=== PATIENT | male | born 1960 | race African-American/Black ===

== ENCOUNTER → 2016-05-12 | Outpatient (CLI) | payer OTHER, MEDICAID ==
[~2016-05-12] MED LIST: ALIS300T OR; APIX5TAB PO; ATOR10TA52 PO; CARI250T8 PO; CLON0.5T3; CLOP75TA28 PO; GABA300C8 PO; HYDR-2533; KEPPRA PO; LEVA1NEB5 IN; NIFEDIPINE 60 MG PO; PANT1INJ3 PO; PHE100C PO; VALS320T13; VALS320T15 PO; ZOLP10TA6
[2016-05-12 13:40] VITALS: BP 185/94
[2016-05-12 14:05] VITALS: BP 166/96
== END | disposition home or self-care (01) ==
LOC: CHF HDHVI 13:36
PROVIDERS: ATTEND Internal Medicine Cardiovascular Disease
DX: I71.9 Aortic aneurysm of unspecified site, without rupture (principal); I11.0 Hypertensive heart disease with heart failure; I50.9 Heart failure, unspecified
CPT/HCPCS: 96374; G0463; J1642

== ENCOUNTER 2016-05-24 21:29 | Emergency (ER) | payer OTHER, MEDICAID ==
[~2016-05-24] VITALS: Ht 180.3 cm; Wt 145.1 kg
[2016-05-24] MEDS ORDERED: MORPHINE SULFATE 4 MG/ML SYRG IV ONE (22:15)
[2016-05-24] MEDS ORDERED: ONDANSETRON HCL 4 MG/2 ML VIAL IV ONE (22:15)
[2016-05-24 22:31] LABS: Basophils # (auto) 0 uL; Basophils % (auto) 0.4 % (0.0-2.0); Eosinophils # (auto) 0 uL; Eosinophils % (auto) 0.8 % (0.0-7.0); Hematocrit 41.2 % (41.0-53.0); Hemoglobin 13.3 g/dL (13.5-17.5); Lymphocytes # (auto) 1.5 uL; Lymphocytes % (auto) 26.1 % (10.0-50.0); Mean Corpuscular Hemoglobin 28.5 pg (28.0-32.0); Mean Corpuscular Hgb Conc. 32.3 g/dL (32.0-36.0); Mean Corpuscular Volume 87.9 fL (80.0-100.0); Mean Platelet Volume 7.8 fL (7.4-10.4); Monocytes # (auto) 0.8 uL; Monocytes % (auto) 13.1 % (0.0-12.0); Neutrophils # (auto) 3.5 uL; Neutrophils % (auto) 59.6 % (37.0-80.0); Platelet Count (auto) 263 10^3/uL (140-450); Red Cell Distribution Width 15.9 % (11.6-16.0); White Blood Cell 5.9 10^3/uL (4.4-10.8)
[2016-05-24] MEDS ORDERED: NITROGLYCERIN 2% OINT 1GM PKG TD ONE (22:45)
[2016-05-24] MEDS ORDERED: HYDROmorphone HCL 2 MG/ML VL IV ONE (22:45)
[2016-05-24 23:00] LABS: Albumin 3.5 g/dL (3.4-5.0); Bilirubin, Total 0.3 mg/dL (0.2-1.0); Calcium 8.4 mg/dL (8.5-10.1); Potassium 3.4 mmol/L (3.5-5.1); Total Protein 7.2 g/dL (6.4-8.2)
[2016-05-24 23:03] LABS: B-Type Natriuretic Peptide 48.7 pg/mL (0-100)
[2016-05-24 23:11] LABS: Temperature: 21.6 C (20.0-25.0)
[2016-05-25 03:00] VITALS: BP 157/91
== END 2016-05-25 04:32 | disposition other institution (70) ==
LOC: EDBD 21:29 → ER 21:42
DX: I24.9 Acute ischemic heart disease, unspecified (principal); I11.0 Hypertensive heart disease with heart failure; K21.9 Gastro-esophageal reflux disease without esophagitis; E78.5 Hyperlipidemia, unspecified; M19.90 Unspecified osteoarthritis, unspecified site; I25.2 Old myocardial infarction; E66.01 Morbid (severe) obesity due to excess calories; Z86.73 Personal history of transient ischemic attack (TIA), and cerebral infarction without residual deficits; Z79.899 Other long term (current) drug therapy; Z88.0 Allergy status to penicillin; Z68.42 Body mass index [BMI] 45.0-49.9, adult; Z88.8 Allergy status to other drugs, medicaments and biological substances; F17.210 Nicotine dependence, cigarettes, uncomplicated; F12.10 Cannabis abuse, uncomplicated
CPT/HCPCS: 36415; 71010; 80053; 82962; 83880; 84484; 85025; 85049; 85379; 93005; 94660; 94761; 96374; 96375; 99285; J1170; J2270; J2405

== ENCOUNTER 2016-05-27 11:41 | Inpatient (IN) | payer OTHER, MEDICAID ==
[~2016-05-27] VITALS: Ht 182.9 cm; Wt 142.7 kg
[~2016-05-27 11:41] MED LIST changes: +LEVETIRACETAM 500 MG TAB PO SCH
[2016-05-27] MEDS ORDERED: SODIUM CHLORIDE 0.9% 1,000 ML IV ONE (12:19)
[2016-05-27] MEDS ORDERED: MIDAZOLAM HCL 1MG/1ML-2 ML VIAL ONE (12:51)
[2016-05-27] MEDS ORDERED: MIDAZOLAM HCL 1MG/1ML-2 ML VIAL IV ONE (13:00)
[2016-05-27] MEDS ORDERED: LEVETIRACETAM INJ 1,000 MG in SODIUM CHL 0.9% 100 ML IV ONE (13:00)
[2016-05-27 13:10] LABS: Hemoglobin 14.5 g/dL (13.5-17.5); Mean Corpuscular Hemoglobin 28.5 pg (28.0-32.0); Mean Corpuscular Hgb Conc. 32.2 g/dL (32.0-36.0); Mean Corpuscular Volume 88.5 fL (80.0-100.0); Mean Platelet Volume 8.2 fL (7.4-10.4); Platelet Count (auto) 215 10^3/uL (140-450); Red Cell Distribution Width 14.8 % (11.6-16.0); SUSPECT VIEW TRANSMISSION; White Blood Cell 5.1 10^3/uL (4.4-10.8)
[2016-05-27 13:12] LABS: Albumin 3.5 g/dL (3.4-5.0); Calcium 8.3 mg/dL (8.5-10.1); Potassium 3.6 mmol/L (3.5-5.1)
[2016-05-27 13:14] LABS: Metamyelocytes % 0; Myelocytes % 0; Promyelocytes % 0; Reactive Lymphocytes 0
[2016-05-27 13:15] LABS: INR 1.06 (0.9-1.15); Partial Thromboplastin Time 29.9 sec (22.64-33.71); Prothrombin Time 10.9 sec (9.37-12.3)
[2016-05-27 13:17] LABS: Bilirubin, Total 0.4 mg/dL (0.2-1.0); Total Protein 7.4 g/dL (6.4-8.2)
[2016-05-27 13:18] LABS: B-Type Natriuretic Peptide 32.37 pg/mL (0-100)
[2016-05-27 13:31] LABS: Temperature: 21.5 C (20.0-25.0)
[2016-05-27 13:34] LABS: Platelet Estimate Adequate; RBC Morphology Normal
[2016-05-27] MEDS ORDERED: PHENYTOIN IV DILANTIN 1,000 MG in SODIUM CHL 0.9% 250 ML IV ONE (14:45)
[2016-05-27] MEDS ORDERED: SODIUM CHLORIDE 0.9% 1,000 ML IV SCH (14:50)
[2016-05-27 15:00] LABS: Urine RBC None Seen /hpf (0 - 3)
[2016-05-27] MEDS ORDERED: LACTULOSE 20Gm/30ML SOLN PO PRN (15:00)
[2016-05-27] MEDS ORDERED: NITROGLYCERIN 0.4 MG SL TAB SL PRN (15:00)
[2016-05-27] MEDS ORDERED: PROMETHAZINE HCL 25 MG/ML 1ML IV PRN (15:00)
[2016-05-27] MEDS ORDERED: MIDAZOLAM HCL 1MG/1ML-2 ML VIAL IV PRN (15:00)
[2016-05-27] MEDS ORDERED: ALBUTEROL SULF 2.5 MG/0.5ML(0.5%) NEB SOLN NEB PRN (15:00)
[2016-05-27] MEDS ORDERED: MORPHINE SULF INJ 2 MG/ML SYRINGE 1ML IV PRN ×2 (15:00)
[2016-05-27] MEDS ORDERED: HYDROcodone-ACET 5/325MG TAB PO PRN (15:00)
[2016-05-27] MEDS ORDERED: ACETAMINOPHEN 500 MG TAB PO PRN (15:00)
[2016-05-27] MEDS ORDERED: ZOLPIDEM TARTRATE 5 MG TAB PO PRN (15:00)
[2016-05-27] MEDS ORDERED: CARISOPRODOL 350 MG PO PRN (15:00)
[2016-05-27 15:18] LABS: Urine Bilirubin Negative (Negative); Urine Blood Negative /uL (Negative); Urine Color Yellow (Yellow); Urine Glucose Normal (Normal); Urine Ketone TRACE (Negative); Urine Mucus FEW (None Seen); Urine Nitrite Negative (Negative); Urine Squamous Epithelial Cell FEW /hpf (<5)
[2016-05-27] MEDS ORDERED: LEVALBUTEROL HCL 1.25 MG/3 ML NEB NEB PRN (15:30)
[2016-05-27] MEDS ORDERED: CARISOPRODOL 350 MG TAB PO PRN (15:30)
[2016-05-27] MEDS ORDERED: VALSARTAN 80 MG TAB PO ONE (15:45)
[2016-05-27] MEDS ORDERED: NITROGLYCERIN 0.2MG/HR TOPICAL PATCH TD ONE (15:45)
[2016-05-27] MEDS ORDERED: APIXABAN 5 MG TAB PO ONE (15:45)
[2016-05-27] MEDS ORDERED: GABAPENTIN 300 MG CAP PO ONE (15:45)
[2016-05-27] MEDS ORDERED: ASPirin 81 mg TAB PO ONE (15:45)
[2016-05-27] MEDS: NIFEdipine ER 30 MG TAB PO SCH (16:48)
[2016-05-27 20:40] VITALS: BP 102/44
[2016-05-27 20:45] VITALS: BP 116/49
[2016-05-27] MEDS: PHENYTOIN SODIUM 100 MG CAP PO SCH (21:58)
[2016-05-27] MEDS: GABAPENTIN 300 MG CAP PO SCH (21:58)
[2016-05-27] MEDS: APIXABAN 5 MG TAB PO SCH (21:58)
[2016-05-27 22:00] VITALS: BP 107/77
[2016-05-27] MEDS ORDERED: PHENYTOIN SODIUM 100 MG CAP PO SCH ×2 (22:00)
[2016-05-27] MEDS ORDERED: LEVALBUTEROL HCL 1.25 MG/3 ML NEB NEB SCH (22:00)
[2016-05-27] MEDS ORDERED: ATORVASTATIN 20 MG TAB PO SCH (22:00)
[2016-05-27] MEDS ORDERED: PATIENTS OWN MEDICATION (Atorvastatin Calcium 10 MG) PO SCH ×2 (22:00)
[2016-05-27] MEDS ORDERED: LEVALBUTEROL HYDROCHLORIDE IN SCH (22:00)
[2016-05-27] MEDS ORDERED: KEPPRA 1000 MG PO SCH (22:00)
[2016-05-27] MEDS: IPRATROPIUM BROM 0.5 MG/2.5ML INH SOL NEB SCH (22:24)
[2016-05-28 02:50] VITALS: BP 107/77
[2016-05-28 05:00] VITALS: BP 115/71
[2016-05-28] MEDS: PHENYTOIN SODIUM 100 MG CAP PO SCH (05:59)
[2016-05-28] MEDS: GABAPENTIN 300 MG CAP PO SCH (05:59)
[2016-05-28 07:02] LABS: B-Type Natriuretic Peptide 21.69 pg/mL (0-100)
[2016-05-28] MEDS: IPRATROPIUM BROM 0.5 MG/2.5ML INH SOL NEB SCH (07:31)
[2016-05-28 07:55] VITALS: BP 118/72
[2016-05-28 08:05] VITALS: BP 125/66
[2016-05-28 09:48] VITALS: BP 159/71
[2016-05-28] MEDS: NIFEdipine ER 30 MG TAB PO SCH (09:58)
[2016-05-28] MEDS: APIXABAN 5 MG TAB PO SCH (09:59)
[2016-05-28] MEDS ORDERED: ENOXAPARIN SOD 40 MG/0.4 ML SYRINGE SC SCH (10:00)
[2016-05-28] MEDS ORDERED: ASPirin 81 mg TAB PO SCH (10:00)
[2016-05-28] MEDS ORDERED: NIFEDIPINE PO SCH (10:00)
[2016-05-28] MEDS ORDERED: [UNRECOGNIZED DRUG - OTHER] PO SCH (10:00)
[2016-05-28] MEDS ORDERED: NITROGLYCERIN 0.2MG/HR TOPICAL PATCH TD SCH (10:00)
[2016-05-28] MEDS ORDERED: clonazePAM 0.5 MG TAB PO SCH (10:00)
[2016-05-28] MEDS ORDERED: CITALOPRAM HYDROBR 20 MG TAB PO SCH (10:00)
[2016-05-28] MEDS ORDERED: VALSARTAN 80 MG TAB PO SCH (10:00)
[2016-05-28] MEDS ORDERED: VALSARTAN 320 MG PO SCH (10:00)
[2016-05-28] MEDS ORDERED: CLOPIDOGREL BISULFATE 75 MG TAB PO SCH (10:00)
[2016-05-28] MEDS ORDERED: [UNRECOGNIZED DRUG - OTHER] OR SCH (10:00)
== END 2016-05-28 12:10 | disposition home or self-care (01) | DRG 101 ==
LOC: EDBD 11:41 → ER 11:51 → TELE 11:52 → TELE-WESTW 17:56
PROVIDERS: ADMIT Internal Medicine; ATTEND Internal Medicine
PROC: 5A09357 Assistance with Respiratory Ventilation, Less than 24 Consecutive Hours, Continuous Positive Airway Pressure (ICD-10-PCS; principal; 2016-05-27)
DX: G40.909 Epilepsy, unspecified, not intractable, without status epilepticus (principal); Z68.41 Body mass index [BMI] 40.0-44.9, adult; I13.0 Hypertensive heart and chronic kidney disease with heart failure and stage 1 through stage 4 chronic kidney disease, or unspecified chronic kidney disease; J44.9 Chronic obstructive pulmonary disease, unspecified; G47.33 Obstructive sleep apnea (adult) (pediatric); N18.2 Chronic kidney disease, stage 2 (mild); E78.5 Hyperlipidemia, unspecified; F17.210 Nicotine dependence, cigarettes, uncomplicated; F40.240 Claustrophobia; G47.00 Insomnia, unspecified; E66.01 Morbid (severe) obesity due to excess calories; I25.10 Atherosclerotic heart disease of native coronary artery without angina pectoris; I50.9 Heart failure, unspecified; K21.9 Gastro-esophageal reflux disease without esophagitis; Z82.0 Family history of epilepsy and other diseases of the nervous system; Z82.3 Family history of stroke; I25.2 Old myocardial infarction; Z82.49 Family history of ischemic heart disease and other diseases of the circulatory system; Z86.718 Personal history of other venous thrombosis and embolism; Z86.73 Personal history of transient ischemic attack (TIA), and cerebral infarction without residual deficits; Z83.3 Family history of diabetes mellitus; Z95.5 Presence of coronary angioplasty implant and graft; Z88.0 Allergy status to penicillin; Z88.8 Allergy status to other drugs, medicaments and biological substances; Z88.6 Allergy status to analgesic agent; Z91.011 Allergy to milk products; Z91.010 Allergy to peanuts; Z95.828 Presence of other vascular implants and grafts; Z95.1 Presence of aortocoronary bypass graft; Z23 Encounter for immunization
CPT/HCPCS: 36415; 70450; 71010; 80053; 80185; 81001; 82542; 82550; 83880; 84484; 85007; 85027; 85610; 85652; 85730; 86141; 93005; 94640; 96361; 96365; 96366; 96367; 96375; G0434; J1642; J2250

== ENCOUNTER 2016-06-07 12:33 | Emergency (ER) | payer OTHER, MEDICAID ==
[~2016-06-07 12:33] MED LIST changes: -SODIUM CHLORIDE 0.9% 1,000 ML IV SCH
[2016-06-07] MEDS ORDERED: DIAZEPAM 5 MG/ML 2ML SYRG IV ONE (13:00)
[2016-06-07 13:17] LABS: Basophils # (auto) 0 uL; Basophils % (auto) 0.4 % (0.0-2.0); Eosinophils # (auto) 0.1 uL; Eosinophils % (auto) 1.4 % (0.0-7.0); Hematocrit 46.2 % (41.0-53.0); Hemoglobin 14.7 g/dL (13.5-17.5); Lymphocytes # (auto) 2.2 uL; Lymphocytes % (auto) 36.3 % (10.0-50.0); Mean Corpuscular Hemoglobin 28.3 pg (28.0-32.0); Mean Corpuscular Hgb Conc. 31.9 g/dL (32.0-36.0); Mean Corpuscular Volume 88.7 fL (80.0-100.0); Mean Platelet Volume 7.5 fL (7.4-10.4); Monocytes # (auto) 0.5 uL; Monocytes % (auto) 8.7 % (0.0-12.0); Neutrophils # (auto) 3.2 uL; Neutrophils % (auto) 53.2 % (37.0-80.0); Platelet Count (auto) 312 10^3/uL (140-450)
[2016-06-07 14:16] LABS: Albumin 3.8 g/dL (3.4-5.0); BUN/Creatinine Ratio 9.6; Bilirubin, Total 0.4 mg/dL (0.2-1.0); Potassium 4.1 mmol/L (3.5-5.1)
[2016-06-07] MEDS ORDERED: PHENYTOIN IV DILANTIN 500 MG in SODIUM CHL 0.9% 100 ML IV ONE (15:00)
[2016-06-07] MEDS ORDERED: diphenhdrAMINE HCL 50 MG/1 ML VL ONE (16:18)
[2016-06-07] MEDS ORDERED: diphenhdrAMINE HCL 50 MG/1 ML VL IV ONE (16:26)
[2016-06-07] MEDS ORDERED: SODIUM CHLORIDE 0.9% 1,000 ML IV ONE (16:45)
[2016-06-07 17:58] VITALS: BP 152/80
== END 2016-06-07 17:59 | disposition home or self-care (01) ==
LOC: EDUNIT# 12:33 → ER 12:33
DX: G40.909 Epilepsy, unspecified, not intractable, without status epilepticus (principal); I25.10 Atherosclerotic heart disease of native coronary artery without angina pectoris; M19.90 Unspecified osteoarthritis, unspecified site; K21.9 Gastro-esophageal reflux disease without esophagitis; E78.5 Hyperlipidemia, unspecified; I25.2 Old myocardial infarction; Z86.73 Personal history of transient ischemic attack (TIA), and cerebral infarction without residual deficits; I11.0 Hypertensive heart disease with heart failure; I50.9 Heart failure, unspecified; F17.210 Nicotine dependence, cigarettes, uncomplicated; F12.10 Cannabis abuse, uncomplicated
CPT/HCPCS: 36415; 70450; 80053; 80185; 84484; 85025; 93005; 96361; 96374; 96375; 99285; J1165; J1200; J7030

== ENCOUNTER → 2016-06-07 | Outpatient (CLI) | payer OTHER, MEDICAID ==
[~2016-06-07] MED LIST changes: -LEVETIRACETAM 500 MG TAB PO SCH; +SODIUM CHLORIDE 0.9% 1,000 ML IV SCH
[2016-06-07 10:35] VITALS: BP 167/104
[2016-06-07 12:20] VITALS: BP 166/94
== END | disposition home or self-care (01) ==
LOC: CHF HDHVI 10:47
PROVIDERS: ATTEND Internal Medicine Cardiovascular Disease
DX: I11.0 Hypertensive heart disease with heart failure (principal); I50.9 Heart failure, unspecified; I25.10 Atherosclerotic heart disease of native coronary artery without angina pectoris; G40.909 Epilepsy, unspecified, not intractable, without status epilepticus
CPT/HCPCS: 82962; G0463; J1642; 96366

== ENCOUNTER → 2016-06-23 | Outpatient (CLI) | payer OTHER, MEDICAID ==
[2016-06-23 10:05] VITALS: BP 158/98
[2016-06-23 10:35] VITALS: BP 148/90
== END | disposition home or self-care (01) ==
LOC: CHF HDHVI 10:10
PROVIDERS: ATTEND Internal Medicine Cardiovascular Disease
DX: I10 Essential (primary) hypertension (principal); E11.9 Type 2 diabetes mellitus without complications
CPT/HCPCS: G0463

== ENCOUNTER → 2016-06-30 | Outpatient (CLI) | payer OTHER, MEDICAID ==
[~2016-06-30] MED LIST changes: +KETOROLAC TROMETH 60MG/2ML VIAL IM ONE; +ONDANSETRON HCL 4 MG/2 ML VIAL IV ONE; +ONDANSETRON HCL 4 MG/2 ML VIAL ONE
[2016-06-30 13:20] VITALS: BP 163/104
[2016-06-30 14:45] VITALS: BP 136/98
[2016-06-30 17:13] LABS: Basophils # (auto) 0 uL; Basophils % (auto) 0.4 % (0.0-2.0); Eosinophils # (auto) 0.1 uL; Eosinophils % (auto) 1.1 % (0.0-7.0); Hematocrit 45.2 % (41.0-53.0); Lymphocytes # (auto) 2.6 uL; Lymphocytes % (auto) 34.7 % (10.0-50.0); Mean Corpuscular Hemoglobin 29.3 pg (28.0-32.0); Mean Corpuscular Hgb Conc. 33.1 g/dL (32.0-36.0); Mean Corpuscular Volume 88.4 fL (80.0-100.0); Mean Platelet Volume 8.4 fL (7.4-10.4); Monocytes # (auto) 0.4 uL; Monocytes % (auto) 5.7 % (0.0-12.0); Neutrophils # (auto) 4.3 uL; Neutrophils % (auto) 58.1 % (37.0-80.0); Platelet Count (auto) 265 10^3/uL (140-450); Red Cell Distribution Width 15.6 % (11.6-16.0); White Blood Cell 7.5 10^3/uL (4.4-10.8)
[2016-06-30 18:01] LABS: Carbamazepine (Tegretol) < 0.5 ug/mL (4-12)
== END | disposition home or self-care (01) ==
LOC: CHF HDHVI 13:23
PROVIDERS: ATTEND Internal Medicine Cardiovascular Disease
DX: G40.89 Other seizures (principal); D64.9 Anemia, unspecified
CPT/HCPCS: 36415; 71020; 80156; 80185; 85025; 96372; 96374; G0463; J1885; J2405

== ENCOUNTER → 2016-07-01 | Outpatient (CLI) | payer OTHER, MEDICAID ==
[~2016-07-01] MED LIST changes: -KETOROLAC TROMETH 60MG/2ML VIAL IM ONE; -ONDANSETRON HCL 4 MG/2 ML VIAL IV ONE; -ONDANSETRON HCL 4 MG/2 ML VIAL ONE
== END | disposition home or self-care (01) ==
LOC: Rad HDHVI 08:00
PROVIDERS: ATTEND Internal Medicine Cardiovascular Disease
DX: I71.2 Thoracic aortic aneurysm, without rupture (principal); I08.3 Combined rheumatic disorders of mitral, aortic and tricuspid valves
CPT/HCPCS: 93306

== ENCOUNTER → 2016-07-20 | Outpatient (CLI) | payer OTHER, MEDICAID ==
[2016-07-20 09:30] VITALS: BP 161/102
[2016-07-20 11:30] VITALS: BP 160/100
== END | disposition home or self-care (01) ==
LOC: CHF HDHVI 09:34
PROVIDERS: ATTEND Internal Medicine Cardiovascular Disease
DX: I11.0 Hypertensive heart disease with heart failure (principal); I50.9 Heart failure, unspecified; I25.10 Atherosclerotic heart disease of native coronary artery without angina pectoris; G40.909 Epilepsy, unspecified, not intractable, without status epilepticus
CPT/HCPCS: G0463

== ENCOUNTER 2016-07-23 15:00 | Emergency (ER) | payer OTHER, MEDICAID ==
[~2016-07-23] VITALS: Ht 180.3 cm; Wt 133.8 kg
[2016-07-23 15:33] VITALS: BP 170/100
[2016-07-23 16:49] LABS: Basophils # (auto) 0 uL; Basophils % (auto) 0.8 % (0.0-2.0); Eosinophils # (auto) 0.1 uL; Eosinophils % (auto) 1.6 % (0.0-7.0); Hematocrit 40.9 % (41.0-53.0); Hemoglobin 13.4 g/dL (13.5-17.5); Lymphocytes # (auto) 2.8 uL; Lymphocytes % (auto) 45.2 % (10.0-50.0); Mean Corpuscular Hemoglobin 28.7 pg (28.0-32.0); Mean Corpuscular Hgb Conc. 32.6 g/dL (32.0-36.0); Mean Corpuscular Volume 87.9 fL (80.0-100.0); Mean Platelet Volume 7.9 fL (7.4-10.4); Monocytes # (auto) 0.5 uL; Monocytes % (auto) 8.1 % (0.0-12.0); Neutrophils # (auto) 2.7 uL; Neutrophils % (auto) 44.3 % (37.0-80.0); Platelet Count (auto) 256 10^3/uL (140-450); Red Cell Distribution Width 16.1 % (11.6-16.0); White Blood Cell 6.2 10^3/uL (4.4-10.8)
[2016-07-23 17:11] LABS: Albumin 3.3 g/dL (3.4-5.0); BUN/Creatinine Ratio 12.1; Calcium 8.3 mg/dL (8.5-10.1); Potassium 3.8 mmol/L (3.5-5.1)
[2016-07-23 17:13] LABS: Bilirubin, Total 0.1 mg/dL (0.2-1.0)
== END 2016-07-23 20:05 | disposition left against medical advice (07) ==
LOC: ER 15:27
DX: R79.9 Abnormal finding of blood chemistry, unspecified (principal); Z53.21 Procedure and treatment not carried out due to patient leaving prior to being seen by health care provider
CPT/HCPCS: 36415; 80053; 80185; 85025; 93005

== ENCOUNTER 2016-07-28 02:30 | Emergency (ER) | payer OTHER, MEDICAID ==
[~2016-07-28] VITALS: Ht 180.3 cm; Wt 133.8 kg
[2016-07-28 03:17] LABS: Basophils # (auto) 0 uL; Basophils % (auto) 0.5 % (0.0-2.0); Eosinophils # (auto) 0.2 uL; Eosinophils % (auto) 1.9 % (0.0-7.0); Hematocrit 42.3 % (41.0-53.0); Hemoglobin 13.7 g/dL (13.5-17.5); Lymphocytes % (auto) 37.3 % (10.0-50.0); Mean Corpuscular Hemoglobin 28.5 pg (28.0-32.0); Mean Corpuscular Hgb Conc. 32.3 g/dL (32.0-36.0); Mean Corpuscular Volume 88.1 fL (80.0-100.0); Mean Platelet Volume 7.8 fL (7.4-10.4); Monocytes # (auto) 0.5 uL; Monocytes % (auto) 6.8 % (0.0-12.0); Neutrophils # (auto) 4.3 uL; Neutrophils % (auto) 53.5 % (37.0-80.0); Platelet Count (auto) 260 10^3/uL (140-450); White Blood Cell 8.1 10^3/uL (4.4-10.8)
[2016-07-28 03:44] LABS: INR 1.03 (0.9-1.15); Partial Thromboplastin Time 28.2 sec (22.64-33.71); Prothrombin Time 11.1 sec (9.37-12.3)
[2016-07-28 03:46] LABS: Albumin 3.5 g/dL (3.4-5.0); Alkaline Phosphatase 99 U/L (45-117); Anion Gap 10 (5-15); Aspartate Aminotransferase 10 U/L (15-37); BUN/Creatinine Ratio 12.1; Bilirubin, Total 0.3 mg/dL (0.2-1.0); Blood Urea Nitrogen 11 mg/dL (7-18); Calcium 8.3 mg/dL (8.5-10.1); Carbon Dioxide 25 mmol/L (21-32); Chloride 112 mmol/L (98-107); GFR African American 112 mL/min; GFR Non-African American 92 mL/min; Glucose 99 mg/dL (74-106); Magnesium 2.1 mg/dL (1.6-2.6); Potassium 3.6 mmol/L (3.5-5.1); Sodium 147 mmol/L (136-145); Total Protein 7.5 g/dL (6.4-8.2)
[2016-07-28 09:13] LABS: Urine Bilirubin Negative (Negative); Urine Blood TRACE /uL (Negative); Urine Color Yellow (Yellow); Urine Glucose Normal (Normal); Urine Ketone Negative (Negative); Urine Mucus FEW (None Seen); Urine Nitrite Negative (Negative); Urine RBC 11 /hpf (0 - 3)
[2016-07-28 09:38] VITALS: BP 151/85
== END 2016-07-28 12:19 | disposition left against medical advice (07) ==
LOC: ER 02:35
DX: R07.9 Chest pain, unspecified (principal); J44.9 Chronic obstructive pulmonary disease, unspecified; I11.0 Hypertensive heart disease with heart failure; I50.9 Heart failure, unspecified; F17.210 Nicotine dependence, cigarettes, uncomplicated; F12.10 Cannabis abuse, uncomplicated; F15.10 Other stimulant abuse, uncomplicated; E66.01 Morbid (severe) obesity due to excess calories; Z68.41 Body mass index [BMI] 40.0-44.9, adult; I25.10 Atherosclerotic heart disease of native coronary artery without angina pectoris; M19.90 Unspecified osteoarthritis, unspecified site; K21.9 Gastro-esophageal reflux disease without esophagitis; E78.5 Hyperlipidemia, unspecified; I25.2 Old myocardial infarction; Z90.49 Acquired absence of other specified parts of digestive tract; Z88.0 Allergy status to penicillin; Z88.6 Allergy status to analgesic agent; Z88.8 Allergy status to other drugs, medicaments and biological substances; Z91.041 Radiographic dye allergy status
CPT/HCPCS: 36415; 70450; 71010; 80053; 80185; 80320; 81001; 83605; 83735; 84484; 85025; 85379; 85610; 85730; 87040; 87077; 87186; 93005; 99285; G0434

== ENCOUNTER → 2016-09-03 | Outpatient (CLI) | payer OTHER, MEDICAID ==
[2016-09-03 08:45] VITALS: BP 164/98
[2016-09-03 09:05] VITALS: BP 168/97
== END | disposition home or self-care (01) ==
LOC: CHF HDHVI 08:58
PROVIDERS: ATTEND Internal Medicine Cardiovascular Disease
DX: I11.0 Hypertensive heart disease with heart failure (principal); I50.9 Heart failure, unspecified; I25.10 Atherosclerotic heart disease of native coronary artery without angina pectoris; R56.9 Unspecified convulsions
CPT/HCPCS: 96374; G0463; J1642

== ENCOUNTER 2016-09-08 19:55 | Inpatient (IN) | payer OTHER, MEDICAID ==
[~2016-09-08] VITALS: Ht 180.3 cm; Wt 142.7 kg
[2016-09-08 21:23] LABS: Basophils # (auto) 0.1 uL; Basophils % (auto) 0.7 % (0.0-2.0); Eosinophils # (auto) 0.2 uL; Eosinophils % (auto) 2.1 % (0.0-7.0); Hematocrit 44.7 % (41.0-53.0); Hemoglobin 14.4 g/dL (13.5-17.5); Lymphocytes # (auto) 3.4 uL; Lymphocytes % (auto) 40.8 % (10.0-50.0); Mean Corpuscular Hemoglobin 28.3 pg (28.0-32.0); Mean Corpuscular Hgb Conc. 32.2 g/dL (32.0-36.0); Mean Platelet Volume 8.4 fL (7.4-10.4); Monocytes # (auto) 0.6 uL; Monocytes % (auto) 7.6 % (0.0-12.0); Neutrophils % (auto) 48.8 % (37.0-80.0); Platelet Count (auto) 304 10^3/uL (140-450); Red Cell Distribution Width 17.4 % (11.6-16.0); White Blood Cell 8.2 10^3/uL (4.4-10.8)
[2016-09-08 21:25] LABS: Albumin 3.9 g/dL (3.4-5.0); BUN/Creatinine Ratio 9.7; Calcium 8.3 mg/dL (8.5-10.1); INR 0.99 (0.9-1.15); Partial Thromboplastin Time 27.8 sec (22.64-33.71); Potassium 4.1 mmol/L (3.5-5.1); Prothrombin Time 10.7 sec (9.37-12.3)
[2016-09-08 21:30] LABS: Bilirubin, Total 0.3 mg/dL (0.2-1.0); Total Protein 7.5 g/dL (6.4-8.2)
[2016-09-08] MEDS ORDERED: ONDANSETRON HCL 4 MG/2 ML VIAL IV ONE (23:45)
[2016-09-08] MEDS ORDERED: ASPirin 81 mg TAB PO ONE (23:45)
[2016-09-08] MEDS ORDERED: MORPHINE SULFATE 4 MG/ML SYRG IV ONE (23:45)
[2016-09-08] MEDS ORDERED: NITROGLYCERIN 0.4 MG SL TAB SL ONE (23:48)
[2016-09-09] VITALS (9 sets, daily range): BP systolic 132–166; BP diastolic 72–96
[2016-09-09] MEDS ORDERED: CLOPIDOGREL BISULFATE 75 MG TAB ONE (00:29)
[2016-09-09] MEDS ORDERED: CLOPIDOGREL BISULFATE 75 MG TAB PO ONE ×2 (00:30→00:45)
[2016-09-09] MEDS ORDERED: ENOXAPARIN SOD 60 MG/0.6 ML SYRINGE SC SCH ×2 (01:00→10:00)
[2016-09-09] MEDS ORDERED: TIZA2TAB3 PO (01:10)
[2016-09-09] MEDS ORDERED: FLUT100I IN (01:10)
[2016-09-09] MEDS ORDERED: TRAZ50TA2 PO (01:10)
[2016-09-09] MEDS ORDERED: ALBU18 IN (01:10)
[2016-09-09] MEDS ORDERED: POTA10TA79 PO (01:10)
[2016-09-09] MEDS ORDERED: DICL-164 PO (01:10)
[2016-09-09] MEDS ORDERED: ISOS1TAB37 PO (01:10)
[2016-09-09] MEDS ORDERED: CARB200T4 PO (01:10)
[2016-09-09] MEDS ORDERED: FUR20T PO (01:10)
[2016-09-09] MEDS ORDERED: PANT40T PO (01:10)
[2016-09-09] MEDS ORDERED: TIZANIDINE HYDROCHLORIDE PO PRN (01:30)
[2016-09-09] MEDS ORDERED: CARISOPRODOL 350 MG TAB PO PRN (01:45)
[2016-09-09] MEDS: PHENYTOIN SODIUM 100 MG CAP PO SCH ×3 (05:52→21:42)
[2016-09-09] MEDS ORDERED: TIZANIDINE HYDROCHLORIDE 2 MG PO PRN (06:45)
[2016-09-09] MEDS ORDERED: NITROGLYCERIN 0.4 MG SL TAB SL ONE ×2 (10:00→12:49)
[2016-09-09] MEDS ORDERED: DICLOFENAC SODIUM 75 MG PO SCH (10:00)
[2016-09-09] MEDS: POTASSIUM CHL 10 Meq TABLET PO SCH (10:00)
[2016-09-09] MEDS ORDERED: CLOPIDOGREL BISULFATE 75 MG TAB PO SCH (10:00)
[2016-09-09] MEDS ORDERED: ISOSORBIDE DINITRATE 30 MG PO SCH (10:00)
[2016-09-09] MEDS: FUROSEMIDE 20 MG TAB PO SCH (10:00)
[2016-09-09] MEDS: PANTOPRAZOLE 40 MG TAB PO SCH (10:00)
[2016-09-09] MEDS: CLOPIDOGREL BISULFATE 75 MG TAB PO SCH (10:00)
[2016-09-09] MEDS: Diclofenac Sodium 75 MG PO SCH ×2 (10:00→21:41)
[2016-09-09] MEDS ORDERED: ISOSORBIDE DINITRATE 10 MG TAB PO SCH (10:00)
[2016-09-09] MEDS: BUDESONIDE (INHALATION) 0.5 MG/2 ML NEB NEB SCH ×2 (11:49→19:25)
[2016-09-09] MEDS: ALBUTEROL SULF 2.5 MG/0.5ML(0.5%) NEB SOLN NEB SCH ×2 (11:49→19:25)
[2016-09-09] MEDS ORDERED: NITROGLYCERIN 0.4 MG SL TAB SL PRN (13:00)
[2016-09-09] MEDS ORDERED: HYDROcodone-ACET 10/325MG TAB PO PRN (17:00)
[2016-09-09] MEDS ORDERED: FLUTICASONE FUROATE VILANTEROL IN SCH (18:00)
[2016-09-09] MEDS: traZODone HCL 50 MG TAB PO SCH (21:42)
[2016-09-09] MEDS: ATORVASTATIN 20 MG TAB PO SCH (21:43)
[2016-09-09] MEDS: carBAMazepine 200 MG TAB PO SCH (21:43)
[2016-09-10] MEDS: ALBUTEROL SULF 2.5 MG/0.5ML(0.5%) NEB SOLN NEB SCH ×4 (00:44→18:10)
[2016-09-10 05:30] VITALS: BP 163/71
[2016-09-10] MEDS: PHENYTOIN SODIUM 100 MG CAP PO SCH ×3 (06:10→21:28)
[2016-09-10] MEDS: BUDESONIDE (INHALATION) 0.5 MG/2 ML NEB NEB SCH ×2 (06:27→18:11)
[2016-09-10 08:00] VITALS: BP 147/82
[2016-09-10] MEDS ORDERED: LIDOCAINE 2%HCL (LOCAL ANESTH.) INJ 20ML MDV ONE (08:28)
[2016-09-10] MEDS ORDERED: IOHEXOL 350 MG/ML 100ML IJ ONE ×2 (08:28→09:37)
[2016-09-10] MEDS ORDERED: MIDAZOLAM HCL 1MG/1ML-2 ML VIAL ONE (08:59)
[2016-09-10] MEDS ORDERED: diphenhdrAMINE HCL 50 MG/1 ML VL ONE (09:00)
[2016-09-10] MEDS ORDERED: methylPREDNISolone SOD SUCC 125 MG/2 ML VL ONE (09:00)
[2016-09-10] MEDS ORDERED: fentaNYL CITRATE 100 MCG/2 ML VL ONE (09:00)
[2016-09-10] MEDS ORDERED: ANGIOMAX 250 MG VIAL IV ONE (09:01)
[2016-09-10] MEDS ORDERED: SODIUM CHL 0.9% 50 ML ONE (09:01)
[2016-09-10] MEDS: Diclofenac Sodium 75 MG PO SCH ×2 (10:00→21:29)
[2016-09-10] MEDS: POTASSIUM CHL 10 Meq TABLET PO SCH (10:00)
[2016-09-10] MEDS: CLOPIDOGREL BISULFATE 75 MG TAB PO SCH (10:00)
[2016-09-10] MEDS: FUROSEMIDE 20 MG TAB PO SCH (10:00)
[2016-09-10] MEDS: PANTOPRAZOLE 40 MG TAB PO SCH (10:00)
[2016-09-10] MEDS ORDERED: SODIUM CHLORIDE 0.9% 1,000 ML IV SCH (10:21)
[2016-09-10] MEDS ORDERED: LORazepam 0.5 MG TAB PO PRN (10:30)
[2016-09-10] MEDS ORDERED: ONDANSETRON HCL 4 MG/2 ML VIAL IV PRN (10:30)
[2016-09-10] MEDS ORDERED: ISOSORBIDE MONONITRATE 60 MG TAB PO ONE (10:30)
[2016-09-10] MEDS: HYDROcodone-ACET 5/325MG TAB PO PRN ×2 (11:28→19:45)
[2016-09-10 17:09] VITALS: BP 127/95
[2016-09-10 20:00] VITALS: BP 131/82
[2016-09-10] MEDS: ZOLPIDEM TARTRATE 5 MG TAB PO PRN (21:26)
[2016-09-10] MEDS: carBAMazepine 200 MG TAB PO SCH (21:27)
[2016-09-10] MEDS: ATORVASTATIN 20 MG TAB PO SCH (21:28)
[2016-09-10] MEDS: traZODone HCL 50 MG TAB PO SCH (21:29)
[2016-09-10 21:34] VITALS: BP 131/82
[2016-09-11] MEDS: ALBUTEROL SULF 2.5 MG/0.5ML(0.5%) NEB SOLN NEB SCH ×4 (00:06→18:00)
[2016-09-11 04:39] VITALS: BP 139/79
[2016-09-11] MEDS: PHENYTOIN SODIUM 100 MG CAP PO SCH ×3 (05:40→21:29)
[2016-09-11 09:00] VITALS: BP 163/95
[2016-09-11] MEDS: FUROSEMIDE 20 MG TAB PO SCH (09:33)
[2016-09-11] MEDS: POTASSIUM CHL 10 Meq TABLET PO SCH (09:33)
[2016-09-11] MEDS: ISOSORBIDE MONONITRATE 60 MG TAB PO SCH (09:33)
[2016-09-11] MEDS: PANTOPRAZOLE 40 MG TAB PO SCH (09:34)
[2016-09-11] MEDS: CLOPIDOGREL BISULFATE 75 MG TAB PO SCH (09:34)
[2016-09-11] MEDS: HYDROcodone-ACET 5/325MG TAB PO PRN (10:00)
[2016-09-11] MEDS: BUDESONIDE (INHALATION) 0.5 MG/2 ML NEB NEB SCH ×2 (10:30→22:00)
[2016-09-11 12:59] VITALS: BP 143/85
[2016-09-11] MEDS: ACETAMINOPHEN 500 MG TAB PO PRN ×2 (14:02→21:30)
[2016-09-11 16:48] VITALS: BP 131/80
[2016-09-11] MEDS: Diclofenac Sodium 75 MG PO SCH (20:50)
[2016-09-11] MEDS: traZODone HCL 50 MG TAB PO SCH (21:29)
[2016-09-11] MEDS: carBAMazepine 200 MG TAB PO SCH (21:29)
[2016-09-11] MEDS: ATORVASTATIN 20 MG TAB PO SCH (21:29)
[2016-09-11] MEDS: ZOLPIDEM TARTRATE 5 MG TAB PO PRN (21:29)
[2016-09-11 22:09] VITALS: BP 149/95
[2016-09-11] MEDS ORDERED: LORazepam 2MG/ML-1ML VIAL ONE (23:13)
[2016-09-11] MEDS ORDERED: LORazepam 2MG/ML-1ML VIAL IV PRN (23:30)
[2016-09-11] MEDS ORDERED: diphenhdrAMINE HCL 50 MG/1 ML VL ONE (23:31)
[2016-09-11] MEDS ORDERED: DIAZEPAM 5 MG/ML 2ML SYRG IV ONE (23:45)
[2016-09-11] MEDS ORDERED: diphenhdrAMINE HCL 50 MG/1 ML VL IV ONE (23:45)
[2016-09-12] MEDS ORDERED: DIAZEPAM 5 MG/ML 2ML SYRG IV PRN
[2016-09-12] MEDS: HYDROcodone-ACET 5/325MG TAB PO PRN (01:12)
[2016-09-12 04:23] VITALS: BP 149/95
[2016-09-12 05:49] VITALS: BP 148/69
[2016-09-12] MEDS: ALBUTEROL SULF 2.5 MG/0.5ML(0.5%) NEB SOLN NEB SCH ×3 (05:52→11:46)
[2016-09-12] MEDS ORDERED: PHENYTOIN SODIUM 100 MG CAP PO SCH (06:00)
[2016-09-12 08:14] VITALS: BP 133/72
[2016-09-12] MEDS: Diclofenac Sodium 75 MG PO SCH (10:00)
[2016-09-12] MEDS: FUROSEMIDE 20 MG TAB PO SCH (10:22)
[2016-09-12] MEDS: CLOPIDOGREL BISULFATE 75 MG TAB PO SCH (10:22)
[2016-09-12] MEDS: PANTOPRAZOLE 40 MG TAB PO SCH (10:23)
[2016-09-12] MEDS: ISOSORBIDE MONONITRATE 60 MG TAB PO SCH (10:23)
[2016-09-12] MEDS: POTASSIUM CHL 10 Meq TABLET PO SCH (10:27)
[2016-09-12 10:42] VITALS: BP 133/72
[2016-09-12] MEDS: BUDESONIDE (INHALATION) 0.5 MG/2 ML NEB NEB SCH (11:46)
== END 2016-09-12 12:05 | disposition home or self-care (01) | DRG 246 ==
LOC: ER 19:55 → TELE 19:56 → TELE-CENTR 09-09 00:57 → UNDODISIN 09-12 12:05
PROVIDERS: ADMIT Internal Medicine Cardiovascular Disease; ATTEND Internal Medicine Cardiovascular Disease
PROC: 4A023N7 Measurement of Cardiac Sampling and Pressure, Left Heart, Percutaneous Approach (ICD-10-PCS; principal; 2016-09-10)
PROC: 027034Z Dilation of Coronary Artery, One Artery with Drug-eluting Intraluminal Device, Percutaneous Approach (ICD-10-PCS; 2016-09-10)
PROC: 02703ZZ Dilation of Coronary Artery, One Artery, Percutaneous Approach (ICD-10-PCS; 2016-09-10)
PROC: B2111ZZ Fluoroscopy of Multiple Coronary Arteries using Low Osmolar Contrast (ICD-10-PCS; 2016-09-10)
DX: I21.4 Non-ST elevation (NSTEMI) myocardial infarction (principal); I50.21 Acute systolic (congestive) heart failure; Z68.41 Body mass index [BMI] 40.0-44.9, adult; G40.909 Epilepsy, unspecified, not intractable, without status epilepticus; E66.01 Morbid (severe) obesity due to excess calories; F17.210 Nicotine dependence, cigarettes, uncomplicated; G47.30 Sleep apnea, unspecified; I11.0 Hypertensive heart disease with heart failure; I25.110 Atherosclerotic heart disease of native coronary artery with unstable angina pectoris; I25.5 Ischemic cardiomyopathy; I73.9 Peripheral vascular disease, unspecified; J44.9 Chronic obstructive pulmonary disease, unspecified; I70.0 Atherosclerosis of aorta; J98.4 Other disorders of lung; N28.9 Disorder of kidney and ureter, unspecified; K21.9 Gastro-esophageal reflux disease without esophagitis; Z82.3 Family history of stroke; Z82.49 Family history of ischemic heart disease and other diseases of the circulatory system; Z83.3 Family history of diabetes mellitus; Z86.718 Personal history of other venous thrombosis and embolism; Z86.73 Personal history of transient ischemic attack (TIA), and cerebral infarction without residual deficits; Z95.5 Presence of coronary angioplasty implant and graft; Z91.19 Patient's noncompliance with other medical treatment and regimen; Z88.0 Allergy status to penicillin; Z91.041 Radiographic dye allergy status; Z91.011 Allergy to milk products; Z91.010 Allergy to peanuts
CPT/HCPCS: 36415; 71010; 80053; 84484; 85025; 85610; 85730; 87081; 93005; 93457; 94640; 94761; 96374; 96375; 99152; C1874; C1887; J2250; J2405

== ENCOUNTER → 2016-10-18 | Outpatient (CLI) | payer OTHER, MEDICAID ==
[~2016-10-18] MED LIST changes: +ALBU18 IN; +CARB200T4 PO; +CARI250T PO; -CARI250T8 PO; +DICL-164 PO; +FLUT100I IN; +FUR20T PO; +GABA-497 PO; -GABA300C8 PO; +ISOS1TAB37 PO; -PANT1INJ3 PO; +PANT40T PO; +POTA10TA79 PO; +TIZA2TAB3 PO; +TRAZ50TA2 PO
[2016-10-18 08:45] VITALS: BP 157/100
[2016-10-18 09:15] VITALS: BP 158/98
[2016-10-18 12:33] LABS: Basophils # (auto) 0 uL; Basophils % (auto) 0.4 % (0.0-2.0); CONDITION Y; Eosinophils # (auto) 0.1 uL; Eosinophils % (auto) 1.1 % (0.0-7.0); Hematocrit 42.3 % (41.0-53.0); Hemoglobin 13.8 g/dL (13.5-17.5); Lymphocytes # (auto) 2.2 uL; Mean Corpuscular Hemoglobin 29.2 pg (28.0-32.0); Mean Corpuscular Hgb Conc. 32.5 g/dL (32.0-36.0); Mean Corpuscular Volume 89.8 fL (80.0-100.0); Mean Platelet Volume 8.1 fL (7.4-10.4); Monocytes # (auto) 0.6 uL; Neutrophils # (auto) 3.2 uL; Neutrophils % (auto) 52.5 % (37.0-80.0); Platelet Count (auto) 288 10^3/uL (140-450); Red Cell Distribution Width 17.4 % (11.6-16.0); White Blood Cell 6.1 10^3/uL (4.4-10.8)
[2016-10-18 12:49] LABS: BUN/Creatinine Ratio 18.5; Calcium 8.1 mg/dL (8.5-10.1); Potassium 3.7 mmol/L (3.5-5.1)
[2016-10-18 12:51] LABS: INR 1.01 (0.9-1.15); Partial Thromboplastin Time 29.2 sec (22.64-33.71)
== END | disposition home or self-care (01) ==
LOC: Rad HDHVI 08:28
PROVIDERS: ATTEND Internal Medicine Cardiovascular Disease
DX: I10 Essential (primary) hypertension (principal); D64.9 Anemia, unspecified; R79.1 Abnormal coagulation profile; Z01.812 Encounter for preprocedural laboratory examination
CPT/HCPCS: 36415; 71020; 80048; 85025; 85610; 85730; 93005; 96374; G0463; J1642

== ENCOUNTER 2016-10-19 12:31 | Emergency (ER) | payer OTHER, MEDICAID ==
[~2016-10-19] VITALS: Ht 180.3 cm; Wt 90.7 kg
[2016-10-19 13:44] LABS: Basophils # (auto) 0 uL; Basophils % (auto) 0.4 % (0.0-2.0); CONDITION Y; Eosinophils # (auto) 0.1 uL; Eosinophils % (auto) 1.9 % (0.0-7.0); Hematocrit 44.8 % (41.0-53.0); Hemoglobin 15.2 g/dL (13.5-17.5); Lymphocytes # (auto) 2.5 uL; Lymphocytes % (auto) 42.5 % (10.0-50.0); Mean Corpuscular Hgb Conc. 33.9 g/dL (32.0-36.0); Mean Corpuscular Volume 88.4 fL (80.0-100.0); Mean Platelet Volume 7.9 fL (7.4-10.4); Monocytes # (auto) 0.4 uL; Monocytes % (auto) 6.5 % (0.0-12.0); Neutrophils # (auto) 2.8 uL; Neutrophils % (auto) 48.7 % (37.0-80.0); Platelet Count (auto) 282 10^3/uL (140-450); Red Cell Distribution Width 17.4 % (11.6-16.0); White Blood Cell 5.8 10^3/uL (4.4-10.8)
[2016-10-19 13:50] LABS: Albumin 3.3 g/dL (3.4-5.0); BUN/Creatinine Ratio 14.1; Bilirubin, Total 0.3 mg/dL (0.2-1.0); Calcium 8.5 mg/dL (8.5-10.1); Total Protein 7.4 g/dL (6.4-8.2)
[2016-10-19] MEDS ORDERED: FUROSEMIDE 20 MG/2 ML VIAL IV ONE (17:00)
[2016-10-19 18:18] LABS: INR 1.03 (0.9-1.15); Prothrombin Time 11.2 sec (9.37-12.3)
[2016-10-19 20:09] LABS: Urine Bilirubin Negative (Negative); Urine Blood Negative /uL (Negative); Urine Color Yellow (Yellow); Urine Glucose Normal (Normal); Urine Ketone Negative (Negative); Urine Mucus FEW (None Seen); Urine Nitrite Negative (Negative); Urine RBC <1 /hpf (0 - 3); Urine Squamous Epithelial Cell FEW /hpf (<5); Urine Urobilinogen Normal (Negative); Urine pH 5.5 (5.0-8.0)
[2016-10-19 20:13] VITALS: BP 147/83
[2016-10-19 20:40] LABS: B-Type Natriuretic Peptide 30.21 pg/mL (0-100)
[2016-10-19 20:51] LABS: Temperature: 23.3 C (20.0-25.0)
== END 2016-10-19 22:18 | disposition home or self-care (01) ==
LOC: ER 12:31
DX: I11.0 Hypertensive heart disease with heart failure (principal); I50.9 Heart failure, unspecified; J44.9 Chronic obstructive pulmonary disease, unspecified; I25.10 Atherosclerotic heart disease of native coronary artery without angina pectoris; K21.9 Gastro-esophageal reflux disease without esophagitis; E78.5 Hyperlipidemia, unspecified; I25.2 Old myocardial infarction; F17.210 Nicotine dependence, cigarettes, uncomplicated; M19.90 Unspecified osteoarthritis, unspecified site; Z86.73 Personal history of transient ischemic attack (TIA), and cerebral infarction without residual deficits; Z79.899 Other long term (current) drug therapy; Z90.89 Acquired absence of other organs; Z88.0 Allergy status to penicillin; Z88.1 Allergy status to other antibiotic agents; Z91.010 Allergy to peanuts; Z91.011 Allergy to milk products; Z95.1 Presence of aortocoronary bypass graft
CPT/HCPCS: 36415; 71020; 80053; 81001; 83880; 84484; 85025; 85610; 96374; 99285; J1940

== ENCOUNTER → 2017-01-17 | Outpatient (CLI) | payer OTHER, MEDICAID ==
[~2017-01-17] MED LIST changes: -ALBU18 IN; +ANGIOMAX 250 MG VIAL IV ONE; -CARI250T PO; -CLON0.5T3; -KEPPRA PO; +MIDAZOLAM HCL 1MG/1ML-2 ML VIAL ONE; +SODIUM CHL 0.9% 50 ML ONE; -VALS320T15 PO; +fentaNYL CITRATE 100 MCG/2 ML VL ONE
[2017-01-17 13:00] VITALS: BP 163/109
[2017-01-17 13:50] VITALS: BP 160/103
== END | disposition home or self-care (01) ==
LOC: CHF HDHVI 12:48
PROVIDERS: ATTEND Internal Medicine Cardiovascular Disease
DX: I11.0 Hypertensive heart disease with heart failure (principal); I50.9 Heart failure, unspecified; J44.9 Chronic obstructive pulmonary disease, unspecified; I25.10 Atherosclerotic heart disease of native coronary artery without angina pectoris
CPT/HCPCS: G0463; J1642

== ENCOUNTER → 2017-01-24 | Outpatient (CLI) | payer OTHER, MEDICAID ==
[~2017-01-24] VITALS: Ht 30.5 cm; Wt 0.5 kg
[~2017-01-24] MED LIST changes: -ANGIOMAX 250 MG VIAL IV ONE; +FUROSEMIDE 100 MG/10ML VIAL IV ONE; +FUROSEMIDE INJECTION 10 ML ONE; -MIDAZOLAM HCL 1MG/1ML-2 ML VIAL ONE; +POTASSIUM CHL 20 Meq TABLET PO ONE; -SODIUM CHL 0.9% 50 ML ONE; -fentaNYL CITRATE 100 MCG/2 ML VL ONE
[2017-01-24 10:30] VITALS: BP 209/127
[2017-01-24 11:20] VITALS: BP 178/101
== END | disposition home or self-care (01) ==
LOC: CHF HDHVI 10:35
PROVIDERS: ATTEND Internal Medicine Cardiovascular Disease
DX: I11.0 Hypertensive heart disease with heart failure (principal); I50.9 Heart failure, unspecified; I25.10 Atherosclerotic heart disease of native coronary artery without angina pectoris; J44.9 Chronic obstructive pulmonary disease, unspecified; K21.9 Gastro-esophageal reflux disease without esophagitis
CPT/HCPCS: 96374; G0463; J1642; J1940

== ENCOUNTER 2017-06-16 12:31 | Emergency (ER) | payer MEDICARE, MEDICAID ==
[~2017-06-16] VITALS: Ht 177.8 cm; Wt 117.9 kg
[~2017-06-16 12:31] MED LIST changes: -ALIS300T OR; -FUROSEMIDE 100 MG/10ML VIAL IV ONE; -FUROSEMIDE INJECTION 10 ML ONE; -GABA-497 PO; +GABA300C10 PO; -POTASSIUM CHL 20 Meq TABLET PO ONE; +[UNRECOGNIZED DRUG - CODE] OR
[2017-06-16 14:46] LABS: Urine Bacteria NONE SEEN /hpf (None Seen); Urine Blood 1+ /uL (Negative); Urine Mucus FEW (None Seen); Urine Specific Gravity 1.024 (1.001-1.035); Urine WBC 1 /hpf (0 - 3)
[2017-06-16 14:52] VITALS: BP 150/88
[2017-06-16 15:45] LABS: Albumin 3.7 g/dL (3.4-5.0); BUN/Creatinine Ratio 12.4; Calcium 8.3 mg/dL (8.5-10.1)
[2017-06-16 15:49] LABS: Phenytoin (Dilantin) 2.8 ug/mL (10-20)
[2017-06-16 15:53] LABS: INR 1.05 (0.9-1.15); Prothrombin Time 11.5 sec (9.37-12.3)
[2017-06-16 15:59] LABS: Basophils # (auto) 0.1 uL; Bilirubin, Total 0.4 mg/dL (0.2-1.0); Eosinophils # (auto) 0.1 uL; Eosinophils % (auto) 1.5 % (0.0-7.0); Hematocrit 46.8 % (41.0-53.0); Hemoglobin 15.7 g/dL (13.5-17.5); Lymphocytes # (auto) 2.3 uL; Lymphocytes % (auto) 40.7 % (10.0-50.0); Mean Corpuscular Hemoglobin 30.7 pg (28.0-32.0); Mean Corpuscular Hgb Conc. 33.5 g/dL (32.0-36.0); Mean Corpuscular Volume 91.7 fL (80.0-100.0); Monocytes # (auto) 0.5 uL; Monocytes % (auto) 9.4 % (0.0-12.0); Neutrophils # (auto) 2.7 uL; Neutrophils % (auto) 47.4 % (37.0-80.0); Nucleated Red Blood Cells % 0.1 %; Platelet Count (auto) 223 10^3/uL (140-450); Red Blood Cells 5.11 10^6/uL (4.5-5.90); Red Cell Distribution Width 15.6 % (11.8-14.3); Total Protein 7.7 g/dL (6.4-8.2); White Blood Cell 5.7 10^3/uL (4.4-10.8)
[2017-06-16 16:00] LABS: Valproic Acid (Depakene) < 3.0 ug/mL (50-100)
[2017-06-16] MEDS ORDERED: PHENYTOIN 100 MG/4 ML SUSP GT ONE (16:15)
== END 2017-06-16 16:27 | disposition home or self-care (01) ==
LOC: ER 12:31 → EDBD 12:31 → ER 16:27
DX: G40.909 Epilepsy, unspecified, not intractable, without status epilepticus (principal); J44.9 Chronic obstructive pulmonary disease, unspecified; K21.9 Gastro-esophageal reflux disease without esophagitis; I11.0 Hypertensive heart disease with heart failure; I50.9 Heart failure, unspecified; F17.210 Nicotine dependence, cigarettes, uncomplicated; Z86.73 Personal history of transient ischemic attack (TIA), and cerebral infarction without residual deficits; Z90.89 Acquired absence of other organs; Z95.0 Presence of cardiac pacemaker; Z79.899 Other long term (current) drug therapy; Z88.0 Allergy status to penicillin; Z91.011 Allergy to milk products; Z88.8 Allergy status to other drugs, medicaments and biological substances
CPT/HCPCS: 36415; 71045; 80053; 80164; 80185; 81001; 83880; 85025; 85610; 85730; 93005

== ENCOUNTER 2017-06-19 14:52 | Emergency (ER) | payer MEDICARE, MEDICAID ==
[~2017-06-19] VITALS: Ht 185.4 cm; Wt 127.0 kg
[2017-06-19 15:13] VITALS: BP 149/107
[2017-06-19 19:08] LABS: Hematocrit 51.8 % (41.0-53.0); Hemoglobin 17.2 g/dL (13.5-17.5); Mean Corpuscular Hemoglobin 30.3 pg (28.0-32.0); Mean Corpuscular Hgb Conc. 33.2 g/dL (32.0-36.0); Mean Corpuscular Volume 91.1 fL (80.0-100.0); Red Blood Cells 5.69 10^6/uL (4.5-5.90); Red Cell Distribution Width 15.2 % (11.8-14.3); White Blood Cell 16.4 10^3/uL (4.4-10.8)
[2017-06-19 19:24] LABS: Albumin 3.3 g/dL (3.4-5.0); BUN/Creatinine Ratio 13.4; Bilirubin, Total 1.2 mg/dL (0.2-1.0); Calcium 8.5 mg/dL (8.5-10.1); Magnesium 2.3 mg/dL (1.6-2.6); Potassium 3.9 mmol/L (3.5-5.1); Total Protein 8.3 g/dL (6.4-8.2)
[2017-06-19 19:29] LABS: Platelet Count (auto) 142 10^3/uL (140-450)
[2017-06-19 19:30] LABS: Band Neutrophils % (manual) 0; Basophils % (manual) 0 (0.0-2.0); Blast Cells 0; Eosinophils % (manual) 0 (0-7); Metamyelocytes % 0; Myelocytes % 0; Promyelocytes % 0; Reactive Lymphocytes 0
[2017-06-19 19:58] LABS: Lymphocytes % (manual) 7 (10.0-50.0); Monocytes % (manual) 10 (0-12)
== END 2017-06-20 01:09 | disposition left against medical advice (07) ==
LOC: ER 14:52 → EDBD 14:52 → EDUNIT# 14:52 → ER 06-20 01:09
DX: R06.02 Shortness of breath (principal); Z53.29 Procedure and treatment not carried out because of patient's decision for other reasons
CPT/HCPCS: 36415; 71045; 80053; 83735; 84484; 85007; 85027; 93005

== ENCOUNTER 2018-01-26 07:04 | Inpatient (IN) | payer MEDICARE, MEDICAID ==
[~2018-01-26] VITALS: Ht 180.3 cm; Wt 140.6 kg
[~2018-01-26 07:04] MED LIST changes: +[UNRECOGNIZED DRUG - CODE] OR; -[UNRECOGNIZED DRUG - CODE] OR
[2018-01-26] MEDS ORDERED: IPRATROPIUM BROM 0.5 MG/2.5ML INH SOL ONE (07:12)
[2018-01-26] MEDS ORDERED: ALBUTEROL SULF 2.5 MG/0.5ML(0.5%) NEB SOLN ONE ×2 (07:12→07:23)
[2018-01-26] MEDS ORDERED: methylPREDNISolone SOD SUCC 125 MG/2 ML VL IV ONE (08:00)
[2018-01-26 10:01] LABS: Basophils # (auto) 0 uL; Basophils % (auto) 0.4 % (0.0-2.0); Eosinophils # (auto) 0.1 uL; Eosinophils % (auto) 1.3 % (0.0-7.0); Hematocrit 43.8 % (41.0-53.0); Hemoglobin 14.4 g/dL (13.5-17.5); Lymphocytes % (auto) 30.7 % (10.0-50.0); Mean Corpuscular Hemoglobin 29.6 pg (28.0-32.0); Mean Corpuscular Hgb Conc. 32.9 g/dL (32.0-36.0); Mean Corpuscular Volume 90.1 fL (80.0-100.0); Monocytes # (auto) 0.6 uL; Monocytes % (auto) 10.1 % (0.0-12.0); Neutrophils # (auto) 3.7 uL; Neutrophils % (auto) 57.5 % (37.0-80.0); Nucleated Red Blood Cells % 0.1 %; Platelet Count (auto) 267 10^3/uL (140-450); Red Blood Cells 4.86 10^6/uL (4.5-5.90); Red Cell Distribution Width 16.5 % (11.8-14.3); White Blood Cell 6.4 10^3/uL (4.4-10.8)
[2018-01-26 10:24] LABS: Albumin 3.4 g/dL (3.4-5.0); BUN/Creatinine Ratio 9.8; Bilirubin, Total 0.5 mg/dL (0.2-1.0); Calcium 8.8 mg/dL (8.5-10.1); Potassium 3.7 mmol/L (3.5-5.1); Total Protein 7.6 g/dL (6.4-8.2)
[2018-01-26] MEDS ORDERED: ALBUTEROL SULF 2.5 MG/0.5ML(0.5%) NEB SOLN NEB ONE (10:45)
[2018-01-26] MEDS ORDERED: IPRATROPIUM BROM 0.5 MG/2.5ML INH SOL NEB ONE (10:45)
[2018-01-26] MEDS ORDERED: ONDANSETRON HCL 4 MG/2 ML VIAL IV PRN (11:30)
[2018-01-26] MEDS ORDERED: DOXYCYCLINE 100MG/250ML 250 ML IV SCH (11:30)
[2018-01-26] MEDS ORDERED: ALBUTEROL SULF 2.5 MG/0.5ML(0.5%) NEB SOLN NEB PRN (11:30)
[2018-01-26] MEDS ORDERED: HYDROcodone-ACET 5/325MG TAB PO PRN (11:30)
[2018-01-26] MEDS ORDERED: ACETAMINOPHEN 500 MG TAB PO PRN (11:30)
[2018-01-26] MEDS ORDERED: NITROGLYCERIN 0.4 MG SL TAB SL PRN (11:30)
[2018-01-26] MEDS ORDERED: MORPHINE SULFATE 4 MG/ML SYR/VIAL IV PRN ×2 (11:30)
[2018-01-26] MEDS ORDERED: APIXABAN 5 MG TAB PO SCH (11:45)
[2018-01-26] MEDS ORDERED: ISOSORBIDE MONONITRATE 60 MG TAB PO SCH (12:00)
[2018-01-26] MEDS ORDERED: FUROSEMIDE 40 MG/4 ML VIAL IV ONE (12:00)
[2018-01-26] MEDS ORDERED: CLOPIDOGREL BISULFATE 75 MG TAB PO ONE (12:00)
[2018-01-26] MEDS ORDERED: ASPirin 81 mg TAB PO ONE (12:00)
[2018-01-26] MEDS ORDERED: IPRATROPIUM BROM 0.5 MG/2.5ML INH SOL NEB SCH (12:00)
[2018-01-26] MEDS ORDERED: CARVEDILOL 3.125 MG TAB PO ONE (12:00)
[2018-01-26] MEDS ORDERED: ALBUTEROL SULF 2.5 MG/0.5ML(0.5%) NEB SOLN NEB SCH (12:00)
[2018-01-26] MEDS ORDERED: PANTOPRAZOLE 40 MG TAB PO ONE (12:00)
[2018-01-26] MEDS: GABAPENTIN 300 MG CAP PO SCH ×2 (12:08→13:45)
[2018-01-26] MEDS ORDERED: NIFEdipine ER 30 MG TAB PO SCH (13:00)
[2018-01-26 13:44] VITALS: BP 174/111
[2018-01-26 13:57] LABS: CRP High Sensitivity 0.58 mg/dL (< 0.3)
[2018-01-26] MEDS ORDERED: SODIUM CHLOR 0.9% PF (SALINE LOCK) 10ML VIAL/SYR IV SCH (14:00)
[2018-01-26] MEDS ORDERED: LEVALBUTEROL HYDROCHLORIDE 0.63 MG/3 ML NEB SOLN NEB SCH (14:00)
[2018-01-26] MEDS ORDERED: PHENYTOIN SODIUM 100 MG CAP PO SCH (14:00)
[2018-01-26 14:30] VITALS: BP 145/95
[2018-01-26] MEDS ORDERED: ATORVASTATIN 20 MG TAB PO SCH (22:00)
[2018-01-26] MEDS ORDERED: CARVEDILOL 3.125 MG TAB PO SCH (22:00)
[2018-01-26] MEDS ORDERED: traZODone HCL 50 MG TAB PO SCH (22:00)
[2018-01-26] MEDS ORDERED: carBAMazepine 200 MG TAB PO SCH (22:00)
[2018-01-27] MEDS ORDERED: CLOPIDOGREL BISULFATE 75 MG TAB PO SCH (10:00)
[2018-01-27] MEDS ORDERED: PANTOPRAZOLE 40 MG TAB PO SCH (10:00)
[2018-01-27] MEDS ORDERED: ENALAPRIL MALEATE 10 MG TAB PO SCH (10:00)
[2018-01-27] MEDS ORDERED: POTASSIUM CHL 20 Meq TABLET PO SCH (10:00)
[2018-01-27] MEDS ORDERED: FUROSEMIDE 40 MG/4 ML VIAL IV SCH (10:00)
[2018-01-27] MEDS ORDERED: ASPirin 81 mg TAB PO SCH (10:00)
== END 2018-01-26 16:24 | disposition left against medical advice (07) | DRG 292 ==
LOC: ER 07:08 → TELE 07:09
PROVIDERS: ADMIT Internal Medicine; ATTEND Internal Medicine
DX: I11.0 Hypertensive heart disease with heart failure (principal); J45.31 Mild persistent asthma with (acute) exacerbation; Z68.41 Body mass index [BMI] 40.0-44.9, adult; J96.10 Chronic respiratory failure, unspecified whether with hypoxia or hypercapnia; I50.33 Acute on chronic diastolic (congestive) heart failure; I25.10 Atherosclerotic heart disease of native coronary artery without angina pectoris; F17.210 Nicotine dependence, cigarettes, uncomplicated; E78.5 Hyperlipidemia, unspecified; J44.9 Chronic obstructive pulmonary disease, unspecified; K21.9 Gastro-esophageal reflux disease without esophagitis; E66.01 Morbid (severe) obesity due to excess calories; M19.90 Unspecified osteoarthritis, unspecified site; Z53.21 Procedure and treatment not carried out due to patient leaving prior to being seen by health care provider; G62.9 Polyneuropathy, unspecified; R56.9 Unspecified convulsions; Z82.3 Family history of stroke; Z82.49 Family history of ischemic heart disease and other diseases of the circulatory system; Z86.73 Personal history of transient ischemic attack (TIA), and cerebral infarction without residual deficits; Z99.81 Dependence on supplemental oxygen; Z95.5 Presence of coronary angioplasty implant and graft; Z83.3 Family history of diabetes mellitus; I25.2 Old myocardial infarction; Z90.49 Acquired absence of other specified parts of digestive tract; Z88.0 Allergy status to penicillin; Z88.8 Allergy status to other drugs, medicaments and biological substances; Z91.041 Radiographic dye allergy status; Z91.011 Allergy to milk products; Z91.010 Allergy to peanuts
CPT/HCPCS: 36415; 71045; 80053; 82550; 83880; 84443; 84484; 85025; 85379; 85652; 86141; 93306; 94640; 96365; 96375; 99291; J3490

== ENCOUNTER 2018-05-12 16:00 | Emergency (ER) | payer MEDICARE, MEDICAID ==
[~2018-05-12] VITALS: Ht 180.3 cm; Wt 145.1 kg
[2018-05-12] MEDS ORDERED: SODIUM CHLORIDE 0.9% 1,000 ML IV ONE (16:09)
[2018-05-12] MEDS ORDERED: IPRATROPIUM BROM 0.5 MG/2.5ML INH SOL NEB ONE (16:15)
[2018-05-12] MEDS ORDERED: ALBUTEROL SULF 2.5 MG/0.5ML(0.5%) NEB SOLN NEB ONE (16:15)
[2018-05-12] MEDS ORDERED: methylPREDNISolone SOD SUCC 125 MG/2 ML VL IV ONE (16:15)
[2018-05-12 16:30] LABS: Basophils # (auto) 0 uL; Basophils % (auto) 0.3 % (0.0-2.0); Eosinophils # (auto) 0.1 uL; Eosinophils % (auto) 1.9 % (0.0-7.0); Hematocrit 46.1 % (41.0-53.0); Hemoglobin 15.3 g/dL (13.5-17.5); Lymphocytes # (auto) 2.5 uL; Lymphocytes % (auto) 36.5 % (10.0-50.0); Mean Corpuscular Hgb Conc. 33.3 g/dL (32.0-36.0); Mean Corpuscular Volume 90.2 fL (80.0-100.0); Monocytes # (auto) 0.7 uL; Monocytes % (auto) 9.8 % (0.0-12.0); Neutrophils # (auto) 3.6 uL; Neutrophils % (auto) 51.5 % (37.0-80.0); Nucleated Red Blood Cells % 0.1 %; Platelet Count (auto) 251 10^3/uL (140-450); Red Blood Cells 5.11 10^6/uL (4.5-5.90)
[2018-05-12 16:43] LABS: INR 1.03 (0.9-1.15); Partial Thromboplastin Time 30.6 sec (23.78-33.04)
[2018-05-12 16:47] LABS: Albumin 3.7 g/dL (3.4-5.0); BUN/Creatinine Ratio 13.4; Calcium 8.6 mg/dL (8.5-10.1); Potassium 3.9 mmol/L (3.5-5.1)
[2018-05-12 16:52] LABS: Bilirubin, Total 0.5 mg/dL (0.2-1.0)
[2018-05-12] MEDS ORDERED: FUROSEMIDE 20 MG/2 ML VIAL IV ONE (17:00)
[2018-05-12 18:23] VITALS: BP 162/103
[2018-05-12 19:18] VITALS: BP 123/84
--- NOTE | 2018-05-12 19:49 | NUR ---
Respiratory note: REMOVED PT FROM BIPAP AT THIS TIME. PT STATES HE IS BREATHING BETTER. PULSE OX 96% ON 2LNC, HR 85, RR 22, BILATERAL BS DIMINISHED. PT NOTIFIED TO CALL RT IF SOB OCCURS
== END 2018-05-12 20:49 | disposition left against medical advice (07) ==
LOC: EDBD 16:00 → ER 16:09
DX: J44.1 Chronic obstructive pulmonary disease with (acute) exacerbation (principal); I11.0 Hypertensive heart disease with heart failure; I50.9 Heart failure, unspecified; K21.9 Gastro-esophageal reflux disease without esophagitis; E78.5 Hyperlipidemia, unspecified; M19.90 Unspecified osteoarthritis, unspecified site; F17.210 Nicotine dependence, cigarettes, uncomplicated; R42 Dizziness and giddiness; Z95.0 Presence of cardiac pacemaker
CPT/HCPCS: 36415; 36600; 71045; 80053; 82805; 83880; 84484; 85025; 85610; 85730; 94660; 96361; 96374; 96375; 99291; J1940; J2930

== ENCOUNTER 2019-03-16 15:11 | Inpatient (IN) | payer MEDICARE, MEDICAID ==
[~2019-03-16] VITALS: Ht 180.3 cm; Wt 171.1 kg
[~2019-03-16 15:11] MED LIST changes: +[UNRECOGNIZED DRUG - CODE] OR; -[UNRECOGNIZED DRUG - CODE] OR
[2019-03-16 16:12] LABS: Basophils # (auto) 0.1 uL; Basophils % (auto) 0.8 % (0.0-2.0); Eosinophils # (auto) 0.1 uL; Eosinophils % (auto) 1.8 % (0.0-7.0); Hematocrit 44.5 % (41.0-53.0); Hemoglobin 14.6 g/dL (13.5-17.5); Lymphocytes # (auto) 2.5 uL; Mean Corpuscular Hemoglobin 29.2 pg (28.0-32.0); Mean Corpuscular Hgb Conc. 32.8 g/dL (32.0-36.0); Monocytes # (auto) 0.5 uL; Monocytes % (auto) 8.4 % (0.0-12.0); Neutrophils # (auto) 3.1 uL; Platelet Count (auto) 258 10^3/uL (140-450); Red Cell Distribution Width 15.9 % (11.8-14.3); White Blood Cell 6.3 10^3/uL (4.4-10.8)
[2019-03-16] MEDS ORDERED: ASPirin 81 mg TAB PO ONE (16:15)
[2019-03-16] MEDS ORDERED: ONDANSETRON HCL 4 MG/2 ML VIAL IV ONE (16:15)
[2019-03-16] MEDS ORDERED: MORPHINE SULF INJ 2 MG/ML SYRINGE 1ML IV ONE (16:15)
[2019-03-16] MEDS ORDERED: diphenhdrAMINE HCL 50 MG/1 ML VL IV ONE (16:30)
[2019-03-16 16:42] LABS: INR 1.05 (0.9-1.15); Partial Thromboplastin Time 28.6 sec (23.64-32.05)
[2019-03-16 17:14] LABS: Albumin 3.4 g/dL (3.4-5.0); BUN/Creatinine Ratio 7.8; Blood Urea Nitrogen 7 mg/dL (7-18); Calcium 8.9 mg/dL (8.5-10.1); Carbon Dioxide 27 mmol/L (21-32); GFR African American 112 mL/min; GFR Non-African American 92 mL/min; Glucose 92 mg/dL (74-106)
[2019-03-16 17:18] LABS: Alanine Aminotransferase 15 U/L (16-61); Alkaline Phosphatase 119 U/L (45-117); Anion Gap 6 (5-15); Bilirubin, Total 0.5 mg/dL (0.2-1.0); Chloride 109 mmol/L (98-107); Potassium 3.6 mmol/L (3.5-5.1); Sodium 142 mmol/L (136-145); Total Protein 7.5 g/dL (6.4-8.2)
[2019-03-16 17:31] LABS: Aspartate Aminotransferase 14 U/L (15-37)
[2019-03-16] MEDS ORDERED: PHENYTOIN IV DILANTIN 1,000 MG in SODIUM CHL 0.9% 250 ML IV ONE (19:30)
[2019-03-17] MEDS ORDERED: NITROGLYCERIN 0.4 MG SL TAB SL ONE (00:45)
[2019-03-17] MEDS ORDERED: NITROGLYCERIN 0.4 MG SL TAB SL PRN (01:00)
[2019-03-17] MEDS ORDERED: ONDANSETRON HCL 4 MG/2 ML VIAL IV PRN (01:00)
[2019-03-17] MEDS ORDERED: ACETAMINOPHEN 325 MG TAB PO PRN (01:00)
[2019-03-17] MEDS ORDERED: IPRATROPIUM BROM 0.5 MG/2.5ML INH SOL NEB PRN (01:00)
[2019-03-17] MEDS ORDERED: MORPHINE SULF INJ 2 MG/ML SYRINGE 1ML IV PRN (01:00)
[2019-03-17] MEDS ORDERED: DOCUSATE SOD 100 MG CAP PO PRN (01:00)
[2019-03-17] MEDS ORDERED: ALBUTEROL SULF 2.5 MG/0.5ML(0.5%) NEB SOLN NEB PRN (01:00)
[2019-03-17] MEDS ORDERED: MORPHINE SULFATE 4 MG/ML SYR/VIAL IV PRN (01:00)
[2019-03-17] MEDS ORDERED: diphenhdrAMINE HCL 50 MG/1 ML VL ONE (01:13)
[2019-03-17] MEDS ORDERED: FUROSEMIDE 40 MG/4 ML VIAL ONE (01:14)
[2019-03-17] MEDS ORDERED: ALBUTEROL SULF 2.5 MG/0.5ML(0.5%) NEB SOLN NEB ONE (01:30)
[2019-03-17] MEDS ORDERED: diphenhdrAMINE HCL 50 MG/1 ML VL IV ONE (01:30)
[2019-03-17] MEDS ORDERED: IPRATROPIUM BROM 0.5 MG/2.5ML INH SOL NEB ONE (01:30)
[2019-03-17] MEDS ORDERED: FUROSEMIDE 40 MG/4 ML VIAL IV ONE (01:30)
[2019-03-17] MEDS ORDERED: SODIUM CHLORIDE 0.9% 1,000 ML IV SCH (02:00)
--- NOTE | 2019-03-17 03:37 | NUR ---
Telemetry admit from [facility] admitted to Telemetry unit. Patient oriented to Shyla Lemons RN primary RN, unit, room, bed, and unit policies regarding patient care and visiting hours. Patient now on continuous telemetry monitoring, tele box # 54 and telemetry reading on arrival to unit is Sinus rhythm 74. Patient placed on bedside oxygen, weighed by bedscale and encouraged to call if they need something. All questions and concerns addressed, patient verbalized understanding. Bed is in lowest locked position with bed rails up x2 and call light is within reach of the patient. Urinal provided at the bedside.
[2019-03-17] MEDS ORDERED: TRAZ100T2 PO (04:10)
[2019-03-17] MEDS ORDERED: HYDR-4833 PO (04:10)
[2019-03-17] MEDS ORDERED: METH750T3 PO (04:10)
--- NOTE | 2019-03-17 04:27 | NUR ---
CALLED DOWN TO ER REGARDING PATIENTS SHIRT: Called ER to see if they have patients shirt from bed10 in ER. They stated that they did have shirt and are to bullet it up.
[2019-03-17 05:00] VITALS: BP 124/67
--- NOTE | 2019-03-17 07:30 | NUR ---
Opening Note Received report from beverage specialist RN. Patient is awake, alert and oriented x4. No signs or symptoms of distress noted at this time. Patient is on 3L NC, respirations even and unlabored. Family at bedside. Reviewed plan of care with patient, patient verbalized understanding.Bed in low and locked position, call light within reach. Will continue to monitor Q1 hour and PRN.
--- NOTE | 2019-03-17 08:55 | NUR ---
Chest Pain Patient complains of chest pain and left back pain 12/09. Administered nitro sublingual per orders. EKG completed. Will notify MD. Will continue to monitor Q1 hour and PRN.
[2019-03-17] MEDS: NITROGLYCERIN 0.4 MG SL TAB SL PRN ×3 (08:59→09:14)
[2019-03-17 09:00] VITALS: BP 138/81
--- NOTE | 2019-03-17 09:08 | NUR ---
Second dose of nitro administered Patient states pain still 8/10. Will notify MD. Vitals sings assessed,oxygen saturation 96% on 3L NC, heart rate 79, Blood pressure 146/72
--- NOTE | 2019-03-17 09:14 | NUR ---
Third dose of nitro administered Patient denies any decrease in pain, states pain 8/10. Will notify MD. Will continue to monitor Q1 hour and PRN.
--- NOTE | 2019-03-17 09:18 | NUR ---
Spoke with Dr. Daniel Updated on patient status and EKG. New orders received. Will implement new orders. Will continue to monitor Q1 hour and PRN.
[2019-03-17 09:23] VITALS: BP 146/72
[2019-03-17] MEDS ORDERED: methylPREDNISolone SOD SUCC 125 MG/2 ML VL IV ONE (09:30)
[2019-03-17] MEDS ORDERED: HYDROmorphone HCL 2 MG/ML VL IV ONE (09:30)
[2019-03-17] MEDS ORDERED: methylPREDNISolone SOD SUCC 40 MG/ML VL IV ONE (09:30)
[2019-03-17] MEDS ORDERED: IOHEXOL 350 MG/ML 100ML IJ ONE (09:44)
[2019-03-17] MEDS ORDERED: PANTOPRAZOLE 40 MG/10 ML VIAL INJ IV ONE (09:45)
[2019-03-17] MEDS ORDERED: ASPirin 81 mg TAB PO ONE (09:45)
[2019-03-17] MEDS ORDERED: CLOPIDOGREL BISULFATE 75 MG TAB PO ONE (09:45)
[2019-03-17] MEDS ORDERED: PANTOPRAZOLE 40 MG/10 ML VIAL INJ IV SCH (10:00)
[2019-03-17] MEDS ORDERED: CLOPIDOGREL BISULFATE 75 MG TAB PO SCH (10:00)
[2019-03-17] MEDS ORDERED: ASPirin 81 mg TAB PO SCH (10:00)
--- NOTE | 2019-03-17 10:06 | NUR ---
Patient taken to CT via wheelchair.
[2019-03-17] MEDS ORDERED: METOPROLOL TARTRATE 25 MG TAB PO ONE (10:15)
--- NOTE | 2019-03-17 10:47 | NUR ---
Seizure like activity Patient back from CT. Per report patient had seizure like activity while in radiology. Charge nurse and Dr. Daniel at bedside, new orders received. Blood pressure 170/93, heart rate 66, oxygen saturation 96% on 3L NC. Patient is alert and oriented. Will implement new orders.
--- NOTE | 2019-03-17 10:48 | NUR ---
Respiratory note: PT ASSESSED FOR PRN. PT AWAKE ALERT AND RESPONSIVE. PT FOUND ON 4 LPM NC. SPO2 98%. B/S ARE DIMINISHED. NO TREATMENT INDICATED AT THIS TIME. PT IN NO DISTRESS AT THIS TIME. INFORMED PT IF BECOMES SOB TO PUSH CALL LIGHT AND RT WILL BE CALLED.
[2019-03-17] MEDS ORDERED: LORazepam 2MG/ML-1ML VIAL IV PRN (11:15)
[2019-03-17] MEDS ORDERED: hydrALAZINE HCL 20 MG/ML VL IV ONE (11:15)
--- NOTE | 2019-03-17 12:08 | NUR ---
Elevated Blood Pressure Blood Pressure 161/90, heart rate, heart rate 66. PRN hydralazine given per MD orders. Will continue to monitor Q1 hour and PRN.
--- NOTE | 2019-03-17 12:18 | NUR ---
Report given to Soledad RN HECTOR Will transfer patient to room 265.
--- NOTE | 2019-03-17 12:29 | NUR ---
Dr. Hicks at bedside New orders received. Dobutamine 5mcg/kg/hr and Lasix 10mg/hr. Will place new orders.
--- NOTE | 2019-03-17 12:30 | NUR ---
Patient refusing transfer to [facility] Patient states he does not want to be transferred to [facility]. Patient states he would rather leave AMA. Patient asking to speak to charge nurse.
[2019-03-17 13:00] VITALS: BP 161/90
[2019-03-17] MEDS ORDERED: DOBUTamine 1000MCG/ML 250 ML IV SCH (13:15)
[2019-03-17] MEDS ORDERED: FUROSEMIDE INJECTION 250 MG in SODIUM CHL 0.9% 225 ML IV SCH (13:15)
--- NOTE | 2019-03-17 13:50 | NUR ---
Respiratory note: PT REFUSES ABG DRAW. RN NOTIFIED.
--- NOTE | 2019-03-17 14:00 | NUR ---
WITNESSED AMBULATING IN [place] WITH CANE SEVERE SOB APPEARS WEAK. LEARNED PT CHOOSES TO LEAVE AMA. STANDBY ASSIST BACK TO HIS ASSIGNED ROOM. REMOVED HEPLOCK IV FROM RT ARM. CANNULA INTACT. DSG APPLIED. PT SHARES PLANS TO DRIVE HIMSELF HOME WHERE HE STATES HIS FAMILY IS SET TO PICK HIM UP AND DRIVE HIM TO [facility] FOR CARE. PT IS PLEASANT AND EXPRESSES APPRECIATION FOR CARE GIVEN. ENCOURAGED TO PACE HIMSELF AND SEEK MEDICAL ATTENTION AT NEAREST ER IF CONDITION WORSENS. PROVIDED WC TO HIS VEHICLE. WITNESSED HIM ENTER HIS VEHICLE WITH MUCH EFFORT.
--- NOTE | 2019-03-17 14:05 | NUR ---
Patient left AMA Patient left AMA. Per charge nurse Wendy. Patient stated he did not want to be transferred to [facility], patient wanted to stay on tele unit. Wendy RN attempted to reach Dr. Daniel, patient did not want to wait. Patient educated on importance of remaining in the hospital, risks and complications of leaving AMA. Patient signed AMA form. Patient taken down via wheelchair with all personal belongings.
[2019-03-17] MEDS ORDERED: PHENYTOIN SODIUM 100 MG CAP PO SCH (22:00)
[2019-03-17] MEDS ORDERED: METOPROLOL TARTRATE 25 MG TAB PO SCH (22:00)
[2019-03-17] MEDS ORDERED: ATORVASTATIN 20 MG TAB PO SCH (22:00)
== END 2019-03-17 13:54 | disposition left against medical advice (07) | DRG 303 ==
LOC: ER 15:11 → TELE 15:12 → TELE-WESTW 03-17 03:23 → DOU IN ICU 03-17 12:48 → TELE-WESTW 03-17 13:45
PROVIDERS: ADMIT Hospitalist; ATTEND Hospitalist
DX: I25.110 Atherosclerotic heart disease of native coronary artery with unstable angina pectoris (principal); G40.209 Localization-related (focal) (partial) symptomatic epilepsy and epileptic syndromes with complex partial seizures, not intractable, without status epilepticus; I50.22 Chronic systolic (congestive) heart failure; E11.9 Type 2 diabetes mellitus without complications; E66.01 Morbid (severe) obesity due to excess calories; E78.5 Hyperlipidemia, unspecified; F17.210 Nicotine dependence, cigarettes, uncomplicated; I11.0 Hypertensive heart disease with heart failure; F41.9 Anxiety disorder, unspecified; J44.9 Chronic obstructive pulmonary disease, unspecified; G47.33 Obstructive sleep apnea (adult) (pediatric); Z53.29 Procedure and treatment not carried out because of patient's decision for other reasons; K21.9 Gastro-esophageal reflux disease without esophagitis; Z79.02 Long term (current) use of antithrombotics/antiplatelets; Z79.82 Long term (current) use of aspirin; Z79.899 Other long term (current) drug therapy; Z82.3 Family history of stroke; Z82.49 Family history of ischemic heart disease and other diseases of the circulatory system; Z83.3 Family history of diabetes mellitus; Z86.73 Personal history of transient ischemic attack (TIA), and cerebral infarction without residual deficits; Z88.9 Allergy status to unspecified drugs, medicaments and biological substances; Z95.5 Presence of coronary angioplasty implant and graft; Z88.0 Allergy status to penicillin; Z88.8 Allergy status to other drugs, medicaments and biological substances; Z91.041 Radiographic dye allergy status; Z91.011 Allergy to milk products; Z88.5 Allergy status to narcotic agent; Z91.010 Allergy to peanuts; I25.2 Old myocardial infarction
CPT/HCPCS: 36415; 36600; 71046; 71275; 80053; 80185; 82805; 83735; 83880; 84484; 85025; 85610; 85730; 93005; 94640; 96365; 96372; 96375; 96376; C9113; G0378; J2405

== ENCOUNTER 2019-05-30 10:28 | Emergency (ER) | payer MEDICARE, MEDICAID ==
[~2019-05-30] VITALS: Ht 177.8 cm; Wt 161.0 kg
[~2019-05-30 10:28] MED LIST changes: +ASPI81CH43 PO; -ATOR10TA52 PO; +ATOR1TAB PO; +CAR3125T PO; -CARB200T4 PO; -CLOP75TA28 PO; +CYCL5TAB PO; -DICL-164 PO; -FLUT100I IN; -FUR20T PO; +FURO1TAB31 PO; -HYDR-2533; -LEVA1NEB5 IN; +METH750T3 PO; +NIFE1TAB30 PO; -TIZA2TAB3 PO; +TRAZ100T3 PO; -TRAZ50TA2 PO; -VALS320T13; -ZOLP10TA6
[2019-05-30 10:45] VITALS: BP 144/85
[2019-05-30 11:32] LABS: Basophils # (auto) 0 uL; Basophils % (auto) 1.1 % (0.0-2.0); Eosinophils # (auto) 0.1 uL; Eosinophils % (auto) 2.1 % (0.0-7.0); Hematocrit 43.9 % (41.0-53.0); Hemoglobin 14.2 g/dL (13.5-17.5); Lymphocytes # (auto) 1.4 uL; Lymphocytes % (auto) 32.4 % (10.0-50.0); Mean Corpuscular Hemoglobin 28.2 pg (28.0-32.0); Mean Corpuscular Hgb Conc. 32.4 g/dL (32.0-36.0); Monocytes # (auto) 0.7 uL; Monocytes % (auto) 14.9 % (0.0-12.0); Neutrophils # (auto) 2.2 uL; Neutrophils % (auto) 49.5 % (37.0-80.0); Nucleated Red Blood Cells % 0.1 %; Platelet Count (auto) 235 10^3/uL (140-450); Red Blood Cells 5.05 10^6/uL (4.5-5.90); Red Cell Distribution Width 16.7 % (11.8-14.3); White Blood Cell 4.5 10^3/uL (4.4-10.8)
[2019-05-30 12:15] LABS: Albumin 3.4 g/dL (3.4-5.0); Calcium 8.8 mg/dL (8.5-10.1); Magnesium 2.3 mg/dL (1.6-2.6); Potassium 3.7 mmol/L (3.5-5.1)
[2019-05-30 12:21] LABS: BUN/Creatinine Ratio 8.8; Bilirubin, Total 0.5 mg/dL (0.2-1.0); Total Protein 7.5 g/dL (6.4-8.2)
== END 2019-05-30 12:13 | disposition left against medical advice (07) ==
LOC: EDBD 10:28 → ER 10:28
DX: R07.89 Other chest pain (principal); Z53.21 Procedure and treatment not carried out due to patient leaving prior to being seen by health care provider
CPT/HCPCS: 36415; 80053; 83735; 83880; 84484; 85025

== ENCOUNTER 2019-08-07 14:25 | Inpatient (IN) | payer MEDICARE, MEDICAID ==
[~2019-08-07] VITALS: Ht 180.3 cm; Wt 171.0 kg
[2019-08-07] MEDS ORDERED: FUROSEMIDE 40 MG/4 ML VIAL IV ONE (15:00)
[2019-08-07 15:26] LABS: Basophils # (auto) 0 10 ^3/uL (0-0.2); Basophils % (auto) 0.8 % (0.0-2.0); Eosinophils # (auto) 0.1 10 ^3/uL (0-0.8); Eosinophils % (auto) 1.5 % (0.0-7.0); Hemoglobin 13.5 g/dL (13.5-17.5); Lymphocytes # (auto) 2.3 10 ^3/uL (0.4-5.4); Lymphocytes % (auto) 36.1 % (10.0-50.0); Mean Corpuscular Hemoglobin 28.7 pg (28.0-32.0); Mean Corpuscular Hgb Conc. 32.1 g/dL (32.0-36.0); Mean Corpuscular Volume 89.4 fL (80.0-100.0); Monocytes # (auto) 0.8 10 ^3/uL (0-1.3); Monocytes % (auto) 12.3 % (0.0-12.0); Neutrophils # (auto) 3.2 10 ^3/uL (1.6-8.6); Neutrophils % (auto) 49.3 % (37.0-80.0); Nucleated Red Blood Cells % 0.1 %; Platelet Count (auto) 224 10^3/uL (140-450); Red Cell Distribution Width 16.4 % (11.8-14.3); White Blood Cell 6.4 10^3/uL (4.4-10.8)
[2019-08-07 15:28] LABS: Urine WBC None Seen /hpf (0 - 3)
[2019-08-07 15:30] LABS: Albumin 3.5 g/dL (3.4-5.0); Calcium 8.7 mg/dL (8.5-10.1); Potassium 4.2 mmol/L (3.5-5.1)
[2019-08-07 15:33] LABS: INR 1.07 (0.9-1.15); Partial Thromboplastin Time 22.8 sec (23.64-32.05)
[2019-08-07 15:37] LABS: BUN/Creatinine Ratio 10.2; Bilirubin, Total 0.3 mg/dL (0.2-1.0); Total Protein 7.5 g/dL (6.4-8.2)
[2019-08-07 15:44] LABS: Urine Bacteria NONE SEEN /hpf (None Seen); Urine Blood Negative /uL (Negative)
[2019-08-07] MEDS ORDERED: hydrALAZINE HCL 20 MG/ML VL IV PRN (16:30)
[2019-08-07] MEDS ORDERED: ACETAMINOPHEN 500 MG TAB PO PRN (16:30)
[2019-08-07] MEDS ORDERED: MORPHINE SULF INJ 2 MG/ML SYRINGE 1ML IV PRN (16:30)
[2019-08-07] MEDS ORDERED: ISOSORBIDE DINITRATE 10 MG TAB PO SCH (16:59)
[2019-08-07 18:13] VITALS: BP 164/84
--- NOTE | 2019-08-07 18:13 | NUR ---
RECEIVED PATIENT FROM ER [facility]IA [facility]. PATIENT ORIENTED TO ROOM, BED IN LOCKED AND LOWEST POSITION, 2X SIDE RAILS UP AND CALL LIGHT WITHIN REACH. PATIENT VS 164/84, 100% 4LNC, 20, 66HR, 98.2. WILL ASSESS BP AGAIN, ONCE PATIENT IS RELAXED IN BED.
--- NOTE | 2019-08-07 18:45 | NUR ---
MED REC PATIENT DOES NOT HAVE LIST OF CURRENT MEDICATIONS HE TAKES. I ASKED IF WE CAN CALL HIS MOTHER, (HE LIVES WITH HER) TO GET THE MEDICATION LIST FROM HER, HE SAID NO.
--- NOTE | 2019-08-07 19:01 | NUR ---
REASSESSED BP, BP NOW 132/84. PATIENT SITTING UP IN BED EATING DINNER.
[2019-08-07] MEDS: SPIRONOLACTONE 25 MG TAB PO SCH (19:17)
[2019-08-07] MEDS: HYDROcodone-ACET 5/325MG TAB PO PRN (19:18)
--- NOTE | 2019-08-07 20:00 | NUR ---
PATIENT STATES PAIN FROM CHEST AND BACK PATIENT GIVEN NITROGLYCERIN WITH A BP OF 136/66. WILL CONTINUE TO MONITOR.
--- NOTE | 2019-08-07 20:00 | NUR ---
Opening Shift Note Assumed care of patient, awake and alert. No S/S of distress/SOB. Instructed on POC and to call for assist PRN, will continue to monitor for changes Q1hr and PRN.
--- NOTE | 2019-08-07 20:06 | NUR ---
HOSPITALIST CONTACTED PATIENT REQUESTING SLEEPING PILL. WILL AWAIT CALL BACK OR ORDERS.
--- NOTE | 2019-08-07 20:20 | NUR ---
PATIENT STATES PAIN IS STILL CURRENT AND HAS SHORTNESS OF BREATH PATIENT GIVEN A DIFFERENT PAIN MEDICATION AND A BREATHING TREATMENT OBTAINED. WILL IMPLEMENT ORDERS. PATIENT WILL BE CONTINUOUSLY MONITORED.
[2019-08-07] MEDS: NITROGLYCERIN 0.4 MG SL TAB SL PRN (20:55)
[2019-08-07] MEDS: APIXABAN 5 MG TAB PO SCH (21:16)
[2019-08-07] MEDS: ATORVASTATIN 20 MG TAB PO SCH (21:17)
[2019-08-07] MEDS: levETIRAcetam 500 MG TAB PO SCH (21:17)
[2019-08-07] MEDS ORDERED: diphenhdrAMINE HCL 50 MG/1 ML VL ONE (21:38)
[2019-08-07] MEDS: GABAPENTIN 300 MG CAP PO SCH (21:44)
[2019-08-07] MEDS ORDERED: diphenhdrAMINE HCL 50 MG/1 ML VL IV ONE (21:45)
[2019-08-07] MEDS: MEPERIDINE HCL (25 MG/ML) 1ML VIAL IM PRN (21:45)
[2019-08-07] MEDS: ALBUTEROL SULF 2.5 MG/0.5ML(0.5%) NEB SOLN NEB PRN (21:59)
[2019-08-07] MEDS: CARVEDILOL 3.125 MG TAB PO SCH (22:00)
[2019-08-07 22:01] VITALS: BP 136/66
--- NOTE | 2019-08-07 22:12 | NUR ---
PATIENT STATES FEELING BETTER PATIENT STATES PAIN IS BETTER AND BREATHING TREATMENT GIVEN. PATIENT STATES THAT THEY ARE OK RIGHT NOW AND WILL TRY TO GET SOME REST. WILL CONTINUE TO MONITOR
--- NOTE | 2019-08-07 23:04 | NUR ---
RECEIVED REPORT FROM NURSE TORRES TO RESUME CARE OF PATIENT.
--- NOTE | 2019-08-07 23:07 | NUR ---
REPORT GIVEN TO EVELIO SANDRA PATIENT STABLE AT THIS TIME. PATIENT SLEEPING COMFORTABLY. PATIENT STATES THAT PAIN IS MUCH BETTER AND IS FEELING BETTER FOLLOWING MEDICATIONS.
[2019-08-08] MEDS: NITROGLYCERIN 0.4 MG SL TAB SL PRN (04:59)
[2019-08-08 05:00] VITALS: BP 125/58
[2019-08-08] MEDS: GABAPENTIN 300 MG CAP PO SCH ×3 (05:25→22:23)
[2019-08-08] MEDS: SPIRONOLACTONE 25 MG TAB PO SCH ×2 (05:25→17:53)
[2019-08-08 05:43] LABS: Basophils # (auto) 0 10 ^3/uL (0-0.2); Basophils % (auto) 0.6 % (0.0-2.0); Eosinophils # (auto) 0.1 10 ^3/uL (0-0.8); Eosinophils % (auto) 1.5 % (0.0-7.0); Hematocrit 39.4 % (41.0-53.0); Hemoglobin 12.9 g/dL (13.5-17.5); Lymphocytes # (auto) 1.5 10 ^3/uL (0.4-5.4); Lymphocytes % (auto) 29.7 % (10.0-50.0); Mean Corpuscular Hemoglobin 28.5 pg (28.0-32.0); Mean Corpuscular Hgb Conc. 32.6 g/dL (32.0-36.0); Mean Corpuscular Volume 87.4 fL (80.0-100.0); Monocytes # (auto) 0.5 10 ^3/uL (0-1.3); Monocytes % (auto) 10.4 % (0.0-12.0); Neutrophils % (auto) 57.8 % (37.0-80.0); Nucleated Red Blood Cells % 0.1 %; Platelet Count (auto) 227 10^3/uL (140-450); Red Blood Cells 4.51 10^6/uL (4.5-5.90); Red Cell Distribution Width 16.9 % (11.8-14.3); White Blood Cell 5.2 10^3/uL (4.4-10.8)
[2019-08-08 06:11] LABS: BUN/Creatinine Ratio 13.3; Calcium 8.8 mg/dL (8.5-10.1); Magnesium 2.3 mg/dL (1.6-2.6); Potassium 4.1 mmol/L (3.5-5.1)
[2019-08-08] MEDS: MEPERIDINE HCL (25 MG/ML) 1ML VIAL IM PRN ×2 (06:29→20:17)
--- NOTE | 2019-08-08 07:30 | NUR ---
Opening Shift Note Assumed care of patient, awake and alert. Patient SOB on 5L O2 via NC. Respiratory treatment requested. Bed in low position, locked, side rails x2 up, call light within reach. Patient instructed on POC and to call for assist PRN, will continue to monitor for changes Q1hr and PRN.
--- NOTE | 2019-08-08 08:10 | NUR ---
RECSudeep PAGE FOR PRN HHN TX FOR SOB. PT WAS AMBULATED TO CHAIR AND NOW SAYS HES SOB. LUNGS ARE DIMINISHED T/O ALL LOBES. PT IS ON 5LNC, SPO2 99%. MED NEB TA ADMINISTERED WITH NO ADVERSE REACTIONS TO MEDICATION.
[2019-08-08] MEDS: ALBUTEROL SULF 2.5 MG/0.5ML(0.5%) NEB SOLN NEB PRN (08:11)
[2019-08-08 09:00] VITALS: BP 160/96
[2019-08-08] MEDS: CARVEDILOL 3.125 MG TAB PO SCH ×2 (09:43→17:53)
[2019-08-08] MEDS: APIXABAN 5 MG TAB PO SCH ×2 (09:43→22:22)
[2019-08-08] MEDS: levETIRAcetam 500 MG TAB PO SCH ×2 (09:44→22:22)
[2019-08-08] MEDS: PANTOPRAZOLE 40 MG TAB PO SCH (09:44)
[2019-08-08] MEDS ORDERED: FUROSEMIDE 20 MG/2 ML VIAL IV SCH ×2 (10:00→12:00)
[2019-08-08] MEDS: FUROSEMIDE INJECTION 100 MG in D5W 5% 100 ML IV SCH ×3 (12:00→22:05)
[2019-08-08] MEDS ORDERED: FUROSEMIDE 40 MG/4 ML VIAL IV ONE (12:00)
[2019-08-08 13:00] VITALS: BP 122/52
[2019-08-08] MEDS: DOBUTamine 1000MCG/ML 250 ML IV SCH ×3 (13:19→22:05)
[2019-08-08] MEDS: HYDROcodone-ACET 5/325MG TAB PO PRN (13:19)
[2019-08-08 17:00] VITALS: BP 132/85
--- NOTE | 2019-08-08 19:12 | NUR ---
Respiratory note: PT RECIEVED ON NC4L. PT IS AWAKE AND ALERT AT THIS TIME. NO RESP DISTRESS NOTED. SPO2 95%, HR 72, RR 20. BS DIM T/O. NO INDICATION FOR PRN TX AT THIS TIME. PT AWARE TO CALL FOR TX IF SOB/WHEEZING.
--- NOTE | 2019-08-08 19:50 | NUR ---
Opening Shift Note Assumed care of patient, awake and alert. No S/S of distress. Instructed on POC and to call for assist PRN. Bed in lowest locked position, call light within reach, side rails up x2, fall precautions in place. Will continue to monitor for changes Q1hr and PRN.
[2019-08-08 22:00] VITALS: BP 141/80
[2019-08-08] MEDS: ISOSORBIDE DINITRATE 10 MG TAB PO SCH (22:22)
[2019-08-08] MEDS: ATORVASTATIN 20 MG TAB PO SCH (22:22)
[2019-08-09] MEDS: DOBUTamine 1000MCG/ML 250 ML IV SCH ×5 (02:49→21:57)
[2019-08-09] MEDS: FUROSEMIDE INJECTION 100 MG in D5W 5% 100 ML IV SCH ×4 (02:50→20:23)
[2019-08-09 05:00] VITALS: BP 123/51
--- NOTE | 2019-08-09 06:15 | NUR ---
IV removal IV DC'd x2 with clean sterile technique, catheter fully intact. Pressure dressing applied to site. Both IV's leaking. Patient tolerated well. NOTE: Multiple attempts to start new IV's have been unsuccessful, charge nurse aware. Will continue to attempt for 2 new IV insertions.
[2019-08-09] MEDS: SPIRONOLACTONE 25 MG TAB PO SCH ×2 (06:17→18:16)
[2019-08-09] MEDS: GABAPENTIN 300 MG CAP PO SCH ×3 (06:17→21:58)
--- NOTE | 2019-08-09 06:50 | NUR ---
IV insertion IV access obtained, via clean sterile technique by inserting 24 gauge catheter at left upper arm after 10 attempt(s). IV secured properly. No trauma to site. Patient tolerated well.
--- NOTE | 2019-08-09 07:30 | NUR ---
Opening Shift Note Assumed care of patient, awake and alert. No S/S of distress/SOB or pain. Instructed on POC and to call for assist PRN, will continue to monitor for changes Q1hr and PRN.
--- NOTE | 2019-08-09 07:46 | NUR ---
Received report that patient needs another IV access. Attempted to contact Dr. Beltran Metzger for PICC line order. No answer. Will try again.
[2019-08-09] MEDS: CARVEDILOL 3.125 MG TAB PO SCH ×2 (08:02→18:16)
--- NOTE | 2019-08-09 08:02 | NUR ---
Respiratory note: PT IS AWAKE, AND ALERT. RESPIRATORY DISTRESS NOT NOTED. SPO2 96% ON 5LNC, HR 65, RR 20, BS CLEAR/DIMINISHED BILATERALLY. PRN MEDNEB TX NOT INDICATED AT THIS TIME. PT INFORMED TO PUSH CALL BUTTON IF INCREASED WOB, SOB, OR WHEEZING OCCURS.
[2019-08-09 09:00] VITALS: BP 105/61
--- NOTE | 2019-08-09 09:10 | NUR ---
Received order from Dr. Beltran Metzger for PICC line. Consents signed by Dr. Beltran Metzger and patient.
[2019-08-09] MEDS: APIXABAN 5 MG TAB PO SCH ×2 (10:44→21:58)
[2019-08-09] MEDS: levETIRAcetam 500 MG TAB PO SCH ×2 (10:44→21:58)
[2019-08-09] MEDS: PANTOPRAZOLE 40 MG TAB PO SCH (10:44)
[2019-08-09] MEDS: ISOSORBIDE DINITRATE 10 MG TAB PO SCH ×2 (10:45→21:58)
--- NOTE | 2019-08-09 11:42 | NUR ---
Midline Placement: Patient educated on need for midline placement. All risks and benefits explained and all questions and concerns addresses prior to procedure. 18g/10cm midline inserted via right basilic vein using Ultrasound. Sterile technique utilized. Blood return obtained from lumen and flushed easily with NS using proper technique. Midline secured with saline lock; biodisc and occlusive dressing applied. Dulce SANDRA notified. Midline lot # [id number]
[2019-08-09 12:56] VITALS: BP 106/65
--- NOTE | 2019-08-09 16:40 | NUR ---
Patient states he wants a different nuclear plant operator as he states Dr. Hicks has not been in to see him and explain what is going on. Dr. Metzger informed. He states he will take care of this in AM. Patient informed and states understanding.
[2019-08-09] MEDS ORDERED: LACTULOSE 20Gm/30ML SOLN PO ONE (16:45)
[2019-08-09 16:59] VITALS: BP 116/65
[2019-08-09] MEDS: MEPERIDINE HCL (25 MG/ML) 1ML VIAL IM PRN (17:03)
--- NOTE | 2019-08-09 17:20 | NUR ---
Patient C/O generalized pain 11/08. Demerol 25 mg IM given. Will continue to monitor.
--- NOTE | 2019-08-09 19:40 | NUR ---
Opening Shift Note Assumed care of patient, awake and alert. No S/S of distress/SOB or pain. Instructed on POC and to call for assist PRN. Bed in lowest locked position, call light within reach, side rails up x2, fall precautions in place. Will continue to monitor for changes Q1hr and PRN.
[2019-08-09] MEDS: ATORVASTATIN 20 MG TAB PO SCH (21:58)
[2019-08-09 21:59] VITALS: BP 135/58
[2019-08-09] MEDS: ONDANSETRON HCL 4 MG/2 ML VIAL IV PRN (23:09)
--- NOTE | 2019-08-09 23:10 | NUR ---
RT paged Patient complaining of feeling SOB and requests a breathing TX. RT paged.
[2019-08-09] MEDS: ALBUTEROL SULF 2.5 MG/0.5ML(0.5%) NEB SOLN NEB PRN (23:20)
[2019-08-10] MEDS: FUROSEMIDE INJECTION 100 MG in D5W 5% 100 ML IV SCH ×3 (01:02→11:26)
[2019-08-10] MEDS: DOBUTamine 1000MCG/ML 250 ML IV SCH ×2 (01:45→06:12)
[2019-08-10 05:00] VITALS: BP 110/71
[2019-08-10] MEDS: SPIRONOLACTONE 25 MG TAB PO SCH ×2 (06:11→17:58)
[2019-08-10] MEDS: GABAPENTIN 300 MG CAP PO SCH ×3 (06:11→22:15)
[2019-08-10 06:27] LABS: Potassium 3.6 mmol/L (3.5-5.1)
[2019-08-10 06:34] LABS: BUN/Creatinine Ratio 12.3; Calcium 8.7 mg/dL (8.5-10.1)
--- NOTE | 2019-08-10 08:05 | NUR ---
Opening Shift Note Assumed care of patient, awake and alert. No S/S of distress/SOB or pain, however patient states he has pain to his upper abdomen at level 6. Instructed on POC and to call for assist PRN, will continue to monitor for changes Q1hr and PRN.
[2019-08-10] MEDS: HYDROcodone-ACET 5/325MG TAB PO PRN (08:31)
--- NOTE | 2019-08-10 08:31 | NUR ---
Pain [place] 5/325 given for pain level 6 to upper abdomen. Patient stated that intermittent pain began after he had lactulose 08/09/19. Will notify MD on rounding.
[2019-08-10] MEDS: CARVEDILOL 3.125 MG TAB PO SCH ×2 (08:45→17:58)
[2019-08-10 09:00] VITALS: BP 124/62
--- NOTE | 2019-08-10 09:30 | NUR ---
ASSESSED PT FOR MED NEB PRN TX, PT ON 5L NC WITH SPO2 93, HR 86, RR 20 DIMINISHED BS. NO DISTRESS NOTED. NO INDICATION FOR PRN MED NEB WILL CONTINUE TO MONITOR PT.
[2019-08-10] MEDS: levETIRAcetam 500 MG TAB PO SCH ×2 (10:13→22:15)
[2019-08-10] MEDS: APIXABAN 5 MG TAB PO SCH ×2 (10:14→22:15)
[2019-08-10] MEDS: PANTOPRAZOLE 40 MG TAB PO SCH (10:14)
[2019-08-10] MEDS: ISOSORBIDE DINITRATE 10 MG TAB PO SCH ×2 (10:14→22:15)
[2019-08-10] MEDS ORDERED: LACTULOSE 20Gm/30ML SOLN PO ONE (11:45)
[2019-08-10] MEDS: MEPERIDINE HCL (25 MG/ML) 1ML VIAL IM PRN ×2 (12:59→22:14)
[2019-08-10 13:00] VITALS: BP 109/64
[2019-08-10] MEDS: ONDANSETRON HCL 4 MG/2 ML VIAL IV PRN (13:13)
--- NOTE | 2019-08-10 15:43 | NUR ---
Paged hospitalist regarding CT Result Paged and left VM for Dr. Beltran Metzger regarding patient's CT results.
--- NOTE | 2019-08-10 16:35 | NUR ---
Dr. Hicks at bedside.
--- NOTE | 2019-08-10 16:51 | NUR ---
Call from Dr. Metzger He was made aware of CT report.
[2019-08-10 17:00] VITALS: BP 137/59
[2019-08-10] MEDS: FUROSEMIDE 100 MG/10ML VIAL IV SCH (17:59)
[2019-08-10] MEDS ORDERED: FUROSEMIDE 40 MG/4 ML VIAL IV SCH (18:00)
--- NOTE | 2019-08-10 19:42 | NUR ---
Opening Shift Note Assumed care of patient, awake and alert. No S/S of distress/SOB or pain. Instructed on POC and to call for assist PRN, will continue to monitor for changes Q1hr and PRN. bed in low position and call light. bed in low position and call light within reach. fall precaution in place
[2019-08-10] MEDS: ALBUTEROL SULF 2.5 MG/0.5ML(0.5%) NEB SOLN NEB PRN (19:51)
[2019-08-10 22:00] VITALS: BP 133/75
--- NOTE | 2019-08-10 22:14 | NUR ---
PATIENT REPORTS PAIN TO ABD 8/10 ACUTE THAT STARTED SINCE TODAY. WILL MEDICATE PER PROTOCOL
[2019-08-10] MEDS: ATORVASTATIN 20 MG TAB PO SCH (22:15)
[2019-08-10 22:23] VITALS: BP 133/75
--- NOTE | 2019-08-10 22:58 | NUR ---
PAIN REASSESSMENT 0/10 PAIN
[2019-08-11 05:00] VITALS: BP 127/46
[2019-08-11] MEDS: HYDROcodone-ACET 5/325MG TAB PO PRN (05:57)
[2019-08-11] MEDS: GABAPENTIN 300 MG CAP PO SCH (05:57)
[2019-08-11] MEDS: SPIRONOLACTONE 25 MG TAB PO SCH (05:57)
--- NOTE | 2019-08-11 05:57 | NUR ---
headache 6/10 aching pain. will medicate per protocol
[2019-08-11] MEDS: FUROSEMIDE 100 MG/10ML VIAL IV SCH (05:58)
[2019-08-11 06:30] LABS: BUN/Creatinine Ratio 14.7; Calcium 8.6 mg/dL (8.5-10.1)
--- NOTE | 2019-08-11 07:22 | NUR ---
report given to dayshift rn patient denies sob distress or pain
--- NOTE | 2019-08-11 08:00 | NUR ---
Opening Shift Note Assumed care of patient, awake and alert. No S/S of distress/SOB or pain. Instructed on POC and to call for assist PRN, will continue to monitor for changes Q1hr and PRN. Patient states he is going home today, no discharge order yet awaiting MD rounding.
[2019-08-11] MEDS: PANTOPRAZOLE 40 MG TAB PO SCH (08:35)
[2019-08-11] MEDS: CARVEDILOL 3.125 MG TAB PO SCH (08:35)
[2019-08-11] MEDS: APIXABAN 5 MG TAB PO SCH (08:35)
[2019-08-11] MEDS: ISOSORBIDE DINITRATE 10 MG TAB PO SCH (08:35)
[2019-08-11] MEDS: levETIRAcetam 500 MG TAB PO SCH (08:35)
[2019-08-11 08:53] VITALS: BP 124/57
[2019-08-11 10:01] VITALS: BP 124/57
--- NOTE | 2019-08-11 11:00 | NUR ---
Personal belongings Personal belongings received from house registry rn and returned to patient (frey and credit card). Patient checked belongings and confirmed accuracy. Papers signed.
--- NOTE | 2019-08-11 11:10 | NUR ---
Discharge instructions given as ordered. Encourage to follow up with PMD as instructed. All questions and concerns addressed. Patient verbalized understanding. Medication reconciliation form completed and copy given to patient. IV removed with catheter intact and pressure dressing applied. Telemetry unit returned to ICU. Patient taken to vehicle via wheelchair with all personal belongings, accompanied by staff and family member. No distress noted at time of departure.
== END 2019-08-11 11:10 | disposition home or self-care (01) | DRG 292 ==
LOC: ER 14:25 → TELE 14:26 → TELE-WESTW 18:39
PROVIDERS: ADMIT Nurse Practitioner Acute Care; ATTEND Family Medicine
DX: I11.0 Hypertensive heart disease with heart failure (principal); Z68.43 Body mass index [BMI] 50.0-59.9, adult; I50.43 Acute on chronic combined systolic (congestive) and diastolic (congestive) heart failure; J44.9 Chronic obstructive pulmonary disease, unspecified; I25.10 Atherosclerotic heart disease of native coronary artery without angina pectoris; E66.01 Morbid (severe) obesity due to excess calories; I25.5 Ischemic cardiomyopathy; G62.9 Polyneuropathy, unspecified; E78.00 Pure hypercholesterolemia, unspecified; G47.30 Sleep apnea, unspecified; F17.210 Nicotine dependence, cigarettes, uncomplicated; F32.9 Major depressive disorder, single episode, unspecified; K21.9 Gastro-esophageal reflux disease without esophagitis; G40.909 Epilepsy, unspecified, not intractable, without status epilepticus; E78.5 Hyperlipidemia, unspecified; Z95.810 Presence of automatic (implantable) cardiac defibrillator; Z91.19 Patient's noncompliance with other medical treatment and regimen; Z86.73 Personal history of transient ischemic attack (TIA), and cerebral infarction without residual deficits; Z88.0 Allergy status to penicillin; Z95.5 Presence of coronary angioplasty implant and graft; Z88.8 Allergy status to other drugs, medicaments and biological substances; Z91.041 Radiographic dye allergy status; Z91.011 Allergy to milk products; Z91.010 Allergy to peanuts; I25.2 Old myocardial infarction; Z79.01 Long term (current) use of anticoagulants; Z79.82 Long term (current) use of aspirin; Z79.899 Other long term (current) drug therapy; Z82.49 Family history of ischemic heart disease and other diseases of the circulatory system; Z83.3 Family history of diabetes mellitus
CPT/HCPCS: 36415; 71045; 74176; 80048; 80053; 81001; 83735; 83880; 84484; 85025; 85379; 85610; 85730; 87081; 93005; 93306; 94640; 99291; G0378; J2405; J7060

== ENCOUNTER 2019-11-05 12:57 | Inpatient (IN) | payer MEDICARE, MEDICAID ==
[~2019-11-05] VITALS: Ht 185.4 cm; Wt 138.4 kg
[~2019-11-05 12:57] MED LIST changes: +POTA10TA32 PO; -POTA10TA79 PO
[2019-11-05] MEDS ORDERED: NITROGLYCERIN 0.4 MG SL TAB SL ONE (13:30)
[2019-11-05] MEDS ORDERED: ONDANSETRON HCL 4 MG/2 ML VIAL IV ONE (13:30)
[2019-11-05] MEDS ORDERED: HYDROmorphone HCL 2 MG/ML VL IV ONE (13:30)
[2019-11-05 15:07] LABS: Basophils # (auto) 0.1 10 ^3/uL (0-0.2); Basophils % (auto) 1.3 % (0.0-2.0); Eosinophils # (auto) 0.1 10 ^3/uL (0-0.8); Eosinophils % (auto) 2.5 % (0.0-7.0); Hemoglobin 14.2 g/dL (13.5-17.5); Lymphocytes # (auto) 2.1 10 ^3/uL (0.4-5.4); Lymphocytes % (auto) 37.5 % (10.0-50.0); Mean Corpuscular Hemoglobin 28.5 pg (28.0-32.0); Mean Corpuscular Hgb Conc. 31.6 g/dL (32.0-36.0); Mean Corpuscular Volume 90.2 fL (80.0-100.0); Monocytes # (auto) 0.6 10 ^3/uL (0-1.3); Monocytes % (auto) 10.4 % (0.0-12.0); Neutrophils # (auto) 2.7 10 ^3/uL (1.6-8.6); Neutrophils % (auto) 48.3 % (37.0-80.0); Nucleated Red Blood Cells % 0.1 %; Platelet Count (auto) 108 10^3/uL (140-450); Red Blood Cells 4.99 10^6/uL (4.5-5.90); White Blood Cell 5.6 10^3/uL (4.4-10.8)
[2019-11-05 15:21] LABS: Albumin 3.1 g/dL (3.4-5.0); BUN/Creatinine Ratio 12.4; Calcium 8.2 mg/dL (8.5-10.1); Potassium 4.2 mmol/L (3.5-5.1)
[2019-11-05 15:26] LABS: Bilirubin, Total 0.3 mg/dL (0.2-1.0); Total Protein 7.1 g/dL (6.4-8.2)
[2019-11-05] MEDS ORDERED: FAMOTIDINE (10MG/ML) 2ML VL IV ONE (15:30)
[2019-11-05] MEDS ORDERED: MORPHINE SULF INJ 2 MG/ML SYRINGE 1ML IV PRN ×2 (15:30)
[2019-11-05] MEDS ORDERED: hydrALAZINE HCL 20 MG/ML VL IV PRN (15:30)
[2019-11-05] MEDS ORDERED: ACETAMINOPHEN 325 MG TAB PO PRN (15:30)
[2019-11-05] MEDS ORDERED: ALUM & MAG HYDROX-SIMETH LIQ(MAALOX) 30 ML PO PRN (15:30)
[2019-11-05] MEDS ORDERED: ISOSORBIDE MONONITRATE ER 60 MG TAB PO ONE (15:30)
[2019-11-05] MEDS ORDERED: FUROSEMIDE 40 MG/4 ML VIAL IV ONE (15:30)
[2019-11-05] MEDS ORDERED: DOCUSATE SOD 100 MG CAP PO PRN (15:30)
[2019-11-05] MEDS ORDERED: NIFEdipine ER 30 MG TAB PO ONE (15:30)
[2019-11-05] MEDS ORDERED: NITROGLYCERIN 0.4 MG SL TAB SL PRN (15:30)
[2019-11-05] MEDS ORDERED: ONDANSETRON HCL 4 MG/2 ML VIAL IV PRN (15:30)
[2019-11-05] MEDS ORDERED: LORazepam 0.5 MG TAB PO PRN (15:30)
[2019-11-05] MEDS ORDERED: HYDROmorphone HCL 2 MG/ML VL IV PRN (16:00)
[2019-11-05] MEDS ORDERED: ALISKIREN PO SCH (16:00)
[2019-11-05 17:08] LABS: Cholesterol 227 mg/dL (< 200); Triglycerides 74 mg/dL (< 150)
[2019-11-05 17:11] LABS: HDL Cholesterol 48 mg/dL (40-59); LDL Cholesterol 176 mg/dL (< 100)
[2019-11-05] MEDS: IPRATROPIUM BROM 0.5 MG/2.5ML INH SOL NEB SCH ×2 (18:50→22:29)
[2019-11-05 19:08] LABS: Urine Bacteria NONE SEEN /hpf (None Seen); Urine Blood TRACE /uL (Negative); Urine Hyaline Cast FEW /lpf (0 - 2); Urine Mucus FEW (None Seen); Urine WBC 1 /hpf (0 - 3)
[2019-11-05 19:11] LABS: Amphetamine Screen, Urine NEGATIVE (NEGATIVE); Barbiturate Scree,Urine NEGATIVE (NEGATIVE); Benzodiazephine Screen, Urine NEGATIVE (NEGATIVE); Cannabinoid Screen, Urine POSITIVE (NEGATIVE); Cocaine Screen, Urine NEGATIVE (NEGATIVE); Opiate Scree,Urine NEGATIVE (NEGATIVE); Phencyclidine Screen, Urine NEGATIVE (NEGATIVE)
[2019-11-05] MEDS: DOXYCYCLINE 100MG/250ML 250 ML IV SCH (19:11)
[2019-11-05] MEDS ORDERED: HYDR-4798 PO (19:37)
[2019-11-05] MEDS ORDERED: CAR3125T PO (19:37)
[2019-11-05] MEDS ORDERED: FURO1TAB31 PO (19:37)
[2019-11-05] MEDS ORDERED: ATOR1TAB PO (19:37)
[2019-11-05] MEDS ORDERED: CLOP75TA41 PO (19:37)
[2019-11-05] MEDS ORDERED: POTA-180 PO (19:37)
[2019-11-05] MEDS ORDERED: TRAZ100T3 PO (19:37)
[2019-11-05] MEDS ORDERED: METH750T3 PO (19:38)
[2019-11-05] MEDS ORDERED: ALBUAER3 IN (19:38)
[2019-11-05] MEDS ORDERED: DICL1GEL50 TD (19:39)
[2019-11-05] MEDS ORDERED: LEVE500T22 PO (19:44)
[2019-11-05] MEDS: CARVEDILOL 3.125 MG TAB PO SCH (22:02)
[2019-11-05] MEDS: PHENYTOIN SODIUM 100 MG CAP PO SCH (22:03)
[2019-11-05] MEDS: FAMOTIDINE (10MG/ML) 2ML VL IV SCH (22:03)
[2019-11-05] MEDS: APIXABAN 5 MG TAB PO SCH (22:03)
[2019-11-05] MEDS: ATORVASTATIN 20 MG TAB PO SCH (22:03)
[2019-11-05] MEDS: GABAPENTIN 300 MG CAP PO SCH (22:03)
[2019-11-06] MEDS: IPRATROPIUM BROM 0.5 MG/2.5ML INH SOL NEB SCH ×6 (02:31→22:20)
[2019-11-06] MEDS: DOXYCYCLINE 100MG/250ML 250 ML IV SCH ×2 (03:30→15:41)
[2019-11-06 03:38] VITALS: BP 136/91
[2019-11-06] MEDS ORDERED: FUROSEMIDE 40 MG/4 ML VIAL IV SCH (06:00)
[2019-11-06] MEDS: GABAPENTIN 300 MG CAP PO SCH ×3 (06:05→22:20)
[2019-11-06] MEDS: PHENYTOIN SODIUM 100 MG CAP PO SCH ×3 (06:05→22:19)
[2019-11-06 06:51] LABS: Basophils # (auto) 0 10 ^3/uL (0-0.2); Basophils % (auto) 0.5 % (0.0-2.0); Eosinophils # (auto) 0 10 ^3/uL (0-0.8); Eosinophils % (auto) 0.9 % (0.0-7.0); Hematocrit 42.7 % (41.0-53.0); Hemoglobin 13.7 g/dL (13.5-17.5); Lymphocytes # (auto) 1.3 10 ^3/uL (0.4-5.4); Lymphocytes % (auto) 24.6 % (10.0-50.0); Mean Corpuscular Hemoglobin 28.6 pg (28.0-32.0); Mean Corpuscular Volume 89.5 fL (80.0-100.0); Monocytes # (auto) 0.4 10 ^3/uL (0-1.3); Monocytes % (auto) 7.8 % (0.0-12.0); Neutrophils # (auto) 3.4 10 ^3/uL (1.6-8.6); Neutrophils % (auto) 66.2 % (37.0-80.0); Nucleated Red Blood Cells % 0.1 %; Platelet Count (auto) 222 10^3/uL (140-450); Red Blood Cells 4.77 10^6/uL (4.5-5.90); Red Cell Distribution Width 17.1 % (11.8-14.3); White Blood Cell 5.1 10^3/uL (4.4-10.8)
[2019-11-06 06:59] LABS: INR 1.07 (0.9-1.15); Partial Thromboplastin Time 28.5 sec (23.64-32.05)
[2019-11-06 07:34] LABS: Magnesium 2.4 mg/dL (1.6-2.6); Phosphorus 3.4 mg/dL (2.5-4.90)
[2019-11-06] MEDS ORDERED: ASPirin 81 mg TAB PO SCH (10:00)
[2019-11-06] MEDS ORDERED: NIFEdipine ER 30 MG TAB PO SCH (10:00)
[2019-11-06] MEDS ORDERED: ISOSORBIDE MONONITRATE ER 60 MG TAB PO SCH (10:00)
[2019-11-06] MEDS: CARVEDILOL 3.125 MG TAB PO SCH (10:01)
[2019-11-06] MEDS: APIXABAN 5 MG TAB PO SCH (10:02)
[2019-11-06] MEDS: PANTOPRAZOLE 40 MG TAB PO SCH (10:02)
[2019-11-06] MEDS: FAMOTIDINE (10MG/ML) 2ML VL IV SCH ×2 (10:03→22:18)
[2019-11-06] MEDS: HYDROcodone-ACET 5/325MG TAB PO PRN (10:32)
[2019-11-06] MEDS ORDERED: CLOPIDOGREL BISULFATE 75 MG TAB PO ONE (15:15)
--- NOTE | 2019-11-06 21:40 | NUR ---
MS admit from ER FADIA LOPEZ admitted to tele/MS after SBAR received. Patient oriented to MARK CULP, RN primary RN, unit, room, bed, and unit policies regarding patient care and visiting hours. Patient weighed by bed scale and encouraged to call if need something. No s/s of respiratory distress or pain reported. Respirations are even and non-labored. All questions and concerns addressed, patient verbalized understanding. Note: R. Upper arm midline 18 g/10 cm.
--- NOTE | 2019-11-06 22:00 | NUR ---
POC POC discussed, instructions given. Pt refuses Guzman catheter at this time.
[2019-11-06] MEDS: SACUBITRIL-VALSARTAN 24mg/26mg TAB PO SCH (22:19)
[2019-11-06] MEDS: ATORVASTATIN 20 MG TAB PO SCH (22:19)
[2019-11-06] MEDS: CARVEDILOL 12.5 MG TAB PO SCH (22:22)
[2019-11-07 01:48] VITALS: BP 153/73
[2019-11-07] MEDS: IPRATROPIUM BROM 0.5 MG/2.5ML INH SOL NEB SCH ×2 (02:32→07:50)
[2019-11-07] MEDS: DOXYCYCLINE 100MG/250ML 250 ML IV SCH (03:40)
--- NOTE | 2019-11-07 04:50 | NUR ---
Pre Op Pre Op preparations were performed. Chlorhexidine cloth used for giving patient bath, both groins shaved.
[2019-11-07 05:00] VITALS: BP 138/71
--- NOTE | 2019-11-07 05:10 | NUR ---
Patient refused Guzman catheter insertion once again. Pt states that the procedure is painful and so he refuses it.
[2019-11-07] MEDS: HYDROcodone-ACET 5/325MG TAB PO PRN ×2 (05:30→11:53)
[2019-11-07] MEDS: PHENYTOIN SODIUM 100 MG CAP PO SCH (06:58)
[2019-11-07] MEDS: GABAPENTIN 300 MG CAP PO SCH (06:58)
--- NOTE | 2019-11-07 07:45 | NUR ---
Opening Shift Note Assumed care of patient, awake and alert. No S/S of distress/SOB or pain. Instructed on POC and to call for assist PRN, will continue to monitor for changes Q1hr and PRN.
[2019-11-07 07:52] LABS: Basophils # (auto) 0 10 ^3/uL (0-0.2); Basophils % (auto) 0.7 % (0.0-2.0); Eosinophils # (auto) 0.1 10 ^3/uL (0-0.8); Eosinophils % (auto) 1.3 % (0.0-7.0); Hematocrit 41.7 % (41.0-53.0); Hemoglobin 13.4 g/dL (13.5-17.5); Lymphocytes # (auto) 1.4 10 ^3/uL (0.4-5.4); Mean Corpuscular Hemoglobin 28.7 pg (28.0-32.0); Mean Corpuscular Volume 89.6 fL (80.0-100.0); Monocytes # (auto) 0.7 10 ^3/uL (0-1.3); Nucleated Red Blood Cells % 0.1 %; Platelet Count (auto) 217 10^3/uL (140-450); Red Blood Cells 4.66 10^6/uL (4.5-5.90); Red Cell Distribution Width 16.5 % (11.8-14.3); White Blood Cell 6.1 10^3/uL (4.4-10.8)
--- NOTE | 2019-11-07 08:00 | NUR ---
Off Unit Patient taken to laborer cutting tool for procedure.
[2019-11-07 08:02] LABS: Calcium 8.4 mg/dL (8.5-10.1); INR 1.07 (0.9-1.15); Partial Thromboplastin Time 29.1 sec (23.64-32.05); Potassium 4.1 mmol/L (3.5-5.1)
[2019-11-07 09:00] VITALS: BP 118/54
[2019-11-07] MEDS ORDERED: FUROSEMIDE 20 MG/2 ML VIAL IV SCH (10:00)
[2019-11-07] MEDS ORDERED: CLOPIDOGREL BISULFATE 75 MG TAB PO SCH (10:00)
[2019-11-07] MEDS ORDERED: IODIXANOL 320MG/ML 100ML BTL IV ONE (10:40)
[2019-11-07] MEDS ORDERED: LIDOCAINE 2%HCL (LOCAL ANESTH.) INJ 20ML MDV ONE (10:40)
[2019-11-07] MEDS ORDERED: HEPARIN IN NS 1000Units/500mL 0 ML ONE (10:40)
--- NOTE | 2019-11-07 11:40 | NUR ---
On Unit Patient brought back to unit. LHC was not done, patient will be referred out to follow up for further management.
[2019-11-07] MEDS: SACUBITRIL-VALSARTAN 24mg/26mg TAB PO SCH (11:45)
[2019-11-07] MEDS: PANTOPRAZOLE 40 MG TAB PO SCH (11:45)
[2019-11-07] MEDS: FAMOTIDINE (10MG/ML) 2ML VL IV SCH (11:46)
[2019-11-07] MEDS: CARVEDILOL 12.5 MG TAB PO SCH (11:47)
[2019-11-07 13:00] VITALS: BP 154/79
[2019-11-07 13:15] VITALS: BP 146/74
--- NOTE | 2019-11-07 14:20 | NUR ---
Valuables returned to patient. Rene held in the safe received and returned to patient.
--- NOTE | 2019-11-07 15:30 | NUR ---
Discharge instructions given as ordered. Encourage to follow up with PMD as instructed. All questions and concerns addressed. Patient verbalized understanding. Medication reconciliation form completed and copy given to patient. IV removed with catheter intact and pressure dressing applied. Telemetry unit returned to ICU. Patient taken to vehicle via wheelchair with all personal belongings, accompanied by staff. No distress noted at time of departure.
[2019-11-08] MEDS ORDERED: APIXABAN 5 MG TAB PO SCH (10:00)
== END 2019-11-07 15:30 | disposition home or self-care (01) | DRG 291 ==
LOC: ER 12:57 → TELE 12:58 → TELE-WESTW 11-06 21:40
PROVIDERS: ADMIT Hospitalist; ATTEND Internal Medicine Nephrology
DX: I11.0 Hypertensive heart disease with heart failure (principal); J96.01 Acute respiratory failure with hypoxia; I16.1 Hypertensive emergency; E44.0 Moderate protein-calorie malnutrition; Z68.41 Body mass index [BMI] 40.0-44.9, adult; D68.4 Acquired coagulation factor deficiency; I50.43 Acute on chronic combined systolic (congestive) and diastolic (congestive) heart failure; I25.110 Atherosclerotic heart disease of native coronary artery with unstable angina pectoris; I25.5 Ischemic cardiomyopathy; K40.20 Bilateral inguinal hernia, without obstruction or gangrene, not specified as recurrent; K42.9 Umbilical hernia without obstruction or gangrene; G62.9 Polyneuropathy, unspecified; E66.01 Morbid (severe) obesity due to excess calories; E78.00 Pure hypercholesterolemia, unspecified; G47.33 Obstructive sleep apnea (adult) (pediatric); D17.9 Benign lipomatous neoplasm, unspecified; G89.29 Other chronic pain; M25.512 Pain in left shoulder; M19.90 Unspecified osteoarthritis, unspecified site; G40.909 Epilepsy, unspecified, not intractable, without status epilepticus; E78.5 Hyperlipidemia, unspecified; F17.210 Nicotine dependence, cigarettes, uncomplicated; E83.51 Hypocalcemia; F32.9 Major depressive disorder, single episode, unspecified; K21.9 Gastro-esophageal reflux disease without esophagitis; R07.89 Other chest pain; Z79.899 Other long term (current) drug therapy; Z91.19 Patient's noncompliance with other medical treatment and regimen; Z95.810 Presence of automatic (implantable) cardiac defibrillator; Z95.828 Presence of other vascular implants and grafts; Z86.73 Personal history of transient ischemic attack (TIA), and cerebral infarction without residual deficits; Z79.01 Long term (current) use of anticoagulants; Z79.82 Long term (current) use of aspirin; Z82.49 Family history of ischemic heart disease and other diseases of the circulatory system; Z83.3 Family history of diabetes mellitus; Z86.718 Personal history of other venous thrombosis and embolism; Z95.5 Presence of coronary angioplasty implant and graft; Z99.81 Dependence on supplemental oxygen; Z88.0 Allergy status to penicillin; Z88.8 Allergy status to other drugs, medicaments and biological substances; Z91.041 Radiographic dye allergy status; Z91.011 Allergy to milk products; Z88.5 Allergy status to narcotic agent; Z91.010 Allergy to peanuts; Z90.49 Acquired absence of other specified parts of digestive tract
CPT/HCPCS: 36415; 71045; 80048; 80053; 80061; 80185; 80307; 81001; 83036; 83735; 83880; 84100; 84484; 85025; 85379; 85610; 85730; 86160; 87040; 87086; 93005; 94640; 99291; G0378; J2405; J3490; Q9967

== ENCOUNTER 2019-11-28 11:54 | Inpatient (IN) | payer MEDICARE, MEDICAID ==
[~2019-11-28] VITALS: Ht 180.3 cm; Wt 173.3 kg
[~2019-11-28 11:54] MED LIST changes: +ALBUAER3 IN; +CLOP75TA41 PO; +DICL1GEL50 TD; +HYDR-4798 PO; +LEVE500T22 PO; +POTA-180 PO; -POTA10TA32 PO
[2019-11-28 13:26] LABS: Basophils # (auto) 0.1 10 ^3/uL (0-0.2); Basophils % (auto) 0.8 % (0.0-2.0); Eosinophils # (auto) 0 10 ^3/uL (0-0.8); Eosinophils % (auto) 0.2 % (0.0-7.0); Hematocrit 47.1 % (41.0-53.0); Hemoglobin 15.5 g/dL (13.5-17.5); Lymphocytes # (auto) 1.6 10 ^3/uL (0.4-5.4); Lymphocytes % (auto) 16.9 % (10.0-50.0); Mean Corpuscular Hemoglobin 28.6 pg (28.0-32.0); Mean Corpuscular Hgb Conc. 32.9 g/dL (32.0-36.0); Mean Corpuscular Volume 86.9 fL (80.0-100.0); Monocytes # (auto) 0.7 10 ^3/uL (0-1.3); Monocytes % (auto) 7.3 % (0.0-12.0); Neutrophils % (auto) 74.8 % (37.0-80.0); Nucleated Red Blood Cells % 0.1 %; Platelet Count (auto) 269 10^3/uL (140-450); Red Blood Cells 5.42 10^6/uL (4.5-5.90); Red Cell Distribution Width 16.3 % (11.8-14.3); White Blood Cell 9.3 10^3/uL (4.4-10.8)
[2019-11-28] MEDS ORDERED: ONDANSETRON HCL 4 MG/2 ML VIAL ONE (13:26)
[2019-11-28] MEDS ORDERED: HYDROmorphone HCL 2 MG/ML VL IV ONE (13:30)
[2019-11-28] MEDS ORDERED: ONDANSETRON HCL 4 MG/2 ML VIAL IV ONE (13:30)
[2019-11-28 13:43] LABS: Albumin 3.7 g/dL (3.4-5.0); Calcium 9.2 mg/dL (8.5-10.1); Potassium 3.8 mmol/L (3.5-5.1)
[2019-11-28 13:49] LABS: BUN/Creatinine Ratio 8.6; Bilirubin, Total 0.8 mg/dL (0.2-1.0); Total Protein 8.3 g/dL (6.4-8.2)
[2019-11-28 14:07] LABS: Urine Bacteria NONE SEEN /hpf (None Seen); Urine Blood 3+ /uL (Negative); Urine Mucus FEW (None Seen); Urine WBC 1963 /hpf (0 - 3); Urine WBC Clumps PRESENT /hpf (None Seen)
[2019-11-28] MEDS ORDERED: ACETAMINOPHEN 325 MG TAB PO PRN (17:45)
[2019-11-28] MEDS ORDERED: NITROGLYCERIN 0.4 MG SL TAB SL PRN (17:45)
[2019-11-28] MEDS ORDERED: ONDANSETRON HCL 4 MG/2 ML VIAL IV PRN (17:45)
[2019-11-28] MEDS ORDERED: DOCUSATE SOD 100 MG CAP PO PRN (17:45)
[2019-11-28] MEDS ORDERED: HYDROcodone-ACET 10/325MG TAB PO PRN (18:00)
[2019-11-28] MEDS ORDERED: traZODone HCL 50 MG TAB PO SCH (18:00)
--- NOTE | 2019-11-28 20:50 | NUR ---
Patient arrived to room 294A from ED Patient A&Ox4, ambulated from wheelchair to bed. Patient experienced SOB after standing to void with urinal and described burning/pain with voiding 50 ml of cloudy dark yellow urine. VS: T 97.7, HR 70, RR 20, 98%, 138/95. NC at 3L, Bed in lowest locked position with 2 side rails up, oriented to room, call light, bathroom, bed controls. Call light within reach, will continue to monitor.
[2019-11-28 22:00] VITALS: BP 138/95
[2019-11-28] MEDS: LEVETIRACETAM PO SCH (22:00)
[2019-11-28] MEDS: DICLOFENAC SODIUM 1% TD SCH (22:00)
--- NOTE | 2019-11-28 22:30 | NUR ---
CALLED PHARMACY Spoke to Marvin regarding patient profile medications not showing in pyxis. Found duplicate account for the same patient and visit.
[2019-11-28] MEDS: APIXABAN 5 MG TAB PO SCH (23:17)
[2019-11-28] MEDS: GABAPENTIN 300 MG CAP PO SCH (23:18)
[2019-11-28] MEDS: HYDROcodone-ACET 10/325MG TAB PO PRN (23:18)
[2019-11-28] MEDS: CYCLOBENZAPRINE HCL 10 MG PO SCH (23:18)
[2019-11-28] MEDS: traZODone HCL 50 MG TAB PO SCH (23:19)
[2019-11-28] MEDS: ISOSORBIDE DINITRATE 10 MG TAB PO SCH (23:20)
[2019-11-28] MEDS: PHENYTOIN SODIUM 100 MG CAP PO SCH (23:21)
[2019-11-28] MEDS: ATORVASTATIN 20 MG TAB PO SCH (23:21)
[2019-11-28] MEDS: FUROSEMIDE 40 MG TAB PO SCH (23:22)
--- NOTE | 2019-11-28 23:25 | NUR ---
Pain Patient requested [place] for generalized body pain. Administered [place] 10/325 per EMAR. Will continue to monitor.
--- NOTE | 2019-11-29 00:25 | NUR ---
Pain reassessed Patient sleeping without SOB or s/s of distress. Will continue to monitor.
[2019-11-29 05:00] VITALS: BP 108/50
[2019-11-29] MEDS: FUROSEMIDE 40 MG TAB PO SCH ×2 (06:00→17:22)
[2019-11-29] MEDS: ISOSORBIDE DINITRATE 10 MG TAB PO SCH ×3 (06:00→22:12)
[2019-11-29] MEDS: GABAPENTIN 300 MG CAP PO SCH ×3 (06:27→22:12)
[2019-11-29] MEDS: PHENYTOIN SODIUM 100 MG CAP PO SCH ×3 (06:28→22:12)
--- NOTE | 2019-11-29 07:30 | NUR ---
Opening Shift Note Assumed care of patient, awake and alert. No S/S of distress/SOB or pain. Instructed on POC and to call for assist PRN, will continue to monitor for changes Q1hr and PRN.
[2019-11-29 08:45] VITALS: BP 129/64
[2019-11-29] MEDS: HYDROcodone-ACET 10/325MG TAB PO PRN ×2 (08:46→17:21)
[2019-11-29] MEDS: POTASSIUM CHL 20 Meq TABLET PO SCH (09:37)
[2019-11-29] MEDS: APIXABAN 5 MG TAB PO SCH ×2 (09:38→22:11)
[2019-11-29] MEDS: CLOPIDOGREL BISULFATE 75 MG TAB PO SCH (09:38)
[2019-11-29] MEDS: CARVEDILOL 3.125 MG TAB PO SCH ×2 (09:38→22:00)
[2019-11-29] MEDS: PANTOPRAZOLE 40 MG TAB PO SCH (09:38)
[2019-11-29] MEDS: NIFEdipine ER 30 MG TAB PO SCH (09:39)
[2019-11-29] MEDS: METHOCARBAMOL 500 MG TAB PO SCH (09:39)
[2019-11-29] MEDS: CYCLOBENZAPRINE HCL 10 MG PO SCH ×2 (09:39→22:11)
[2019-11-29] MEDS: ASPirin 81 mg TAB PO SCH (09:40)
[2019-11-29] MEDS ORDERED: NIFEDIPINE PO SCH (10:00)
[2019-11-29] MEDS: LEVETIRACETAM PO SCH ×2 (10:00→22:00)
[2019-11-29 10:35] LABS: Basophils # (auto) 0 10 ^3/uL (0-0.2); Basophils % (auto) 0.4 % (0.0-2.0); Eosinophils # (auto) 0.1 10 ^3/uL (0-0.8); Eosinophils % (auto) 0.8 % (0.0-7.0); Hematocrit 42.7 % (41.0-53.0); Hemoglobin 13.8 g/dL (13.5-17.5); Lymphocytes # (auto) 1.3 10 ^3/uL (0.4-5.4); Lymphocytes % (auto) 18.4 % (10.0-50.0); Mean Corpuscular Hemoglobin 28.8 pg (28.0-32.0); Mean Corpuscular Hgb Conc. 32.3 g/dL (32.0-36.0); Monocytes # (auto) 0.7 10 ^3/uL (0-1.3); Monocytes % (auto) 9.4 % (0.0-12.0); Neutrophils # (auto) 5.1 10 ^3/uL (1.6-8.6); Nucleated Red Blood Cells % 0.1 %; Platelet Count (auto) 198 10^3/uL (140-450); Red Blood Cells 4.79 10^6/uL (4.5-5.90); Red Cell Distribution Width 16.3 % (11.8-14.3); White Blood Cell 7.3 10^3/uL (4.4-10.8)
[2019-11-29 10:52] LABS: BUN/Creatinine Ratio 10.9; Calcium 8.5 mg/dL (8.5-10.1); Potassium 3.7 mmol/L (3.5-5.1)
--- NOTE | 2019-11-29 11:35 | NUR ---
Dr. Beltran Metzger in to see patient as hospitalist.
--- NOTE | 2019-11-29 11:45 | NUR ---
Dr. Sullivan states he will see patient for cardiology consult.
[2019-11-29 12:41] VITALS: BP 141/65
[2019-11-29 16:38] VITALS: BP 110/60
[2019-11-29 22:00] VITALS: BP 123/62
[2019-11-29] MEDS: DICLOFENAC SODIUM 1% TD SCH (22:00)
[2019-11-29] MEDS: ATORVASTATIN 20 MG TAB PO SCH (22:10)
[2019-11-29] MEDS: traZODone HCL 50 MG TAB PO SCH (22:12)
[2019-11-30 05:00] VITALS: BP 137/86
[2019-11-30] MEDS ORDERED: PHENYTOIN SODIUM 100 MG CAP PO ONE ×2 (05:40→05:43)
[2019-11-30] MEDS: ISOSORBIDE DINITRATE 10 MG TAB PO SCH ×3 (05:45→21:51)
[2019-11-30] MEDS: PHENYTOIN SODIUM 100 MG CAP PO SCH ×3 (05:45→21:51)
[2019-11-30] MEDS: GABAPENTIN 300 MG CAP PO SCH ×3 (05:45→21:51)
[2019-11-30] MEDS: FUROSEMIDE 40 MG TAB PO SCH ×2 (05:46→18:37)
--- NOTE | 2019-11-30 07:00 | NUR ---
Opening Shift Note Received report on the patient. Awake lying in bed. Patient shows no signs of distress at this time. Discussed plan of care with the patient. Bed in lowest position, side rails up x2, and the call light is within reach.
[2019-11-30] MEDS: HYDROcodone-ACET 10/325MG TAB PO PRN (08:38)
[2019-11-30 09:02] VITALS: BP 137/80
[2019-11-30] MEDS: ASPirin 81 mg TAB PO SCH (09:39)
[2019-11-30] MEDS: CLOPIDOGREL BISULFATE 75 MG TAB PO SCH (09:40)
[2019-11-30] MEDS: CARVEDILOL 3.125 MG TAB PO SCH ×2 (09:40→21:50)
[2019-11-30] MEDS: CYCLOBENZAPRINE HCL 10 MG PO SCH ×2 (09:40→21:51)
[2019-11-30] MEDS: POTASSIUM CHL 20 Meq TABLET PO SCH (09:40)
[2019-11-30] MEDS: APIXABAN 5 MG TAB PO SCH ×2 (09:40→21:51)
[2019-11-30] MEDS: PANTOPRAZOLE 40 MG TAB PO SCH (09:41)
[2019-11-30] MEDS: METHOCARBAMOL 500 MG TAB PO SCH (09:41)
[2019-11-30] MEDS: NIFEdipine ER 30 MG TAB PO SCH (09:41)
[2019-11-30] MEDS: LEVETIRACETAM PO SCH ×2 (10:00→21:50)
--- NOTE | 2019-11-30 11:25 | NUR ---
Dr Metzger at bedside. New orders received.
[2019-11-30] MEDS ORDERED: levoFLOXacin 500MG 100 ML IV ONE (11:30)
--- NOTE | 2019-11-30 12:00 | NUR ---
Patient states that [place] is not helping his pain. Patient states that he has had Dilaudid before and he was fine with it and had no reaction.
[2019-11-30 12:56] VITALS: BP 126/71
[2019-11-30] MEDS: HYDROmorphone HCL 2 MG/ML VL IV PRN ×2 (13:07→20:49)
--- NOTE | 2019-11-30 13:52 | NUR ---
1350 11/30/19 - Faxed to [facility] transfer center at [phone] face sheet, order to [facility] for cardiac angiogram, H/P, labs, meds, progress notes, consultation notes. Pending review and bed availability.
[2019-11-30 16:46] VITALS: BP 123/55
--- NOTE | 2019-11-30 19:03 | NUR ---
Endorsed care to JOCY Mcgee. Patient shows no signs of distress.
--- NOTE | 2019-11-30 19:15 | NUR ---
Patient currently sleeping at the moment. Respirations are even and regular on 3L nasal cannula. Bed is locked in lowest position with side rails up x2. Will continue to monitor.
--- NOTE | 2019-11-30 20:03 | NUR ---
Patient covid swab taken at this time to laboratory.
--- NOTE | 2019-11-30 20:10 | NUR ---
[facility] transfer center called and said they have an accepting physician for patient transfer but need covid results. I explained to him patient was just swabbed just prior to phone call and results should be available by the morning/noon time. He said they will reach out around then tomorrow.
[2019-11-30] MEDS: traZODone HCL 50 MG TAB PO SCH (21:50)
[2019-11-30] MEDS: ATORVASTATIN 20 MG TAB PO SCH (21:51)
[2019-11-30] MEDS: DICLOFENAC SODIUM 1% TD SCH (21:52)
[2019-11-30 22:00] VITALS: BP 127/80
[2019-12-01 05:00] VITALS: BP 131/66
[2019-12-01] MEDS: PHENYTOIN SODIUM 100 MG CAP PO SCH ×2 (06:04→14:00)
[2019-12-01] MEDS: GABAPENTIN 300 MG CAP PO SCH ×2 (06:05→14:00)
[2019-12-01] MEDS: FUROSEMIDE 40 MG TAB PO SCH ×2 (06:05→17:40)
[2019-12-01] MEDS: ISOSORBIDE DINITRATE 10 MG TAB PO SCH ×2 (06:05→14:00)
[2019-12-01] MEDS: HYDROmorphone HCL 2 MG/ML VL IV PRN ×2 (08:09→16:17)
[2019-12-01 09:00] VITALS: BP 138/91
--- NOTE | 2019-12-01 09:39 | NUR ---
Dr Metzger at bedside. New orders received.
[2019-12-01] MEDS ORDERED: levoFLOXacin 500MG 100 ML IV SCH (10:00)
[2019-12-01] MEDS: LEVETIRACETAM PO SCH (10:00)
--- NOTE | 2019-12-01 10:17 | NUR ---
Iva at [facility] called and said they have an accepting physician Dr Juarez for the left heart cath. Informed Iva that the patient's covid test was negative. Iva requested that I fax over the [facility] authorization, return agreement, patient acknowledgement, and the negative covid test to . Paged information technology instructor long term care social worker regarding the [facility] authorization. Awaiting a call back.
--- NOTE | 2019-12-01 10:41 | NUR ---
Spoke to pest control pilot hospice social worker Shoshana and she informed me that the patient is not an IEHP patient, but Medi Medi so no IE authorization is needed. Called Iva back and she confirmed the insurance was [facility]. Awaiting the fax containing the return agreement and patient acknowledgement from Iva.
[2019-12-01] MEDS: ASPirin 81 mg TAB PO SCH (11:12)
[2019-12-01] MEDS: APIXABAN 5 MG TAB PO SCH (11:13)
[2019-12-01] MEDS: CYCLOBENZAPRINE HCL 10 MG PO SCH (11:13)
[2019-12-01] MEDS: CARVEDILOL 3.125 MG TAB PO SCH (11:13)
[2019-12-01] MEDS: POTASSIUM CHL 20 Meq TABLET PO SCH (11:13)
[2019-12-01] MEDS: NIFEdipine ER 30 MG TAB PO SCH (11:14)
[2019-12-01] MEDS: METHOCARBAMOL 500 MG TAB PO SCH (11:14)
[2019-12-01] MEDS: PANTOPRAZOLE 40 MG TAB PO SCH (11:14)
[2019-12-01] MEDS: CLOPIDOGREL BISULFATE 75 MG TAB PO SCH (11:14)
--- NOTE | 2019-12-01 12:09 | NUR ---
Faxed signed patient acknowledgement, return agreement, and negative covid test to [facility]
[2019-12-01 13:00] VITALS: BP 135/76
--- NOTE | 2019-12-01 14:43 | NUR ---
Patient is very unstable on his feet. Patient refuses to put bed alarm on. Spoke to the patient about not getting up out of bed. Got out of bed himself to use the restroom. Told the patient I was going to put the bed alarm on and he refused stating "he will AMA if I put the bed alarm on". Told the patient he has to have the bed alarm because he got up out of bed alone after I already educated him about being unsteady on his feet. This is for the patient's safety. Patient called Automatic [employer]. Waiting for Automatic Outsole Cutter to come to the floor.
--- NOTE | 2019-12-01 14:45 | NUR ---
Patient spoke to Amanda (charge nurse), but still wanted to speak to green house manager.
--- NOTE | 2019-12-01 15:20 | NUR ---
Amanda spoke to the patient again to advise him that it was going to be a little while until the housekeeper child care came to speak to him. Patient stated that he was fine now and was not going to leave. Patient signed a form regarding the refusal of the bed alarm.
[2019-12-01 17:00] VITALS: BP 147/85
--- NOTE | 2019-12-01 17:26 | NUR ---
[facility] called and said patient has a bed. Patient will be going to unit 7300, room 6, bed 2. Imaging CD requested. GIOVANNY called, faxed over Medicare Physician Certification Statement, and black pickler is 9pm.
--- NOTE | 2019-12-01 18:24 | NUR ---
Called [facility] and gave report to Sarah SANDRA.
[2019-12-01 18:25] VITALS: BP 135/76
--- NOTE | 2019-12-01 19:20 | NUR ---
Opening Shift Note Assume patient care from Massiel SANDRA. Patient awaiting transfer to [facility] at this time. Patient currently in bed resting w/ eyes closed. No s/s of distress or SOB. Patient laying supine w/ HOB at 30 degrees. Patient bed locked in lowest position w/ call light within reach. Will continue to monitor.
--- NOTE | 2019-12-01 21:30 | NUR ---
IV removal - old IV IV DC'd with sterile technique, catheter fully intact. Pressure dressing applied to site. Patient tolerated procedure well.
--- NOTE | 2019-12-01 22:10 | NUR ---
Attempted 2x to Put in IV using vein finder. No IV access at this time.
--- NOTE | 2019-12-01 22:23 | NUR ---
[facility] Here To sheet metal superintendent Patient to Transfer to [facility] Report given to [facility]. [facility] transferred patient out of unit via gurney with all belongings with patient at 22:22. Patient AOx4, no s/s of distress or SOB.
== END 2019-12-01 22:22 | disposition short-term general hospital (02) | DRG 302 ==
LOC: ER 11:54 → TELE 11:55 → TELE-WESTW 20:35
PROVIDERS: ADMIT Hospitalist; ATTEND Family Medicine
DX: I25.110 Atherosclerotic heart disease of native coronary artery with unstable angina pectoris (principal); I50.43 Acute on chronic combined systolic (congestive) and diastolic (congestive) heart failure; N39.0 Urinary tract infection, site not specified; Z68.43 Body mass index [BMI] 50.0-59.9, adult; I11.0 Hypertensive heart disease with heart failure; E66.01 Morbid (severe) obesity due to excess calories; F17.210 Nicotine dependence, cigarettes, uncomplicated; E78.00 Pure hypercholesterolemia, unspecified; F32.9 Major depressive disorder, single episode, unspecified; K21.9 Gastro-esophageal reflux disease without esophagitis; G40.909 Epilepsy, unspecified, not intractable, without status epilepticus; J44.9 Chronic obstructive pulmonary disease, unspecified; I25.5 Ischemic cardiomyopathy; Z95.810 Presence of automatic (implantable) cardiac defibrillator; Z86.73 Personal history of transient ischemic attack (TIA), and cerebral infarction without residual deficits; Z90.49 Acquired absence of other specified parts of digestive tract; Z82.49 Family history of ischemic heart disease and other diseases of the circulatory system; Z83.3 Family history of diabetes mellitus; Z88.0 Allergy status to penicillin; Z88.8 Allergy status to other drugs, medicaments and biological substances; Z88.5 Allergy status to narcotic agent; Z91.041 Radiographic dye allergy status; Z91.011 Allergy to milk products; Z91.010 Allergy to peanuts; I25.2 Old myocardial infarction; Z20.828 Contact with and (suspected) exposure to other viral communicable diseases
CPT/HCPCS: 36415; 71045; 80048; 80053; 80061; 81001; 84484; 85025; 87040; 87086; 87088; 87186; 96374; 96375; G0378; J1956; J2405

== ENCOUNTER 2020-02-20 19:49 | Inpatient (IN) | payer MEDICARE, MEDICAID ==
[~2020-02-20] VITALS: Ht 175.3 cm; Wt 174.8 kg
[~2020-02-20 19:49] MED LIST changes: -CYCL5TAB PO; -DICL1GEL50 TD; -LEVE500T22 PO; +LEVE500T32 PO; -NIFEDIPINE 60 MG PO; -PANT40T PO; -PHE100C PO; -[UNRECOGNIZED DRUG - CODE] OR
[2020-02-20] MEDS ORDERED: MEPERIDINE HCL (25 MG/ML) 1ML VIAL IV ONE (20:15)
[2020-02-20] MEDS ORDERED: ONDANSETRON HCL 4 MG/2 ML VIAL IV ONE ×2 (20:15→22:30)
[2020-02-20 21:13] LABS: Basophils # (auto) 0.1 10 ^3/uL (0-0.2); Basophils % (auto) 1.3 % (0.0-2.0); Eosinophils # (auto) 0.1 10 ^3/uL (0-0.8); Eosinophils % (auto) 1.7 % (0.0-7.0); Hematocrit 44.8 % (41.0-53.0); Hemoglobin 14.4 g/dL (13.5-17.5); Lymphocytes # (auto) 2.3 10 ^3/uL (0.4-5.4); Mean Corpuscular Hemoglobin 28.6 pg (28.0-32.0); Mean Corpuscular Hgb Conc. 32.1 g/dL (32.0-36.0); Mean Corpuscular Volume 89.1 fL (80.0-100.0); Monocytes # (auto) 0.8 10 ^3/uL (0-1.3); Monocytes % (auto) 9.1 % (0.0-12.0); Neutrophils % (auto) 59.9 % (37.0-80.0); Nucleated Red Blood Cells % 0.2 %; Platelet Count (auto) 185 10^3/uL (140-450); Red Blood Cells 5.02 10^6/uL (4.5-5.90); White Blood Cell 8.3 10^3/uL (4.4-10.8)
[2020-02-20 21:29] LABS: Albumin 3.4 g/dL (3.4-5.0); Calcium 8.6 mg/dL (8.5-10.1); INR 1.03 (0.9-1.15); Magnesium 2.2 mg/dL (1.6-2.6); Partial Thromboplastin Time 22.9 sec (23.0-31.2); Potassium 3.5 mmol/L (3.5-5.1)
[2020-02-20 21:35] LABS: Bilirubin, Total 0.4 mg/dL (0.2-1.0); Total Protein 7.3 g/dL (6.4-8.2)
[2020-02-20] MEDS ORDERED: FUROSEMIDE 20 MG/2 ML VIAL ONE (21:44)
[2020-02-20] MEDS ORDERED: NITROGLYCERIN 50MG/250ML 250 ML IV ONE (21:44)
[2020-02-20] MEDS: NITROGLYCERIN 50MG/250ML 250 ML IV SCH (21:50)
[2020-02-20] MEDS ORDERED: SUCCINYLCHOLINE CHLORIDE 20 MG/ML 10ML VIAL IV ONE ×2 (21:54→22:00)
[2020-02-20] MEDS ORDERED: ETOMIDATE (2MG/ML) 20ML VIAL IV ONE ×2 (21:54→22:00)
[2020-02-20] MEDS ORDERED: HEPARIN SODIUM (PORCINE) 5000 UNITS/ML 1ML VIAL IV ONE (22:00)
[2020-02-20] MEDS ORDERED: HEPARIN SODIUM (PORCINE) 5000 UNITS/ML 1ML VIAL ONE (22:00)
[2020-02-20] MEDS ORDERED: FUROSEMIDE 40 MG/4 ML VIAL IV ONE (22:00)
[2020-02-20] MEDS ORDERED: HEPARIN DRIP/D5W 100UNITS/ML 250 ML IV SCH (22:00)
[2020-02-20] MEDS ORDERED: NITROGLYCERIN 0.4 MG SL TAB SL PRN (22:30)
[2020-02-20] MEDS ORDERED: HYDROmorphone HCL 2 MG/ML VL IV ONE (22:30)
[2020-02-20] MEDS ORDERED: TEMAZEPAM 15 MG CAP PO PRN (22:30)
--- NOTE | 2020-02-20 22:36 | NUR ---
Respiratory note: ABG RESULTS REPORTED TO DR. AVILA. FIO2 TITRATED TO 45%, WILL CONTINUE TO MONITOR.
[2020-02-20 22:52] VITALS: BP 165/90
[2020-02-21] VITALS (61 sets, daily range): BP systolic 93–175; BP diastolic 45–101
[2020-02-21] MEDS ORDERED: HYDROmorphone HCL 2 MG/ML VL IV ONE (00:30)
[2020-02-21] MEDS: ONDANSETRON HCL 4 MG/2 ML VIAL IV PRN (00:51)
[2020-02-21] MEDS ORDERED: LIDOCAINE 1% HCL (LOCAL ANESTH.) INJ 20ML MDV ONE (04:25)
[2020-02-21] MEDS ORDERED: LIDOCAINE 1% HCL (LOCAL ANESTH.) INJ 20ML MDV IJ ONE (04:30)
[2020-02-21] MEDS: GABAPENTIN 300 MG CAP PO SCH ×3 (06:16→21:04)
[2020-02-21] MEDS: FUROSEMIDE 40 MG/4 ML VIAL IV SCH ×2 (06:16→18:35)
[2020-02-21] MEDS ORDERED: DEXTROSE (50%) 50ML SYRG IV PRN (07:00)
--- NOTE | 2020-02-21 08:00 | NUR ---
RECEIVED FROM ED. PLACED ON ICU MONITOR, PT CURRENTLY ON NTG AT 30 BLAS/MIN FOR CP VIA TLC ON RT IJ PT ALSO ON HEPARIN GTT AT 1000 UNITS/HR PER PHARMACY PROTOCOL PT HAS A HX OF STROKE AND MULTIPLE STENTS, TROPONIN SLIGHTLY ELEVATED, PT HAS CHF WITH COPD EXACERBATION REQUIRING BIPAP AT 35 % FIO2. REPOSITIONED FOR COMFORT AND ORIENTED TO UNIT, MRSA SWAB COLLECTED, EDUCATED ON POC PT VERBALIZED UNDERSTANDING.
--- NOTE | 2020-02-21 08:00 | NUR ---
TRANSPORTED PT FROM ER BED 5 TO ICU BED 107 WITH NO INCIDENT REPORTED. PT TRANSPORTED ON 3L NC WITH SPO2 97%, HR 78, RR 20 WITH DIMINISHED BS. BIPAP ON STAND-BY PER PT'S REQUEST. PT REQUESTED TO BE OFF BIPAP. PT ON 3L NC WITH SPO2 95%. JOCY ROSARIO MADE AWARE. WILL CONTINUE TO MONITOR PT.
--- NOTE | 2020-02-21 09:49 | NUR ---
PT C/O CP X 20 MIN STATES HE CALLED FOR HELP AND SOMEONE TOLD HIM THEY WERE GOING TO GET THE RN. RN WAS IN A COVID ROOM. PT PAIN IS ON CHEST PAIN IS DESCRIBED PRESSURE 9/10 PRESSURE RADIATING TO LT SHOULDER. PT ALREADY ON NTG GTT FOR CHEST PAIN AT 30 MICG/MIN. TITRATED TO 35 MICG/MIN. PT IS ALLERGIC TO MS. WILL DO AN EKG, WILL CONTINUE TITRATING NTG AND WILL NOTIFY CURRICULUM WRITER. PT IS ON HEPARIN GTT AT 100O UNITS/HR AND LABS WERE DRAWN AT THIS TIME TO RE- CHECK PT/PTT AND TROPONIN.
[2020-02-21 09:53] LABS: Basophils # (auto) 0.1 10 ^3/uL (0-0.2); Eosinophils # (auto) 0.1 10 ^3/uL (0-0.8); Eosinophils % (auto) 1.2 % (0.0-7.0); Hematocrit 38.8 % (41.0-53.0); Hemoglobin 12.5 g/dL (13.5-17.5); Lymphocytes # (auto) 1.7 10 ^3/uL (0.4-5.4); Mean Corpuscular Hemoglobin 28.5 pg (28.0-32.0); Mean Corpuscular Hgb Conc. 32.3 g/dL (32.0-36.0); Mean Corpuscular Volume 88.3 fL (80.0-100.0); Monocytes # (auto) 0.6 10 ^3/uL (0-1.3); Monocytes % (auto) 8.9 % (0.0-12.0); Neutrophils # (auto) 3.9 10 ^3/uL (1.6-8.6); Neutrophils % (auto) 61.9 % (37.0-80.0); Nucleated Red Blood Cells % 0.1 %; Platelet Count (auto) 218 10^3/uL (140-450); Red Blood Cells 4.39 10^6/uL (4.5-5.90); Red Cell Distribution Width 16.7 % (11.8-14.3); White Blood Cell 6.2 10^3/uL (4.4-10.8)
[2020-02-21 10:15] LABS: Albumin 3.2 g/dL (3.4-5.0); Calcium 8.3 mg/dL (8.5-10.1); Potassium 3.6 mmol/L (3.5-5.1)
[2020-02-21 10:18] LABS: BUN/Creatinine Ratio 9.1; Bilirubin, Total 0.5 mg/dL (0.2-1.0); Total Protein 6.6 g/dL (6.4-8.2)
[2020-02-21 10:28] LABS: INR 1.07 (0.9-1.15); Partial Thromboplastin Time 35.5 sec (23.0-31.2)
[2020-02-21] MEDS: HYDROmorphone HCL 2 MG/ML VL IV PRN ×2 (10:41→18:45)
[2020-02-21] MEDS ORDERED: HEPARIN DRIP/D5W 100UNITS/ML 250 ML IV SCH (10:45)
[2020-02-21] MEDS: CLOPIDOGREL BISULFATE 75 MG TAB PO SCH (11:12)
[2020-02-21] MEDS: FAMOTIDINE 20 MG TAB PO SCH ×2 (11:12→21:03)
[2020-02-21] MEDS: CARVEDILOL 3.125 MG TAB PO SCH ×2 (11:13→21:03)
[2020-02-21] MEDS: NIFEdipine ER 30 MG TAB PO SCH (11:14)
[2020-02-21] MEDS: ISOSORBIDE MONONITRATE ER 60 MG TAB PO SCH (11:14)
[2020-02-21] MEDS: InsuLIN REG 1unit/0.01ml Soln (100units/ml) SC SCH ×2 (11:36→17:54)
--- NOTE | 2020-02-21 11:50 | NUR ---
DR. BONDS ROUNDED ON PT. UPDATED ON PT'S CONDITION. HE LOOKED AT PT'S CURRENT STATUS, LOOKED AT OXYGENATION REQUIREMENTS , REVIEWED ABG RESULTS. HE ORDERED MILRINONE GTT AT A FIXED RATE AND ALSO TO DECREASE PT'S FIO2 ON BIPAP. I CALLED RT TO COME TO DECREASE FIO2.
[2020-02-21] MEDS: ACCU-CHEK COMFORT CURVE STRIP VI SCH ×2 (12:49→17:54)
[2020-02-21] MEDS: MILRINONE 20MG/100ML 100 ML IV SCH ×3 (13:38→22:44)
[2020-02-21] MEDS: NITROGLYCERIN 50MG/250ML 250 ML IV SCH (15:06)
[2020-02-21] MEDS: ALBUTEROL SULF 2.5 MG/0.5ML(0.5%) NEB SOLN NEB PRN (15:57)
--- NOTE | 2020-02-21 16:00 | NUR ---
Opening Shift Note Assumed care of patient, awake and alert. No S/S of distress/SOB or pain. See interventions for complete assessment. Bed locked on low position, side rails up x2, bed alarms on at all times, call boone within reach, instructed on POC and to call for assist PRN, will continue to monitor for changes Q1hr and PRN.
--- NOTE | 2020-02-21 16:45 | NUR ---
Dr Sanchez at bedside, updated on patient's status. Patient seen and examined. Will carry out new orders. Addendum: 02/21/20 at 1708 by Mary Khan RN wrong patient
--- NOTE | 2020-02-21 16:46 | NUR ---
PT IS GOING TO EAT LUNCH AND WAS TAKEN OFF BIPAP AND PLACED ON 3L NC, SPO2 94%, HR 77, RR 15 WITH COARSE BS. WILL CONTINUE TO MONITOR PT.
--- NOTE | 2020-02-21 17:00 | NUR ---
PT, PTT still pending. Awaiting report.
[2020-02-21 17:40] LABS: INR 1.07 (0.9-1.15); Partial Thromboplastin Time 29.1 sec (23.0-31.2)
[2020-02-21] MEDS ORDERED: HEPARIN SODIUM (PORCINE) 5000 UNITS/ML 1ML VIAL IV ONE (18:00)
--- NOTE | 2020-02-21 18:09 | NUR ---
Wound photograph taken for reference, wound consult and dietary consult placed.
[2020-02-21] MEDS: HEPARIN DRIP/D5W 100UNITS/ML 250 ML IV SCH ×2 (18:17→22:36)
--- NOTE | 2020-02-21 19:30 | NUR ---
Unable to complete some admission assessment, patient sleeping at this time, was given Dilaudid IV PRN at 1845.
[2020-02-21] MEDS: ATORVASTATIN 20 MG TAB PO SCH (21:04)
[2020-02-21] MEDS: ACETAMINOPHEN 325 MG TAB PO PRN (21:05)
--- NOTE | 2020-02-21 21:14 | NUR ---
RT NOTE PT RECEIVED ON 3LPM NC. PT PLACED BACK ON BIPAP AT THIS TIME. PT TOLERATING THE ABOVE SETTINGS WELL. BUR TITRATED UP TO 14 FROM 12. NO OTHER CHANGES MADE. PT NOT TOLERATING THE MED MASK THEY WERE ON. RT CHANGED OUT MED MASK FOR THE MORE APPROPRIATE LARGE MASK FOR THE PT. PT STATES THEY FEEL MORE COMFORTABLE NOW AND THE PT LEAK IS 0.
--- NOTE | 2020-02-21 21:19 | NUR ---
PT APPEARS TIRED AND SOB, RT CALLED TO PLACE ON BIPAP. HOB UP. SATS IMPROVING.
[2020-02-22] VITALS (83 sets, daily range): BP systolic 78–150; BP diastolic 46–106
--- NOTE | 2020-02-22 00:12 | NUR ---
RT NOTE PT TOOK BIPAP MASK OFF. PT REFUSING TO WEAR. PT PLACED ON 4LPM NC.
[2020-02-22] MEDS: HYDROmorphone HCL 2 MG/ML VL IV PRN ×4 (00:32→20:30)
[2020-02-22 01:11] LABS: INR 1.08 (0.9-1.15)
[2020-02-22] MEDS: MILRINONE 20MG/100ML 100 ML IV SCH ×5 (04:00→23:29)
[2020-02-22] MEDS: GABAPENTIN 300 MG CAP PO SCH ×3 (05:57→21:36)
[2020-02-22] MEDS: InsuLIN REG 1unit/0.01ml Soln (100units/ml) SC SCH ×4 (05:57→17:36)
[2020-02-22] MEDS: FUROSEMIDE 40 MG/4 ML VIAL IV SCH ×2 (05:57→17:36)
[2020-02-22] MEDS: ACCU-CHEK COMFORT CURVE STRIP VI SCH ×4 (05:58→17:36)
--- NOTE | 2020-02-22 08:00 | NUR ---
ASSESSMENT COMPLETED SEE INTERVENTIONS. NTG, MILRINONE AND HEPARIN GTT INFUSING INTO RIGHT IJ TLC INTACT AND PATENT. LAB AT BEDSIDE TO OBTAIN PTT DRAW.
--- NOTE | 2020-02-22 08:08 | NUR ---
Respiratory note: VENT CHANGES MADE PER DR. MEEKS. RATE INCREASED TO 18, VT INCREASED TO 550. WILL OBTAIN ABG IN 2 HOURS. Addendum: 02/22/20 at 1000 by CAMRON SANTANA RT DISREGARD NOTE FROM 0959. WRONG PT.
--- NOTE | 2020-02-22 08:14 | NUR ---
Respiratory note: PT ASSESSED ON 3L NC. PT NOT ON BIPAP AT THIS TIME. NO SOB/DISTRESS NOTED. HR 91, RR 21, SPO2 91%, BS CLR/DIM. WILL CONTINUE TO MONITOR PT.
[2020-02-22 08:22] LABS: INR 1.09 (0.9-1.15); Partial Thromboplastin Time 47.5 sec (23.0-31.2)
--- NOTE | 2020-02-22 08:23 | NUR ---
C/O 11/08 CHEST AND LOWER BACK PAIN. RN OFFERED TO INCREASE NTG GTT WITH SBP 123 TO ASSIST IN CHEST PAIN RELIEF BUT PATIENT STATED HE GETS HEADACHE AND RN AWARE NTG GTT WILL NOT ASSIST IN RELIEF OF LOW BACK PAIN. PATIENT REQUESTED 1/2 DOSE OF DILAUDID HE STATED LAST TIME HE RECEIVED MEDICATION IT WAS "TOO MUCH". RN GAVE DILAUDID 0.5 MG IV SLOW PUSH. BREAKFAST TRAY AT BEDSIDE. CALL LIGHT IN REACH.
[2020-02-22] MEDS: HEPARIN DRIP/D5W 100UNITS/ML 250 ML IV SCH ×2 (08:30→13:42)
--- NOTE | 2020-02-22 08:45 | NUR ---
DR Sachi AVILA AT BEDSIDE, SPOKE WITH AND EXAMINED PATIENT. STATED TO CLARIFY HEPARIN DRIP ORDER WITH DR BONDS AND ORDERED DELBERT COVID TEST. AND RN VERIFIED DO NOT INTUBATE WISHES WITH PATIENT. DR AYON RN TOOK PATIENT OFF SIMPLE MASK AND PLACED ON NC 3 LPM AND SPO2 IS ABOUT 95% WITH EXERTION SPO2 DROPS TO 88% AT TIMES.
[2020-02-22] MEDS: NIFEdipine ER 30 MG TAB PO SCH (09:39)
[2020-02-22] MEDS: FAMOTIDINE 20 MG TAB PO SCH ×2 (09:39→21:36)
[2020-02-22] MEDS: CLOPIDOGREL BISULFATE 75 MG TAB PO SCH (09:39)
[2020-02-22] MEDS: CARVEDILOL 3.125 MG TAB PO SCH ×2 (09:40→21:36)
[2020-02-22] MEDS: ISOSORBIDE MONONITRATE ER 60 MG TAB PO SCH (09:41)
--- NOTE | 2020-02-22 12:42 | NUR ---
WOUND CARE NOTE: Wound care in to see patient per wound care request regarding wounds that are noted upon assessment. Bedside nurse took photograph of patient's wounds upon discovery for reference. Patient is 59 years old male with admitting diagnosis of Acute on chronic CHF. Patient is resting in ICU low air loss bed in Rm. 107. He's awake, alert and oriented. He's in no stated pain at this time. Patient is able to assist in turning and repositioning however he gets short of breath on exertion. His Regan score is 16. Skin/wound assessment done with the assistance of patient's nurse, JOCY Lawler. Patient came in with dry scabbed wounds/laceration to RT forearm and Rt abdomen which he reported from previous fall "two weeks ago". It appears that scabs came off and display open wounds to Rt forearm (1.5x1.5cm) and Rt. lower abdomen (1.5x2.5cm). Wounds are red, no measurable depth. Periwound is pink with minimal serosanguineous drainage noted, no odor noted. Cleansed patient's wounds with NS, patted dry with gauze, applied Thera blade gel and covered with Opti foam gentle dressing. No other wound or pressure injury noted. Repositioned patient for comfort facing his Rt side with head of bed elevated, redistributed pressure points with pillows. Patient tolerated well. JOCY Lawler at bedside. RECOMMENDATION: Nursing to continue with Q3Days/PRN dressing change to Rt forearm and RT abdomen wounds per MD order, frequent turning and repositioning schedule as condition permits, redistribute pressure points with pillows, elevate heels on pillows, continue monitoring by wound care while patient is hospitalized. Addendum: 02/22/20 at 1523 by Gloria Alvarez RN Amended: Links added.
--- NOTE | 2020-02-22 12:42 | NUR ---
Nutrition Assessment/Consult Notes Please refer to link for full assessment notes. Est Energy needs: 3535-1367 kcals (11-13 kcal/kgBW) Est Protein needs: 58-73 gms/day (0.8-1.0 gm/kgIBW of 72.7 kg) Will continue to monitor and reassess prn. Addendum: 02/22/20 at [address] Amended: Links added.
--- NOTE | 2020-02-22 12:45 | NUR ---
WOUND CARE NURSE AT BEDSIDE
--- NOTE | 2020-02-22 14:11 | NUR ---
PAGED DR BONDS, DR GABO SANDRA PERFORMED 12 LEAD EKG DUE TO PATIENT C/O INCREASED CHEST PRESSURE/PAIN. RN INCREASED NTG DRIP SEE VS/IV SPREADSHEET WITH SOME RELIEF. Addendum: 02/22/20 at 1452 by Bucky Siu RN PATIENT DID NOT WANT ANY PAIN MEDICATION AT THIS TIME AND AWARE HIS DILAUDID DUE AT 1418 STATED TO "HOLD OFF FOR NOW", DR BONDS AWARE NO MORPHINE ORDERED FOR CHEST PAIN. Addendum: 02/22/20 at 1452 by Bucky Siu RN DUE TO MORPHINE ALLERGY
--- NOTE | 2020-02-22 14:13 | NUR ---
DR BONDS AT BEDSIDE, DR GAVE ORDER FOR ABG
--- NOTE | 2020-02-22 14:15 | NUR ---
DR BONDS AT BEDSIDE ASSESSED PATIENT, DR REVIEWED 12 LEAD EKG. AWARE VS/DRIPS. DR STATED MAYBE TUESDAY HE WILL TAKE PATIENT TO TREATING PLANT OPERATOR. AWARE STAT LABS PLACED BY RN PER PROTOCOL INCLUDING TROPONIN AND CXR. DR ORDER STAT ABG WELL.
--- NOTE | 2020-02-22 14:28 | NUR ---
C/O 12/09 CHEST AND LOW BACK PAIN DILAUDID GIVEN AT THIS TIME ORDERED DUE TO PATIENT REQUEST.
[2020-02-22 14:44] LABS: Basophils # (auto) 0.1 10 ^3/uL (0-0.2); Basophils % (auto) 1.7 % (0.0-2.0); Eosinophils # (auto) 0.1 10 ^3/uL (0-0.8); Eosinophils % (auto) 1.4 % (0.0-7.0); Hematocrit 36.4 % (41.0-53.0); Hemoglobin 11.7 g/dL (13.5-17.5); Lymphocytes # (auto) 1.5 10 ^3/uL (0.4-5.4); Lymphocytes % (auto) 22.2 % (10.0-50.0); Mean Corpuscular Hemoglobin 28.4 pg (28.0-32.0); Mean Corpuscular Hgb Conc. 32.1 g/dL (32.0-36.0); Mean Corpuscular Volume 88.4 fL (80.0-100.0); Monocytes # (auto) 0.5 10 ^3/uL (0-1.3); Monocytes % (auto) 7.8 % (0.0-12.0); Neutrophils # (auto) 4.6 10 ^3/uL (1.6-8.6); Neutrophils % (auto) 66.9 % (37.0-80.0); Platelet Count (auto) 197 10^3/uL (140-450); Red Blood Cells 4.12 10^6/uL (4.5-5.90); Red Cell Distribution Width 16.3 % (11.8-14.3); White Blood Cell 6.9 10^3/uL (4.4-10.8)
[2020-02-22 15:01] LABS: Albumin 2.9 g/dL (3.4-5.0); BUN/Creatinine Ratio 8.7; Calcium 7.9 mg/dL (8.5-10.1); Potassium 3.4 mmol/L (3.5-5.1)
[2020-02-22 15:03] LABS: INR 1.11 (0.9-1.15); Partial Thromboplastin Time 56.9 sec (23.0-31.2)
[2020-02-22 15:05] LABS: Bilirubin, Total 0.6 mg/dL (0.2-1.0); Total Protein 6.5 g/dL (6.4-8.2)
--- NOTE | 2020-02-22 15:15 | NUR ---
RT AT BEDSIDE TO PERFORM ABG, PATIENT RELAXED, CHEST PAIN/PRESSURE "BETTER". VS STABLE.
--- NOTE | 2020-02-22 15:17 | NUR ---
NO CHANGE IN HEPARIN DRIP RATE PER LATEST PTT 56.9
[2020-02-22] MEDS ORDERED: POTASSIUM CHL 20 Meq TABLET PO ONE (16:30)
--- NOTE | 2020-02-22 19:47 | NUR ---
OPENING NOTE RECEIVED REPORT AND ASSUMED CARE OF PT. PT IS AWAKE AND ALERTX4 RESTING IN BED. DOES COMPLAIN OF CP AND LOW BACK PAIN- DILAUDED DUE WITHIN THE HOUR- WILL MEDICATE AND REPOSITION PRN. NITRO, MILRINONE, AND HEPARIN GTTS RUNNING TO [facility] TLC. VSS. 5L NC APPLIED. PHYSICAL ASSESSMENT DOCUMENTED. ORIENTED PT TO CALL LIGHT, POC, AND FALL PRECAUTIONS. WILL MONITOR.
--- NOTE | 2020-02-22 20:40 | NUR ---
HEPARIN GTT KEPT AT 1900 UNITS/HR. NO BOLUS/NO CHANGE PER PROTOCOL.
[2020-02-22 21:22] LABS: INR 1.1 (0.9-1.15); Partial Thromboplastin Time 51.8 sec (23.0-31.2)
[2020-02-22] MEDS: ATORVASTATIN 20 MG TAB PO SCH (22:00)
--- NOTE | 2020-02-22 22:15 | NUR ---
PT FOUND DIAPHORETIC, CONFUSED WITH NO SP02 MONITOR ON. CENTRAL LINE DRESSING AND OPTIFOAM TO RIGHT ARM RIPPED OFF. BIPAP APPLIED BY RT AT BEDSIDE. 12 LEAD EKG DONE-SHOWING NO CHANGES FROM PREVIOUS EKG DONE AROUND 1400 THIS AFTERNOON. STAT ABG DONE BY RT. PT BECAME ALERT TO SELF, TIME, AND SITUATION WITHIN MINUTES OF APPLYING BIPAP. DAYSHIFT RN HAD SIMILAR EXPERIENCE WITH PT BECOMING DIFFERENT FROM BASELINE CENTRAL LINE DRESSING REPLACED USING STERILE TECHNIQUE. THIS RN REMAINS AT BEDSIDE TO MONITOR.
--- NOTE | 2020-02-22 22:44 | NUR ---
CODE STATUS CLARIFICATION PT IS AWAKE AND ALERT X4 WITH NO S/S OF DISTRESS NOTED. VITAL SIGNS ARE STABLE. THIS RN CLARIFIED CODE STATUS WITH PT- EXPLAINING THE RISKS AND BENEFITS OF FULL RESUSCITATION EFFORTS. PT DOES WISH TO HAVE CHEST COMPRESSIONS, DEFIBRILLATION, ACLS DRUGS/VASOPRESSORS, BIPAP, AND CARDIOVERSION, BUT REFUSES TO BE INTUBATED. NEW FORM FILLED OUT BY THIS RN AND WITNESSED BY BERTHA BRAUN RN. PT ABLE TO SIGN FORM WITH HIS LEGAL NAME AND . PREVIOUS CODE STATUS FORM FILLED OUT INCORRECTLY ACCORDING TO PTS WISHES. PLACED IN HARD CHART.
[2020-02-23] VITALS (101 sets, daily range): BP systolic 91–162; BP diastolic 44–93
--- NOTE | 2020-02-23 00:18 | NUR ---
PT ROUNDS PT ASLEEP IN BED WITH BIPAP APPLIED. NO INCREASED WOB/ DISTRESS NOTED. VSS. PT IS A AND V PACED INTERMITTENTLY ON MONITOR. ABLE TO ASSIST WITH TURNING. WILL MONITOR.
[2020-02-23] MEDS: ACCU-CHEK COMFORT CURVE STRIP VI SCH ×2 (00:24→06:03)
[2020-02-23] MEDS: NITROGLYCERIN 50MG/250ML 250 ML IV SCH ×2 (00:50→16:37)
[2020-02-23] MEDS: HEPARIN DRIP/D5W 100UNITS/ML 250 ML IV SCH ×2 (03:06→12:39)
[2020-02-23] MEDS: MILRINONE 20MG/100ML 100 ML IV SCH ×6 (03:08→23:34)
[2020-02-23 03:18] LABS: INR 1.12 (0.9-1.15); Partial Thromboplastin Time 59.5 sec (23.0-31.2)
--- NOTE | 2020-02-23 03:18 | NUR ---
HEPARIN GTT KEPT AT 1900 UNITS/HR FOR APTT OF 59.8. NO BOLUS AND NO CHANGE. THIS IS PTS THIRD THERAPEUTIC APTT.
[2020-02-23 04:10] LABS: Basophils # (auto) 0 10 ^3/uL (0-0.2); Basophils % (auto) 0.5 % (0.0-2.0); Eosinophils # (auto) 0.1 10 ^3/uL (0-0.8); Eosinophils % (auto) 1.1 % (0.0-7.0); Hematocrit 37.2 % (41.0-53.0); Hemoglobin 12.1 g/dL (13.5-17.5); Lymphocytes # (auto) 1.7 10 ^3/uL (0.4-5.4); Lymphocytes % (auto) 21.5 % (10.0-50.0); Mean Corpuscular Hemoglobin 28.9 pg (28.0-32.0); Mean Corpuscular Hgb Conc. 32.5 g/dL (32.0-36.0); Mean Corpuscular Volume 88.9 fL (80.0-100.0); Monocytes # (auto) 0.9 10 ^3/uL (0-1.3); Neutrophils # (auto) 5.1 10 ^3/uL (1.6-8.6); Neutrophils % (auto) 65.9 % (37.0-80.0); Nucleated Red Blood Cells % 0.1 %; Platelet Count (auto) 206 10^3/uL (140-450); Red Blood Cells 4.19 10^6/uL (4.5-5.90); Red Cell Distribution Width 16.3 % (11.8-14.3); White Blood Cell 7.8 10^3/uL (4.4-10.8)
[2020-02-23] MEDS: HYDROmorphone HCL 2 MG/ML VL IV PRN ×3 (04:23→18:26)
[2020-02-23 04:32] LABS: BUN/Creatinine Ratio 9.2; Calcium 8.2 mg/dL (8.5-10.1); Potassium 3.8 mmol/L (3.5-5.1)
[2020-02-23 04:34] LABS: Bilirubin, Total 0.6 mg/dL (0.2-1.0)
[2020-02-23] MEDS: GABAPENTIN 300 MG CAP PO SCH ×3 (05:27→21:48)
--- NOTE | 2020-02-23 05:27 | NUR ---
0600 PO MEDICATIONS HELD FOR ASPIRATION PRECAUTIONS- PT CURRENTLY ON BIPAP.
[2020-02-23] MEDS: InsuLIN REG 1unit/0.01ml Soln (100units/ml) SC SCH ×2 (06:00)
[2020-02-23] MEDS: FUROSEMIDE 40 MG/4 ML VIAL IV SCH ×2 (06:03→18:26)
--- NOTE | 2020-02-23 06:03 | NUR ---
IN HOUSE COVID SWAB WALKED TO LAB
--- NOTE | 2020-02-23 07:35 | NUR ---
Dr Metzegr at bedside, updated on patient's statu. Patient seen and examined. Order received to discontinue accucheck. Will carry out new orders.
--- NOTE | 2020-02-23 08:00 | NUR ---
Opening Shift Note Assumed care of patient, awake and alert. Patient BIPAP 20/8, rate 14, 50% FIO2, saturation 94%. No S/S of distress/SOB or pain. See interventions for complete assessment. Bed locked on low position, side rails up x2, bed alarms on at all times, call boone within reach, instructed on POC and to call for assist PRN, will continue to monitor for changes Q1hr and PRN.
--- NOTE | 2020-02-23 08:21 | NUR ---
Received call from patient's mother Paty who's able to provide password, updated on patient's status and POC, verbalized understanding. All questions and concerns addressed.
--- NOTE | 2020-02-23 09:00 | NUR ---
Received patient's medical records via fax from [facility], inserted in hard chart.
--- NOTE | 2020-02-23 09:15 | NUR ---
Respiratory note: PT TAKEN OFF BIPAP DUE TO PT WANTING TO EAT BREAKFAST. WILL CONTINUE TO MONITOR. Addendum: 02/23/20 at 1032 by CAMRON SANTANA RT PT PUT ON OXIMIZER 8L.
[2020-02-23] MEDS: NIFEdipine ER 30 MG TAB PO SCH (09:48)
[2020-02-23] MEDS: CLOPIDOGREL BISULFATE 75 MG TAB PO SCH (09:48)
[2020-02-23] MEDS: ISOSORBIDE MONONITRATE ER 60 MG TAB PO SCH (09:49)
[2020-02-23] MEDS: FAMOTIDINE 20 MG TAB PO SCH ×2 (09:49→21:48)
[2020-02-23] MEDS: CARVEDILOL 3.125 MG TAB PO SCH ×2 (09:50→21:49)
--- NOTE | 2020-02-23 10:25 | NUR ---
Respiratory note: PT PUT BACK ON BIPAP BY RN DUE TO DESATURATION.
--- NOTE | 2020-02-23 12:42 | NUR ---
Respiratory note: PT SATURATING 100%, FIO2 DECREASED TO 40%.
--- NOTE | 2020-02-23 14:11 | NUR ---
Respiratory note: PT TAKEN OFF BIPAP TO EAT. SATURATING 99% ON 8L OXIMIZER.
--- NOTE | 2020-02-23 19:30 | NUR ---
OPENING NOTE REPORT RECEIVED FROM SHASHI RN. PATIENT IS A/OX4, CONNECTED TO CONTINUOUS BEDSIDE MONITORS. PATIENT IS SITTING UP IN BED, EATING DINNER TRAY. PATIENT IS ON 6L OXYMIZER, SPO2 94%. PATIENT DENIES ANY SOB OR DISTRESS. RIGHT TRIPLE LUMEN IJ IN PLACE RUNNING MILRINONE AT 0.375MCG/KG/MIN, HEPARIN GTT AT 19ML/HR, AND NITRO GTT AT 45MCG/MIN. WILL COME BACK TO DO PHYSICAL ASSESSMENT ONCE PATIENT IS DONE EATING. PATIENT STATES, "I HAVE SOME RULES. I DO NOT WANT TO BE INTUBATED AND OTHER THAN THAT I WILL LISTEN TO ANYTHING YOU HAVE TO SAY". POC DISCUSSED, ALL QUESTIONS ANSWERED. CALL LIGHT WITHIN REACH.
[2020-02-23] MEDS: ATORVASTATIN 20 MG TAB PO SCH (21:48)
--- NOTE | 2020-02-23 23:52 | NUR ---
WOUND PATIENT FOUND PICKING SCAB TO RIGHT FOREARM. SCAB NOW REOPENED AND BLEEDING. CLEANSED WOUND WITH NS, THERA HONEY AND NEW OPTIFOAM.
[2020-02-24] VITALS (94 sets, daily range): BP systolic 101–191; BP diastolic 50–128
[2020-02-24] MEDS: HEPARIN DRIP/D5W 100UNITS/ML 250 ML IV SCH ×2 (01:05→13:13)
--- NOTE | 2020-02-24 03:10 | NUR ---
BIPAP PATIENT WOKE UP REQUESTING BIPAP OFF. PATIENT PLACED ON 8L OXYMIZER, SPO2 92%, PATIENT TOLERATING WELL.
[2020-02-24] MEDS: HYDROmorphone HCL 2 MG/ML VL IV PRN ×2 (03:29→13:03)
--- NOTE | 2020-02-24 04:30 | NUR ---
AM CARES PATIENT GIVEN COMPLETE LINEN CHANGE. PATIENT ABLE TO GET OUT OF BED AND INTO CHAIR. FULL LINEN CHANGE PROVIDED TO PATIENT. CHG WIPES USED TO CLEAN PATIENTS BODY. WARM SOAPY WASH CLOTHS GIVEN TO PATIENT TO CLEAN FACE AND NECK. NEW GOWN PROVIDED TO PATIENT. LOTION PLACED OVER PATIENTS BACK PER PATIENT REQUEST. PATIENT GOT BACK INTO BED WITH STANDBY ASSISTANCE. FULL WEIGHT BEARING STATUS NOTED. SKIN REASSESSED AT THIS TIME, NO CHANGES NOTED.
--- NOTE | 2020-02-24 04:32 | NUR ---
PT REMOVED BY RN AND PLACED ON 8L OXYMIZER. POX 92%
[2020-02-24] MEDS: MILRINONE 20MG/100ML 100 ML IV SCH ×4 (05:03→21:17)
--- NOTE | 2020-02-24 05:25 | NUR ---
PTT MORNING PTT LEVEL 50.7 ACCORDING TO PHARMACY PROTOCOL, NO BOLUS AND NO CHANGE. RATE REMAINS AT 19ML/HR OR 1900U/HR. WILL ORDER NEXT PTT FOR 24 HOURS PER PROTOCOL.
[2020-02-24 05:30] LABS: INR 1.1 (0.9-1.15); Partial Thromboplastin Time 50.7 sec (23.0-31.2)
[2020-02-24] MEDS: GABAPENTIN 300 MG CAP PO SCH ×3 (05:39→22:36)
[2020-02-24] MEDS: FUROSEMIDE 40 MG/4 ML VIAL IV SCH ×2 (05:39→18:14)
--- NOTE | 2020-02-24 06:10 | NUR ---
Respiratory note: ASSESSED PT FOR PRN TX PT WAS AWAKE AND ALERT, NO RESP DISTRESS NOTED. HR 70, RR 16, SPO2 96% ON 8L OXYMIZER. TITRATED FIO2 TO 6L OXYMIZER. NO INDICATION FOR TX AT THIS TIME. PT KNOWS TO HAVE RT PAGED IF TX IS NEEDED.
--- NOTE | 2020-02-24 07:00 | NUR ---
Opening note Assumed care of patient at this time. Report received from machinist 2nd shift RN. POC reviewed. Head to toe assessment complete. Pt awake and alert x4 at this time. Able to verbalize needs.Received pt on oxymizer at 8lts. Pt on nitro gtt at 25mcg and milrinone set rate at 0.375 mcg/kg/min. Pt has pacemaker. Iv sites benign.Urinal at bedside. Pt on seizure precautions. Call lite within reach. Bed locked and in lowest position, safety precautions in place. Will monitor pt carefully. Addendum: 02/24/20 at 1309 by ALONDRA WARREN RN Received pt on heparin gtt at 1900 units/hr
--- NOTE | 2020-02-24 07:32 | NUR ---
CLOSING PATIENT RESTING IN BED COMFORTABLY ON 8L OXYMIZER, SPO2 96%. NO SOB OR DISTRESS. PATIENT ON HEPARIN GTT AT 19ML/HR, NITRO GTT AT 25MCG/MIN AND MILRINONE AT 0.375MCG/KG/MIN. REPORT GIVEN TO DAYSHIFT JOCY CANTU TO ASSUME CARE OF PATIENT.
--- NOTE | 2020-02-24 08:06 | NUR ---
MD at bedside, Pt order, pt can sit at bedside. Possible LHC tomorrow.
--- NOTE | 2020-02-24 09:32 | NUR ---
Dietary Left two messages with dietary. pt would like side of fruit with breakfast. No response at this time.
[2020-02-24] MEDS: FAMOTIDINE 20 MG TAB PO SCH ×2 (09:46→22:36)
[2020-02-24] MEDS: CLOPIDOGREL BISULFATE 75 MG TAB PO SCH (09:46)
[2020-02-24] MEDS: NIFEdipine ER 30 MG TAB PO SCH (09:47)
[2020-02-24] MEDS: ISOSORBIDE MONONITRATE ER 60 MG TAB PO SCH (09:48)
[2020-02-24] MEDS: CARVEDILOL 3.125 MG TAB PO SCH ×2 (09:48→22:36)
--- NOTE | 2020-02-24 11:29 | NUR ---
Headache Pt complaining of headache but refusing pain medication.
--- NOTE | 2020-02-24 13:07 | NUR ---
Pain assessment: Pt complaining of headache 02/08. Dilaudid given as ordered. Will assess for outcome. See emar.
[2020-02-24] MEDS: ONDANSETRON HCL 4 MG/2 ML VIAL IV PRN (15:08)
[2020-02-24] MEDS ORDERED: HYDROmorphone HCL 2 MG/ML VL IV ONE (15:15)
[2020-02-24] MEDS ORDERED: KETOROLAC TROMETH 30 MG/ML 1ML VIAL ONE (15:28)
[2020-02-24] MEDS ORDERED: KETOROLAC TROMETH 30 MG/ML 1ML VIAL IV ONE (15:30)
--- NOTE | 2020-02-24 16:00 | NUR ---
HOLD P.T. TODAY. PATIENT WITH C/O CHEST PAIN.
--- NOTE | 2020-02-24 16:42 | NUR ---
Status change At 1450, pt complaining of wetting his bed while urinating. PT request to be cleaned. Pt given bed bath and up to bedside chair per MD order. Clean linen placed on bed. While pt sitting upright in chair pt complained of sharp chest pain. Pt clutching chest and and moaning and diaphoretic. EKG done immediately while pt in chair. Pt assisted by several RN's back to bed. VS remained stable at this time. Pt continues to complain of severe pain in chest. Dr. Hicks notified. Dr Sullivan called to bedside. Repeat EKG done. EKG shows active infarct. Troponin lab sent stat. Orders received from Dr. Sullivan for Toradol 15 mg IV once and Q8. Pt to be sent for [facility] in the morning. Pt resting in bed with call light. Pt having intermittent chest pain states, "I've never felt anything like this before."
[2020-02-24] MEDS: NITROGLYCERIN 50MG/250ML 250 ML IV SCH (18:10)
--- NOTE | 2020-02-24 18:45 | NUR ---
PT REQUESTING BREATHING TX.
[2020-02-24] MEDS: ALBUTEROL SULF 2.5 MG/0.5ML(0.5%) NEB SOLN NEB PRN (19:10)
--- NOTE | 2020-02-24 20:05 | NUR ---
OPENING REPORT RECEIVED FROM SHASHI RN AND ASSUMED CARE OF PT. PT IS A0X4 IN BED EATING DINNER INDEPENDENTLY. NITRO,MILRINONE,HEPARIN GTTS RUNNING TO [facility] TLC- SEE IV SPREADSHEET. PT DOES REPORT BACK PAIN WHEN ASKED AND REQUESTS MEDICATION WITH 2200 MEDICATIONS. PT ON 8L OXYMIZER. EDUCATED PT ON DISEASE PROCESS, MEDICATIONS, AND POC. URINAL, CALL HERZOG, AND BELONGINGS WITHIN REACH. FALL PRECAUTIONS IN PLACE. WILL MONITOR.
[2020-02-24] MEDS: KETOROLAC TROMETH 30 MG/ML 1ML VIAL IV PRN (22:36)
[2020-02-24] MEDS: ATORVASTATIN 20 MG TAB PO SCH (22:37)
--- NOTE | 2020-02-24 22:43 | NUR ---
INFORMED CONSENT OBTAINED FOR POSSIBLE LHC TOMORROW AM PER MD BONDS. PT VERBALIZED UNDERSTANDING AND THIS RN ADDRESSED QUESTIONS AND CONCERNS.
[2020-02-25] VITALS (89 sets, daily range): BP systolic 100–154; BP diastolic 31–113
[2020-02-25] MEDS: HYDROmorphone HCL 2 MG/ML VL IV PRN ×3 (00:13→17:53)
--- NOTE | 2020-02-25 00:50 | NUR ---
PLACED PT ON BIPAP.
--- NOTE | 2020-02-25 02:32 | NUR ---
PT OFF BIPAP AT THIS TIME PLACED ON 6LPM OXYMIZER.
[2020-02-25] MEDS: MILRINONE 20MG/100ML 100 ML IV SCH ×5 (03:19→22:15)
[2020-02-25] MEDS: HEPARIN DRIP/D5W 100UNITS/ML 250 ML IV SCH ×2 (03:20→16:21)
[2020-02-25 04:43] LABS: Basophils # (auto) 0.1 10 ^3/uL (0-0.2); Basophils % (auto) 1.1 % (0.0-2.0); Eosinophils # (auto) 0.1 10 ^3/uL (0-0.8); Eosinophils % (auto) 1.7 % (0.0-7.0); Hematocrit 37.4 % (41.0-53.0); Hemoglobin 12.1 g/dL (13.5-17.5); Lymphocytes # (auto) 1.6 10 ^3/uL (0.4-5.4); Lymphocytes % (auto) 22.4 % (10.0-50.0); Mean Corpuscular Hgb Conc. 32.4 g/dL (32.0-36.0); Mean Corpuscular Volume 89.4 fL (80.0-100.0); Monocytes # (auto) 0.8 10 ^3/uL (0-1.3); Monocytes % (auto) 11.2 % (0.0-12.0); Neutrophils # (auto) 4.5 10 ^3/uL (1.6-8.6); Neutrophils % (auto) 63.6 % (37.0-80.0); Nucleated Red Blood Cells % 0.1 %; Platelet Count (auto) 192 10^3/uL (140-450); Red Blood Cells 4.18 10^6/uL (4.5-5.90); Red Cell Distribution Width 16.1 % (11.8-14.3); White Blood Cell 7.1 10^3/uL (4.4-10.8)
--- NOTE | 2020-02-25 04:49 | NUR ---
PRE OP CHG BATH GIVEN. GOWN REPLACED.
[2020-02-25 05:10] LABS: Potassium 3.9 mmol/L (3.5-5.1)
[2020-02-25 05:15] LABS: Albumin 3.1 g/dL (3.4-5.0); BUN/Creatinine Ratio 8.4; Calcium 8.4 mg/dL (8.5-10.1)
[2020-02-25 05:21] LABS: INR 1.11 (0.9-1.15)
[2020-02-25 05:23] LABS: Bilirubin, Total 0.5 mg/dL (0.2-1.0); Total Protein 7.3 g/dL (6.4-8.2)
[2020-02-25 05:26] LABS: Partial Thromboplastin Time 98.5 sec (23.0-31.2)
--- NOTE | 2020-02-25 05:30 | NUR ---
REQUESTED LAB TO BEDSIDE TO RE-DRAW APTT.
[2020-02-25] MEDS: GABAPENTIN 300 MG CAP PO SCH ×3 (05:32→22:16)
--- NOTE | 2020-02-25 05:55 | NUR ---
LAB AT BEDSIDE FOR APTT REDRAW
[2020-02-25] MEDS: ALBUTEROL SULF 2.5 MG/0.5ML(0.5%) NEB SOLN NEB PRN (06:02)
[2020-02-25] MEDS: FUROSEMIDE 40 MG/4 ML VIAL IV SCH ×2 (06:11→17:53)
[2020-02-25 07:39] LABS: INR 1.09 (0.9-1.15); Partial Thromboplastin Time 46.2 sec (23.0-31.2)
[2020-02-25] MEDS: ACETAMINOPHEN 325 MG TAB PO PRN (08:48)
[2020-02-25] MEDS: ISOSORBIDE MONONITRATE ER 60 MG TAB PO SCH (11:54)
[2020-02-25] MEDS: CLOPIDOGREL BISULFATE 75 MG TAB PO SCH (11:54)
[2020-02-25] MEDS: FAMOTIDINE 20 MG TAB PO SCH ×2 (11:55→22:17)
[2020-02-25] MEDS: CARVEDILOL 3.125 MG TAB PO SCH ×2 (11:55→22:16)
--- NOTE | 2020-02-25 12:00 | NUR ---
APTT IS 49.9, NO BOLUS RATE GIVEN AND HEPARIN DRIP INCREASED 200 UNITS HOUR FROM 1900 TO 21OO. PT/PTT WILL BE RECHECKED AT 1800.
--- NOTE | 2020-02-25 12:07 | NUR ---
Nutrition Followup Note Wt: 172.7 kg Pt was sleeping with no family by bedside. pt to have heart cath today per RN. pt is currently on cardiac diet with adequate PO of 75% x 4 per RN doc Est Energy needs: 6854-4970 kcals (11-13 kcal/kgBWEst Protein needs: 58-73 gms/day (0.8-1.0 gm/kgIBW of 72.7 kg) Will continue to monitor and reassess prn. Labs: GLU 110 H CA 8.4 L ALB 3.1 L BM: Pt has no BM reported per Rn note Skin: BS 16 mod risk, full details in healthcare analyst note PES: 1) Obesity aeb BMI of 61.5 kg/m2 r/t energy intake in excess of energy needs 2) Altered nutrition related lab values r/t current medical condition aeb hyperglycemia, mild hypoalb Comments: Will continue PO intake, skin status. F/u high 3-5 days Rec: 1) Consider a daily MVI with 500mg VitC BID. 2) Refer pt to RD for nutrition education upon D/C. 3) continue current plan of care
[2020-02-25 12:24] LABS: INR 1.08 (0.9-1.15); Partial Thromboplastin Time 49.5 sec (23.0-31.2)
[2020-02-25] MEDS: KETOROLAC TROMETH 30 MG/ML 1ML VIAL IV PRN ×2 (13:13→22:19)
--- NOTE | 2020-02-25 13:26 | NUR ---
PLACED PT ON BIPAP.
--- NOTE | 2020-02-25 14:16 | NUR ---
Hold PT today, pt was just placed on BIPAP due to desat.
[2020-02-25] MEDS: NIFEdipine ER 30 MG TAB PO SCH (14:52)
[2020-02-25 18:10] LABS: INR 1.1 (0.9-1.15); Partial Thromboplastin Time 66.6 sec (23.0-31.2)
--- NOTE | 2020-02-25 18:27 | NUR ---
APTT IS 66.6 NO BOLUS OR CHANGE IN DOSAGE AT THIS TIME. NEXT PT/PTT WILL BE 0001
--- NOTE | 2020-02-25 20:15 | NUR ---
SPOKE TO PT ABOUT WEARING HIS BIPAP LATER PT IMMEDIATELY SHOOK HEAD AND REFUSED FOR TONIGHT. EXPLAINED BENEFITS OF BIPAP THERAPY, PT STILL REFUSING TO WEAR ALL NIGHT PT STATES HE MIGHT WEAR IT FOR ABOUT 15 MINUTES. RE-EXPLAINED THERAPEUTIC VALUE OF 15 MINUTES IS NOT THE SAME WEARING IT ALL NIGHT. PT AGREED TO WEAR LONG HE TOLERATE. RT NAME AND PAGER ASSIGNMENT WRITTEN ON PTS ROOM BOARD. NO S/S OF DISTRESS NOTED WILL CONTINUE TO MONITOR. RT NAME AND PAGER ASSIGNMENT WRITTEN ON PTS ROOM BOARD.
--- NOTE | 2020-02-25 21:48 | NUR ---
PT CARE/ACTIVITY PT REQUESTING TO AMBULATE. EDUCATED HIM ON SAFETY, MEDICATIONS, AND RISKS OF AMBULATING WHILE ON IV NITRO, MILRINONE, AND HEPARIN. HE WAS AGREEABLE TO DANGLING LEGS AT BEDSIDE FOR AWHILE. THIS RN ASSISTED HIM TO THE EDGE OF BED. PT WAS ABLE TO TOLERATE STANDING UP WHILE HIS LENINS WERE CHANGED. PT GAVE HIMSELF A BATH AND BRUSHED HIS TEETH. GOWN REPLACED. VITAL SIGNS STABLE WITH 8L OXYMIZER APPLIED. NO COMPLAINTS OF CP ON EXERTION.
--- NOTE | 2020-02-25 22:01 | NUR ---
PT CONCERNS/AMA PT INQUIRING ABOUT LEAVING AMA. THIS RN THOROUGHLY EDUCATED HIM ON DISEASE PROCESS, CURRENT IV MEDICATIONS, AND RISKS OF LEAVING AT THIS TIME. APPROXIMATELY 20 MINUTES WAS SPENT EDUCATED AND PT VOICING HIS CONCERNS ABOUT HIS POC. HE AGREED TO CONTINUE CARE HERE TONIGHT AND DISCUSS WITH MD IN THE MORNING.
[2020-02-25] MEDS: ATORVASTATIN 20 MG TAB PO SCH (22:16)
[2020-02-25] MEDS: NITROGLYCERIN 50MG/250ML 250 ML IV SCH (22:16)
[2020-02-26] VITALS (97 sets, daily range): BP systolic 97–167; BP diastolic 36–110
--- NOTE | 2020-02-26 00:25 | NUR ---
LAB AT BEDSIDE FOR 0001 PTT DRAW.
--- NOTE | 2020-02-26 00:30 | NUR ---
HEPARIN GTT REMAINS AT 21ML/HR PER [facility] PROTOCOL. NO BOLUS NO CHANGE.
[2020-02-26 01:10] LABS: INR 1.13 (0.9-1.15); Partial Thromboplastin Time 61.1 sec (23.0-31.2)
[2020-02-26] MEDS: HYDROmorphone HCL 2 MG/ML VL IV PRN ×2 (02:04→23:45)
--- NOTE | 2020-02-26 02:05 | NUR ---
CHEST PAIN PT COMPLAINS OF 10/10 CHEST PAIN THAT RADIATES TO HIS BACK. NITRO TITRATED (SEE IV SPREADSHEET). DILAUDID GIVEN, PT IS ALLERGIC TO MORPHINE. THREE [address] BONDS MADE AWARE. NO NEW ORDERS RECEIVED. Addendum: 02/26/20 at 0207 by JOSELYN KING RN PT PLACED ON BIPAP FOR COMPLAINTS OF SOB AND 02 SATS MAINTAINING IN 80'S WITH GOOD PLETH ON MONITOR. O2 AT 50%.
--- NOTE | 2020-02-26 02:20 | NUR ---
PT PLACED ON BIPAP BY JOCY ALVES DUE TO CONSISTENT DESATURATION. BIPAP CONNECTED TO RED OUTLET AND O2 SOURCE ALARMS ARE SET AND AUDIBLE. AMBU BAG AND MASK AT BEDSIDE. PT ON LARGE FACE MASK. BS ARE DIMINISHED T/O, MASK READJUSTED TO ACHIEVE APPROPRIATE LEAK. PTS BOTTOM LIP TENDS TO COME OUT OF MASK SUGGESTED TOTAL FACE MASK PT REFUSED. RT NAME AND PAGER ASSIGNMENT WRITTEN ON PTS ROOM BOARD. PT AND RN AWARE I CAN BE PAGED AT ANY TIME. WILL CONTINUE TO MONITOR.
--- NOTE | 2020-02-26 04:15 | NUR ---
AT BEDSIDE FOR END OF SHIFT BIPAP CHECK. ATTEMPTED WITH TOTAL FACE MASK PT VERY UNCOMFORTABLE AND REFUSED TO WEAR THIS MASK. CHANGED BACK TO LARGE FACE MASK. WILL HAVE DAY SHIFT CONTINUE POC.
[2020-02-26 05:22] LABS: Basophils # (auto) 0.1 10 ^3/uL (0-0.2); Basophils % (auto) 0.9 % (0.0-2.0); Eosinophils # (auto) 0.2 10 ^3/uL (0-0.8); Eosinophils % (auto) 3.7 % (0.0-7.0); Hematocrit 38.4 % (41.0-53.0); Hemoglobin 12.1 g/dL (13.5-17.5); Lymphocytes # (auto) 1.4 10 ^3/uL (0.4-5.4); Lymphocytes % (auto) 23.9 % (10.0-50.0); Mean Corpuscular Hemoglobin 28.1 pg (28.0-32.0); Mean Corpuscular Hgb Conc. 31.7 g/dL (32.0-36.0); Mean Corpuscular Volume 88.7 fL (80.0-100.0); Monocytes # (auto) 0.6 10 ^3/uL (0-1.3); Monocytes % (auto) 10.4 % (0.0-12.0); Neutrophils # (auto) 3.5 10 ^3/uL (1.6-8.6); Neutrophils % (auto) 61.1 % (37.0-80.0); Platelet Count (auto) 219 10^3/uL (140-450); Red Blood Cells 4.33 10^6/uL (4.5-5.90); Red Cell Distribution Width 15.7 % (11.8-14.3); White Blood Cell 5.7 10^3/uL (4.4-10.8)
[2020-02-26 05:43] LABS: INR 1.12 (0.9-1.15)
--- NOTE | 2020-02-26 05:45 | NUR ---
0600 APTT RESULTED. NO BOLUS AND NO CHANGE.
[2020-02-26] MEDS: MILRINONE 20MG/100ML 100 ML IV SCH ×5 (05:47→22:32)
[2020-02-26] MEDS: HEPARIN DRIP/D5W 100UNITS/ML 250 ML IV SCH ×2 (05:48→12:00)
[2020-02-26] MEDS: FUROSEMIDE 40 MG/4 ML VIAL IV SCH ×2 (06:00→19:45)
[2020-02-26] MEDS: GABAPENTIN 300 MG CAP PO SCH ×3 (06:56→23:45)
--- NOTE | 2020-02-26 08:20 | NUR ---
SPOKE WITH DR Beltran AVILA/ INFORMED OF BLURRED VISION NEW ONSET BLURRED VISION STARTING THIS AT AT 0600. NOT IMPROVING. NEW ORDERS RECEIVED
--- NOTE | 2020-02-26 09:02 | NUR ---
LYE BOILER AT BEDSIDE
[2020-02-26] MEDS ORDERED: OPTISON 3ml Vial for INJ IV ONE (09:17)
--- NOTE | 2020-02-26 09:20 | NUR ---
MARYAM ADMINISTERED- SEE INTERVENTION
--- NOTE | 2020-02-26 09:46 | NUR ---
MAKE UP MAN AT BEDSIDE FOR DVT STUDY
--- NOTE | 2020-02-26 11:24 | NUR ---
PATIENT TO AND FROM RADIOLOGY FOR CT SCAN CONNECTED TO PORTABLE MONITORS. PATIENT STABLE
--- NOTE | 2020-02-26 11:27 | NUR ---
SPOKE WITH DR BONDS UPDATED ON PATIENTS STATUS AND NEW CHANGES. MD STATES TO NOTIFY PRIMARY MD TO TRANSFER FOR HEART ANGIOGRAM AT FACILITY WITH BIGGER [employer] SPANISH TEACHER TABLE
--- NOTE | 2020-02-26 11:38 | NUR ---
SPOKE WITH DR Sachi AVILA- TRANSFER TO HIGHER LEVEL OF CARE NOTIFIED MD OF DR BONDS'S RECOMMENDATIONS.
[2020-02-26] MEDS: CLOPIDOGREL BISULFATE 75 MG TAB PO SCH (11:49)
[2020-02-26] MEDS: NIFEdipine ER 30 MG TAB PO SCH (11:49)
[2020-02-26] MEDS: FAMOTIDINE 20 MG TAB PO SCH ×2 (11:49→23:45)
[2020-02-26] MEDS: ISOSORBIDE MONONITRATE ER 60 MG TAB PO SCH (11:50)
[2020-02-26] MEDS: CARVEDILOL 3.125 MG TAB PO SCH ×2 (11:50→23:44)
--- NOTE | 2020-02-26 12:20 | NUR ---
HEADACHE PATIENT COMPLAINING OF HEADACHE. RN TO ADMINISTER PRN TYLENOL
[2020-02-26] MEDS: ACETAMINOPHEN 325 MG TAB PO PRN (12:24)
--- NOTE | 2020-02-26 13:21 | NUR ---
ABDOMINAL GIRTH- 37INCHES
[2020-02-26 13:48] LABS: INR 1.11 (0.9-1.15); Partial Thromboplastin Time 69.5 sec (23.0-31.2)
--- NOTE | 2020-02-26 14:06 | NUR ---
Called [facility] [phone] spoke with Treasure, advised Pt needs to be transferred for Higher Level of care for Bariatric heart angio. Per Treasure patient was previously under the care of the Heart Failure team in June 2019. Need to fax: current echo, H&P, today's progress notes, covid results, facesheet and transfer orders to: [phone]. 63 pages faxed. Awaiting response
--- NOTE | 2020-02-26 14:28 | NUR ---
Called [facility] [phone] spoke with Uriel, she advised to fax: Facesheet, H&P, Covid results, Transfer order, Echo and progress notes to: [phone] for possible transfer to higher level of care.
--- NOTE | 2020-02-26 14:30 | NUR ---
Called [facility] spoke with Gladis who advises they currently do not have any ICU beds available and would not be able to accept this patient.
--- NOTE | 2020-02-26 15:06 | NUR ---
Faxed clinical packet to [facility] [phone] [facility] for the patient for Bariatric Heart angiogram for the patient .
--- NOTE | 2020-02-26 15:58 | NUR ---
Called [facility] spoke with Timothy yoga coordinator gave update on the patient and placed patient on WILL CALL
--- NOTE | 2020-02-26 16:19 | NUR ---
Called [facility] [phone] spoke with Propeller Mechanic Ward Forde stated they have no ICU bed and they are unable to accommodate the patient 's abdominal girth, their limit is 31 inches.
--- NOTE | 2020-02-26 16:39 | NUR ---
This is a 59-year-old male, patient is alert and oriented. Patient cognitive abilities are intact. Patient stated that he uses cane and walker to ambulate. Patient stated that he need assistance with all ADLs. Patient is not receptive to receive home health services for ADLs purposes. Patient stated that his mother will assist him with ADLs. Patient stated that he currently lives with his mother. Patient stated that he unemployed and receive government assistance SSI. Patient stated that his mother is his support system. Discharge planning: SW offered resources for home health services, patient declined. Addendum: 02/26/20 at 1641 by IRINEO JIMENEZ Amended: Links added.
--- NOTE | 2020-02-26 16:44 | NUR ---
Received a call from [facility] Janey coordinator and answered all questions pertaining to the patient needing HLOC, will continue to review the chart.
--- NOTE | 2020-02-26 16:52 | NUR ---
This is a 59-year-old male, patient is alert and oriented. Patient cognitive abilities are intact. Patient stated that he uses cane and walker to ambulate. Patient stated that he need assistance with all ADLs. Patient is not receptive to receive home health services for ADLs purposes. Patient stated that his mother will assist him with ADLs. Patient stated that he currently lives with his mother. Patient stated that he unemployed and receive government assistance SSI. Patient stated that his mother is his support system. Discharge planning: SW offered resources for home health services, patient declined. Addendum: 02/26/20 at 1653 by IRINEO JIMENEZ Amended: Links added.
--- NOTE | 2020-02-26 21:06 | NUR ---
PT PLACED ON BIPAP DUE TO ALOC. STATES "HE DOES NOT FEEL TOO GOOD." 02 SATS MAINTAINING IN LOW 80'S WITH GOOD WAVE FORM ON MONITOR. PT ALSO COMPLAINS OF CP. NITRO TITRATED AND TORDOL GIVEN PER MD ORDERS. WILL REASSESS.
[2020-02-26] MEDS: KETOROLAC TROMETH 30 MG/ML 1ML VIAL IV PRN (21:11)
[2020-02-26] MEDS: ALBUTEROL SULF 2.5 MG/0.5ML(0.5%) NEB SOLN NEB PRN (22:23)
--- NOTE | 2020-02-26 22:30 | NUR ---
2200 medications will be late due to pt being asleep/on bipap.
[2020-02-26] MEDS: NITROGLYCERIN 50MG/250ML 250 ML IV SCH (22:32)
--- NOTE | 2020-02-26 23:36 | NUR ---
RECEIVED CALL FROM [facility]. SPOKE WITH NICK. THERE IS A BED AVAILABLE FOR PT. HE WILL BE GOING TO [facility] [id number], [address] [id number]. THE ACCEPTING PHYSICIAN IS CORINA COYLE. PHONE NUMBER TO GIVE REPORT IS [phone].
[2020-02-26] MEDS: ATORVASTATIN 20 MG TAB PO SCH (23:45)
--- NOTE | 2020-02-26 23:58 | NUR ---
GIOVANNY SPOKE WITH CORKY FROM [facility]. ETA OF 0700.
[2020-02-27] VITALS (23 sets, daily range): BP systolic 83–151; BP diastolic 51–123
[2020-02-27] MEDS: MILRINONE 20MG/100ML 100 ML IV SCH ×2 (01:40→04:34)
--- NOTE | 2020-02-27 04:14 | NUR ---
SPOKE WITH [facility]. SOLORZANO WITHIN 1 HOUR.
[2020-02-27 05:18] LABS: INR 1.12 (0.9-1.15); Partial Thromboplastin Time 56.6 sec (23.0-31.2)
[2020-02-27] MEDS: KETOROLAC TROMETH 30 MG/ML 1ML VIAL IV PRN (05:18)
--- NOTE | 2020-02-27 05:19 | NUR ---
REPORT GIVEN TO [facility] JOCY VIRK.
--- NOTE | 2020-02-27 05:19 | NUR ---
DISCHARGE MRSA SENT TO LAB
--- NOTE | 2020-02-27 05:20 | NUR ---
MORNING APTT 56.6 NO BOLUS NO CHANGE PER [facility]OT[facility]. HEPARIN GTT REMAINS AT 21ML/HR
--- NOTE | 2020-02-27 05:29 | NUR ---
BEDSIDE REPORT GIVEN TO [facility].
--- NOTE | 2020-02-27 05:45 | NUR ---
PT LEFT FACILITY WITH [facility]. ALL BELONGINGS WITH PT. SAFE VALUABLES RETURNED AND COPY OF FORM PLACED IN CHART. PTS VEHICLE REMAINS HERE IN THE PARKING LOT. SECURITY IS AWARE.
--- NOTE | 2020-02-27 06:04 | NUR ---
CALLED [facility] TO MAKE THEM AWARE THAT PT WAS EN ROUTE.
== END 2020-02-27 05:49 | disposition short-term general hospital (02) | DRG 280 ==
LOC: ER 19:50 → TELE 19:51 → ICU WEST 02-21 07:27
PROVIDERS: ADMIT Nurse Practitioner; ATTEND Family Medicine
PROC: 02HV33Z Insertion of Infusion Device into Superior Vena Cava, Percutaneous Approach (ICD-10-PCS; principal; 2020-02-21)
PROC: 5A09357 Assistance with Respiratory Ventilation, Less than 24 Consecutive Hours, Continuous Positive Airway Pressure (ICD-10-PCS; 2020-02-25)
PROC: 5A09357 Assistance with Respiratory Ventilation, Less than 24 Consecutive Hours, Continuous Positive Airway Pressure (ICD-10-PCS; 2020-02-26)
DX: I21.9 Acute myocardial infarction, unspecified (principal); J96.20 Acute and chronic respiratory failure, unspecified whether with hypoxia or hypercapnia; I50.43 Acute on chronic combined systolic (congestive) and diastolic (congestive) heart failure; J44.1 Chronic obstructive pulmonary disease with (acute) exacerbation; Z68.43 Body mass index [BMI] 50.0-59.9, adult; I42.0 Dilated cardiomyopathy; E66.2 Morbid (severe) obesity with alveolar hypoventilation; I82.402 Acute embolism and thrombosis of unspecified deep veins of left lower extremity; F17.210 Nicotine dependence, cigarettes, uncomplicated; F32.9 Major depressive disorder, single episode, unspecified; K21.9 Gastro-esophageal reflux disease without esophagitis; I25.10 Atherosclerotic heart disease of native coronary artery without angina pectoris; G47.00 Insomnia, unspecified; I25.5 Ischemic cardiomyopathy; E11.42 Type 2 diabetes mellitus with diabetic polyneuropathy; I11.0 Hypertensive heart disease with heart failure; E11.21 Type 2 diabetes mellitus with diabetic nephropathy; E78.00 Pure hypercholesterolemia, unspecified; Z66 Do not resuscitate; E78.5 Hyperlipidemia, unspecified; Z20.828 Contact with and (suspected) exposure to other viral communicable diseases; Z88.0 Allergy status to penicillin; Z88.8 Allergy status to other drugs, medicaments and biological substances; Z91.041 Radiographic dye allergy status; Z91.011 Allergy to milk products; Z95.810 Presence of automatic (implantable) cardiac defibrillator; Z95.5 Presence of coronary angioplasty implant and graft; Z91.14 Patient's other noncompliance with medication regimen; I25.2 Old myocardial infarction; Z83.3 Family history of diabetes mellitus; Z82.49 Family history of ischemic heart disease and other diseases of the circulatory system; Z86.73 Personal history of transient ischemic attack (TIA), and cerebral infarction without residual deficits; Z79.899 Other long term (current) drug therapy; F12.90 Cannabis use, unspecified, uncomplicated; Z91.19 Patient's noncompliance with other medical treatment and regimen; Z91.11 Patient's noncompliance with dietary regimen
CPT/HCPCS: 36415; 36600; 70450; 71045; 80053; 82805; 82962; 83735; 83880; 84443; 84484; 85025; 85610; 85730; 86850; 86900; 86901; 87081; 87426; 93005; 93306; 93886; 93970; 94640; 94660; 96365; 96366; 96375; 96376; G0378; J0330; J1885; J2001; J2405; Q9956

== ENCOUNTER 2020-07-05 20:45 | Inpatient (IN) | payer MEDICARE, MEDICAID ==
[~2020-07-05] VITALS: Ht 182.9 cm; Wt 177.0 kg
[~2020-07-05 20:45] MED LIST changes: +ATOR-47 PO; -ATOR1TAB PO; -CLOP75TA41 PO; +CLOP75TA70 PO; -METH750T3 PO
[2020-07-05 21:37] LABS: Basophils # (auto) 0.1 10 ^3/uL (0-0.2); Basophils % (auto) 1.3 % (0.0-2.0); Eosinophils # (auto) 0.1 10 ^3/uL (0-0.8); Eosinophils % (auto) 1.7 % (0.0-7.0); Hematocrit 42.8 % (41.0-53.0); Hemoglobin 13.9 g/dL (13.5-17.5); Lymphocytes % (auto) 35.4 % (10.0-50.0); Mean Corpuscular Hemoglobin 28.6 pg (28.0-32.0); Mean Corpuscular Hgb Conc. 32.6 g/dL (32.0-36.0); Mean Corpuscular Volume 87.8 fL (80.0-100.0); Monocytes % (auto) 11.8 % (0.0-12.0); Neutrophils # (auto) 4.2 10 ^3/uL (1.6-8.6); Neutrophils % (auto) 49.8 % (37.0-80.0); Nucleated Red Blood Cells % 0.2 %; Platelet Count (auto) 279 10^3/uL (140-450); Red Blood Cells 4.87 10^6/uL (4.5-5.90); Red Cell Distribution Width 16.6 % (11.8-14.3); White Blood Cell 8.5 10^3/uL (4.4-10.8)
[2020-07-05] MEDS ORDERED: HYDROmorphone HCL 2 MG/ML VL IV ONE (21:45)
[2020-07-05] MEDS ORDERED: ONDANSETRON HCL 4 MG/2 ML VIAL IV ONE (21:45)
[2020-07-05 21:54] LABS: Alanine Aminotransferase 16 U/L (16-61); Albumin 3.2 g/dL (3.4-5.0); Anion Gap 6 (5-15); Aspartate Aminotransferase 16 U/L (15-37); BUN/Creatinine Ratio 11.6; Blood Urea Nitrogen 11 mg/dL (7-18); Calcium 8.4 mg/dL (8.5-10.1); Carbon Dioxide 28 mmol/L (21-32); Chloride 108 mmol/L (98-107); GFR African American 105 mL/min; GFR Non-African American 87 mL/min; Glucose 134 mg/dL (74-106); Magnesium 2.1 mg/dL (1.6-2.6); Potassium 3.8 mmol/L (3.5-5.1); Sodium 142 mmol/L (136-145)
[2020-07-05 21:56] LABS: INR 1.07 (0.9-1.15); Partial Thromboplastin Time 27.5 sec (23.0-31.2)
[2020-07-05 21:59] LABS: Alkaline Phosphatase 90 U/L (45-117); Bilirubin, Total 0.4 mg/dL (0.2-1.0); Total Protein 7.4 g/dL (6.4-8.2)
[2020-07-06] VITALS (32 sets, daily range): BP systolic 98–145; BP diastolic 48–103
[2020-07-06] MEDS ORDERED: diphenhdrAMINE HCL 50 MG/1 ML VL IV ONE (00:15)
[2020-07-06] MEDS ORDERED: HALOPERIDOL LACTATE 5 MG/ML INJ VIAL IM ONE (00:15)
[2020-07-06] MEDS ORDERED: LORazepam 2MG/ML-1ML VIAL IV ONE (00:15)
[2020-07-06] MEDS ORDERED: FUROSEMIDE 40 MG/4 ML VIAL IV ONE (03:00)
[2020-07-06] MEDS ORDERED: ALBUTEROL SULF HFA 90MCG INH 200DOSE IN PRN (03:15)
[2020-07-06] MEDS ORDERED: hydrALAZINE HCL 20 MG/ML VL IV PRN (03:15)
[2020-07-06] MEDS ORDERED: NITROGLYCERIN 0.4 MG SL TAB SL PRN (03:30)
[2020-07-06] MEDS ORDERED: MORPHINE SULF INJ 2 MG/ML SYRINGE 1ML IV PRN (03:30)
[2020-07-06] MEDS ORDERED: ONDANSETRON HCL 4 MG/2 ML VIAL IV PRN (03:30)
[2020-07-06] MEDS ORDERED: ACETAMINOPHEN 325 MG TAB PO PRN (03:30)
[2020-07-06] MEDS ORDERED: DOCUSATE SOD 100 MG CAP PO PRN (03:30)
[2020-07-06] MEDS: HYDROmorphone HCL 2 MG/ML VL IV PRN ×3 (03:58→22:38)
[2020-07-06 05:23] LABS: Basophils # (auto) 0 10 ^3/uL (0-0.2); Basophils % (auto) 0.3 % (0.0-2.0); Eosinophils # (auto) 0 10 ^3/uL (0-0.8); Hematocrit 45.5 % (41.0-53.0); Hemoglobin 15.2 g/dL (13.5-17.5); Lymphocytes # (auto) 1.3 10 ^3/uL (0.4-5.4); Lymphocytes % (auto) 14.8 % (10.0-50.0); Mean Corpuscular Hemoglobin 29.4 pg (28.0-32.0); Mean Corpuscular Hgb Conc. 33.3 g/dL (32.0-36.0); Mean Corpuscular Volume 88.2 fL (80.0-100.0); Monocytes # (auto) 0.7 10 ^3/uL (0-1.3); Monocytes % (auto) 7.8 % (0.0-12.0); Neutrophils # (auto) 6.6 10 ^3/uL (1.6-8.6); Neutrophils % (auto) 77.1 % (37.0-80.0); Nucleated Red Blood Cells % 0.1 %; Platelet Count (auto) 294 10^3/uL (140-450); Red Blood Cells 5.16 10^6/uL (4.5-5.90); Red Cell Distribution Width 16.7 % (11.8-14.3); White Blood Cell 8.6 10^3/uL (4.4-10.8)
[2020-07-06 05:38] LABS: Potassium 4.6 mmol/L (3.5-5.1)
[2020-07-06 05:45] LABS: Albumin 3.6 g/dL (3.4-5.0); Calcium 8.5 mg/dL (8.5-10.1)
[2020-07-06 05:48] LABS: Bilirubin, Total 0.3 mg/dL (0.2-1.0); Total Protein 8.2 g/dL (6.4-8.2)
[2020-07-06] MEDS: SODIUM CHLOR 0.9% PF (SALINE LOCK) 10ML VIAL/SYR IV SCH ×3 (05:54→21:34)
[2020-07-06] MEDS: FUROSEMIDE 40 MG/4 ML VIAL IV SCH (05:54)
[2020-07-06] MEDS: GABAPENTIN 300 MG CAP PO SCH ×3 (05:55→21:34)
[2020-07-06] MEDS: PANTOPRAZOLE 40 MG/10 ML VIAL INJ IV SCH ×2 (09:10→21:33)
[2020-07-06] MEDS: ASPirin 81 mg TAB PO SCH (09:10)
[2020-07-06] MEDS: CARVEDILOL 3.125 MG TAB PO SCH (09:10)
[2020-07-06] MEDS: levETIRAcetam 500 MG TAB PO SCH ×2 (09:12→21:33)
[2020-07-06] MEDS: FAMOTIDINE 20 MG TAB PO SCH ×2 (09:12→21:34)
[2020-07-06] MEDS: ISOSORBIDE MONONITRATE ER 60 MG TAB PO SCH (09:12)
[2020-07-06] MEDS: CLOPIDOGREL BISULFATE 75 MG TAB PO SCH (09:12)
[2020-07-06] MEDS: NIFEdipine ER 30 MG TAB PO SCH (09:13)
[2020-07-06] MEDS: ASCORBIC ACID 500 MG TAB PO SCH ×2 (09:13→21:34)
[2020-07-06] MEDS ORDERED: ZINC SULFATE 220mg CAP or TAB PO SCH (10:00)
[2020-07-06] MEDS ORDERED: APIXABAN 5 MG TAB PO SCH (10:00)
[2020-07-06] MEDS ORDERED: MULTIPLE VITAMIN TAB PO SCH (10:00)
[2020-07-06] MEDS ORDERED: PATIENTS OWN MEDICATION (Nifedipine (Nifedipine Er) 60 MG) PO SCH (10:00)
[2020-07-06] MEDS ORDERED: ISOSORBIDE DINITRATE 30 MG PO SCH (10:00)
[2020-07-06] MEDS ORDERED: NITROGLYCERIN 50MG/250ML 250 ML IV SCH (12:00)
[2020-07-06] MEDS ORDERED: LORazepam 2MG/ML-1ML VIAL IV PRN (15:45)
[2020-07-06] MEDS: ATORVASTATIN 20 MG TAB PO SCH (21:34)
[2020-07-06] MEDS ORDERED: PATIENTS OWN MEDICATION (Atorvastatin Calcium 1 TAB) PO SCH (22:00)
[2020-07-07] VITALS (95 sets, daily range): BP systolic 96–140; BP diastolic 52–99
[2020-07-07] MEDS ORDERED: FUROSEMIDE INJECTION 100 MG in SODIUM CHL 0.9% 100 ML IV SCH (00:45)
[2020-07-07] MEDS ORDERED: FUROSEMIDE INJECTION 10 ML ONE (00:57)
[2020-07-07 04:37] LABS: Basophils # (auto) 0 10 ^3/uL (0-0.2); Basophils % (auto) 0.4 % (0.0-2.0); Eosinophils # (auto) 0 10 ^3/uL (0-0.8); Eosinophils % (auto) 0.2 % (0.0-7.0); Hematocrit 39.2 % (41.0-53.0); Lymphocytes % (auto) 10.9 % (10.0-50.0); Mean Corpuscular Hemoglobin 29.3 pg (28.0-32.0); Mean Corpuscular Hgb Conc. 33.3 g/dL (32.0-36.0); Mean Corpuscular Volume 88.1 fL (80.0-100.0); Monocytes # (auto) 1.1 10 ^3/uL (0-1.3); Monocytes % (auto) 13.1 % (0.0-12.0); Neutrophils # (auto) 6.6 10 ^3/uL (1.6-8.6); Neutrophils % (auto) 75.4 % (37.0-80.0); Platelet Count (auto) 238 10^3/uL (140-450); Red Blood Cells 4.45 10^6/uL (4.5-5.90); Red Cell Distribution Width 16.8 % (11.8-14.3); White Blood Cell 8.7 10^3/uL (4.4-10.8)
[2020-07-07 04:50] LABS: Potassium 4.1 mmol/L (3.5-5.1)
[2020-07-07 04:54] LABS: Albumin 2.9 g/dL (3.4-5.0); BUN/Creatinine Ratio 15.9; Calcium 7.8 mg/dL (8.5-10.1)
[2020-07-07 05:08] LABS: Bilirubin, Total 0.7 mg/dL (0.2-1.0); Total Protein 6.9 g/dL (6.4-8.2)
[2020-07-07] MEDS ORDERED: HEPARIN DRIP/D5W 100UNITS/ML 250 ML IV SCH (05:45)
[2020-07-07] MEDS: FUROSEMIDE 40 MG/4 ML VIAL IV SCH (06:00)
[2020-07-07] MEDS: GABAPENTIN 300 MG CAP PO SCH ×3 (06:22→21:04)
[2020-07-07] MEDS: SODIUM CHLOR 0.9% PF (SALINE LOCK) 10ML VIAL/SYR IV SCH ×3 (06:22→21:03)
[2020-07-07 06:28] LABS: INR 1.17 (0.9-1.15); Partial Thromboplastin Time 27.4 sec (23.0-31.2)
[2020-07-07] MEDS: HYDROmorphone HCL 2 MG/ML VL IV PRN ×4 (06:28→22:05)
[2020-07-07] MEDS: NITROGLYCERIN 50MG/250ML 250 ML IV SCH ×2 (08:13→15:33)
[2020-07-07] MEDS: HEPARIN DRIP/D5W 100UNITS/ML 250 ML IV SCH (08:30)
[2020-07-07] MEDS: PANTOPRAZOLE 40 MG/10 ML VIAL INJ IV SCH ×2 (09:13→21:03)
[2020-07-07] MEDS: ASPirin 81 mg TAB PO SCH (09:13)
[2020-07-07] MEDS: CARVEDILOL 3.125 MG TAB PO SCH (09:14)
[2020-07-07] MEDS: ISOSORBIDE MONONITRATE ER 60 MG TAB PO SCH (09:14)
[2020-07-07] MEDS: CLOPIDOGREL BISULFATE 75 MG TAB PO SCH (09:14)
[2020-07-07] MEDS: levETIRAcetam 500 MG TAB PO SCH ×2 (09:14→21:03)
[2020-07-07] MEDS: FAMOTIDINE 20 MG TAB PO SCH ×2 (09:14→21:04)
[2020-07-07] MEDS: NIFEdipine ER 30 MG TAB PO SCH (09:15)
[2020-07-07 15:50] LABS: INR 1.22 (0.9-1.15)
[2020-07-07] MEDS: ATORVASTATIN 20 MG TAB PO SCH (21:03)
[2020-07-07 23:37] LABS: INR 1.22 (0.9-1.15); Partial Thromboplastin Time 37.3 sec (23.0-31.2)
[2020-07-08] VITALS (79 sets, daily range): BP systolic 87–140; BP diastolic 44–113
[2020-07-08] MEDS: NITROGLYCERIN 50MG/250ML 250 ML IV SCH ×3 (00:04→22:45)
[2020-07-08] MEDS: HYDROmorphone HCL 2 MG/ML VL IV PRN ×4 (02:40→20:05)
[2020-07-08] MEDS: GABAPENTIN 300 MG CAP PO SCH ×3 (06:00→21:13)
[2020-07-08] MEDS: SODIUM CHLOR 0.9% PF (SALINE LOCK) 10ML VIAL/SYR IV SCH ×3 (06:26→21:38)
[2020-07-08] MEDS: HEPARIN DRIP/D5W 100UNITS/ML 250 ML IV SCH (06:30)
[2020-07-08 06:56] LABS: INR 1.25 (0.9-1.15); Partial Thromboplastin Time 29.1 sec (23.0-31.2)
[2020-07-08] MEDS ORDERED: HEPARIN SODIUM (PORCINE) 5000 UNITS/ML 1ML VIAL IV ONE (07:45)
[2020-07-08] MEDS: CARVEDILOL 3.125 MG TAB PO SCH (10:51)
[2020-07-08] MEDS: PANTOPRAZOLE 40 MG/10 ML VIAL INJ IV SCH ×2 (10:51→21:38)
[2020-07-08] MEDS: ASPirin 81 mg TAB PO SCH (10:51)
[2020-07-08] MEDS: levETIRAcetam 500 MG TAB PO SCH ×2 (10:52→21:38)
[2020-07-08] MEDS: FAMOTIDINE 20 MG TAB PO SCH ×2 (10:52→21:38)
[2020-07-08] MEDS: NIFEdipine ER 30 MG TAB PO SCH (10:52)
[2020-07-08] MEDS: ISOSORBIDE MONONITRATE ER 60 MG TAB PO SCH (10:52)
[2020-07-08] MEDS: CLOPIDOGREL BISULFATE 75 MG TAB PO SCH (10:52)
[2020-07-08 16:12] LABS: Basophils # (auto) 0.1 10 ^3/uL (0-0.2); Basophils % (auto) 0.5 % (0.0-2.0); Eosinophils # (auto) 0.1 10 ^3/uL (0-0.8); Eosinophils % (auto) 0.7 % (0.0-7.0); Hematocrit 36.1 % (41.0-53.0); Hemoglobin 11.8 g/dL (13.5-17.5); Lymphocytes # (auto) 1.7 10 ^3/uL (0.4-5.4); Lymphocytes % (auto) 17.7 % (10.0-50.0); Mean Corpuscular Hemoglobin 28.8 pg (28.0-32.0); Mean Corpuscular Hgb Conc. 32.6 g/dL (32.0-36.0); Mean Corpuscular Volume 88.4 fL (80.0-100.0); Monocytes # (auto) 1.3 10 ^3/uL (0-1.3); Monocytes % (auto) 13.6 % (0.0-12.0); Neutrophils # (auto) 6.5 10 ^3/uL (1.6-8.6); Neutrophils % (auto) 67.5 % (37.0-80.0); Nucleated Red Blood Cells % 0.1 %; Platelet Count (auto) 227 10^3/uL (140-450); Red Blood Cells 4.08 10^6/uL (4.5-5.90); Red Cell Distribution Width 16.5 % (11.8-14.3); White Blood Cell 9.6 10^3/uL (4.4-10.8)
[2020-07-08 17:07] LABS: INR 1.19 (0.9-1.15)
[2020-07-08 17:12] LABS: Partial Thromboplastin Time 105.9 sec (23.0-31.2)
[2020-07-08 18:56] LABS: INR 1.18 (0.9-1.15)
[2020-07-08] MEDS ORDERED: AMIODARONE HCL (50 MG/ ML) 3 ML VIAL IV ONE (20:50)
[2020-07-08] MEDS ORDERED: AMIODARONE 450mg/250ml AE 250 ML IV ONE (20:51)
[2020-07-08] MEDS ORDERED: AMIODARONE 450mg/250ml AE 250 ML IV SCH (21:00)
[2020-07-08] MEDS ORDERED: AMIODARONE HCL 150 MG in D5W 5% 100 ML IV ONE (21:00)
[2020-07-08] MEDS: ATORVASTATIN 20 MG TAB PO SCH (21:13)
[2020-07-08] MEDS ORDERED: METOPROLOL SUCCINATE XL 50 MG TAB PO ONE ×2 (21:30)
[2020-07-08] MEDS ORDERED: HEPARIN DRIP/D5W 100UNITS/ML 250 ML IV SCH ×2 (21:45→22:30)
[2020-07-08 22:24] LABS: Basophils # (auto) 0.1 10 ^3/uL (0-0.2); Eosinophils # (auto) 0.1 10 ^3/uL (0-0.8); Eosinophils % (auto) 0.7 % (0.0-7.0); Hematocrit 36.8 % (41.0-53.0); Lymphocytes # (auto) 1.7 10 ^3/uL (0.4-5.4); Lymphocytes % (auto) 19.4 % (10.0-50.0); Mean Corpuscular Hemoglobin 28.9 pg (28.0-32.0); Mean Corpuscular Hgb Conc. 32.7 g/dL (32.0-36.0); Mean Corpuscular Volume 88.3 fL (80.0-100.0); Monocytes # (auto) 0.9 10 ^3/uL (0-1.3); Monocytes % (auto) 10.2 % (0.0-12.0); Neutrophils % (auto) 68.7 % (37.0-80.0); Nucleated Red Blood Cells % 0.1 %; Platelet Count (auto) 223 10^3/uL (140-450); Red Blood Cells 4.17 10^6/uL (4.5-5.90); Red Cell Distribution Width 16.3 % (11.8-14.3); White Blood Cell 8.7 10^3/uL (4.4-10.8)
[2020-07-08 22:43] LABS: Albumin 2.7 g/dL (3.4-5.0); Calcium 8.6 mg/dL (8.5-10.1); Potassium 4.3 mmol/L (3.5-5.1)
[2020-07-08 22:47] LABS: BUN/Creatinine Ratio 15.1; Bilirubin, Total 0.7 mg/dL (0.2-1.0); Total Protein 7.4 g/dL (6.4-8.2)
[2020-07-09] VITALS (11 sets, daily range): BP systolic 90–114; BP diastolic 63–79
[2020-07-09] MEDS: HYDROmorphone HCL 2 MG/ML VL IV PRN (00:11)
[2020-07-09] MEDS ORDERED: AMIODARONE 450mg/250ml AE 250 ML IV SCH (03:00)
== END 2020-07-09 03:01 | disposition short-term general hospital (02) | DRG 280 ==
LOC: EDBD 20:45 → ER 20:49 → TELE 07-06 03:23 → ICU WEST 07-06 14:05
PROVIDERS: ADMIT Nurse Practitioner Family; ATTEND Family Medicine
PROC: 5A09357 Assistance with Respiratory Ventilation, Less than 24 Consecutive Hours, Continuous Positive Airway Pressure (ICD-10-PCS; principal; 2020-07-06)
PROC: 5A09357 Assistance with Respiratory Ventilation, Less than 24 Consecutive Hours, Continuous Positive Airway Pressure (ICD-10-PCS; 2020-07-07)
PROC: 5A1935Z Respiratory Ventilation, Less than 24 Consecutive Hours (ICD-10-PCS; 2020-07-07)
PROC: 5A1935Z Respiratory Ventilation, Less than 24 Consecutive Hours (ICD-10-PCS; 2020-07-08)
PROC: 5A09357 Assistance with Respiratory Ventilation, Less than 24 Consecutive Hours, Continuous Positive Airway Pressure (ICD-10-PCS; 2020-07-09)
DX: I21.4 Non-ST elevation (NSTEMI) myocardial infarction (principal); I50.43 Acute on chronic combined systolic (congestive) and diastolic (congestive) heart failure; J96.01 Acute respiratory failure with hypoxia; J81.1 Chronic pulmonary edema; I13.0 Hypertensive heart and chronic kidney disease with heart failure and stage 1 through stage 4 chronic kidney disease, or unspecified chronic kidney disease; Z68.43 Body mass index [BMI] 50.0-59.9, adult; J91.8 Pleural effusion in other conditions classified elsewhere; Z95.810 Presence of automatic (implantable) cardiac defibrillator; Z86.718 Personal history of other venous thrombosis and embolism; E66.01 Morbid (severe) obesity due to excess calories; E78.00 Pure hypercholesterolemia, unspecified; F17.200 Nicotine dependence, unspecified, uncomplicated; E11.65 Type 2 diabetes mellitus with hyperglycemia; N18.9 Chronic kidney disease, unspecified; G47.30 Sleep apnea, unspecified; Z20.822 Contact with and (suspected) exposure to COVID-19; Z88.0 Allergy status to penicillin; Z88.8 Allergy status to other drugs, medicaments and biological substances; Z88.3 Allergy status to other anti-infective agents; Z91.010 Allergy to peanuts; E11.22 Type 2 diabetes mellitus with diabetic chronic kidney disease; Z79.82 Long term (current) use of aspirin
CPT/HCPCS: 36415; 36600; 71045; 80053; 82805; 83036; 83605; 83735; 83880; 84484; 85025; 85379; 85610; 85730; 86850; 86900; 86901; 87081; 87426; 93005; 94660; 96365; 96375; 96376; C9113; G0378; J2405; J7060

== ENCOUNTER 2020-10-07 01:10 | Inpatient (IN) | payer MEDICARE, MEDICAID ==
[~2020-10-07] VITALS: Ht 180.3 cm; Wt 169.9 kg
[2020-10-07] MEDS ORDERED: IPRATROPIUM BROM 0.5 MG/2.5ML INH SOL ONE (01:20)
[2020-10-07] MEDS ORDERED: ALBUTEROL SULF 2.5 MG/0.5ML(0.5%) NEB SOLN ONE (01:20)
[2020-10-07] MEDS ORDERED: IPRATROPIUM BROM 0.5 MG/2.5ML INH SOL NEB ONE (01:45)
[2020-10-07] MEDS ORDERED: ALBUTEROL SULF 2.5 MG/0.5ML(0.5%) NEB SOLN NEB ONE (01:45)
[2020-10-07] MEDS ORDERED: NITROGLYCERIN 0.4 MG SL TAB SL ONE ×2 (01:56→02:00)
[2020-10-07] MEDS ORDERED: NITROGLYCERIN 2% OINT 1GM PKG TD ONE (02:15)
[2020-10-07 02:21] LABS: Basophils # (auto) 0 10 ^3/uL (0-0.2); Basophils % (auto) 0.7 % (0.0-2.0); Eosinophils # (auto) 0 10 ^3/uL (0-0.8); Eosinophils % (auto) 0.3 % (0.0-7.0); Hematocrit 35.5 % (41.0-53.0); Hemoglobin 11.7 g/dL (13.5-17.5); Lymphocytes # (auto) 1.1 10 ^3/uL (0.4-5.4); Lymphocytes % (auto) 15.7 % (10.0-50.0); Mean Corpuscular Hemoglobin 28.5 pg (28.0-32.0); Mean Corpuscular Hgb Conc. 32.8 g/dL (32.0-36.0); Mean Corpuscular Volume 86.7 fL (80.0-100.0); Monocytes # (auto) 0.4 10 ^3/uL (0-1.3); Monocytes % (auto) 6.1 % (0.0-12.0); Neutrophils # (auto) 5.4 10 ^3/uL (1.6-8.6); Neutrophils % (auto) 77.2 % (37.0-80.0); Nucleated Red Blood Cells % 0.1 %; Platelet Count (auto) 340 10^3/uL (140-450); Red Cell Distribution Width 17.9 % (11.8-14.3)
[2020-10-07 02:38] LABS: INR 1.05 (0.9-1.15)
[2020-10-07 02:42] LABS: Albumin 3.4 g/dL (3.4-5.0); Calcium 8.9 mg/dL (8.5-10.1); Magnesium 2.2 mg/dL (1.6-2.6); Potassium 3.9 mmol/L (3.5-5.1)
[2020-10-07 02:44] LABS: BUN/Creatinine Ratio 9.8
[2020-10-07 02:45] LABS: Lactic Acid w/Reflex 2.1 mmol/L (0.4-2.0)
[2020-10-07 02:50] LABS: Bilirubin, Total 0.4 mg/dL (0.2-1.0); Total Protein 7.9 g/dL (6.4-8.2)
[2020-10-07 03:13] LABS: Urine Bacteria FEW /hpf (None Seen); Urine Blood Negative /uL (Negative); Urine Mucus FEW (None Seen); Urine Specific Gravity 1.012 (1.001-1.035); Urine WBC 1 /hpf (0 - 3)
[2020-10-07] MEDS ORDERED: ASPirin 325 MG TAB PO ONE (03:30)
[2020-10-07] MEDS ORDERED: fentaNYL CITRATE 100 MCG/2 ML VL IV ONE ×2 (03:30→06:15)
[2020-10-07] MEDS ORDERED: FUROSEMIDE 40 MG/4 ML VIAL IV ONE (03:30)
[2020-10-07 04:11] VITALS: BP 125/77
[2020-10-07 04:29] VITALS: BP 125/77
[2020-10-07] MEDS ORDERED: fentaNYL CITRATE 100 MCG/2 ML VL IM ONE (06:30)
[2020-10-07] MEDS ORDERED: MORPHINE SULF INJ 2 MG/ML SYRINGE 1ML IV PRN (07:00)
[2020-10-07] MEDS ORDERED: ACETAMINOPHEN 325 MG TAB PO PRN (07:00)
[2020-10-07] MEDS: FAMOTIDINE 20 MG TAB PO SCH ×2 (10:00→23:13)
[2020-10-07] MEDS: CLOPIDOGREL BISULFATE 75 MG TAB PO SCH (10:00)
[2020-10-07] MEDS: CARVEDILOL 3.125 MG TAB PO SCH ×2 (10:02→23:13)
[2020-10-07] MEDS: APIXABAN 5 MG TAB PO SCH ×2 (10:03→23:13)
[2020-10-07] MEDS: NIFEdipine ER 30 MG TAB PO SCH (10:03)
[2020-10-07] MEDS: MEPERIDINE HCL (25 MG/ML) 1ML VIAL IV PRN ×4 (10:51→23:07)
[2020-10-07] MEDS: ALBUTEROL SULF 2.5 MG/0.5ML(0.5%) NEB SOLN NEB PRN ×3 (12:31→23:12)
[2020-10-07] MEDS ORDERED: CAR3125T PO (15:41)
[2020-10-07] MEDS ORDERED: TRAZ100T3 PO (15:41)
[2020-10-07] MEDS ORDERED: ISOS1TAB28 PO (15:41)
[2020-10-07] MEDS ORDERED: FAMO-12 PO (15:45)
[2020-10-07] MEDS ORDERED: LOSA-69 PO (15:45)
[2020-10-07] MEDS ORDERED: SPIR25TA8 PO (15:45)
[2020-10-07] MEDS ORDERED: TIZA4TAB3 PO (15:52)
[2020-10-07] MEDS ORDERED: FUROSEMIDE 20 MG/2 ML VIAL IV SCH (18:00)
[2020-10-07] MEDS: FUROSEMIDE 40 MG/4 ML VIAL IV SCH (18:44)
[2020-10-07 22:00] VITALS: BP 133/84
[2020-10-07] MEDS: ATORVASTATIN 20 MG TAB PO SCH (23:13)
[2020-10-07] MEDS: ONDANSETRON HCL 4 MG/2 ML VIAL IV PRN (23:23)
[2020-10-08 05:00] VITALS: BP 112/53
[2020-10-08 05:22] LABS: Basophils # (auto) 0.1 10 ^3/uL (0-0.2); Basophils % (auto) 1.4 % (0.0-2.0); Eosinophils # (auto) 0.1 10 ^3/uL (0-0.8); Eosinophils % (auto) 2.1 % (0.0-7.0); Hemoglobin 10.5 g/dL (13.5-17.5); Lymphocytes # (auto) 1.4 10 ^3/uL (0.4-5.4); Lymphocytes % (auto) 23.6 % (10.0-50.0); Mean Corpuscular Hemoglobin 28.5 pg (28.0-32.0); Mean Corpuscular Hgb Conc. 32.7 g/dL (32.0-36.0); Mean Corpuscular Volume 86.9 fL (80.0-100.0); Monocytes # (auto) 0.5 10 ^3/uL (0-1.3); Monocytes % (auto) 8.1 % (0.0-12.0); Neutrophils # (auto) 3.9 10 ^3/uL (1.6-8.6); Neutrophils % (auto) 64.8 % (37.0-80.0); Nucleated Red Blood Cells % 0.2 %; Platelet Count (auto) 293 10^3/uL (140-450); Red Blood Cells 3.68 10^6/uL (4.5-5.90); Red Cell Distribution Width 17.8 % (11.8-14.3); White Blood Cell 6.1 10^3/uL (4.4-10.8)
[2020-10-08 05:43] LABS: BUN/Creatinine Ratio 13.7; Calcium 8.2 mg/dL (8.5-10.1)
[2020-10-08] MEDS: ALBUTEROL SULF 2.5 MG/0.5ML(0.5%) NEB SOLN NEB PRN ×2 (06:19→11:35)
[2020-10-08] MEDS: ONDANSETRON HCL 4 MG/2 ML VIAL IV PRN ×2 (06:51→20:52)
[2020-10-08] MEDS: FUROSEMIDE 40 MG/4 ML VIAL IV SCH ×2 (06:51→18:46)
[2020-10-08] MEDS: MEPERIDINE HCL (25 MG/ML) 1ML VIAL IV PRN ×4 (06:51→20:33)
[2020-10-08 09:00] VITALS: BP 106/66
[2020-10-08] MEDS: CLOPIDOGREL BISULFATE 75 MG TAB PO SCH (09:28)
[2020-10-08] MEDS: NIFEdipine ER 30 MG TAB PO SCH (09:28)
[2020-10-08] MEDS: APIXABAN 5 MG TAB PO SCH ×2 (09:29→21:34)
[2020-10-08] MEDS: FAMOTIDINE 20 MG TAB PO SCH ×2 (09:29→21:34)
[2020-10-08] MEDS: CARVEDILOL 3.125 MG TAB PO SCH ×2 (09:29→21:34)
[2020-10-08] MEDS: ASPirin 81 mg TAB PO SCH (09:30)
[2020-10-08 13:00] VITALS: BP 137/84
[2020-10-08 17:00] VITALS: BP 104/69
[2020-10-08] MEDS: ATORVASTATIN 20 MG TAB PO SCH (21:34)
[2020-10-08 22:00] VITALS: BP 114/72
[2020-10-09] MEDS: ALBUTEROL SULF 2.5 MG/0.5ML(0.5%) NEB SOLN NEB PRN ×3 (00:30→19:01)
[2020-10-09] MEDS: MEPERIDINE HCL (25 MG/ML) 1ML VIAL IV PRN ×5 (01:20→20:38)
[2020-10-09 05:00] VITALS: BP 116/81
[2020-10-09] MEDS: FUROSEMIDE 40 MG/4 ML VIAL IV SCH ×2 (05:25→18:04)
[2020-10-09] MEDS: LACTULOSE 20Gm/30ML SOLN PO PRN ×2 (05:44→10:48)
[2020-10-09 05:46] LABS: Basophils # (auto) 0.1 10 ^3/uL (0-0.2); Eosinophils # (auto) 0.1 10 ^3/uL (0-0.8); Eosinophils % (auto) 1.7 % (0.0-7.0); Hemoglobin 10.9 g/dL (13.5-17.5); Lymphocytes # (auto) 1.6 10 ^3/uL (0.4-5.4); Lymphocytes % (auto) 28.4 % (10.0-50.0); Mean Corpuscular Hemoglobin 28.5 pg (28.0-32.0); Mean Corpuscular Hgb Conc. 33.1 g/dL (32.0-36.0); Mean Corpuscular Volume 86.1 fL (80.0-100.0); Monocytes # (auto) 0.5 10 ^3/uL (0-1.3); Monocytes % (auto) 9.3 % (0.0-12.0); Neutrophils # (auto) 3.4 10 ^3/uL (1.6-8.6); Neutrophils % (auto) 59.6 % (37.0-80.0); Nucleated Red Blood Cells % 0.1 %; Platelet Count (auto) 318 10^3/uL (140-450); Red Blood Cells 3.83 10^6/uL (4.5-5.90); Red Cell Distribution Width 17.4 % (11.8-14.3); White Blood Cell 5.7 10^3/uL (4.4-10.8)
[2020-10-09 06:07] LABS: Calcium 8.8 mg/dL (8.5-10.1); Potassium 4.3 mmol/L (3.5-5.1)
[2020-10-09 06:09] LABS: BUN/Creatinine Ratio 15.1
[2020-10-09] MEDS: ONDANSETRON HCL 4 MG/2 ML VIAL IV PRN ×3 (07:07→20:39)
[2020-10-09 08:42] VITALS: BP 117/78
[2020-10-09] MEDS: ASPirin 81 mg TAB PO SCH (10:40)
[2020-10-09] MEDS: NIFEdipine ER 30 MG TAB PO SCH (10:44)
[2020-10-09] MEDS: APIXABAN 5 MG TAB PO SCH ×2 (10:45→21:27)
[2020-10-09] MEDS: CLOPIDOGREL BISULFATE 75 MG TAB PO SCH (10:46)
[2020-10-09] MEDS: FAMOTIDINE 20 MG TAB PO SCH ×2 (10:47→21:27)
[2020-10-09] MEDS: CARVEDILOL 3.125 MG TAB PO SCH ×2 (10:47→21:27)
[2020-10-09 13:16] VITALS: BP 106/66
[2020-10-09 16:44] VITALS: BP 119/72
[2020-10-09] MEDS: ATORVASTATIN 20 MG TAB PO SCH (21:27)
[2020-10-09 22:00] VITALS: BP 112/69
[2020-10-10] VITALS (7 sets, daily range): BP systolic 104–112; BP diastolic 59–81
[2020-10-10] MEDS: ALBUTEROL SULF 2.5 MG/0.5ML(0.5%) NEB SOLN NEB PRN ×3 (01:20→18:31)
[2020-10-10] MEDS: MEPERIDINE HCL (25 MG/ML) 1ML VIAL IV PRN ×2 (01:23→06:39)
[2020-10-10] MEDS: ONDANSETRON HCL 4 MG/2 ML VIAL IV PRN ×5 (01:23→21:18)
[2020-10-10] MEDS: FUROSEMIDE 40 MG/4 ML VIAL IV SCH ×2 (05:45→18:22)
[2020-10-10 06:45] LABS: Basophils # (auto) 0.1 10 ^3/uL (0-0.2); Basophils % (auto) 1.3 % (0.0-2.0); Eosinophils # (auto) 0.1 10 ^3/uL (0-0.8); Eosinophils % (auto) 1.1 % (0.0-7.0); Hematocrit 32.7 % (41.0-53.0); Hemoglobin 10.9 g/dL (13.5-17.5); Lymphocytes # (auto) 1.2 10 ^3/uL (0.4-5.4); Lymphocytes % (auto) 19.7 % (10.0-50.0); Mean Corpuscular Hemoglobin 28.7 pg (28.0-32.0); Mean Corpuscular Hgb Conc. 33.4 g/dL (32.0-36.0); Monocytes # (auto) 0.6 10 ^3/uL (0-1.3); Monocytes % (auto) 8.9 % (0.0-12.0); Neutrophils # (auto) 4.3 10 ^3/uL (1.6-8.6); Platelet Count (auto) 306 10^3/uL (140-450); Red Cell Distribution Width 17.4 % (11.8-14.3); White Blood Cell 6.3 10^3/uL (4.4-10.8)
[2020-10-10 07:09] LABS: BUN/Creatinine Ratio 14.9; Calcium 8.4 mg/dL (8.5-10.1); Potassium 4.5 mmol/L (3.5-5.1)
[2020-10-10] MEDS: ASPirin 81 mg TAB PO SCH (09:54)
[2020-10-10] MEDS: FAMOTIDINE 20 MG TAB PO SCH ×2 (09:55→21:17)
[2020-10-10] MEDS: APIXABAN 5 MG TAB PO SCH ×2 (09:55→21:17)
[2020-10-10] MEDS: CLOPIDOGREL BISULFATE 75 MG TAB PO SCH (09:55)
[2020-10-10] MEDS: CARVEDILOL 3.125 MG TAB PO SCH ×2 (09:55→21:17)
[2020-10-10] MEDS: NIFEdipine ER 30 MG TAB PO SCH (09:55)
[2020-10-10] MEDS: HYDROmorphone HCL 2 MG/ML VL IV PRN ×3 (11:13→21:18)
[2020-10-10] MEDS: ATORVASTATIN 20 MG TAB PO SCH (21:16)
[2020-10-11] MEDS: HYDROmorphone HCL 2 MG/ML VL IV PRN ×5 (03:09→22:20)
[2020-10-11] MEDS: ONDANSETRON HCL 4 MG/2 ML VIAL IV PRN ×5 (03:10→22:20)
[2020-10-11 05:00] VITALS: BP 119/77
[2020-10-11] MEDS: FUROSEMIDE 40 MG/4 ML VIAL IV SCH ×2 (06:07→17:48)
[2020-10-11 06:47] LABS: Basophils # (auto) 0.1 10 ^3/uL (0-0.2); Basophils % (auto) 1.1 % (0.0-2.0); Eosinophils # (auto) 0.1 10 ^3/uL (0-0.8); Eosinophils % (auto) 1.2 % (0.0-7.0); Hematocrit 32.3 % (41.0-53.0); Hemoglobin 10.7 g/dL (13.5-17.5); Lymphocytes # (auto) 1.3 10 ^3/uL (0.4-5.4); Mean Corpuscular Hemoglobin 28.4 pg (28.0-32.0); Mean Corpuscular Volume 86.2 fL (80.0-100.0); Monocytes # (auto) 0.6 10 ^3/uL (0-1.3); Monocytes % (auto) 8.3 % (0.0-12.0); Neutrophils % (auto) 71.4 % (37.0-80.0); Nucleated Red Blood Cells % 0.1 %; Platelet Count (auto) 277 10^3/uL (140-450); Red Blood Cells 3.75 10^6/uL (4.5-5.90); Red Cell Distribution Width 17.7 % (11.8-14.3)
[2020-10-11 07:07] LABS: Potassium 4.1 mmol/L (3.5-5.1)
[2020-10-11 07:12] LABS: BUN/Creatinine Ratio 17.8; Calcium 8.6 mg/dL (8.5-10.1)
[2020-10-11 08:00] VITALS: BP 117/73
[2020-10-11 09:09] VITALS: BP 117/73
[2020-10-11] MEDS: ALBUTEROL SULF 2.5 MG/0.5ML(0.5%) NEB SOLN NEB PRN ×2 (10:21→18:21)
[2020-10-11] MEDS: ASPirin 81 mg TAB PO SCH (10:40)
[2020-10-11] MEDS: APIXABAN 5 MG TAB PO SCH ×2 (10:41→21:47)
[2020-10-11] MEDS: CLOPIDOGREL BISULFATE 75 MG TAB PO SCH (10:41)
[2020-10-11] MEDS: FAMOTIDINE 20 MG TAB PO SCH ×2 (10:41→21:47)
[2020-10-11] MEDS: CARVEDILOL 3.125 MG TAB PO SCH ×2 (10:41→21:48)
[2020-10-11] MEDS: NIFEdipine ER 30 MG TAB PO SCH (10:42)
[2020-10-11 12:24] VITALS: BP 102/68
[2020-10-11 17:01] VITALS: BP 112/71
[2020-10-11 21:38] VITALS: BP 135/88
[2020-10-11] MEDS: ATORVASTATIN 20 MG TAB PO SCH (21:47)
[2020-10-12] MEDS: ALBUTEROL SULF 2.5 MG/0.5ML(0.5%) NEB SOLN NEB PRN ×3 (00:14→18:53)
[2020-10-12] MEDS: ONDANSETRON HCL 4 MG/2 ML VIAL IV PRN ×5 (03:07→22:27)
[2020-10-12] MEDS: HYDROmorphone HCL 2 MG/ML VL IV PRN ×5 (03:07→22:26)
[2020-10-12 05:20] VITALS: BP 125/78
[2020-10-12] MEDS: FUROSEMIDE 40 MG/4 ML VIAL IV SCH ×2 (05:52→18:17)
[2020-10-12 07:23] LABS: Basophils # (auto) 0.1 10 ^3/uL (0-0.2); Basophils % (auto) 1.1 % (0.0-2.0); Eosinophils # (auto) 0.1 10 ^3/uL (0-0.8); Eosinophils % (auto) 1.3 % (0.0-7.0); Hematocrit 32.7 % (41.0-53.0); Hemoglobin 10.7 g/dL (13.5-17.5); Lymphocytes # (auto) 1.2 10 ^3/uL (0.4-5.4); Lymphocytes % (auto) 13.8 % (10.0-50.0); Mean Corpuscular Hgb Conc. 32.7 g/dL (32.0-36.0); Mean Corpuscular Volume 85.6 fL (80.0-100.0); Monocytes # (auto) 0.8 10 ^3/uL (0-1.3); Monocytes % (auto) 9.3 % (0.0-12.0); Neutrophils # (auto) 6.4 10 ^3/uL (1.6-8.6); Neutrophils % (auto) 74.5 % (37.0-80.0); Platelet Count (auto) 258 10^3/uL (140-450); Red Blood Cells 3.82 10^6/uL (4.5-5.90); Red Cell Distribution Width 17.3 % (11.8-14.3); White Blood Cell 8.5 10^3/uL (4.4-10.8)
[2020-10-12 07:47] LABS: Chloride 101 mmol/L (98-107); Potassium 4.2 mmol/L (3.5-5.1); Sodium 137 mmol/L (136-145)
[2020-10-12 07:57] LABS: Anion Gap 5 (5-15); BUN/Creatinine Ratio 16.5; Blood Urea Nitrogen 13 mg/dL (7-18); Calcium 8.2 mg/dL (8.5-10.1); Carbon Dioxide 31 mmol/L (21-32); GFR African American 130 mL/min; GFR Non-African American 107 mL/min; Glucose 107 mg/dL (74-106)
[2020-10-12 08:00] VITALS: BP 112/73
[2020-10-12] MEDS: APIXABAN 5 MG TAB PO SCH ×2 (09:54→22:28)
[2020-10-12] MEDS: CARVEDILOL 3.125 MG TAB PO SCH ×2 (09:54→22:28)
[2020-10-12] MEDS: ASPirin 81 mg TAB PO SCH (09:54)
[2020-10-12] MEDS: FAMOTIDINE 20 MG TAB PO SCH ×2 (09:55→22:29)
[2020-10-12] MEDS: NIFEdipine ER 30 MG TAB PO SCH (09:55)
[2020-10-12] MEDS: CLOPIDOGREL BISULFATE 75 MG TAB PO SCH (09:55)
[2020-10-12 17:00] VITALS: BP 113/86
[2020-10-12 21:56] VITALS: BP 117/60
[2020-10-12] MEDS: ATORVASTATIN 20 MG TAB PO SCH (22:28)
[2020-10-13] VITALS (8 sets, daily range): BP systolic 110–137; BP diastolic 65–81
[2020-10-13] MEDS: ALBUTEROL SULF 2.5 MG/0.5ML(0.5%) NEB SOLN NEB PRN ×4 (01:16→19:42)
[2020-10-13] MEDS: HYDROmorphone HCL 2 MG/ML VL IV PRN ×5 (02:24→19:45)
[2020-10-13] MEDS: ONDANSETRON HCL 4 MG/2 ML VIAL IV PRN ×5 (02:24→19:45)
[2020-10-13] MEDS: FUROSEMIDE 40 MG/4 ML VIAL IV SCH ×2 (06:29→17:32)
[2020-10-13 07:20] LABS: Basophils # (auto) 0 10 ^3/uL (0-0.2); Basophils % (auto) 0.6 % (0.0-2.0); Eosinophils # (auto) 0.1 10 ^3/uL (0-0.8); Hematocrit 31.3 % (41.0-53.0); Hemoglobin 10.4 g/dL (13.5-17.5); Lymphocytes # (auto) 1.3 10 ^3/uL (0.4-5.4); Lymphocytes % (auto) 18.6 % (10.0-50.0); Mean Corpuscular Hemoglobin 28.4 pg (28.0-32.0); Mean Corpuscular Hgb Conc. 33.1 g/dL (32.0-36.0); Mean Corpuscular Volume 85.9 fL (80.0-100.0); Monocytes # (auto) 0.7 10 ^3/uL (0-1.3); Monocytes % (auto) 10.5 % (0.0-12.0); Neutrophils # (auto) 4.9 10 ^3/uL (1.6-8.6); Neutrophils % (auto) 69.3 % (37.0-80.0); Nucleated Red Blood Cells % 0.1 %; Platelet Count (auto) 268 10^3/uL (140-450); Red Blood Cells 3.65 10^6/uL (4.5-5.90); Red Cell Distribution Width 17.5 % (11.8-14.3); White Blood Cell 7.1 10^3/uL (4.4-10.8)
[2020-10-13 07:35] LABS: BUN/Creatinine Ratio 14.1; Calcium 8.4 mg/dL (8.5-10.1); Potassium 3.8 mmol/L (3.5-5.1)
[2020-10-13] MEDS: CARVEDILOL 3.125 MG TAB PO SCH ×2 (09:52→21:30)
[2020-10-13] MEDS: APIXABAN 5 MG TAB PO SCH ×2 (09:52→21:30)
[2020-10-13] MEDS: ASPirin 81 mg TAB PO SCH (09:52)
[2020-10-13] MEDS: CLOPIDOGREL BISULFATE 75 MG TAB PO SCH (09:52)
[2020-10-13] MEDS: FAMOTIDINE 20 MG TAB PO SCH ×2 (09:52→21:29)
[2020-10-13] MEDS: NIFEdipine ER 30 MG TAB PO SCH (09:53)
[2020-10-13] MEDS: NITROGLYCERIN 0.4 MG SL TAB SL PRN ×3 (13:48→14:04)
[2020-10-13] MEDS: ATORVASTATIN 20 MG TAB PO SCH (21:30)
[2020-10-14] VITALS (7 sets, daily range): BP systolic 100–113; BP diastolic 58–71
[2020-10-14] MEDS: HYDROmorphone HCL 2 MG/ML VL IV PRN ×5 (00:44→20:22)
[2020-10-14] MEDS: ONDANSETRON HCL 4 MG/2 ML VIAL IV PRN ×3 (06:20→16:20)
[2020-10-14] MEDS: FUROSEMIDE 40 MG/4 ML VIAL IV SCH ×2 (06:20→18:00)
[2020-10-14 07:28] LABS: Basophils # (auto) 0 10 ^3/uL (0-0.2); Basophils % (auto) 0.6 % (0.0-2.0); Eosinophils # (auto) 0.1 10 ^3/uL (0-0.8); Eosinophils % (auto) 0.9 % (0.0-7.0); Hematocrit 32.6 % (41.0-53.0); Hemoglobin 10.8 g/dL (13.5-17.5); Lymphocytes # (auto) 1.3 10 ^3/uL (0.4-5.4); Lymphocytes % (auto) 16.2 % (10.0-50.0); Mean Corpuscular Hemoglobin 28.7 pg (28.0-32.0); Mean Corpuscular Hgb Conc. 33.3 g/dL (32.0-36.0); Mean Corpuscular Volume 86.3 fL (80.0-100.0); Monocytes # (auto) 0.9 10 ^3/uL (0-1.3); Monocytes % (auto) 12.1 % (0.0-12.0); Neutrophils # (auto) 5.5 10 ^3/uL (1.6-8.6); Neutrophils % (auto) 70.2 % (37.0-80.0); Nucleated Red Blood Cells % 0.1 %; Platelet Count (auto) 268 10^3/uL (140-450); Red Blood Cells 3.77 10^6/uL (4.5-5.90); Red Cell Distribution Width 17.2 % (11.8-14.3); White Blood Cell 7.8 10^3/uL (4.4-10.8)
[2020-10-14 07:53] LABS: Potassium 3.6 mmol/L (3.5-5.1)
[2020-10-14 08:10] LABS: BUN/Creatinine Ratio 17.6; Calcium 8.6 mg/dL (8.5-10.1)
[2020-10-14] MEDS ORDERED: POTASSIUM CHL 20 Meq TABLET PO ONE (10:00)
[2020-10-14] MEDS: ALBUTEROL SULF 2.5 MG/0.5ML(0.5%) NEB SOLN NEB PRN ×2 (10:35→20:06)
[2020-10-14] MEDS: ENOXAPARIN SOD 60 MG/0.6 ML SYRINGE SC SCH ×2 (12:00→22:18)
[2020-10-14] MEDS: CLOPIDOGREL BISULFATE 75 MG TAB PO SCH (12:00)
[2020-10-14] MEDS: FAMOTIDINE 20 MG TAB PO SCH ×2 (12:00→22:18)
[2020-10-14] MEDS: CARVEDILOL 3.125 MG TAB PO SCH ×2 (12:01→22:17)
[2020-10-14] MEDS: ASPirin 81 mg TAB PO SCH (12:02)
[2020-10-14] MEDS: NIFEdipine ER 30 MG TAB PO SCH (18:24)
[2020-10-14] MEDS: ATORVASTATIN 20 MG TAB PO SCH (22:18)
== END 2020-10-14 23:30 | disposition short-term general hospital (02) | DRG 291 ==
LOC: EDBD 01:10 → ER 01:13 → TELE 06:52 → TELE-WESTW 17:21
PROVIDERS: ADMIT Nurse Practitioner; ATTEND Internal Medicine Pulmonary Disease
PROC: 05HF33Z Insertion of Infusion Device into Left Cephalic Vein, Percutaneous Approach (ICD-10-PCS; principal; 2020-10-07)
PROC: B54NZZA Ultrasonography of Left Upper Extremity Veins, Guidance (ICD-10-PCS; 2020-10-07)
PROC: 5A09357 Assistance with Respiratory Ventilation, Less than 24 Consecutive Hours, Continuous Positive Airway Pressure (ICD-10-PCS; 2020-10-07)
PROC: 5A09357 Assistance with Respiratory Ventilation, Less than 24 Consecutive Hours, Continuous Positive Airway Pressure (ICD-10-PCS; 2020-10-08)
PROC: 5A09357 Assistance with Respiratory Ventilation, Less than 24 Consecutive Hours, Continuous Positive Airway Pressure (ICD-10-PCS; 2020-10-09)
PROC: 5A09357 Assistance with Respiratory Ventilation, Less than 24 Consecutive Hours, Continuous Positive Airway Pressure (ICD-10-PCS; 2020-10-10)
DX: I11.0 Hypertensive heart disease with heart failure (principal); J96.21 Acute and chronic respiratory failure with hypoxia; E66.2 Morbid (severe) obesity with alveolar hypoventilation; Z68.42 Body mass index [BMI] 45.0-49.9, adult; I50.82 Biventricular heart failure; J44.9 Chronic obstructive pulmonary disease, unspecified; I25.5 Ischemic cardiomyopathy; Z20.822 Contact with and (suspected) exposure to COVID-19; F12.90 Cannabis use, unspecified, uncomplicated; F17.210 Nicotine dependence, cigarettes, uncomplicated; F32.9 Major depressive disorder, single episode, unspecified; K21.9 Gastro-esophageal reflux disease without esophagitis; E78.5 Hyperlipidemia, unspecified; I25.10 Atherosclerotic heart disease of native coronary artery without angina pectoris; Z88.5 Allergy status to narcotic agent; Z88.8 Allergy status to other drugs, medicaments and biological substances; Z91.041 Radiographic dye allergy status; Z91.011 Allergy to milk products; Z82.49 Family history of ischemic heart disease and other diseases of the circulatory system; Z83.3 Family history of diabetes mellitus; Z86.718 Personal history of other venous thrombosis and embolism; Z95.810 Presence of automatic (implantable) cardiac defibrillator; Z98.61 Coronary angioplasty status; Z99.81 Dependence on supplemental oxygen; Z90.49 Acquired absence of other specified parts of digestive tract; I50.23 Acute on chronic systolic (congestive) heart failure
CPT/HCPCS: 36415; 36600; 71045; 80048; 80053; 81001; 82550; 82805; 82962; 83605; 83690; 83735; 83880; 84443; 84484; 85025; 85379; 85610; 87426; 93005; 93306; 94640; 94660; 94762; 97110; 97116; 97530; 99291; G0378; J2405

== ENCOUNTER 2021-01-10 06:38 | Inpatient (IN) | payer MEDICARE, MEDICAID ==
[~2021-01-10] VITALS: Ht 180.3 cm; Wt 166.4 kg
[~2021-01-10 06:38] MED LIST changes: -ALBUAER3 IN; +FAMO-12 PO; -GABA300C10 PO; +ISOS1TAB28 PO; -ISOS1TAB37 PO; +LOSA-69 PO; +SPIR25TA8 PO; +TIZA4TAB7 PO
[2021-01-10 08:22] LABS: Basophils # (auto) 0 10 ^3/uL (0-0.2); Basophils % (auto) 0.6 % (0.0-2.0); Eosinophils # (auto) 0 10 ^3/uL (0-0.8); Mean Corpuscular Hemoglobin 25.6 pg (28.0-32.0); Mean Corpuscular Hgb Conc. 32.5 g/dL (32.0-36.0); Neutrophils % (auto) 75.4 % (37.0-80.0); White Blood Cell 7.8 10^3/uL (4.4-10.8)
[2021-01-10 08:24] LABS: Eosinophils % (auto) 0.4 % (0.0-7.0); Hematocrit 36.1 % (41.0-53.0); Hemoglobin 11.7 g/dL (13.5-17.5); Lymphocytes # (auto) 1.1 10 ^3/uL (0.4-5.4); Lymphocytes % (auto) 14.7 % (10.0-50.0); Mean Corpuscular Volume 78.8 fL (80.0-100.0); Monocytes # (auto) 0.7 10 ^3/uL (0-1.3); Monocytes % (auto) 8.9 % (0.0-12.0); Neutrophils # (auto) 5.9 10 ^3/uL (1.6-8.6); Nucleated Red Blood Cells % 0.2 %; Red Blood Cells 4.58 10^6/uL (4.5-5.90); Red Cell Distribution Width 17.9 % (11.8-14.3)
[2021-01-10 08:36] LABS: Albumin 3.7 g/dL (3.4-5.0); Anion Gap 7 (5-15); Blood Urea Nitrogen 42 mg/dL (7-18); Calcium 9.4 mg/dL (8.5-10.1); Carbon Dioxide 32 mmol/L (21-32); Chloride 96 mmol/L (98-107); Glucose 106 mg/dL (74-106); Magnesium 2.6 mg/dL (1.6-2.6); Potassium 3.6 mmol/L (3.5-5.1); Sodium 135 mmol/L (136-145)
[2021-01-10 08:40] LABS: INR 1.11 (0.9-1.15); Partial Thromboplastin Time 27.6 sec (23.6-33.0)
[2021-01-10 08:41] LABS: Alanine Aminotransferase 16 U/L (16-61); Alkaline Phosphatase 93 U/L (45-117); Aspartate Aminotransferase 17 U/L (15-37); BUN/Creatinine Ratio 21.4; Bilirubin, Total 0.4 mg/dL (0.2-1.0); GFR African American 45 mL/min; GFR Non-African American 37 mL/min; Total Protein 8.6 g/dL (6.4-8.2)
[2021-01-10] MEDS ORDERED: ONDANSETRON HCL 4 MG/2 ML VIAL IV ONE (10:45)
[2021-01-10] MEDS ORDERED: MORPHINE SULFATE INJECTION 2 MG/ML SYRG IV ONE (10:45)
[2021-01-10] MEDS ORDERED: IOHEXOL 350 MG/ML 100ML IJ ONE (12:43)
[2021-01-10] MEDS ORDERED: diphenhdrAMINE HCL 50 MG/1 ML VL ONE (12:45)
[2021-01-10] MEDS ORDERED: diphenhdrAMINE HCL 50 MG/1 ML VL IV ONE (13:00)
[2021-01-10] MEDS ORDERED: MEPERIDINE HCL (50 MG/ML) 1 ML VIAL IV ONE (13:30)
[2021-01-10] MEDS ORDERED: MORPHINE SULFATE INJECTION 2 MG/ML SYRG IV PRN (16:00)
[2021-01-10] MEDS ORDERED: FUROSEMIDE INJECTION 100 MG in SODIUM CHL 0.9% 100 ML IV ONE (16:00)
[2021-01-10] MEDS: NITROGLYCERIN 0.4 MG SL TAB SL PRN (18:40)
[2021-01-10] MEDS: HYDROcodone-ACET 5/325MG TAB PO PRN (22:37)
[2021-01-10] MEDS: HYDROmorphone HCL 2 MG/ML VL IV PRN (22:38)
[2021-01-11] MEDS: HYDROcodone-ACET 5/325MG TAB PO PRN ×2 (04:48→22:33)
[2021-01-11] MEDS: HYDROmorphone HCL 2 MG/ML VL IV PRN ×2 (04:49→22:34)
[2021-01-11] MEDS: ONDANSETRON HCL 4 MG/2 ML VIAL IV PRN (05:20)
[2021-01-11] MEDS ORDERED: IOHEXOL 300 MG/ML 100ML BOTTLE IJ ONE (22:10)
[2021-01-12] MEDS: ONDANSETRON HCL 4 MG/2 ML VIAL IV PRN ×3 (07:01→20:43)
[2021-01-12] MEDS: HYDROmorphone HCL 2 MG/ML VL IV PRN ×4 (08:07→23:56)
[2021-01-12 18:00] VITALS: BP 134/68
[2021-01-12 18:15] VITALS: BP 134/68
[2021-01-12] MEDS: HYDROcodone-ACET 5/325MG TAB PO PRN (20:43)
[2021-01-12 22:00] VITALS: BP 110/59
[2021-01-12] MEDS: NITROGLYCERIN 0.4 MG SL TAB SL PRN ×3 (23:36→23:50)
[2021-01-13] MEDS: ONDANSETRON HCL 4 MG/2 ML VIAL IV PRN ×3 (00:52→16:35)
[2021-01-13 05:11] VITALS: BP 126/77
[2021-01-13] MEDS: HYDROmorphone HCL 2 MG/ML VL IV PRN ×3 (05:29→21:49)
[2021-01-13 06:31] LABS: Potassium 3.5 mmol/L (3.5-5.1)
[2021-01-13 06:36] LABS: BUN/Creatinine Ratio 24.6
[2021-01-13 09:00] VITALS: BP 103/59
[2021-01-13] MEDS: ASPirin 81 mg TAB PO SCH (09:05)
[2021-01-13] MEDS: PANTOPRAZOLE 40 MG TAB PO SCH (09:06)
[2021-01-13] MEDS: CLOPIDOGREL BISULFATE 75 MG TAB PO SCH (09:06)
[2021-01-13] MEDS: CARVEDILOL 3.125 MG TAB PO SCH (09:06)
[2021-01-13] MEDS ORDERED: ENOXAPARIN SOD 40 MG/0.4 ML SYRINGE SC SCH (10:00)
[2021-01-13] MEDS: ENOXAPARIN SOD 80 MG/0.8ML SYRINGE SC SCH (11:08)
[2021-01-13] MEDS: HYDROcodone-ACET 5/325MG TAB PO PRN (12:55)
[2021-01-13 13:00] VITALS: BP 100/51
[2021-01-13 16:36] VITALS: BP 136/73
[2021-01-13 22:00] VITALS: BP 122/73
[2021-01-14] MEDS: ONDANSETRON HCL 4 MG/2 ML VIAL IV PRN ×2 (03:23→16:14)
[2021-01-14 05:00] VITALS: BP 113/64
[2021-01-14] MEDS: FUROSEMIDE 20 MG/2 ML VIAL IV SCH ×2 (05:29→18:14)
[2021-01-14 06:34] LABS: Potassium 3.6 mmol/L (3.5-5.1)
[2021-01-14 06:36] LABS: BUN/Creatinine Ratio 21.2
[2021-01-14 09:00] VITALS: BP 92/60
[2021-01-14] MEDS: HYDROmorphone HCL 2 MG/ML VL IV PRN ×3 (09:12→16:14)
[2021-01-14] MEDS: ASPirin 81 mg TAB PO SCH (10:51)
[2021-01-14] MEDS: CLOPIDOGREL BISULFATE 75 MG TAB PO SCH (10:52)
[2021-01-14] MEDS: CARVEDILOL 3.125 MG TAB PO SCH (10:52)
[2021-01-14] MEDS: PANTOPRAZOLE 40 MG TAB PO SCH (10:53)
[2021-01-14 13:00] VITALS: BP 98/72
[2021-01-14] MEDS ORDERED: LORazepam 2MG/ML-1ML VIAL IV PRN (15:45)
[2021-01-14 17:00] VITALS: BP 111/51
[2021-01-14] MEDS: ENOXAPARIN SOD 80 MG/0.8ML SYRINGE SC SCH (18:15)
[2021-01-14] MEDS ORDERED: diphenhdrAMINE HCL 50 MG/1 ML VL IV PRN (19:00)
[2021-01-14] MEDS: HYDROcodone-ACET 5/325MG TAB PO PRN (20:47)
[2021-01-14] MEDS ORDERED: SODIUM CHL 0.9% IV ONE (21:45)
[2021-01-14] MEDS ORDERED: LEVETIRACETAM IV ONE (21:45)
[2021-01-14 22:00] VITALS: BP 91/40
[2021-01-14 23:09] VITALS: BP 111/51
[2021-01-15] MEDS: HYDROcodone-ACET 5/325MG TAB PO PRN ×2 (01:06→09:48)
[2021-01-15 05:00] VITALS: BP 106/52
[2021-01-15] MEDS: HYDROmorphone HCL 2 MG/ML VL IV PRN ×3 (05:00→21:10)
[2021-01-15] MEDS: levETIRAcetam 500 MG TAB PO SCH ×3 (05:00→22:05)
[2021-01-15] MEDS: FUROSEMIDE 20 MG/2 ML VIAL IV SCH ×2 (06:06→16:58)
[2021-01-15 06:21] LABS: Chloride 102 mmol/L (98-107); Potassium 3.9 mmol/L (3.5-5.1); Sodium 140 mmol/L (136-145)
[2021-01-15 06:26] LABS: Anion Gap 8 (5-15); BUN/Creatinine Ratio 21.1; Blood Urea Nitrogen 26 mg/dL (7-18); Calcium 8.6 mg/dL (8.5-10.1); Carbon Dioxide 30 mmol/L (21-32); GFR African American 77 mL/min; GFR Non-African American 64 mL/min; Glucose 96 mg/dL (74-106)
[2021-01-15 09:00] VITALS: BP 103/62
[2021-01-15] MEDS: ASPirin 81 mg TAB PO SCH (09:45)
[2021-01-15] MEDS: ENOXAPARIN SOD 80 MG/0.8ML SYRINGE SC SCH (09:45)
[2021-01-15] MEDS: PANTOPRAZOLE 40 MG TAB PO SCH (09:45)
[2021-01-15] MEDS: CARVEDILOL 3.125 MG TAB PO SCH (09:46)
[2021-01-15] MEDS: CLOPIDOGREL BISULFATE 75 MG TAB PO SCH (09:48)
[2021-01-15 13:00] VITALS: BP 107/68
[2021-01-15] MEDS: ONDANSETRON HCL 4 MG/2 ML VIAL IV PRN ×2 (16:57→22:05)
[2021-01-15 17:00] VITALS: BP 118/66
[2021-01-15 22:00] VITALS: BP 127/84
[2021-01-16 05:00] VITALS: BP 113/70
[2021-01-16] MEDS: FUROSEMIDE 20 MG/2 ML VIAL IV SCH ×2 (05:59→18:00)
[2021-01-16] MEDS: HYDROmorphone HCL 2 MG/ML VL IV PRN ×5 (06:09→20:32)
[2021-01-16 07:11] LABS: BUN/Creatinine Ratio 21.6
[2021-01-16 09:00] VITALS: BP 112/66
[2021-01-16] MEDS: ASPirin 81 mg TAB PO SCH (09:34)
[2021-01-16] MEDS: CARVEDILOL 3.125 MG TAB PO SCH (09:35)
[2021-01-16] MEDS: PANTOPRAZOLE 40 MG TAB PO SCH (09:35)
[2021-01-16] MEDS: CLOPIDOGREL BISULFATE 75 MG TAB PO SCH (09:35)
[2021-01-16] MEDS: ENOXAPARIN SOD 80 MG/0.8ML SYRINGE SC SCH (09:35)
[2021-01-16] MEDS: levETIRAcetam 500 MG TAB PO SCH ×2 (09:35→20:32)
[2021-01-16 13:00] VITALS: BP 105/64
[2021-01-16] MEDS: ONDANSETRON HCL 4 MG/2 ML VIAL IV PRN (13:00)
[2021-01-16 22:00] VITALS: BP 115/80
[2021-01-17] MEDS: ONDANSETRON HCL 4 MG/2 ML VIAL IV PRN ×2 (00:06→11:01)
[2021-01-17] MEDS: HYDROmorphone HCL 2 MG/ML VL IV PRN ×3 (01:04→14:17)
[2021-01-17 05:00] VITALS: BP 85/52
[2021-01-17] MEDS: FUROSEMIDE 20 MG/2 ML VIAL IV SCH (06:00)
[2021-01-17 07:29] LABS: Calcium 8.8 mg/dL (8.5-10.1); Potassium 4.1 mmol/L (3.5-5.1)
[2021-01-17 07:32] LABS: BUN/Creatinine Ratio 21.3
[2021-01-17 09:00] VITALS: BP 106/54
[2021-01-17] MEDS: ASPirin 81 mg TAB PO SCH (09:43)
[2021-01-17] MEDS: PANTOPRAZOLE 40 MG TAB PO SCH (09:43)
[2021-01-17] MEDS: CLOPIDOGREL BISULFATE 75 MG TAB PO SCH (09:43)
[2021-01-17] MEDS: CARVEDILOL 3.125 MG TAB PO SCH (09:44)
[2021-01-17] MEDS: levETIRAcetam 500 MG TAB PO SCH (09:44)
[2021-01-17] MEDS: ENOXAPARIN SOD 80 MG/0.8ML SYRINGE SC SCH (09:44)
[2021-01-17 13:00] VITALS: BP 101/55
[2021-01-17 16:34] VITALS: BP 101/55
[2021-01-17 17:00] VITALS: BP 97/53
== END 2021-01-17 17:44 | disposition home or self-care (01) | DRG 291 ==
LOC: ER 06:38 → TELE 15:46 → TELE-WESTW 01-12 17:40
PROVIDERS: ADMIT Specialist; ATTEND Specialist
PROC: 5A09357 Assistance with Respiratory Ventilation, Less than 24 Consecutive Hours, Continuous Positive Airway Pressure (ICD-10-PCS; principal; 2021-01-14)
PROC: 5A09357 Assistance with Respiratory Ventilation, Less than 24 Consecutive Hours, Continuous Positive Airway Pressure (ICD-10-PCS; 2021-01-15)
DX: I11.0 Hypertensive heart disease with heart failure (principal); J96.20 Acute and chronic respiratory failure, unspecified whether with hypoxia or hypercapnia; Z68.42 Body mass index [BMI] 45.0-49.9, adult; G40.909 Epilepsy, unspecified, not intractable, without status epilepticus; I50.23 Acute on chronic systolic (congestive) heart failure; E66.01 Morbid (severe) obesity due to excess calories; G47.33 Obstructive sleep apnea (adult) (pediatric); I27.20 Pulmonary hypertension, unspecified; F17.210 Nicotine dependence, cigarettes, uncomplicated; I25.5 Ischemic cardiomyopathy; J44.9 Chronic obstructive pulmonary disease, unspecified; I25.10 Atherosclerotic heart disease of native coronary artery without angina pectoris; F32.9 Major depressive disorder, single episode, unspecified; K21.9 Gastro-esophageal reflux disease without esophagitis; Z20.822 Contact with and (suspected) exposure to COVID-19; Z88.0 Allergy status to penicillin; Z88.8 Allergy status to other drugs, medicaments and biological substances; I25.2 Old myocardial infarction; Z79.01 Long term (current) use of anticoagulants; Z79.82 Long term (current) use of aspirin; Z79.02 Long term (current) use of antithrombotics/antiplatelets; Z79.899 Other long term (current) drug therapy; Z82.3 Family history of stroke; Z86.711 Personal history of pulmonary embolism; Z86.718 Personal history of other venous thrombosis and embolism; Z82.49 Family history of ischemic heart disease and other diseases of the circulatory system; Z83.3 Family history of diabetes mellitus; Z95.5 Presence of coronary angioplasty implant and graft; Z86.73 Personal history of transient ischemic attack (TIA), and cerebral infarction without residual deficits
CPT/HCPCS: 36415; 71045; 71275; 80048; 80053; 83735; 83880; 84484; 85025; 85379; 85610; 85730; 87081; 87426; 93005; 94660; 96365; 96375; 97116; 97530; G0378; J2405

== ENCOUNTER 2021-03-29 21:34 | Inpatient (IN) | payer MEDICARE, MEDICAID ==
[~2021-03-29] VITALS: Ht 180.3 cm; Wt 176.7 kg
[2021-03-29] MEDS ORDERED: HYDROmorphone HCL 2 MG/ML VL IV ONE (21:45)
[2021-03-29] MEDS ORDERED: ONDANSETRON HCL 4 MG/2 ML VIAL IV ONE (21:45)
[2021-03-29] MEDS ORDERED: FUROSEMIDE 40 MG/4 ML VIAL IV ONE (21:45)
[2021-03-29 22:25] LABS: Basophils # (auto) 0.1 10 ^3/uL (0-0.2); Eosinophils # (auto) 0.1 10 ^3/uL (0-0.8); Eosinophils % (auto) 2.1 % (0.0-7.0); Hematocrit 29.7 % (41.0-53.0); Hemoglobin 9.1 g/dL (13.5-17.5); Lymphocytes # (auto) 1.6 10 ^3/uL (0.4-5.4); Lymphocytes % (auto) 23.6 % (10.0-50.0); Mean Corpuscular Hemoglobin 23.6 pg (28.0-32.0); Mean Corpuscular Hgb Conc. 30.5 g/dL (32.0-36.0); Mean Corpuscular Volume 77.3 fL (80.0-100.0); Monocytes # (auto) 0.5 10 ^3/uL (0-1.3); Monocytes % (auto) 7.4 % (0.0-12.0); Neutrophils # (auto) 4.6 10 ^3/uL (1.6-8.6); Neutrophils % (auto) 65.9 % (37.0-80.0); Nucleated Red Blood Cells % 0.2 %; Red Blood Cells 3.85 10^6/uL (4.5-5.90); Red Cell Distribution Width 19.4 % (11.8-14.3)
[2021-03-29 22:46] LABS: Albumin 2.8 g/dL (3.4-5.0); Magnesium 2.6 mg/dL (1.6-2.6); Potassium 3.6 mmol/L (3.5-5.1)
[2021-03-29 22:51] LABS: BUN/Creatinine Ratio 16.7; Bilirubin, Total 0.6 mg/dL (0.2-1.0)
[2021-03-30] MEDS ORDERED: MORPHINE SULFATE 4 MG/ML SYR/VIAL IV ONE (03:30)
[2021-03-30] MEDS ORDERED: ONDANSETRON HCL 4 MG/2 ML VIAL IV ONE (03:30)
[2021-03-30] MEDS ORDERED: HYDROmorphone HCL 2 MG/ML VL IV ONE (03:45)
[2021-03-30] MEDS ORDERED: ASPirin 325 MG TAB PO ONE (04:15)
[2021-03-30] MEDS ORDERED: CLOPIDOGREL BISULFATE 75 MG TAB PO ONE (04:15)
[2021-03-30] MEDS ORDERED: ENOXAPARIN SOD 30 MG/0.3 ML SYRINGE IV ONE (04:30)
[2021-03-30] MEDS ORDERED: ENOXAPARIN SOD 100 MG/1 ML SYRINGE SC ONE (04:30)
[2021-03-30] MEDS ORDERED: ACETAMINOPHEN 325 MG TAB PO PRN (05:00)
[2021-03-30] MEDS ORDERED: NITROGLYCERIN 0.4 MG SL TAB SL PRN (05:00)
[2021-03-30] MEDS ORDERED: MORPHINE SULFATE INJECTION 2 MG/ML SYRG IV PRN (05:00)
[2021-03-30] MEDS ORDERED: ALBUTEROL SULF 2.5 MG/0.5ML(0.5%) NEB SOLN NEB PRN (05:00)
[2021-03-30] MEDS: FUROSEMIDE 20 MG/2 ML VIAL IV SCH ×2 (06:26→18:42)
[2021-03-30] MEDS: CARVEDILOL 3.125 MG TAB PO SCH ×2 (09:06→22:00)
[2021-03-30] MEDS: ASPirin 81 mg TAB PO SCH (09:06)
[2021-03-30] MEDS: SACUBITRIL-VALSARTAN 24mg/26mg TAB PO SCH ×2 (09:07→22:00)
[2021-03-30] MEDS: ISOSORBIDE MONONITRATE ER 60 MG TAB PO SCH (09:07)
[2021-03-30] MEDS: levETIRAcetam 500 MG TAB PO SCH ×2 (09:08→22:52)
[2021-03-30] MEDS: PANTOPRAZOLE 40 MG TAB PO SCH (09:08)
[2021-03-30] MEDS: CLOPIDOGREL BISULFATE 75 MG TAB PO SCH (09:08)
[2021-03-30 11:40] VITALS: BP 110/53
[2021-03-30] MEDS ORDERED: ENOXAPARIN SOD 40 MG/0.4 ML SYRINGE SC ONE (11:45)
[2021-03-30] MEDS: HYDROmorphone HCL 2 MG/ML VL IV PRN ×3 (11:47→22:51)
[2021-03-30] MEDS: ONDANSETRON HCL 4 MG/2 ML VIAL IV PRN (11:47)
[2021-03-30 12:56] VITALS: BP 116/75
[2021-03-30 13:58] VITALS: BP 116/75
[2021-03-30 17:00] VITALS: BP 116/77
[2021-03-30] MEDS ORDERED: FURO80TA3 PO (17:09)
[2021-03-30] MEDS ORDERED: PANT40TA2 PO (17:09)
[2021-03-30] MEDS ORDERED: NALO4SPR2 (17:23)
[2021-03-30] MEDS ORDERED: DAPA1TAB4 PO (17:23)
[2021-03-30] MEDS ORDERED: HYDR2TAB58 PO ×2 (17:23)
[2021-03-30] MEDS ORDERED: SACU1TAB PO (17:23)
[2021-03-30] MEDS ORDERED: MECL1TAB42 PO (17:23)
[2021-03-30] MEDS ORDERED: POLY33504 PO (17:23)
[2021-03-30 22:00] VITALS: BP 102/59
[2021-03-30] MEDS: ATORVASTATIN 20 MG TAB PO SCH (22:52)
[2021-03-31] VITALS: BP 112/86
[2021-03-31] MEDS: FUROSEMIDE 20 MG/2 ML VIAL IV SCH ×2 (05:03→18:00)
[2021-03-31] MEDS: HYDROmorphone HCL 2 MG/ML VL IV PRN ×4 (05:04→20:13)
[2021-03-31 05:42] VITALS: BP 111/65
[2021-03-31 06:10] LABS: Basophils # (auto) 0.1 10 ^3/uL (0-0.2); Eosinophils # (auto) 0.2 10 ^3/uL (0-0.8); Hemoglobin 9.2 g/dL (13.5-17.5); Neutrophils # (auto) 3.5 10 ^3/uL (1.6-8.6); White Blood Cell 5.2 10^3/uL (4.4-10.8)
[2021-03-31 06:14] LABS: Hematocrit 30.3 % (41.0-53.0); Lymphocytes # (auto) 1.1 10 ^3/uL (0.4-5.4); Lymphocytes % (auto) 20.6 % (10.0-50.0); Mean Corpuscular Hemoglobin 23.5 pg (28.0-32.0); Mean Corpuscular Hgb Conc. 30.4 g/dL (32.0-36.0); Mean Corpuscular Volume 77.3 fL (80.0-100.0); Monocytes # (auto) 0.5 10 ^3/uL (0-1.3); Neutrophils % (auto) 66.4 % (37.0-80.0); Red Blood Cells 3.92 10^6/uL (4.5-5.90)
[2021-03-31 06:49] LABS: Albumin 3.1 g/dL (3.4-5.0); Calcium 8.2 mg/dL (8.5-10.1); Magnesium 2.2 mg/dL (1.6-2.6); Potassium 4.3 mmol/L (3.5-5.1)
[2021-03-31 06:51] LABS: BUN/Creatinine Ratio 18.2
[2021-03-31 06:54] LABS: Bilirubin, Total 0.6 mg/dL (0.2-1.0)
[2021-03-31] MEDS: ENOXAPARIN SOD 40 MG/0.4 ML SYRINGE SC SCH (10:29)
[2021-03-31] MEDS: SACUBITRIL-VALSARTAN 24mg/26mg TAB PO SCH ×2 (10:32→21:39)
[2021-03-31] MEDS: ASPirin 81 mg TAB PO SCH (10:32)
[2021-03-31] MEDS: CLOPIDOGREL BISULFATE 75 MG TAB PO SCH (10:32)
[2021-03-31] MEDS: ISOSORBIDE MONONITRATE ER 60 MG TAB PO SCH (10:33)
[2021-03-31] MEDS: levETIRAcetam 500 MG TAB PO SCH ×2 (10:33→21:39)
[2021-03-31] MEDS: CARVEDILOL 3.125 MG TAB PO SCH ×2 (10:34→21:39)
[2021-03-31] MEDS: PANTOPRAZOLE 40 MG TAB PO SCH (10:34)
[2021-03-31 13:00] VITALS: BP_SYST 120; BP_DIAS 63; BP_DIAS 65
[2021-03-31] MEDS ORDERED: diphenhdrAMINE HCL 50 MG/1 ML VL IV ONE (14:00)
[2021-03-31] MEDS: ALBUTEROL SULF 2.5 MG/0.5ML(0.5%) NEB SOLN NEB SCH ×3 (14:33→22:45)
[2021-03-31] MEDS: LACTULOSE 20Gm/30ML SOLN PO PRN (14:54)
[2021-03-31 17:00] VITALS: BP 114/73
[2021-03-31] MEDS: ATORVASTATIN 20 MG TAB PO SCH (21:40)
[2021-03-31 22:00] VITALS: BP 113/78
[2021-03-31] MEDS ORDERED: TEMAZEPAM 15 MG CAP PO ONE (23:30)
[2021-04-01] MEDS: HYDROmorphone HCL 2 MG/ML VL IV PRN ×5 (00:44→23:15)
[2021-04-01] MEDS: ALBUTEROL SULF 2.5 MG/0.5ML(0.5%) NEB SOLN NEB SCH ×6 (02:00→22:06)
[2021-04-01 05:00] VITALS: BP 116/83
[2021-04-01] MEDS: FUROSEMIDE 20 MG/2 ML VIAL IV SCH ×2 (06:24→17:52)
[2021-04-01 09:00] VITALS: BP 122/81
[2021-04-01] MEDS: levETIRAcetam 500 MG TAB PO SCH ×2 (10:00→21:50)
[2021-04-01] MEDS: ISOSORBIDE MONONITRATE ER 60 MG TAB PO SCH (10:00)
[2021-04-01] MEDS: CLOPIDOGREL BISULFATE 75 MG TAB PO SCH (12:07)
[2021-04-01] MEDS: ASPirin 81 mg TAB PO SCH (12:07)
[2021-04-01] MEDS: CARVEDILOL 3.125 MG TAB PO SCH ×2 (12:07→21:51)
[2021-04-01] MEDS: SACUBITRIL-VALSARTAN 24mg/26mg TAB PO SCH ×2 (12:07→21:50)
[2021-04-01] MEDS: PANTOPRAZOLE 40 MG TAB PO SCH (12:07)
[2021-04-01] MEDS: ENOXAPARIN SOD 40 MG/0.4 ML SYRINGE SC SCH (12:08)
[2021-04-01 13:00] VITALS: BP 116/80
[2021-04-01 17:00] VITALS: BP 92/75
[2021-04-01] MEDS: ONDANSETRON HCL 4 MG/2 ML VIAL IV PRN (17:53)
[2021-04-01] MEDS: ATORVASTATIN 20 MG TAB PO SCH (21:50)
[2021-04-01 22:00] VITALS: BP 114/63
[2021-04-02] MEDS: ALBUTEROL SULF 2.5 MG/0.5ML(0.5%) NEB SOLN NEB SCH ×6 (02:05→22:00)
[2021-04-02] MEDS: HYDROmorphone HCL 2 MG/ML VL IV PRN ×4 (03:27→22:00)
[2021-04-02 05:41] VITALS: BP 116/70
[2021-04-02 05:53] LABS: Lymphocytes # (auto) 1.2 10 ^3/uL (0.4-5.4); Monocytes # (auto) 0.6 10 ^3/uL (0-1.3); Neutrophils # (auto) 3.6 10 ^3/uL (1.6-8.6); Nucleated Red Blood Cells % 0.1 %; White Blood Cell 5.6 10^3/uL (4.4-10.8)
[2021-04-02 05:56] LABS: Basophils # (auto) 0.1 10 ^3/uL (0-0.2); Basophils % (auto) 1.5 % (0.0-2.0); Eosinophils # (auto) 0.2 10 ^3/uL (0-0.8); Eosinophils % (auto) 2.9 % (0.0-7.0); Hematocrit 30.3 % (41.0-53.0); Hemoglobin 9.1 g/dL (13.5-17.5); Lymphocytes % (auto) 20.7 % (10.0-50.0); Mean Corpuscular Hemoglobin 23.3 pg (28.0-32.0); Mean Corpuscular Hgb Conc. 30.1 g/dL (32.0-36.0); Mean Corpuscular Volume 77.4 fL (80.0-100.0); Neutrophils % (auto) 64.9 % (37.0-80.0); Red Blood Cells 3.91 10^6/uL (4.5-5.90); Red Cell Distribution Width 19.7 % (11.8-14.3)
[2021-04-02] MEDS: FUROSEMIDE 20 MG/2 ML VIAL IV SCH ×2 (05:56→17:50)
[2021-04-02 06:08] LABS: Calcium 8.8 mg/dL (8.5-10.1); Potassium 4.7 mmol/L (3.5-5.1)
[2021-04-02 06:15] LABS: BUN/Creatinine Ratio 21.2
[2021-04-02 09:00] VITALS: BP 117/72
[2021-04-02] MEDS: ASPirin 81 mg TAB PO SCH (11:08)
[2021-04-02] MEDS: SACUBITRIL-VALSARTAN 24mg/26mg TAB PO SCH ×2 (11:10→21:58)
[2021-04-02] MEDS: ISOSORBIDE MONONITRATE ER 60 MG TAB PO SCH (11:10)
[2021-04-02] MEDS: PANTOPRAZOLE 40 MG TAB PO SCH (11:11)
[2021-04-02] MEDS: CARVEDILOL 3.125 MG TAB PO SCH ×2 (11:11→21:58)
[2021-04-02] MEDS: CLOPIDOGREL BISULFATE 75 MG TAB PO SCH (11:11)
[2021-04-02] MEDS: levETIRAcetam 500 MG TAB PO SCH ×2 (11:12→21:58)
[2021-04-02] MEDS: ENOXAPARIN SOD 40 MG/0.4 ML SYRINGE SC SCH (11:13)
[2021-04-02 11:30] VITALS: BP 116/70
[2021-04-02 13:00] VITALS: BP 136/76
[2021-04-02] MEDS: ONDANSETRON HCL 4 MG/2 ML VIAL IV PRN (16:22)
[2021-04-02] MEDS: LACTULOSE 20Gm/30ML SOLN PO PRN (16:23)
[2021-04-02 17:00] VITALS: BP 118/61
[2021-04-02] MEDS: ATORVASTATIN 20 MG TAB PO SCH (21:59)
[2021-04-03] MEDS: ALBUTEROL SULF 2.5 MG/0.5ML(0.5%) NEB SOLN NEB SCH ×5 (02:00→23:08)
[2021-04-03] MEDS: HYDROmorphone HCL 2 MG/ML VL IV PRN ×4 (03:46→17:38)
[2021-04-03 05:00] VITALS: BP 104/56
[2021-04-03] MEDS: FUROSEMIDE 20 MG/2 ML VIAL IV SCH ×2 (05:22→17:37)
[2021-04-03] MEDS: CLOPIDOGREL BISULFATE 75 MG TAB PO SCH (08:40)
[2021-04-03] MEDS: ENOXAPARIN SOD 40 MG/0.4 ML SYRINGE SC SCH (08:40)
[2021-04-03] MEDS: SACUBITRIL-VALSARTAN 24mg/26mg TAB PO SCH ×2 (08:40→22:04)
[2021-04-03] MEDS: ASPirin 81 mg TAB PO SCH (08:40)
[2021-04-03] MEDS: levETIRAcetam 500 MG TAB PO SCH ×2 (08:41→22:05)
[2021-04-03] MEDS: PANTOPRAZOLE 40 MG TAB PO SCH (08:41)
[2021-04-03 09:00] VITALS: BP 124/80
[2021-04-03] MEDS: CARVEDILOL 3.125 MG TAB PO SCH ×2 (10:00→21:59)
[2021-04-03] MEDS: ISOSORBIDE MONONITRATE ER 60 MG TAB PO SCH (12:46)
[2021-04-03 13:00] VITALS: BP 107/72
[2021-04-03 16:59] VITALS: BP 96/65
[2021-04-03] MEDS: ATORVASTATIN 20 MG TAB PO SCH (22:05)
[2021-04-03 22:13] VITALS: BP 101/69
[2021-04-04] MEDS: HYDROmorphone HCL 2 MG/ML VL IV PRN ×3 (01:42→11:37)
[2021-04-04] MEDS: ALBUTEROL SULF 2.5 MG/0.5ML(0.5%) NEB SOLN NEB SCH ×4 (03:11→14:35)
[2021-04-04 05:20] VITALS: BP 127/60
[2021-04-04] MEDS: FUROSEMIDE 20 MG/2 ML VIAL IV SCH (06:24)
[2021-04-04 09:00] VITALS: BP 109/62
[2021-04-04] MEDS: SACUBITRIL-VALSARTAN 24mg/26mg TAB PO SCH (09:46)
[2021-04-04] MEDS: ISOSORBIDE MONONITRATE ER 60 MG TAB PO SCH (09:46)
[2021-04-04] MEDS: levETIRAcetam 500 MG TAB PO SCH (09:47)
[2021-04-04] MEDS: PANTOPRAZOLE 40 MG TAB PO SCH (09:48)
[2021-04-04] MEDS: LACTULOSE 20Gm/30ML SOLN PO PRN (09:50)
[2021-04-04] MEDS: ENOXAPARIN SOD 40 MG/0.4 ML SYRINGE SC SCH (09:50)
[2021-04-04] MEDS: CLOPIDOGREL BISULFATE 75 MG TAB PO SCH (09:50)
[2021-04-04] MEDS: CARVEDILOL 3.125 MG TAB PO SCH (09:51)
[2021-04-04] MEDS ORDERED: ASPirin 81 mg TAB PO SCH (10:00)
[2021-04-04 10:20] VITALS: BP 92/56
[2021-04-04 13:00] VITALS: BP 101/56
== END 2021-04-04 14:39 | disposition home health service (06) | DRG 291 ==
LOC: EDBD 21:34 → ER 21:37 → TELE 03-30 04:50 → TELE-CENTR 03-30 12:40
PROVIDERS: ADMIT Nurse Practitioner; ATTEND Internal Medicine Nephrology
PROC: 5A09357 Assistance with Respiratory Ventilation, Less than 24 Consecutive Hours, Continuous Positive Airway Pressure (ICD-10-PCS; principal; 2021-03-30)
PROC: 5A09357 Assistance with Respiratory Ventilation, Less than 24 Consecutive Hours, Continuous Positive Airway Pressure (ICD-10-PCS; 2021-03-31)
PROC: 5A09357 Assistance with Respiratory Ventilation, Less than 24 Consecutive Hours, Continuous Positive Airway Pressure (ICD-10-PCS; 2021-04-01)
PROC: 5A09357 Assistance with Respiratory Ventilation, Less than 24 Consecutive Hours, Continuous Positive Airway Pressure (ICD-10-PCS; 2021-04-04)
DX: I11.0 Hypertensive heart disease with heart failure (principal); J96.20 Acute and chronic respiratory failure, unspecified whether with hypoxia or hypercapnia; I50.23 Acute on chronic systolic (congestive) heart failure; Z68.43 Body mass index [BMI] 50.0-59.9, adult; N17.9 Acute kidney failure, unspecified; J44.9 Chronic obstructive pulmonary disease, unspecified; E66.01 Morbid (severe) obesity due to excess calories; D64.9 Anemia, unspecified; E78.5 Hyperlipidemia, unspecified; F12.90 Cannabis use, unspecified, uncomplicated; F17.210 Nicotine dependence, cigarettes, uncomplicated; G40.909 Epilepsy, unspecified, not intractable, without status epilepticus; F32.A Depression, unspecified; K21.9 Gastro-esophageal reflux disease without esophagitis; I25.5 Ischemic cardiomyopathy; Z20.822 Contact with and (suspected) exposure to COVID-19; I71.2 Thoracic aortic aneurysm, without rupture; I08.0 Rheumatic disorders of both mitral and aortic valves; I25.10 Atherosclerotic heart disease of native coronary artery without angina pectoris; Z86.73 Personal history of transient ischemic attack (TIA), and cerebral infarction without residual deficits; Z95.0 Presence of cardiac pacemaker; Z95.5 Presence of coronary angioplasty implant and graft; I25.2 Old myocardial infarction; Z88.5 Allergy status to narcotic agent; Z88.0 Allergy status to penicillin; Z88.8 Allergy status to other drugs, medicaments and biological substances; Z91.041 Radiographic dye allergy status; Z91.011 Allergy to milk products; Z82.49 Family history of ischemic heart disease and other diseases of the circulatory system; Z83.3 Family history of diabetes mellitus; Z90.49 Acquired absence of other specified parts of digestive tract; Z71.3 Dietary counseling and surveillance
CPT/HCPCS: 36415; 36600; 71045; 71250; 80048; 80053; 82805; 83735; 83880; 84484; 85025; 85379; 87426; 93005; 94640; 94660; 94762; 96372; 96374; 96375; 96376; G0378; J2405

== ENCOUNTER 2021-05-13 20:32 | Inpatient (IN) | payer MEDICARE, MEDICAID ==
[~2021-05-13] VITALS: Ht 193 cm; Wt 162.0 kg
[~2021-05-13 20:32] MED LIST changes: +DAPA1TAB4 PO; -FAMO-12 PO; -FURO1TAB31 PO; +FURO80TA3 PO; +HYDR2TAB58 PO; -LOSA-69 PO; +MECL1TAB42 PO; +NALO4SPR2; -NIFE1TAB30 PO; +PANT40TA2 PO; +POLY33504 PO; +SACU1TAB PO
[2021-05-13] MEDS ORDERED: FUROSEMIDE 100 MG/10ML VIAL IV ONE (22:15)
[2021-05-13] MEDS ORDERED: NITROGLYCERIN 0.4MG/HR TOPICAL PATCH TD ONE (22:15)
[2021-05-13 22:58] LABS: Basophils # (auto) 0 10 ^3/uL (0-0.2); Eosinophils # (auto) 0 10 ^3/uL (0-0.8); Eosinophils % (auto) 0.2 % (0.0-7.0); Lymphocytes # (auto) 0.6 10 ^3/uL (0.4-5.4); Monocytes # (auto) 0.3 10 ^3/uL (0-1.3); Neutrophils # (auto) 2.8 10 ^3/uL (1.6-8.6); Nucleated Red Blood Cells % 0.1 %; White Blood Cell 3.8 10^3/uL (4.4-10.8)
[2021-05-13 23:01] LABS: Basophils % (auto) 0.9 % (0.0-2.0); Hematocrit 29.4 % (41.0-53.0); Lymphocytes % (auto) 15.5 % (10.0-50.0); Mean Corpuscular Hemoglobin 23.2 pg (28.0-32.0); Mean Corpuscular Hgb Conc. 30.5 g/dL (32.0-36.0); Mean Corpuscular Volume 76.1 fL (80.0-100.0); Monocytes % (auto) 8.2 % (0.0-12.0); Neutrophils % (auto) 75.2 % (37.0-80.0); Red Blood Cells 3.87 10^6/uL (4.5-5.90); Red Cell Distribution Width 19.2 % (11.8-14.3)
[2021-05-13 23:14] LABS: INR 1.25 (0.9-1.15); Partial Thromboplastin Time 27.7 sec (23.6-33.0)
[2021-05-13 23:21] LABS: Potassium 3.7 mmol/L (3.5-5.1)
[2021-05-13 23:31] LABS: BUN/Creatinine Ratio 10.5; Bilirubin, Total 0.5 mg/dL (0.2-1.0); Calcium 8.2 mg/dL (8.5-10.1); Magnesium 2.8 mg/dL (1.6-2.6); Total Protein 6.9 g/dL (6.4-8.2)
[2021-05-14 00:41] LABS: Urine WBC None Seen /hpf (0 - 3)
[2021-05-14] MEDS ORDERED: NITROGLYCERIN 0.4 MG SL TAB SL PRN (01:00)
[2021-05-14] MEDS ORDERED: ONDANSETRON HCL 4 MG/2 ML VIAL IV PRN (01:00)
[2021-05-14] MEDS ORDERED: ACETAMINOPHEN 325 MG TAB PO PRN (01:00)
[2021-05-14 01:12] LABS: Urine Bacteria NONE SEEN /hpf (None Seen); Urine Blood Negative /uL (Negative); Urine Specific Gravity 1.004 (1.001-1.035)
[2021-05-14] MEDS: FUROSEMIDE 20 MG/2 ML VIAL IV SCH ×2 (06:10→18:22)
[2021-05-14] MEDS: MORPHINE SULFATE INJECTION 2 MG/ML SYRG IV PRN ×4 (08:24→21:40)
[2021-05-14] MEDS: ASPirin 81 mg TAB PO SCH (09:30)
[2021-05-14] MEDS: CARVEDILOL 3.125 MG TAB PO SCH ×2 (09:31→21:42)
[2021-05-14] MEDS: APIXABAN 5 MG TAB PO SCH ×2 (09:31→21:42)
[2021-05-14] MEDS: SACUBITRIL-VALSARTAN 24mg/26mg TAB PO SCH ×2 (09:31→21:40)
[2021-05-14] MEDS: CLOPIDOGREL BISULFATE 75 MG TAB PO SCH (09:32)
[2021-05-14] MEDS: ISOSORBIDE MONONITRATE ER 60 MG TAB PO SCH (09:32)
[2021-05-14] MEDS: levETIRAcetam 500 MG TAB PO SCH ×2 (09:32→21:43)
[2021-05-14] MEDS: PANTOPRAZOLE 40 MG TAB PO SCH (09:33)
[2021-05-14] MEDS ORDERED: REMDESIVIR PER PHARMACY 0 ML IV SCH (11:15)
[2021-05-14] MEDS ORDERED: HYDROcodone-ACET 5/325MG TAB PO PRN (12:45)
[2021-05-14 13:00] VITALS: BP 108/67
[2021-05-14] MEDS ORDERED: RANOLAZINE ER 500 MG TAB PO ONE (13:00)
[2021-05-14] MEDS ORDERED: REMDESIVIR 200 MG in NS 210ml LOADING DOSE ADULT IV ONE (15:00)
[2021-05-14 16:00] VITALS: BP 145/75
[2021-05-14] MEDS: RANOLAZINE ER 500 MG TAB PO SCH (21:40)
[2021-05-14] MEDS: ATORVASTATIN 20 MG TAB PO SCH (21:41)
[2021-05-14 22:00] VITALS: BP 128/77
[2021-05-14 22:38] VITALS: BP 101/62
[2021-05-15] VITALS (8 sets, daily range): BP systolic 91–111; BP diastolic 52–70
[2021-05-15] MEDS: MORPHINE SULFATE INJECTION 2 MG/ML SYRG IV PRN ×3 (02:29→17:51)
[2021-05-15] MEDS: FUROSEMIDE 20 MG/2 ML VIAL IV SCH ×2 (07:06→17:49)
[2021-05-15 09:48] LABS: Albumin 2.8 g/dL (3.4-5.0); Calcium 7.7 mg/dL (8.5-10.1); Potassium 3.8 mmol/L (3.5-5.1)
[2021-05-15] MEDS: ASPirin 81 mg TAB PO SCH (09:51)
[2021-05-15] MEDS: CLOPIDOGREL BISULFATE 75 MG TAB PO SCH (09:52)
[2021-05-15] MEDS: RANOLAZINE ER 500 MG TAB PO SCH ×2 (09:52→23:24)
[2021-05-15] MEDS: levETIRAcetam 500 MG TAB PO SCH ×2 (09:52→23:24)
[2021-05-15] MEDS: PANTOPRAZOLE 40 MG TAB PO SCH (09:52)
[2021-05-15] MEDS: APIXABAN 5 MG TAB PO SCH ×2 (09:52→23:23)
[2021-05-15] MEDS: IVERMECTIN 3 MG TAB PO SCH (09:53)
[2021-05-15 09:56] LABS: BUN/Creatinine Ratio 12.9; Bilirubin, Total 0.7 mg/dL (0.2-1.0); Total Protein 6.8 g/dL (6.4-8.2)
[2021-05-15] MEDS: ISOSORBIDE MONONITRATE ER 60 MG TAB PO SCH (10:00)
[2021-05-15] MEDS: DAPAGLIFLOZIN 5 MG TAB PO SCH (10:00)
[2021-05-15] MEDS: SACUBITRIL-VALSARTAN 24mg/26mg TAB PO SCH ×2 (10:00→23:23)
[2021-05-15] MEDS: CARVEDILOL 3.125 MG TAB PO SCH ×2 (10:00→22:00)
[2021-05-15 11:13] LABS: Basophils # (auto) 0 10 ^3/uL (0-0.2); Basophils % (auto) 1.3 % (0.0-2.0); Eosinophils # (auto) 0 10 ^3/uL (0-0.8); Eosinophils % (auto) 0.3 % (0.0-7.0); Hematocrit 29.6 % (41.0-53.0); Hemoglobin 9.2 g/dL (13.5-17.5); Lymphocytes # (auto) 0.9 10 ^3/uL (0.4-5.4); Lymphocytes % (auto) 28.3 % (10.0-50.0); Mean Corpuscular Hemoglobin 23.2 pg (28.0-32.0); Mean Corpuscular Hgb Conc. 31.2 g/dL (32.0-36.0); Mean Corpuscular Volume 74.4 fL (80.0-100.0); Monocytes # (auto) 0.3 10 ^3/uL (0-1.3); Monocytes % (auto) 9.2 % (0.0-12.0); Neutrophils % (auto) 60.9 % (37.0-80.0); Nucleated Red Blood Cells % 0.1 %; Red Blood Cells 3.98 10^6/uL (4.5-5.90); Red Cell Distribution Width 19.2 % (11.8-14.3); White Blood Cell 3.2 10^3/uL (4.4-10.8)
[2021-05-15] MEDS: REMDESIVIR 100mg 100 MG in SODIUM CHL 0.9% 230 ML IV SCH (15:45)
[2021-05-15] MEDS: ATORVASTATIN 20 MG TAB PO SCH (23:25)
[2021-05-16 05:00] VITALS: BP 104/66
[2021-05-16] MEDS: FUROSEMIDE 20 MG/2 ML VIAL IV SCH ×2 (06:00→17:38)
[2021-05-16 06:59] LABS: Albumin 2.9 g/dL (3.4-5.0); Calcium 8.2 mg/dL (8.5-10.1); Potassium 4.1 mmol/L (3.5-5.1)
[2021-05-16 07:01] LABS: BUN/Creatinine Ratio 14.4
[2021-05-16 07:04] LABS: Bilirubin, Total 0.6 mg/dL (0.2-1.0); Total Protein 6.8 g/dL (6.4-8.2)
[2021-05-16 08:00] VITALS: BP 105/81
[2021-05-16] MEDS: MORPHINE SULFATE INJECTION 2 MG/ML SYRG IV PRN ×3 (08:00→22:31)
[2021-05-16] MEDS: levETIRAcetam 500 MG TAB PO SCH ×2 (09:33→22:28)
[2021-05-16] MEDS: APIXABAN 5 MG TAB PO SCH ×2 (09:33→22:28)
[2021-05-16] MEDS: RANOLAZINE ER 500 MG TAB PO SCH ×2 (09:33→22:28)
[2021-05-16] MEDS: ASPirin 81 mg TAB PO SCH (09:33)
[2021-05-16] MEDS: PANTOPRAZOLE 40 MG TAB PO SCH (09:33)
[2021-05-16] MEDS: IVERMECTIN 3 MG TAB PO SCH (09:34)
[2021-05-16] MEDS: CLOPIDOGREL BISULFATE 75 MG TAB PO SCH (09:34)
[2021-05-16] MEDS: SACUBITRIL-VALSARTAN 24mg/26mg TAB PO SCH ×2 (09:47→22:00)
[2021-05-16] MEDS: CARVEDILOL 3.125 MG TAB PO SCH ×2 (09:47→22:00)
[2021-05-16] MEDS: ISOSORBIDE MONONITRATE ER 60 MG TAB PO SCH (09:47)
[2021-05-16] MEDS: DAPAGLIFLOZIN 5 MG TAB PO SCH (09:47)
[2021-05-16 12:00] VITALS: BP 90/57
[2021-05-16] MEDS: REMDESIVIR 100mg 100 MG in SODIUM CHL 0.9% 230 ML IV SCH (14:56)
[2021-05-16 15:59] VITALS: BP 104/62
[2021-05-16 22:00] VITALS: BP 93/60
[2021-05-16] MEDS: ATORVASTATIN 20 MG TAB PO SCH (22:28)
[2021-05-16 23:50] VITALS: BP 103/58
[2021-05-17 05:00] VITALS: BP 94/55
[2021-05-17] MEDS: FUROSEMIDE 20 MG/2 ML VIAL IV SCH ×3 (06:00→21:00)
[2021-05-17 07:21] LABS: Potassium 4.9 mmol/L (3.5-5.1)
[2021-05-17 07:31] LABS: Albumin 2.7 g/dL (3.4-5.0); BUN/Creatinine Ratio 19.8; Bilirubin, Total 0.6 mg/dL (0.2-1.0); Calcium 7.7 mg/dL (8.5-10.1); Total Protein 5.9 g/dL (6.4-8.2)
[2021-05-17 08:23] VITALS: BP 113/71
[2021-05-17] MEDS: APIXABAN 5 MG TAB PO SCH ×2 (09:49→22:50)
[2021-05-17] MEDS: ASPirin 81 mg TAB PO SCH (09:49)
[2021-05-17] MEDS: CARVEDILOL 3.125 MG TAB PO SCH ×2 (09:50→22:50)
[2021-05-17] MEDS: DAPAGLIFLOZIN 5 MG TAB PO SCH (09:50)
[2021-05-17] MEDS: SACUBITRIL-VALSARTAN 24mg/26mg TAB PO SCH ×2 (09:50→22:00)
[2021-05-17] MEDS: ISOSORBIDE MONONITRATE ER 60 MG TAB PO SCH (09:50)
[2021-05-17] MEDS: PANTOPRAZOLE 40 MG TAB PO SCH (09:51)
[2021-05-17] MEDS: RANOLAZINE ER 500 MG TAB PO SCH ×2 (09:51→22:50)
[2021-05-17] MEDS: levETIRAcetam 500 MG TAB PO SCH ×2 (09:51→22:50)
[2021-05-17] MEDS: IVERMECTIN 3 MG TAB PO SCH (09:51)
[2021-05-17] MEDS: CLOPIDOGREL BISULFATE 75 MG TAB PO SCH (09:51)
[2021-05-17] MEDS: MORPHINE SULFATE INJECTION 2 MG/ML SYRG IV PRN ×3 (11:15→23:12)
[2021-05-17 12:00] VITALS: BP 97/67
[2021-05-17] MEDS: REMDESIVIR 100mg 100 MG in SODIUM CHL 0.9% 230 ML IV SCH (15:02)
[2021-05-17 16:00] VITALS: BP 99/68
[2021-05-17] MEDS ORDERED: ALBUTEROL SULF 2.5 MG/0.5ML(0.5%) NEB SOLN NEB PRN (21:00)
[2021-05-17 22:00] VITALS: BP 110/67
[2021-05-17] MEDS: ATORVASTATIN 20 MG TAB PO SCH (22:50)
[2021-05-18 05:00] VITALS: BP 106/72
[2021-05-18] MEDS: FUROSEMIDE 20 MG/2 ML VIAL IV SCH ×2 (06:30→18:00)
[2021-05-18] MEDS: CLOPIDOGREL BISULFATE 75 MG TAB PO SCH (09:47)
[2021-05-18] MEDS: APIXABAN 5 MG TAB PO SCH ×2 (09:47→22:34)
[2021-05-18] MEDS: ASPirin 81 mg TAB PO SCH (09:47)
[2021-05-18] MEDS: levETIRAcetam 500 MG TAB PO SCH ×2 (09:48→22:33)
[2021-05-18] MEDS: IVERMECTIN 3 MG TAB PO SCH (09:48)
[2021-05-18 10:04] LABS: Potassium 4.3 mmol/L (3.5-5.1)
[2021-05-18 10:12] LABS: BUN/Creatinine Ratio 17.6; Bilirubin, Total 0.5 mg/dL (0.2-1.0); Calcium 8.2 mg/dL (8.5-10.1); Total Protein 7.1 g/dL (6.4-8.2)
[2021-05-18] MEDS: RANOLAZINE ER 500 MG TAB PO SCH ×2 (10:50→22:34)
[2021-05-18] MEDS: PANTOPRAZOLE 40 MG TAB PO SCH (10:50)
[2021-05-18] MEDS: MORPHINE SULFATE INJECTION 2 MG/ML SYRG IV PRN ×2 (10:51→20:20)
[2021-05-18] MEDS: CARVEDILOL 3.125 MG TAB PO SCH ×2 (12:38→22:43)
[2021-05-18] MEDS: SACUBITRIL-VALSARTAN 24mg/26mg TAB PO SCH ×2 (12:38→22:44)
[2021-05-18] MEDS: DAPAGLIFLOZIN 5 MG TAB PO SCH (12:38)
[2021-05-18] MEDS: ISOSORBIDE MONONITRATE ER 60 MG TAB PO SCH (12:39)
[2021-05-18 13:00] VITALS: BP 116/65
[2021-05-18] MEDS: REMDESIVIR 100mg 100 MG in SODIUM CHL 0.9% 230 ML IV SCH (15:29)
[2021-05-18 17:00] VITALS: BP 108/72
[2021-05-18] MEDS: ALBUTEROL SULF HFA 90MCG INH 200DOSE IN PRN (19:54)
[2021-05-18] MEDS: ATORVASTATIN 20 MG TAB PO SCH (22:34)
[2021-05-18 23:30] VITALS: BP 96/61
[2021-05-19] MEDS: MORPHINE SULFATE INJECTION 2 MG/ML SYRG IV PRN ×2 (04:30→11:23)
[2021-05-19] MEDS: FUROSEMIDE 20 MG/2 ML VIAL IV SCH (05:46)
[2021-05-19] MEDS: ALBUTEROL SULF HFA 90MCG INH 200DOSE IN PRN (05:54)
[2021-05-19 08:57] VITALS: BP 95/51
[2021-05-19] MEDS: ISOSORBIDE MONONITRATE ER 60 MG TAB PO SCH (10:00)
[2021-05-19] MEDS: levETIRAcetam 500 MG TAB PO SCH (10:08)
[2021-05-19] MEDS: APIXABAN 5 MG TAB PO SCH (10:08)
[2021-05-19] MEDS: SACUBITRIL-VALSARTAN 24mg/26mg TAB PO SCH (10:08)
[2021-05-19] MEDS: CLOPIDOGREL BISULFATE 75 MG TAB PO SCH (10:08)
[2021-05-19] MEDS: RANOLAZINE ER 500 MG TAB PO SCH (10:08)
[2021-05-19] MEDS: ASPirin 81 mg TAB PO SCH (10:08)
[2021-05-19] MEDS: IVERMECTIN 3 MG TAB PO SCH (10:08)
[2021-05-19] MEDS: PANTOPRAZOLE 40 MG TAB PO SCH (10:08)
[2021-05-19] MEDS: CARVEDILOL 3.125 MG TAB PO SCH (10:09)
[2021-05-19] MEDS ORDERED: DexAMETHasone 4 MG TAB PO ONE (10:30)
[2021-05-19] MEDS ORDERED: ZINC220T6 PO (11:32)
[2021-05-19] MEDS ORDERED: ASCO500T11 PO (11:32)
[2021-05-19] MEDS ORDERED: CHOL20007 PO (11:32)
[2021-05-19] MEDS ORDERED: DEX4T PO (11:32)
[2021-05-19] MEDS: DAPAGLIFLOZIN 5 MG TAB PO SCH (12:19)
[2021-05-19 13:00] VITALS: BP 110/62
[2021-05-19 14:32] VITALS: BP 116/80
[2021-05-19 17:03] VITALS: BP 124/81
[2021-05-20] MEDS ORDERED: DexAMETHasone 4 MG TAB PO SCH (10:00)
== END 2021-05-19 17:00 | disposition home health service (06) | DRG 177 ==
LOC: EDSEX 20:32 → EDBD 20:32 → ER 20:35 → TELE 05-14 00:51 → TELE-WESTW 05-14 10:23
PROVIDERS: ADMIT Nurse Practitioner; ATTEND Internal Medicine
PROC: XW033E5 Introduction of Remdesivir Anti-infective into Peripheral Vein, Percutaneous Approach, New Technology Group 5 (ICD-10-PCS; principal; 2021-05-14)
PROC: 5A09357 Assistance with Respiratory Ventilation, Less than 24 Consecutive Hours, Continuous Positive Airway Pressure (ICD-10-PCS; 2021-05-14)
PROC: 5A09357 Assistance with Respiratory Ventilation, Less than 24 Consecutive Hours, Continuous Positive Airway Pressure (ICD-10-PCS; 2021-05-15)
PROC: 5A09357 Assistance with Respiratory Ventilation, Less than 24 Consecutive Hours, Continuous Positive Airway Pressure (ICD-10-PCS; 2021-05-16)
DX: U07.1 COVID-19 (principal); J12.82 Pneumonia due to coronavirus disease 2019; J96.20 Acute and chronic respiratory failure, unspecified whether with hypoxia or hypercapnia; I50.23 Acute on chronic systolic (congestive) heart failure; Z68.41 Body mass index [BMI] 40.0-44.9, adult; J44.0 Chronic obstructive pulmonary disease with (acute) lower respiratory infection; I25.5 Ischemic cardiomyopathy; E66.01 Morbid (severe) obesity due to excess calories; D63.8 Anemia in other chronic diseases classified elsewhere; I11.0 Hypertensive heart disease with heart failure; E78.5 Hyperlipidemia, unspecified; F12.90 Cannabis use, unspecified, uncomplicated; G40.909 Epilepsy, unspecified, not intractable, without status epilepticus; I50.82 Biventricular heart failure; G47.30 Sleep apnea, unspecified; F32.A Depression, unspecified; K21.9 Gastro-esophageal reflux disease without esophagitis; G89.4 Chronic pain syndrome; I25.10 Atherosclerotic heart disease of native coronary artery without angina pectoris; I25.2 Old myocardial infarction; Z82.49 Family history of ischemic heart disease and other diseases of the circulatory system; Z83.3 Family history of diabetes mellitus; Z95.5 Presence of coronary angioplasty implant and graft; Z99.81 Dependence on supplemental oxygen; Z90.49 Acquired absence of other specified parts of digestive tract; Z95.810 Presence of automatic (implantable) cardiac defibrillator; Z88.5 Allergy status to narcotic agent; Z88.0 Allergy status to penicillin; Z88.8 Allergy status to other drugs, medicaments and biological substances; Z91.011 Allergy to milk products; Z23 Encounter for immunization
CPT/HCPCS: 36415; 36600; 71045; 80053; 81001; 82805; 83735; 83880; 84484; 85025; 85379; 85610; 85730; 87426; 93005; 94640; 94660; 96374; 96375; G0378; J2405

== ENCOUNTER 2021-06-24 16:53 | Inpatient (IN) | payer MEDICARE, MEDICAID ==
[~2021-06-24] VITALS: Ht 180.3 cm; Wt 162.8 kg
[~2021-06-24 16:53] MED LIST changes: +ASCO500T11 PO; +CHOL20007 PO; +DEX4T PO; +ZINC220T6 PO
[2021-06-24] MEDS ORDERED: TRAM50TA2 PO (18:29)
[2021-06-24] MEDS ORDERED: FUROSEMIDE 100 MG/10ML VIAL IV ONE (18:45)
[2021-06-24 20:30] LABS: Basophils # (auto) 0.1 10 ^3/uL (0-0.2); Basophils % (auto) 1.1 % (0.0-2.0); Hemoglobin 9.4 g/dL (13.5-17.5); Neutrophils # (auto) 4.4 10 ^3/uL (1.6-8.6)
[2021-06-24 20:33] LABS: Eosinophils # (auto) 0.2 10 ^3/uL (0-0.8); Eosinophils % (auto) 2.4 % (0.0-7.0); Hematocrit 30.6 % (41.0-53.0); Lymphocytes % (auto) 15.7 % (10.0-50.0); Mean Corpuscular Hemoglobin 23.4 pg (28.0-32.0); Mean Corpuscular Hgb Conc. 30.7 g/dL (32.0-36.0); Mean Corpuscular Volume 76.3 fL (80.0-100.0); Monocytes # (auto) 0.6 10 ^3/uL (0-1.3); Monocytes % (auto) 9.6 % (0.0-12.0); Neutrophils % (auto) 71.2 % (37.0-80.0); Nucleated Red Blood Cells % 0.2 %; Red Blood Cells 4.02 10^6/uL (4.5-5.90); White Blood Cell 6.2 10^3/uL (4.4-10.8)
[2021-06-24 20:34] LABS: Red Cell Distribution Width 20.6 % (11.8-14.3)
[2021-06-24 20:44] LABS: Potassium 5.2 mmol/L (3.5-5.1)
[2021-06-24 20:55] LABS: Albumin 2.8 g/dL (3.4-5.0); BUN/Creatinine Ratio 14.5; Bilirubin, Total 0.4 mg/dL (0.2-1.0); Calcium 8.9 mg/dL (8.5-10.1); Magnesium 1.9 mg/dL (1.6-2.6); Total Protein 6.9 g/dL (6.4-8.2)
[2021-06-24] MEDS ORDERED: ACETAMINOPHEN 325 MG TAB PO PRN (23:15)
[2021-06-24] MEDS ORDERED: NITROGLYCERIN 0.4 MG SL TAB SL PRN (23:15)
[2021-06-24] MEDS ORDERED: ONDANSETRON HCL 4 MG/2 ML VIAL IV PRN (23:15)
[2021-06-24] MEDS ORDERED: SODIUM ZIRCONIUM CYCL 10 GM PAK PO ONE (23:15)
[2021-06-25] VITALS (9 sets, daily range): BP systolic 94–126; BP diastolic 52–95
[2021-06-25] MEDS ORDERED: FUROSEMIDE 20 MG/2 ML VIAL IV SCH ×2 (02:15→06:00)
[2021-06-25 06:22] LABS: Potassium 4.4 mmol/L (3.5-5.1)
[2021-06-25 06:27] LABS: Albumin 2.7 g/dL (3.4-5.0); BUN/Creatinine Ratio 15.4; Calcium 9.3 mg/dL (8.5-10.1)
[2021-06-25 06:30] LABS: Basophils # (auto) 0.1 10 ^3/uL (0-0.2); Basophils % (auto) 2.1 % (0.0-2.0); Eosinophils # (auto) 0.1 10 ^3/uL (0-0.8); Eosinophils % (auto) 2.6 % (0.0-7.0); Hematocrit 32.4 % (41.0-53.0); Hemoglobin 9.9 g/dL (13.5-17.5); Lymphocytes # (auto) 1.2 10 ^3/uL (0.4-5.4); Lymphocytes % (auto) 21.9 % (10.0-50.0); Mean Corpuscular Hemoglobin 23.6 pg (28.0-32.0); Mean Corpuscular Hgb Conc. 30.5 g/dL (32.0-36.0); Mean Corpuscular Volume 77.3 fL (80.0-100.0); Monocytes # (auto) 0.5 10 ^3/uL (0-1.3); Monocytes % (auto) 9.8 % (0.0-12.0); Neutrophils # (auto) 3.5 10 ^3/uL (1.6-8.6); Neutrophils % (auto) 63.6 % (37.0-80.0); Nucleated Red Blood Cells % 0.1 %; Red Blood Cells 4.19 10^6/uL (4.5-5.90); White Blood Cell 5.6 10^3/uL (4.4-10.8)
[2021-06-25 06:31] LABS: Red Cell Distribution Width 20.6 % (11.8-14.3)
[2021-06-25 06:34] LABS: Bilirubin, Total 0.3 mg/dL (0.2-1.0); Total Protein 6.9 g/dL (6.4-8.2)
[2021-06-25] MEDS: MORPHINE SULFATE INJECTION 2 MG/ML SYRG IV PRN ×3 (09:11→18:30)
[2021-06-25] MEDS: SPIRONOLACTONE 25 MG TAB PO SCH (09:15)
[2021-06-25] MEDS: ASPirin 81 mg TAB PO SCH (09:15)
[2021-06-25] MEDS: APIXABAN 5 MG TAB PO SCH ×2 (09:16→22:18)
[2021-06-25] MEDS: CARVEDILOL 3.125 MG TAB PO SCH ×2 (09:16→22:34)
[2021-06-25] MEDS: ISOSORBIDE MONONITRATE ER 60 MG TAB PO SCH (09:17)
[2021-06-25] MEDS: SACUBITRIL-VALSARTAN 24mg/26mg TAB PO SCH ×2 (09:17→22:18)
[2021-06-25] MEDS: POTASSIUM CHL 10 Meq TABLET PO SCH (09:18)
[2021-06-25] MEDS: levETIRAcetam 500 MG TAB PO SCH ×2 (09:18→22:18)
[2021-06-25] MEDS: PANTOPRAZOLE 40 MG TAB PO SCH (09:19)
[2021-06-25] MEDS: DAPAGLIFLOZIN 5 MG TAB PO SCH (10:00)
[2021-06-25] MEDS ORDERED: POTASSIUM CHL 10 Meq TABLET PO SCH (10:00)
[2021-06-25] MEDS: CLOPIDOGREL BISULFATE 75 MG TAB PO SCH (10:00)
[2021-06-25] MEDS ORDERED: RANOLAZINE ER 500 MG TAB PO ONE (10:15)
[2021-06-25] MEDS: FUROSEMIDE 40 MG/4 ML VIAL IV SCH (18:29)
[2021-06-25] MEDS: ATORVASTATIN 20 MG TAB PO SCH (22:17)
[2021-06-25] MEDS: RANOLAZINE ER 500 MG TAB PO SCH (22:18)
[2021-06-26] MEDS: MORPHINE SULFATE INJECTION 2 MG/ML SYRG IV PRN ×4 (01:36→21:49)
[2021-06-26 05:00] VITALS: BP 87/57
[2021-06-26] MEDS: FUROSEMIDE 40 MG/4 ML VIAL IV SCH (06:00)
[2021-06-26 06:51] LABS: BUN/Creatinine Ratio 17.7; Calcium 8.8 mg/dL (8.5-10.1); Potassium 4.4 mmol/L (3.5-5.1)
[2021-06-26] MEDS ORDERED: DOBUTamine 1000MCG/ML 250 ML IV SCH (08:15)
[2021-06-26 09:00] VITALS: BP 104/66
[2021-06-26] MEDS: ASPirin 81 mg TAB PO SCH (09:21)
[2021-06-26] MEDS: SPIRONOLACTONE 25 MG TAB PO SCH (09:21)
[2021-06-26] MEDS: SACUBITRIL-VALSARTAN 24mg/26mg TAB PO SCH ×2 (09:22→21:45)
[2021-06-26] MEDS: CARVEDILOL 3.125 MG TAB PO SCH ×2 (09:22→21:43)
[2021-06-26] MEDS: DAPAGLIFLOZIN 5 MG TAB PO SCH (09:23)
[2021-06-26] MEDS: levETIRAcetam 500 MG TAB PO SCH ×2 (09:24→21:56)
[2021-06-26] MEDS: ISOSORBIDE MONONITRATE ER 60 MG TAB PO SCH (09:24)
[2021-06-26] MEDS: POTASSIUM CHL 10 Meq TABLET PO SCH (09:25)
[2021-06-26] MEDS: PANTOPRAZOLE 40 MG TAB PO SCH (09:25)
[2021-06-26] MEDS: APIXABAN 5 MG TAB PO SCH ×2 (09:27→21:44)
[2021-06-26] MEDS: RANOLAZINE ER 500 MG TAB PO SCH ×2 (09:27→21:43)
[2021-06-26] MEDS: DOBUTamine 1000MCG/ML 250 ML IV SCH ×2 (09:50→21:00)
[2021-06-26] MEDS: CLOPIDOGREL BISULFATE 75 MG TAB PO SCH (10:00)
[2021-06-26] MEDS ORDERED: ASPI-717 PO (10:17)
[2021-06-26] MEDS ORDERED: [UNRECOGNIZED DRUG - CODE] EX (10:17)
[2021-06-26] MEDS ORDERED: [UNRECOGNIZED DRUG - CODE] IN (10:17)
[2021-06-26] MEDS ORDERED: [UNRECOGNIZED DRUG - OTHER] XX (10:17)
[2021-06-26] MEDS ORDERED: 1,4-CRY XX (10:17)
[2021-06-26] MEDS ORDERED: CAL025T GT (10:17)
[2021-06-26] MEDS ORDERED: SACU1TAB PO (10:17)
[2021-06-26] MEDS ORDERED: ESCI10TA PO (10:17)
[2021-06-26] MEDS ORDERED: NASASPR (10:18)
[2021-06-26] MEDS ORDERED: BENAPOW2 XX (10:19)
[2021-06-26] MEDS ORDERED: CHLO25TA2 PO (10:20)
[2021-06-26] MEDS ORDERED: SIMV10TA84 PO (10:20)
[2021-06-26] MEDS ORDERED: LEVO200I5 IV (10:22)
[2021-06-26] MEDS ORDERED: MESA800T2 PO (10:22)
[2021-06-26] MEDS ORDERED: ROSU5TAB5 PO (10:23)
[2021-06-26 13:00] VITALS: BP 93/58
[2021-06-26] MEDS: FUROSEMIDE INJECTION 100 MG in D5W 5% 100 ML IV SCH (15:51)
[2021-06-26 17:00] VITALS: BP 91/53
[2021-06-26 18:18] LABS: Alcohol, Urine < 3.0 mg/dL (0-10); Amphetamine Screen, Urine NEGATIVE (NEGATIVE); Barbiturate Scree,Urine NEGATIVE (NEGATIVE); Benzodiazephine Screen, Urine NEGATIVE (NEGATIVE); Cannabinoid Screen, Urine POSITIVE (NEGATIVE); Cocaine Screen, Urine NEGATIVE (NEGATIVE); Opiate Scree,Urine POSITIVE (NEGATIVE); Phencyclidine Screen, Urine NEGATIVE (NEGATIVE)
[2021-06-26] MEDS: ATORVASTATIN 20 MG TAB PO SCH (21:43)
[2021-06-26 22:00] VITALS: BP 99/66
[2021-06-27] MEDS: FUROSEMIDE INJECTION 100 MG in D5W 5% 100 ML IV SCH ×3 (01:09→18:15)
[2021-06-27] MEDS: DOBUTamine 1000MCG/ML 250 ML IV SCH ×3 (01:30→13:57)
[2021-06-27] MEDS: MORPHINE SULFATE INJECTION 2 MG/ML SYRG IV PRN ×3 (02:33→16:30)
[2021-06-27 05:00] VITALS: BP 97/65
[2021-06-27 06:49] LABS: Anion Gap 5 (5-15); Blood Urea Nitrogen 12 mg/dL (7-18); Calcium 8.4 mg/dL (8.5-10.1); Carbon Dioxide 34 mmol/L (21-32); Chloride 100 mmol/L (98-107); Potassium 4.2 mmol/L (3.5-5.1); Sodium 139 mmol/L (136-145)
[2021-06-27 06:52] LABS: BUN/Creatinine Ratio 13.5; GFR African American 113 mL/min; GFR Non-African American 93 mL/min; Glucose 93 mg/dL (74-106)
[2021-06-27 09:00] VITALS: BP 91/67
[2021-06-27] MEDS: SACUBITRIL-VALSARTAN 24mg/26mg TAB PO SCH ×2 (10:00→21:48)
[2021-06-27] MEDS: DAPAGLIFLOZIN 5 MG TAB PO SCH (10:00)
[2021-06-27] MEDS: PANTOPRAZOLE 40 MG TAB PO SCH (10:00)
[2021-06-27] MEDS: SPIRONOLACTONE 25 MG TAB PO SCH (10:00)
[2021-06-27] MEDS: APIXABAN 5 MG TAB PO SCH ×2 (10:00→21:48)
[2021-06-27] MEDS: POTASSIUM CHL 10 Meq TABLET PO SCH (10:00)
[2021-06-27] MEDS: CARVEDILOL 3.125 MG TAB PO SCH ×2 (10:00→21:48)
[2021-06-27] MEDS: levETIRAcetam 500 MG TAB PO SCH ×2 (10:00→21:49)
[2021-06-27] MEDS: ASPirin 81 mg TAB PO SCH (10:00)
[2021-06-27] MEDS: ISOSORBIDE MONONITRATE ER 60 MG TAB PO SCH (10:00)
[2021-06-27] MEDS: RANOLAZINE ER 500 MG TAB PO SCH ×2 (10:00→21:49)
[2021-06-27 13:00] VITALS: BP 102/67
[2021-06-27 17:00] VITALS: BP 98/47
[2021-06-27] MEDS: ATORVASTATIN 20 MG TAB PO SCH (21:49)
[2021-06-27 22:00] VITALS: BP 97/67
[2021-06-27 22:42] VITALS: BP 97/67
[2021-06-28] MEDS: FUROSEMIDE INJECTION 100 MG in D5W 5% 100 ML IV SCH (01:40)
[2021-06-28] MEDS ORDERED: LORazepam 2MG/ML-1ML VIAL IV PRN ×2 (02:00→03:00)
[2021-06-28] MEDS ORDERED: diphenhdrAMINE HCL 50 MG/1 ML VL IM ONE (02:00)
[2021-06-28] MEDS ORDERED: diphenhdrAMINE HCL 50 MG/1 ML VL IV PRN (02:15)
[2021-06-28 05:00] VITALS: BP 94/30
[2021-06-28 06:24] LABS: Basophils # (auto) 0.1 10 ^3/uL (0-0.2); Eosinophils # (auto) 0.1 10 ^3/uL (0-0.8); Neutrophils # (auto) 3.7 10 ^3/uL (1.6-8.6); Nucleated Red Blood Cells % 0.1 %
[2021-06-28 06:27] LABS: Basophils % (auto) 0.9 % (0.0-2.0); Eosinophils % (auto) 1.6 % (0.0-7.0); Hematocrit 29.9 % (41.0-53.0); Hemoglobin 9.2 g/dL (13.5-17.5); Lymphocytes # (auto) 1.2 10 ^3/uL (0.4-5.4); Lymphocytes % (auto) 21.3 % (10.0-50.0); Mean Corpuscular Hemoglobin 23.3 pg (28.0-32.0); Mean Corpuscular Hgb Conc. 30.8 g/dL (32.0-36.0); Mean Corpuscular Volume 75.7 fL (80.0-100.0); Monocytes # (auto) 0.6 10 ^3/uL (0-1.3); Monocytes % (auto) 9.9 % (0.0-12.0); Neutrophils % (auto) 66.3 % (37.0-80.0); Red Blood Cells 3.95 10^6/uL (4.5-5.90); Red Cell Distribution Width 20.6 % (11.8-14.3); White Blood Cell 5.6 10^3/uL (4.4-10.8)
[2021-06-28 06:33] LABS: Calcium 8.9 mg/dL (8.5-10.1); Potassium 4.6 mmol/L (3.5-5.1)
[2021-06-28] MEDS: CARVEDILOL 3.125 MG TAB PO SCH ×2 (08:08→22:00)
[2021-06-28] MEDS: SACUBITRIL-VALSARTAN 24mg/26mg TAB PO SCH ×2 (08:08→22:36)
[2021-06-28] MEDS: DOBUTamine 1000MCG/ML 250 ML IV SCH ×3 (08:08→20:54)
[2021-06-28] MEDS ORDERED: KETOROLAC TROMETH 30 MG/ML 1ML VIAL IV ONE (08:30)
[2021-06-28] MEDS ORDERED: HYDROcodone-ACET 5/325MG TAB PO PRN (08:30)
[2021-06-28 09:00] VITALS: BP 91/60
[2021-06-28] MEDS: ASPirin 81 mg TAB PO SCH (09:21)
[2021-06-28] MEDS: POTASSIUM CHL 10 Meq TABLET PO SCH (09:22)
[2021-06-28] MEDS: RANOLAZINE ER 500 MG TAB PO SCH ×2 (09:22→22:36)
[2021-06-28] MEDS: PANTOPRAZOLE 40 MG TAB PO SCH (09:22)
[2021-06-28] MEDS: levETIRAcetam 500 MG TAB PO SCH ×2 (09:22→22:34)
[2021-06-28] MEDS: DAPAGLIFLOZIN 5 MG TAB PO SCH (09:22)
[2021-06-28] MEDS: APIXABAN 5 MG TAB PO SCH ×2 (09:22→22:35)
[2021-06-28] MEDS: SPIRONOLACTONE 25 MG TAB PO SCH (09:29)
[2021-06-28] MEDS ORDERED: ALBUTEROL SULF 2.5 MG/0.5ML(0.5%) NEB SOLN NEB PRN (09:45)
[2021-06-28] MEDS: ALBUTEROL SULF 2.5 MG/0.5ML(0.5%) NEB SOLN NEB PRN (10:06)
[2021-06-28 13:00] VITALS: BP 95/71
[2021-06-28] MEDS: HYDROcodone-ACET 10/325MG TAB PO PRN ×2 (15:53→22:37)
[2021-06-28 17:00] VITALS: BP 104/70
[2021-06-28] MEDS: FUROSEMIDE 40 MG/4 ML VIAL IV SCH (18:45)
[2021-06-28 22:00] VITALS: BP 98/64
[2021-06-28] MEDS: ATORVASTATIN 20 MG TAB PO SCH (22:35)
[2021-06-29 05:00] VITALS: BP 104/55
[2021-06-29] MEDS: FUROSEMIDE 40 MG/4 ML VIAL IV SCH ×2 (05:40→18:14)
[2021-06-29] MEDS: DOBUTamine 1000MCG/ML 250 ML IV SCH ×2 (05:41→14:07)
[2021-06-29] MEDS: HYDROcodone-ACET 10/325MG TAB PO PRN ×2 (05:42→14:08)
[2021-06-29 07:17] LABS: Eosinophils # (auto) 0.1 10 ^3/uL (0-0.8); Eosinophils % (auto) 1.7 % (0.0-7.0); Monocytes # (auto) 0.6 10 ^3/uL (0-1.3); Nucleated Red Blood Cells % 0.1 %; White Blood Cell 5.3 10^3/uL (4.4-10.8)
[2021-06-29 07:19] LABS: Basophils # (auto) 0.1 10 ^3/uL (0-0.2); Basophils % (auto) 1.9 % (0.0-2.0); Hematocrit 29.1 % (41.0-53.0); Lymphocytes # (auto) 1.2 10 ^3/uL (0.4-5.4); Lymphocytes % (auto) 23.5 % (10.0-50.0); Mean Corpuscular Hemoglobin 23.4 pg (28.0-32.0); Mean Corpuscular Hgb Conc. 31.1 g/dL (32.0-36.0); Mean Corpuscular Volume 75.3 fL (80.0-100.0); Monocytes % (auto) 12.2 % (0.0-12.0); Neutrophils # (auto) 3.2 10 ^3/uL (1.6-8.6); Neutrophils % (auto) 60.7 % (37.0-80.0); Red Blood Cells 3.86 10^6/uL (4.5-5.90); Red Cell Distribution Width 20.5 % (11.8-14.3)
[2021-06-29 08:05] LABS: BUN/Creatinine Ratio 15.2; Calcium 8.6 mg/dL (8.5-10.1); Potassium 3.8 mmol/L (3.5-5.1)
[2021-06-29] MEDS: RANOLAZINE ER 500 MG TAB PO SCH ×2 (08:33→21:40)
[2021-06-29] MEDS: DAPAGLIFLOZIN 5 MG TAB PO SCH (08:34)
[2021-06-29] MEDS: levETIRAcetam 500 MG TAB PO SCH ×2 (08:35→21:40)
[2021-06-29] MEDS: PANTOPRAZOLE 40 MG TAB PO SCH (08:35)
[2021-06-29] MEDS: POTASSIUM CHL 10 Meq TABLET PO SCH (08:36)
[2021-06-29] MEDS: APIXABAN 5 MG TAB PO SCH ×2 (08:36→21:40)
[2021-06-29] MEDS: ASPirin 81 mg TAB PO SCH (08:37)
[2021-06-29] MEDS: MORPHINE SULFATE INJECTION 2 MG/ML SYRG IV PRN ×2 (08:38→21:40)
[2021-06-29 09:29] VITALS: BP 96/52
[2021-06-29] MEDS: SACUBITRIL-VALSARTAN 24mg/26mg TAB PO SCH ×2 (10:00→21:41)
[2021-06-29] MEDS: CARVEDILOL 3.125 MG TAB PO SCH ×2 (10:00→23:25)
[2021-06-29] MEDS: SPIRONOLACTONE 25 MG TAB PO SCH (10:00)
[2021-06-29 12:42] VITALS: BP 96/51
[2021-06-29 16:56] VITALS: BP 104/62
[2021-06-29] MEDS: ATORVASTATIN 20 MG TAB PO SCH (21:39)
[2021-06-29 22:24] VITALS: BP 122/78
[2021-06-30] MEDS: DOBUTamine 1000MCG/ML 250 ML IV SCH ×2 (01:05→12:14)
[2021-06-30] MEDS: HYDROcodone-ACET 10/325MG TAB PO PRN ×2 (01:06→12:28)
[2021-06-30] MEDS: MORPHINE SULFATE INJECTION 2 MG/ML SYRG IV PRN ×4 (02:50→22:05)
[2021-06-30 04:54] VITALS: BP 104/71
[2021-06-30] MEDS: FUROSEMIDE 40 MG/4 ML VIAL IV SCH ×2 (05:42→18:14)
[2021-06-30] MEDS: ASPirin 81 mg TAB PO SCH (08:53)
[2021-06-30] MEDS: SPIRONOLACTONE 25 MG TAB PO SCH (08:54)
[2021-06-30 08:56] VITALS: BP 101/71
[2021-06-30] MEDS: SACUBITRIL-VALSARTAN 24mg/26mg TAB PO SCH ×2 (08:56→21:29)
[2021-06-30] MEDS: APIXABAN 5 MG TAB PO SCH ×2 (08:56→21:29)
[2021-06-30] MEDS: levETIRAcetam 500 MG TAB PO SCH ×2 (08:57→21:28)
[2021-06-30] MEDS: POTASSIUM CHL 10 Meq TABLET PO SCH (08:58)
[2021-06-30] MEDS: PANTOPRAZOLE 40 MG TAB PO SCH (08:58)
[2021-06-30] MEDS: CARVEDILOL 3.125 MG TAB PO SCH ×2 (08:59→22:05)
[2021-06-30] MEDS: RANOLAZINE ER 500 MG TAB PO SCH ×2 (09:01→21:29)
[2021-06-30] MEDS: DAPAGLIFLOZIN 5 MG TAB PO SCH (09:04)
[2021-06-30] MEDS ORDERED: LACTULOSE 20Gm/30ML SOLN PO PRN (11:00)
[2021-06-30] MEDS ORDERED: LACTULOSE 20Gm/30ML SOLN PO ONE (11:00)
[2021-06-30 12:34] VITALS: BP 88/52
[2021-06-30 14:12] LABS: INR 1.32 (0.9-1.15); Partial Thromboplastin Time 27.9 sec (23.6-33.0)
[2021-06-30 16:44] VITALS: BP 107/73
[2021-06-30] MEDS: ATORVASTATIN 20 MG TAB PO SCH (21:28)
[2021-06-30 22:00] VITALS: BP 101/59
[2021-07-01] VITALS (10 sets, daily range): BP systolic 89–136; BP diastolic 47–75
[2021-07-01] MEDS: DOBUTamine 1000MCG/ML 250 ML IV SCH ×3 (00:14→18:12)
[2021-07-01] MEDS: HYDROcodone-ACET 10/325MG TAB PO PRN ×3 (00:20→21:42)
[2021-07-01] MEDS: MORPHINE SULFATE INJECTION 2 MG/ML SYRG IV PRN ×3 (03:24→16:01)
[2021-07-01] MEDS: FUROSEMIDE 40 MG/4 ML VIAL IV SCH ×2 (07:07→18:00)
[2021-07-01] MEDS: CARVEDILOL 3.125 MG TAB PO SCH ×2 (10:00→22:00)
[2021-07-01] MEDS: SPIRONOLACTONE 25 MG TAB PO SCH (10:03)
[2021-07-01] MEDS: DAPAGLIFLOZIN 5 MG TAB PO SCH (10:03)
[2021-07-01] MEDS: POTASSIUM CHL 10 Meq TABLET PO SCH (10:03)
[2021-07-01] MEDS: ASPirin 81 mg TAB PO SCH (10:03)
[2021-07-01] MEDS: RANOLAZINE ER 500 MG TAB PO SCH ×2 (10:03→21:41)
[2021-07-01] MEDS: SACUBITRIL-VALSARTAN 24mg/26mg TAB PO SCH ×2 (10:03→21:40)
[2021-07-01] MEDS: levETIRAcetam 500 MG TAB PO SCH ×2 (10:03→21:42)
[2021-07-01] MEDS: PANTOPRAZOLE 40 MG TAB PO SCH (10:03)
[2021-07-01] MEDS: APIXABAN 5 MG TAB PO SCH ×2 (10:03→21:40)
[2021-07-01] MEDS ORDERED: LACTULOSE 20Gm/30ML SOLN PO ONE (15:15)
[2021-07-01] MEDS ORDERED: LIDOCAINE 1% (LOCAL ANESTH.) PF 5ml SDV ID ONE (15:15)
[2021-07-01] MEDS: ATORVASTATIN 20 MG TAB PO SCH (21:40)
[2021-07-01] MEDS: SODIUM CHLOR 0.9% PF (SALINE LOCK) 10ML VIAL/SYR IV SCH (21:58)
[2021-07-01] MEDS: ALBUTEROL SULF 2.5 MG/0.5ML(0.5%) NEB SOLN NEB PRN (22:52)
[2021-07-02] MEDS: MORPHINE SULFATE INJECTION 2 MG/ML SYRG IV PRN ×3 (02:24→14:15)
[2021-07-02 05:00] VITALS: BP 100/53
[2021-07-02] MEDS: FUROSEMIDE 40 MG/4 ML VIAL IV SCH ×2 (06:17→18:05)
[2021-07-02] MEDS: DOBUTamine 1000MCG/ML 250 ML IV SCH ×3 (06:43→23:54)
[2021-07-02 07:33] LABS: BUN/Creatinine Ratio 8.2; Calcium 8.8 mg/dL (8.5-10.1); Potassium 4.4 mmol/L (3.5-5.1)
[2021-07-02 08:42] VITALS: BP 116/73
[2021-07-02] MEDS ORDERED: SACU1TAB PO (08:56)
[2021-07-02] MEDS ORDERED: RANO1000 PO (08:56)
[2021-07-02] MEDS ORDERED: DAPA1TAB4 PO (08:56)
[2021-07-02] MEDS ORDERED: SPIR25TA PO (08:56)
[2021-07-02] MEDS ORDERED: FURO40TA4 PO (08:56)
[2021-07-02] MEDS ORDERED: CAR3125T PO (08:56)
[2021-07-02] MEDS: POTASSIUM CHL 10 Meq TABLET PO SCH (09:15)
[2021-07-02] MEDS: PANTOPRAZOLE 40 MG TAB PO SCH (09:15)
[2021-07-02] MEDS: ASPirin 81 mg TAB PO SCH (09:16)
[2021-07-02] MEDS: RANOLAZINE ER 500 MG TAB PO SCH ×2 (09:18→22:25)
[2021-07-02] MEDS: DAPAGLIFLOZIN 5 MG TAB PO SCH (09:19)
[2021-07-02] MEDS: levETIRAcetam 500 MG TAB PO SCH ×2 (09:19→22:25)
[2021-07-02] MEDS: APIXABAN 5 MG TAB PO SCH ×2 (09:20→22:25)
[2021-07-02] MEDS: CARVEDILOL 3.125 MG TAB PO SCH ×2 (09:21→22:24)
[2021-07-02] MEDS: SPIRONOLACTONE 25 MG TAB PO SCH (09:21)
[2021-07-02] MEDS: SACUBITRIL-VALSARTAN 24mg/26mg TAB PO SCH ×2 (09:22→22:25)
[2021-07-02 13:00] VITALS: BP 122/80
[2021-07-02] MEDS: SODIUM CHLOR 0.9% PF (SALINE LOCK) 10ML VIAL/SYR IV SCH ×2 (14:15→22:23)
[2021-07-02 16:50] VITALS: BP 111/70
[2021-07-02] MEDS: MORPHINE SULFATE 4 MG/ML SYR/VIAL IV PRN ×2 (18:04→22:31)
[2021-07-02 21:28] VITALS: BP 98/64
[2021-07-02] MEDS: ATORVASTATIN 20 MG TAB PO SCH (22:25)
[2021-07-03] MEDS: MORPHINE SULFATE 4 MG/ML SYR/VIAL IV PRN ×3 (03:06→17:20)
[2021-07-03 04:31] VITALS: BP 84/44
[2021-07-03] MEDS: FUROSEMIDE 40 MG/4 ML VIAL IV SCH (06:14)
[2021-07-03 08:45] VITALS: BP 107/66
[2021-07-03] MEDS: CARVEDILOL 3.125 MG TAB PO SCH (09:12)
[2021-07-03] MEDS: DOBUTamine 1000MCG/ML 250 ML IV SCH (09:12)
[2021-07-03] MEDS: ASPirin 81 mg TAB PO SCH (09:12)
[2021-07-03] MEDS: SPIRONOLACTONE 25 MG TAB PO SCH (09:12)
[2021-07-03] MEDS: SODIUM CHLOR 0.9% PF (SALINE LOCK) 10ML VIAL/SYR IV SCH (09:12)
[2021-07-03] MEDS: RANOLAZINE ER 500 MG TAB PO SCH (09:13)
[2021-07-03] MEDS: POTASSIUM CHL 10 Meq TABLET PO SCH (09:13)
[2021-07-03] MEDS: DAPAGLIFLOZIN 5 MG TAB PO SCH (09:13)
[2021-07-03] MEDS: SACUBITRIL-VALSARTAN 24mg/26mg TAB PO SCH (09:13)
[2021-07-03] MEDS: levETIRAcetam 500 MG TAB PO SCH (09:13)
[2021-07-03] MEDS: APIXABAN 5 MG TAB PO SCH (09:13)
[2021-07-03] MEDS: PANTOPRAZOLE 40 MG TAB PO SCH (09:13)
[2021-07-03] MEDS: HYDROcodone-ACET 10/325MG TAB PO PRN ×2 (12:46→17:43)
[2021-07-03 14:04] VITALS: BP 85/52
[2021-07-03 16:32] VITALS: BP 94/48
[2021-07-03 17:20] VITALS: BP 98/58
== END 2021-07-03 17:30 | disposition home health service (06) | DRG 291 ==
LOC: EDBD 16:53 → ER 16:53 → TELE 23:08 → TELE-WESTW 23:48
PROVIDERS: ADMIT Nurse Practitioner; ATTEND Internal Medicine
PROC: 5A09357 Assistance with Respiratory Ventilation, Less than 24 Consecutive Hours, Continuous Positive Airway Pressure (ICD-10-PCS; 2021-06-24)
PROC: 02HV33Z Insertion of Infusion Device into Superior Vena Cava, Percutaneous Approach (ICD-10-PCS; principal; 2021-06-26)
PROC: B548ZZA Ultrasonography of Superior Vena Cava, Guidance (ICD-10-PCS; 2021-06-26)
PROC: 5A09357 Assistance with Respiratory Ventilation, Less than 24 Consecutive Hours, Continuous Positive Airway Pressure (ICD-10-PCS; 2021-06-26)
PROC: 5A09357 Assistance with Respiratory Ventilation, Less than 24 Consecutive Hours, Continuous Positive Airway Pressure (ICD-10-PCS; 2021-06-27)
PROC: 5A09357 Assistance with Respiratory Ventilation, Less than 24 Consecutive Hours, Continuous Positive Airway Pressure (ICD-10-PCS; 2021-06-28)
PROC: 5A09357 Assistance with Respiratory Ventilation, Less than 24 Consecutive Hours, Continuous Positive Airway Pressure (ICD-10-PCS; 2021-07-03)
DX: I11.0 Hypertensive heart disease with heart failure (principal); I50.43 Acute on chronic combined systolic (congestive) and diastolic (congestive) heart failure; J96.10 Chronic respiratory failure, unspecified whether with hypoxia or hypercapnia; Z68.43 Body mass index [BMI] 50.0-59.9, adult; D68.9 Coagulation defect, unspecified; F11.20 Opioid dependence, uncomplicated; G40.209 Localization-related (focal) (partial) symptomatic epilepsy and epileptic syndromes with complex partial seizures, not intractable, without status epilepticus; E66.01 Morbid (severe) obesity due to excess calories; I25.5 Ischemic cardiomyopathy; I25.10 Atherosclerotic heart disease of native coronary artery without angina pectoris; D63.8 Anemia in other chronic diseases classified elsewhere; E78.5 Hyperlipidemia, unspecified; G47.33 Obstructive sleep apnea (adult) (pediatric); I25.2 Old myocardial infarction; Z20.822 Contact with and (suspected) exposure to COVID-19; F32.A Depression, unspecified; F41.9 Anxiety disorder, unspecified; K21.9 Gastro-esophageal reflux disease without esophagitis; I50.84 End stage heart failure; I50.82 Biventricular heart failure; J44.9 Chronic obstructive pulmonary disease, unspecified; Z66 Do not resuscitate; Z79.01 Long term (current) use of anticoagulants; Z79.02 Long term (current) use of antithrombotics/antiplatelets; Z79.82 Long term (current) use of aspirin; Z79.899 Other long term (current) drug therapy; Z82.3 Family history of stroke; Z82.49 Family history of ischemic heart disease and other diseases of the circulatory system; Z83.3 Family history of diabetes mellitus; Z86.16 Personal history of COVID-19; Z86.711 Personal history of pulmonary embolism; Z86.718 Personal history of other venous thrombosis and embolism; Z87.01 Personal history of pneumonia (recurrent); Z95.5 Presence of coronary angioplasty implant and graft; Z95.810 Presence of automatic (implantable) cardiac defibrillator; Z99.81 Dependence on supplemental oxygen; Z90.49 Acquired absence of other specified parts of digestive tract; Z88.0 Allergy status to penicillin; Z91.041 Radiographic dye allergy status; Z91.011 Allergy to milk products
CPT/HCPCS: 36415; 36569; 36600; 71045; 80048; 80053; 80307; 82542; 82805; 82962; 83735; 83880; 84484; 85025; 85610; 85730; 87081; 87426; 93005; 93306; 94640; 94660; 95819; 96374; G0378; J1885; J7060

== ENCOUNTER → 2021-07-10 | Outpatient (CLI) | payer MEDICARE, MEDICAID ==
[2021-07-10] VITALS (11 sets, daily range): BP systolic 101–120; BP diastolic 62–75
[~2021-07-10] MED LIST changes: -ASCO500T11 PO; -ASPI81CH43 PO; -CHOL20007 PO; -CLOP75TA70 PO; -DEX4T PO; +DOBUTamine 1000MCG/ML 250 ML IV ONE; +ESCI10TA PO; +FURO40TA4 PO; -FURO80TA3 PO; +FUROSEMIDE INJECTION 10 ML ONE; +FUROSEMIDE INJECTION 100 MG in SODIUM CHL 0.9% 100 ML IV ONE; -HYDR2TAB58 PO; -ISOS1TAB28 PO; -MECL1TAB42 PO; -PANT40TA2 PO; -POLY33504 PO; -POTA-180 PO; +POTASSIUM CHL 20 Meq TABLET PO ONE; +RANO1000 PO; +SPIR25TA PO; -SPIR25TA8 PO; -TIZA4TAB7 PO; -TRAZ100T3 PO; -ZINC220T6 PO
[2021-07-10 11:49] LABS: Potassium 4.1 mmol/L (3.5-5.1)
== END | disposition home or self-care (01) ==
LOC: CHF HDHVI 09:39
PROVIDERS: ATTEND Internal Medicine
DX: I11.0 Hypertensive heart disease with heart failure (principal); I50.43 Acute on chronic combined systolic (congestive) and diastolic (congestive) heart failure; D63.8 Anemia in other chronic diseases classified elsewhere; F41.9 Anxiety disorder, unspecified; I25.10 Atherosclerotic heart disease of native coronary artery without angina pectoris; I25.2 Old myocardial infarction; J44.9 Chronic obstructive pulmonary disease, unspecified; K21.9 Gastro-esophageal reflux disease without esophagitis; F32.A Depression, unspecified; J96.10 Chronic respiratory failure, unspecified whether with hypoxia or hypercapnia; D68.9 Coagulation defect, unspecified; E78.5 Hyperlipidemia, unspecified; G47.33 Obstructive sleep apnea (adult) (pediatric); F11.20 Opioid dependence, uncomplicated; E66.01 Morbid (severe) obesity due to excess calories; Z68.43 Body mass index [BMI] 50.0-59.9, adult; Z79.01 Long term (current) use of anticoagulants; Z99.81 Dependence on supplemental oxygen; Z79.02 Long term (current) use of antithrombotics/antiplatelets; Z79.82 Long term (current) use of aspirin; Z79.899 Other long term (current) drug therapy; Z86.718 Personal history of other venous thrombosis and embolism; Z87.01 Personal history of pneumonia (recurrent); Z86.711 Personal history of pulmonary embolism; Z95.810 Presence of automatic (implantable) cardiac defibrillator; Z95.5 Presence of coronary angioplasty implant and graft
CPT/HCPCS: 36415; 82565; 83880; 84132; 84520; 96365; 96366; 96367; G0463; J1250; J1642; J1940

== ENCOUNTER → 2021-07-14 | Outpatient (CLI) | payer MEDICARE, MEDICAID ==
[~2021-07-14] VITALS: Ht 30.5 cm; Wt 161.2 kg
[2021-07-14] VITALS (10 sets, daily range): BP systolic 94–116; BP diastolic 58–69
[~2021-07-14] MED LIST changes: +BUMETANIDE 1mg/4ml VIAL (0.25mg/ml) ONE; +BUMETANIDE 2.5mg/10ml (0.25 mg/ml) INJ IV ONE; -FUROSEMIDE INJECTION 10 ML ONE; -FUROSEMIDE INJECTION 100 MG in SODIUM CHL 0.9% 100 ML IV ONE; +POTASSIUM CHL 10 Meq TABLET PO ONE; -POTASSIUM CHL 20 Meq TABLET PO ONE; +POTASSIUM EFFERVESENT TAB 25 MEQ ONE; +POTASSIUM EFFERVESENT TAB 25 MEQ PO ONE; +metOLazone 5 MG TAB ONE; +metOLazone 5 MG TAB PO ONE
[2021-07-14 10:32] LABS: Eosinophils # (auto) 0.2 10 ^3/uL (0-0.8); Eosinophils % (auto) 3.7 % (0.0-7.0); Monocytes # (auto) 0.5 10 ^3/uL (0-1.3)
[2021-07-14 10:34] LABS: Basophils # (auto) 0.2 10 ^3/uL (0-0.2); Basophils % (auto) 3.3 % (0.0-2.0); Hematocrit 30.8 % (41.0-53.0); Hemoglobin 9.5 g/dL (13.5-17.5); Lymphocytes # (auto) 1.2 10 ^3/uL (0.4-5.4); Lymphocytes % (auto) 22.1 % (10.0-50.0); Mean Corpuscular Hemoglobin 23.4 pg (28.0-32.0); Mean Corpuscular Hgb Conc. 30.8 g/dL (32.0-36.0); Mean Corpuscular Volume 75.9 fL (80.0-100.0); Monocytes % (auto) 9.8 % (0.0-12.0); Neutrophils # (auto) 3.3 10 ^3/uL (1.6-8.6); Neutrophils % (auto) 61.1 % (37.0-80.0); Nucleated Red Blood Cells % 0.1 %; Red Blood Cells 4.06 10^6/uL (4.5-5.90); White Blood Cell 5.5 10^3/uL (4.4-10.8)
[2021-07-14 10:40] LABS: Red Cell Distribution Width 20.8 % (11.8-14.3)
[2021-07-14 11:19] LABS: BUN/Creatinine Ratio 20.2; Calcium 8.8 mg/dL (8.5-10.1); Magnesium 2.2 mg/dL (1.6-2.6); Potassium 3.8 mmol/L (3.5-5.1)
== END | disposition home or self-care (01) ==
LOC: CHF HDHVI 09:43
PROVIDERS: ATTEND Internal Medicine Cardiovascular Disease
DX: I11.0 Hypertensive heart disease with heart failure (principal); I50.43 Acute on chronic combined systolic (congestive) and diastolic (congestive) heart failure; D63.8 Anemia in other chronic diseases classified elsewhere; F41.9 Anxiety disorder, unspecified; I25.10 Atherosclerotic heart disease of native coronary artery without angina pectoris; I25.2 Old myocardial infarction; J44.9 Chronic obstructive pulmonary disease, unspecified; J96.10 Chronic respiratory failure, unspecified whether with hypoxia or hypercapnia; D68.9 Coagulation defect, unspecified; F32.A Depression, unspecified; E78.5 Hyperlipidemia, unspecified; G47.33 Obstructive sleep apnea (adult) (pediatric); F11.20 Opioid dependence, uncomplicated; E66.01 Morbid (severe) obesity due to excess calories; Z68.43 Body mass index [BMI] 50.0-59.9, adult; Z79.01 Long term (current) use of anticoagulants; Z99.81 Dependence on supplemental oxygen; Z79.82 Long term (current) use of aspirin; Z79.02 Long term (current) use of antithrombotics/antiplatelets; Z79.899 Other long term (current) drug therapy; Z86.718 Personal history of other venous thrombosis and embolism; Z86.711 Personal history of pulmonary embolism; Z87.01 Personal history of pneumonia (recurrent); Z95.5 Presence of coronary angioplasty implant and graft; Z95.810 Presence of automatic (implantable) cardiac defibrillator
CPT/HCPCS: 36415; 80048; 83735; 83880; 85025; 96365; 96366; 96375; G0463; J1250; J1642; J3490

== ENCOUNTER → 2021-07-21 | Outpatient (CLI) | payer MEDICARE, MEDICAID ==
[2021-07-21] VITALS (11 sets, daily range): BP systolic 107–129; BP diastolic 59–77
[~2021-07-21] MED LIST changes: +BACITRACIN TOP OINT 1 UD PKG TOP ONE; -BUMETANIDE 1mg/4ml VIAL (0.25mg/ml) ONE; -BUMETANIDE 2.5mg/10ml (0.25 mg/ml) INJ IV ONE; +FUROSEMIDE INJECTION 10 ML ONE; +FUROSEMIDE INJECTION 100 MG in D5W 5% 100 ML IV ONE; -POTASSIUM CHL 10 Meq TABLET PO ONE; +diphenhdrAMINE HCL 50 MG/1 ML VL IM ONE; +diphenhdrAMINE HCL 50 MG/1 ML VL IV ONE; +diphenhdrAMINE HCL 50 MG/1 ML VL ONE
[2021-07-21 10:14] LABS: Basophils # (auto) 0.1 10 ^3/uL (0-0.2); Hematocrit 32.4 % (41.0-53.0); Lymphocytes # (auto) 1.3 10 ^3/uL (0.4-5.4); Mean Corpuscular Volume 75.9 fL (80.0-100.0); Nucleated Red Blood Cells % 0.1 %
[2021-07-21 10:15] LABS: Basophils % (auto) 1.3 % (0.0-2.0); Eosinophils # (auto) 0.2 10 ^3/uL (0-0.8); Eosinophils % (auto) 3.8 % (0.0-7.0); Lymphocytes % (auto) 25.9 % (10.0-50.0); Mean Corpuscular Hemoglobin 23.5 pg (28.0-32.0); Monocytes # (auto) 0.4 10 ^3/uL (0-1.3); Monocytes % (auto) 7.5 % (0.0-12.0); Neutrophils # (auto) 3.1 10 ^3/uL (1.6-8.6); Neutrophils % (auto) 61.5 % (37.0-80.0); Red Blood Cells 4.27 10^6/uL (4.5-5.90)
[2021-07-21 11:05] LABS: Red Cell Distribution Width 20.7 % (11.8-14.3)
[2021-07-21 11:33] LABS: BUN/Creatinine Ratio 15.5; Calcium 9.4 mg/dL (8.5-10.1); Magnesium 2.5 mg/dL (1.6-2.6); Potassium 3.7 mmol/L (3.5-5.1)
== END | disposition home or self-care (01) ==
LOC: CHF HDHVI 09:04
PROVIDERS: ATTEND Internal Medicine Cardiovascular Disease
DX: I11.0 Hypertensive heart disease with heart failure (principal); I50.42 Chronic combined systolic (congestive) and diastolic (congestive) heart failure; E87.6 Hypokalemia; I25.10 Atherosclerotic heart disease of native coronary artery without angina pectoris; I25.2 Old myocardial infarction; J44.9 Chronic obstructive pulmonary disease, unspecified; J96.10 Chronic respiratory failure, unspecified whether with hypoxia or hypercapnia; K21.9 Gastro-esophageal reflux disease without esophagitis; E78.5 Hyperlipidemia, unspecified; F41.9 Anxiety disorder, unspecified; F32.A Depression, unspecified; E66.01 Morbid (severe) obesity due to excess calories; Z68.43 Body mass index [BMI] 50.0-59.9, adult; Z99.81 Dependence on supplemental oxygen; Z79.01 Long term (current) use of anticoagulants; Z79.82 Long term (current) use of aspirin; Z79.02 Long term (current) use of antithrombotics/antiplatelets; Z95.5 Presence of coronary angioplasty implant and graft; Z95.810 Presence of automatic (implantable) cardiac defibrillator; Z90.49 Acquired absence of other specified parts of digestive tract
CPT/HCPCS: 36415; 80048; 82542; 83735; 83880; 85025; 96365; 96366; 96368; 96375; G0463; J1200; J1250; J1642; J1940; J7060; 96367

== ENCOUNTER → 2021-07-24 | Outpatient (CLI) | payer MEDICARE, MEDICAID ==
[2021-07-24] VITALS (9 sets, daily range): BP systolic 92–108; BP diastolic 54–68
[~2021-07-24] MED LIST changes: -BACITRACIN TOP OINT 1 UD PKG TOP ONE; -FUROSEMIDE INJECTION 10 ML ONE; -FUROSEMIDE INJECTION 100 MG in D5W 5% 100 ML IV ONE; -POTASSIUM EFFERVESENT TAB 25 MEQ ONE; -POTASSIUM EFFERVESENT TAB 25 MEQ PO ONE; -diphenhdrAMINE HCL 50 MG/1 ML VL IM ONE; -diphenhdrAMINE HCL 50 MG/1 ML VL IV ONE; -diphenhdrAMINE HCL 50 MG/1 ML VL ONE; -metOLazone 5 MG TAB ONE; -metOLazone 5 MG TAB PO ONE
== END | disposition home or self-care (01) ==
LOC: CHF HDHVI 09:01
PROVIDERS: ATTEND Internal Medicine
DX: I25.5 Ischemic cardiomyopathy (principal); I11.0 Hypertensive heart disease with heart failure; I50.42 Chronic combined systolic (congestive) and diastolic (congestive) heart failure; R53.83 Other fatigue; R60.9 Edema, unspecified; I48.91 Unspecified atrial fibrillation; I25.10 Atherosclerotic heart disease of native coronary artery without angina pectoris; J44.9 Chronic obstructive pulmonary disease, unspecified; K21.9 Gastro-esophageal reflux disease without esophagitis; I25.2 Old myocardial infarction; J96.10 Chronic respiratory failure, unspecified whether with hypoxia or hypercapnia; F41.9 Anxiety disorder, unspecified; F32.A Depression, unspecified; E78.5 Hyperlipidemia, unspecified; E87.6 Hypokalemia; D63.8 Anemia in other chronic diseases classified elsewhere; D68.9 Coagulation defect, unspecified; G47.33 Obstructive sleep apnea (adult) (pediatric); F11.20 Opioid dependence, uncomplicated; E66.01 Morbid (severe) obesity due to excess calories; Z68.43 Body mass index [BMI] 50.0-59.9, adult; Z95.810 Presence of automatic (implantable) cardiac defibrillator; Z86.718 Personal history of other venous thrombosis and embolism; Z87.01 Personal history of pneumonia (recurrent); Z86.711 Personal history of pulmonary embolism; Z79.899 Other long term (current) drug therapy; Z79.02 Long term (current) use of antithrombotics/antiplatelets; Z79.2 Long term (current) use of antibiotics; Z79.82 Long term (current) use of aspirin
CPT/HCPCS: 96365; 96366; G0463; J1250; J1642

== ENCOUNTER 2021-07-28 13:38 | Inpatient (IN) | payer MEDICARE, MEDICAID ==
[~2021-07-28] VITALS: Ht 180.3 cm; Wt 154.0 kg
[~2021-07-28 13:38] MED LIST changes: -DOBUTamine 1000MCG/ML 250 ML IV ONE; -FUROSEMIDE 40 MG/4 ML VIAL IV ONE; -FUROSEMIDE 40 MG/4 ML VIAL ONE; -LORazepam 2MG/ML-1ML VIAL ONE; -POTASSIUM EFFERVESENT TAB 25 MEQ ONE; -POTASSIUM EFFERVESENT TAB 25 MEQ PO ONE; -metOLazone 5 MG TAB ONE; -metOLazone 5 MG TAB PO ONE
[2021-07-28] MEDS ORDERED: HYDROcodone-ACET 5/325MG TAB PO ONE (14:45)
[2021-07-28] MEDS ORDERED: ASPirin-EC 325mg tab PO ONE (15:00)
[2021-07-28] MEDS ORDERED: NITROGLYCERIN 0.4 MG SL TAB SL PRN (15:15)
[2021-07-28 15:30] LABS: Basophils # (auto) 0.1 10 ^3/uL (0-0.2); Hemoglobin 10.3 g/dL (13.5-17.5); Monocytes # (auto) 0.4 10 ^3/uL (0-1.3); Neutrophils # (auto) 2.7 10 ^3/uL (1.6-8.6); Nucleated Red Blood Cells % 0.2 %
[2021-07-28 15:32] LABS: Basophils % (auto) 1.9 % (0.0-2.0); Eosinophils # (auto) 0.2 10 ^3/uL (0-0.8); Eosinophils % (auto) 4.5 % (0.0-7.0); Hematocrit 32.8 % (41.0-53.0); Lymphocytes # (auto) 1.9 10 ^3/uL (0.4-5.4); Lymphocytes % (auto) 35.7 % (10.0-50.0); Mean Corpuscular Hemoglobin 23.8 pg (28.0-32.0); Mean Corpuscular Hgb Conc. 31.4 g/dL (32.0-36.0); Mean Corpuscular Volume 75.7 fL (80.0-100.0); Monocytes % (auto) 7.6 % (0.0-12.0); Neutrophils % (auto) 50.3 % (37.0-80.0); Red Blood Cells 4.33 10^6/uL (4.5-5.90); White Blood Cell 5.3 10^3/uL (4.4-10.8)
[2021-07-28 16:09] LABS: Potassium 4.2 mmol/L (3.5-5.1)
[2021-07-28 16:15] LABS: Albumin 3.2 g/dL (3.4-5.0); BUN/Creatinine Ratio 15.7; Bilirubin, Total 0.3 mg/dL (0.2-1.0); Total Protein 7.3 g/dL (6.4-8.2)
[2021-07-28] MEDS ORDERED: HYDROcodone-ACET 10/325MG TAB PO ONE ×2 (17:15→17:30)
[2021-07-28] MEDS ORDERED: SODIUM CHLORIDE 0.9% 1,000 ML IV ONE (17:15)
[2021-07-28] MEDS ORDERED: HYDROcodone-ACET 7.5/325MG TAB PO PRN (20:45)
[2021-07-28 22:00] VITALS: BP 117/48
[2021-07-29] MEDS ORDERED: HYDROmorphone HCL 2 MG TAB PO PRN (00:30)
[2021-07-29 05:00] VITALS: BP 105/63
[2021-07-29 06:05] LABS: Basophils # (auto) 0.1 10 ^3/uL (0-0.2); Basophils % (auto) 1.4 % (0.0-2.0); Eosinophils # (auto) 0.2 10 ^3/uL (0-0.8); Eosinophils % (auto) 5.4 % (0.0-7.0); Hematocrit 32.5 % (41.0-53.0); Hemoglobin 10.2 g/dL (13.5-17.5); Lymphocytes # (auto) 2.1 10 ^3/uL (0.4-5.4); Lymphocytes % (auto) 45.4 % (10.0-50.0); Mean Corpuscular Hgb Conc. 31.5 g/dL (32.0-36.0); Mean Corpuscular Volume 76.1 fL (80.0-100.0); Monocytes # (auto) 0.4 10 ^3/uL (0-1.3); Monocytes % (auto) 8.4 % (0.0-12.0); Neutrophils # (auto) 1.8 10 ^3/uL (1.6-8.6); Neutrophils % (auto) 39.4 % (37.0-80.0); Nucleated Red Blood Cells % 0.2 %; Red Blood Cells 4.27 10^6/uL (4.5-5.90); Red Cell Distribution Width 20.9 % (11.8-14.3); White Blood Cell 4.5 10^3/uL (4.4-10.8)
[2021-07-29 06:41] LABS: Albumin 2.9 g/dL (3.4-5.0); BUN/Creatinine Ratio 18.6; Calcium 8.5 mg/dL (8.5-10.1); Potassium 4.1 mmol/L (3.5-5.1)
[2021-07-29 06:43] LABS: Bilirubin, Total 0.3 mg/dL (0.2-1.0); Total Protein 6.5 g/dL (6.4-8.2)
[2021-07-29 09:00] VITALS: BP 88/47
[2021-07-29] MEDS ORDERED: levETIRAcetam 500 MG TAB PO SCH (10:00)
[2021-07-29] MEDS ORDERED: LORazepam 2MG/ML-1ML VIAL IV PRN ×2 (10:00→10:15)
[2021-07-29] MEDS ORDERED: ENOXAPARIN SOD 40 MG/0.4 ML SYRINGE SC SCH (10:00)
[2021-07-29 13:00] VITALS: BP 124/57
[2021-07-29 14:21] VITALS: BP 105/63
[2021-07-29] MEDS ORDERED: APIXABAN 5 MG TAB PO SCH (22:00)
== END 2021-07-29 13:20 | disposition left against medical advice (07) | DRG 100 ==
LOC: ER 13:38 → EDBD 13:38 → TELE 15:06 → TELE-WESTW 18:21
PROVIDERS: ADMIT Internal Medicine; ATTEND Internal Medicine Nephrology
DX: G40.409 Other generalized epilepsy and epileptic syndromes, not intractable, without status epilepticus (principal); I50.23 Acute on chronic systolic (congestive) heart failure; Z68.42 Body mass index [BMI] 45.0-49.9, adult; I69.351 Hemiplegia and hemiparesis following cerebral infarction affecting right dominant side; E88.09 Other disorders of plasma-protein metabolism, not elsewhere classified; D64.9 Anemia, unspecified; G89.29 Other chronic pain; E66.9 Obesity, unspecified; I11.0 Hypertensive heart disease with heart failure; I25.10 Atherosclerotic heart disease of native coronary artery without angina pectoris; Z20.822 Contact with and (suspected) exposure to COVID-19; Z53.29 Procedure and treatment not carried out because of patient's decision for other reasons; J44.9 Chronic obstructive pulmonary disease, unspecified; R32 Unspecified urinary incontinence; I25.2 Old myocardial infarction; Z86.718 Personal history of other venous thrombosis and embolism; Z86.711 Personal history of pulmonary embolism; Z79.02 Long term (current) use of antithrombotics/antiplatelets; Z79.82 Long term (current) use of aspirin; Z79.899 Other long term (current) drug therapy; Z82.3 Family history of stroke; Z82.49 Family history of ischemic heart disease and other diseases of the circulatory system; Z79.01 Long term (current) use of anticoagulants; Z83.3 Family history of diabetes mellitus; Z95.5 Presence of coronary angioplasty implant and graft
CPT/HCPCS: 36415; 70450; 71045; 80053; 83735; 83880; 84484; 85025; 93005; 96365; 96375; G0378; G0463; J1642; J7060

== ENCOUNTER → 2021-07-28 | Outpatient (CLI) | payer MEDICARE, MEDICAID ==
[~2021-07-28] MED LIST changes: +FUROSEMIDE 40 MG/4 ML VIAL IV ONE; +FUROSEMIDE 40 MG/4 ML VIAL ONE; +LORazepam 2MG/ML-1ML VIAL ONE; +POTASSIUM EFFERVESENT TAB 25 MEQ ONE; +POTASSIUM EFFERVESENT TAB 25 MEQ PO ONE; +metOLazone 5 MG TAB ONE; +metOLazone 5 MG TAB PO ONE
[2021-07-28 09:18] VITALS: BP 104/59
[2021-07-28 09:30] VITALS: BP 108/63
[2021-07-28 09:45] VITALS: BP 111/66
[2021-07-28 10:00] VITALS: BP 116/70
[2021-07-28 11:36] LABS: Basophils # (auto) 0 10 ^3/uL (0-0.2); Eosinophils # (auto) 0.2 10 ^3/uL (0-0.8); Lymphocytes # (auto) 1.6 10 ^3/uL (0.4-5.4); White Blood Cell 5.4 10^3/uL (4.4-10.8)
[2021-07-28 11:39] LABS: Basophils % (auto) 0.8 % (0.0-2.0); Eosinophils % (auto) 3.5 % (0.0-7.0); Hematocrit 34.1 % (41.0-53.0); Hemoglobin 10.5 g/dL (13.5-17.5); Lymphocytes % (auto) 30.2 % (10.0-50.0); Mean Corpuscular Hemoglobin 23.7 pg (28.0-32.0); Mean Corpuscular Hgb Conc. 30.8 g/dL (32.0-36.0); Monocytes # (auto) 0.5 10 ^3/uL (0-1.3); Monocytes % (auto) 9.7 % (0.0-12.0); Neutrophils % (auto) 55.8 % (37.0-80.0); Red Blood Cells 4.43 10^6/uL (4.5-5.90)
[2021-07-28 11:40] LABS: Albumin 3.2 g/dL (3.4-5.0); Calcium 8.8 mg/dL (8.5-10.1); Magnesium 2.3 mg/dL (1.6-2.6); Potassium 4.1 mmol/L (3.5-5.1)
[2021-07-28 11:44] LABS: BUN/Creatinine Ratio 12.6; Bilirubin, Total 0.3 mg/dL (0.2-1.0); Total Protein 7.4 g/dL (6.4-8.2)
[2021-07-28 13:23] VITALS: BP 122/67
== END | disposition home or self-care (01) ==
LOC: CHF HDHVI 09:11
PROVIDERS: ATTEND Internal Medicine
DX: I11.0 Hypertensive heart disease with heart failure (principal); I50.42 Chronic combined systolic (congestive) and diastolic (congestive) heart failure; I48.91 Unspecified atrial fibrillation; I25.5 Ischemic cardiomyopathy; R53.83 Other fatigue; E87.6 Hypokalemia; R07.9 Chest pain, unspecified; G40.909 Epilepsy, unspecified, not intractable, without status epilepticus; E88.09 Other disorders of plasma-protein metabolism, not elsewhere classified; F41.9 Anxiety disorder, unspecified; I25.10 Atherosclerotic heart disease of native coronary artery without angina pectoris; J44.9 Chronic obstructive pulmonary disease, unspecified; J96.10 Chronic respiratory failure, unspecified whether with hypoxia or hypercapnia; D68.9 Coagulation defect, unspecified; F32.A Depression, unspecified; K21.9 Gastro-esophageal reflux disease without esophagitis; E78.5 Hyperlipidemia, unspecified; I25.2 Old myocardial infarction; F11.20 Opioid dependence, uncomplicated; R60.0 Localized edema; G47.33 Obstructive sleep apnea (adult) (pediatric); Z95.5 Presence of coronary angioplasty implant and graft; Z95.810 Presence of automatic (implantable) cardiac defibrillator; Z86.718 Personal history of other venous thrombosis and embolism; Z87.01 Personal history of pneumonia (recurrent); Z86.711 Personal history of pulmonary embolism; Z79.2 Long term (current) use of antibiotics; Z79.02 Long term (current) use of antithrombotics/antiplatelets; Z79.82 Long term (current) use of aspirin; Z79.01 Long term (current) use of anticoagulants; Z99.81 Dependence on supplemental oxygen; Z79.899 Other long term (current) drug therapy
CPT/HCPCS: 36415; 80053; 83735; 83880; 85025; 96365; 96375; G0463; J1250; J1642; J1940; J2060

== ENCOUNTER → 2021-08-04 | Outpatient (CLI) | payer MEDICARE, MEDICAID ==
[~2021-08-04] MED LIST changes: +CYANOCOBALAMIN (B-12) 1000 MCG/1 ML VIAL IM ONE; +CYANOCOBALAMIN (B-12) 1000 MCG/1 ML VIAL ONE
[2021-08-04 14:30] VITALS: BP 109/64
[2021-08-04 15:16] LABS: Basophils # (auto) 0.1 10 ^3/uL (0-0.2); Basophils % (auto) 1.6 % (0.0-2.0); Eosinophils # (auto) 0.1 10 ^3/uL (0-0.8); Hemoglobin 10.7 g/dL (13.5-17.5); Monocytes # (auto) 0.4 10 ^3/uL (0-1.3); White Blood Cell 4.7 10^3/uL (4.4-10.8)
[2021-08-04 15:17] LABS: Hematocrit 34.3 % (41.0-53.0); Lymphocytes # (auto) 1.8 10 ^3/uL (0.4-5.4); Lymphocytes % (auto) 38.1 % (10.0-50.0); Mean Corpuscular Hgb Conc. 31.2 g/dL (32.0-36.0); Monocytes % (auto) 8.1 % (0.0-12.0); Neutrophils # (auto) 2.3 10 ^3/uL (1.6-8.6); Neutrophils % (auto) 49.2 % (37.0-80.0); Nucleated Red Blood Cells % 0.1 %; Red Blood Cells 4.46 10^6/uL (4.5-5.90)
[2021-08-04 15:32] LABS: Red Cell Distribution Width 20.7 % (11.8-14.3)
[2021-08-04 15:34] LABS: Albumin 3.3 g/dL (3.4-5.0); Calcium 9.1 mg/dL (8.5-10.1); Magnesium 2.5 mg/dL (1.6-2.6)
[2021-08-04 15:38] LABS: BUN/Creatinine Ratio 15.5; Bilirubin, Total 0.4 mg/dL (0.2-1.0); Total Protein 7.2 g/dL (6.4-8.2)
== END | disposition home or self-care (01) ==
LOC: CHF HDHVI 10:49
PROVIDERS: ATTEND Internal Medicine
DX: I11.0 Hypertensive heart disease with heart failure (principal); I50.42 Chronic combined systolic (congestive) and diastolic (congestive) heart failure; R53.83 Other fatigue; G40.909 Epilepsy, unspecified, not intractable, without status epilepticus; I25.10 Atherosclerotic heart disease of native coronary artery without angina pectoris; I25.5 Ischemic cardiomyopathy; I25.2 Old myocardial infarction; J44.9 Chronic obstructive pulmonary disease, unspecified; J96.10 Chronic respiratory failure, unspecified whether with hypoxia or hypercapnia; K21.9 Gastro-esophageal reflux disease without esophagitis; E78.5 Hyperlipidemia, unspecified; F32.A Depression, unspecified; Z90.49 Acquired absence of other specified parts of digestive tract; Z95.5 Presence of coronary angioplasty implant and graft; Z79.01 Long term (current) use of anticoagulants; Z79.02 Long term (current) use of antithrombotics/antiplatelets; Z79.82 Long term (current) use of aspirin; Z79.899 Other long term (current) drug therapy; Z99.81 Dependence on supplemental oxygen
CPT/HCPCS: 36415; 80053; 82542; 83735; 83880; 85025; 96372; G0463; J1642; J3420

== ENCOUNTER → 2021-08-21 | Outpatient (CLI) | payer MEDICARE, MEDICAID ==
[2021-08-21] VITALS (9 sets, daily range): BP systolic 103–129; BP diastolic 63–68
[~2021-08-21] MED LIST changes: -CYANOCOBALAMIN (B-12) 1000 MCG/1 ML VIAL IM ONE; -CYANOCOBALAMIN (B-12) 1000 MCG/1 ML VIAL ONE; +DOBUTamine 1000MCG/ML 250 ML IV ONE
== END | disposition home or self-care (01) ==
LOC: CHF HDHVI 09:32
PROVIDERS: ATTEND Internal Medicine Cardiovascular Disease
DX: I11.0 Hypertensive heart disease with heart failure (principal); I50.42 Chronic combined systolic (congestive) and diastolic (congestive) heart failure; I25.10 Atherosclerotic heart disease of native coronary artery without angina pectoris; I25.2 Old myocardial infarction; I48.91 Unspecified atrial fibrillation; J44.9 Chronic obstructive pulmonary disease, unspecified; J96.10 Chronic respiratory failure, unspecified whether with hypoxia or hypercapnia; K21.9 Gastro-esophageal reflux disease without esophagitis; E78.5 Hyperlipidemia, unspecified; F41.9 Anxiety disorder, unspecified; F32.A Depression, unspecified; E66.01 Morbid (severe) obesity due to excess calories; Z68.43 Body mass index [BMI] 50.0-59.9, adult; Z79.01 Long term (current) use of anticoagulants; Z79.02 Long term (current) use of antithrombotics/antiplatelets; Z79.82 Long term (current) use of aspirin; Z79.899 Other long term (current) drug therapy; Z95.5 Presence of coronary angioplasty implant and graft; Z95.810 Presence of automatic (implantable) cardiac defibrillator; Z90.49 Acquired absence of other specified parts of digestive tract; Z99.2 Dependence on renal dialysis
CPT/HCPCS: 96365; 96366; G0463; J1250; J1642

== ENCOUNTER → 2021-08-25 | Outpatient (CLI) | payer MEDICARE, MEDICAID ==
[2021-08-25] VITALS (9 sets, daily range): BP systolic 105–135; BP diastolic 57–77
[~2021-08-25] MED LIST changes: +CYANOCOBALAMIN (B-12) 1000 MCG/1 ML VIAL IM ONE; +CYANOCOBALAMIN (B-12) 1000 MCG/1 ML VIAL ONE; +FUROSEMIDE 40 MG/4 ML VIAL IV ONE; +FUROSEMIDE 40 MG/4 ML VIAL ONE; +POTASSIUM EFFERVESENT TAB 25 MEQ ONE; +POTASSIUM EFFERVESENT TAB 25 MEQ PO ONE; +metOLazone 5 MG TAB ONE; +metOLazone 5 MG TAB PO ONE
[2021-08-25 16:49] LABS: Albumin 3.1 g/dL (3.4-5.0); Calcium 8.9 mg/dL (8.5-10.1); Magnesium 2.2 mg/dL (1.6-2.6); Potassium 3.8 mmol/L (3.5-5.1)
[2021-08-25 16:52] LABS: BUN/Creatinine Ratio 16.7; Bilirubin, Total 0.4 mg/dL (0.2-1.0); Total Protein 7.1 g/dL (6.4-8.2)
== END | disposition home or self-care (01) ==
LOC: CHF HDHVI 11:10
PROVIDERS: ATTEND Internal Medicine
DX: I11.0 Hypertensive heart disease with heart failure (principal); I50.42 Chronic combined systolic (congestive) and diastolic (congestive) heart failure; I25.10 Atherosclerotic heart disease of native coronary artery without angina pectoris; I25.2 Old myocardial infarction; I48.91 Unspecified atrial fibrillation; J44.9 Chronic obstructive pulmonary disease, unspecified; J96.10 Chronic respiratory failure, unspecified whether with hypoxia or hypercapnia; K21.9 Gastro-esophageal reflux disease without esophagitis; E78.5 Hyperlipidemia, unspecified; F41.9 Anxiety disorder, unspecified; E66.01 Morbid (severe) obesity due to excess calories; Z68.43 Body mass index [BMI] 50.0-59.9, adult; Z90.49 Acquired absence of other specified parts of digestive tract; Z79.01 Long term (current) use of anticoagulants; Z79.02 Long term (current) use of antithrombotics/antiplatelets; Z79.82 Long term (current) use of aspirin; Z95.5 Presence of coronary angioplasty implant and graft; Z79.899 Other long term (current) drug therapy; Z87.891 Personal history of nicotine dependence; Z95.810 Presence of automatic (implantable) cardiac defibrillator; Z99.81 Dependence on supplemental oxygen
CPT/HCPCS: 36415; 80053; 83735; 83880; 96365; 96366; 96372; 96375; G0463; J1250; J1642; J1940; J3420

== ENCOUNTER → 2021-08-28 | Outpatient (CLI) | payer MEDICARE, MEDICAID ==
[2021-08-28] VITALS (9 sets, daily range): BP systolic 102–119; BP diastolic 58–65
[~2021-08-28] MED LIST changes: -CYANOCOBALAMIN (B-12) 1000 MCG/1 ML VIAL IM ONE; -CYANOCOBALAMIN (B-12) 1000 MCG/1 ML VIAL ONE; -FUROSEMIDE 40 MG/4 ML VIAL IV ONE; -FUROSEMIDE 40 MG/4 ML VIAL ONE; -POTASSIUM EFFERVESENT TAB 25 MEQ ONE; -POTASSIUM EFFERVESENT TAB 25 MEQ PO ONE; -metOLazone 5 MG TAB ONE; -metOLazone 5 MG TAB PO ONE
== END | disposition home or self-care (01) ==
LOC: CHF HDHVI 09:32
PROVIDERS: ATTEND Internal Medicine
DX: I11.0 Hypertensive heart disease with heart failure (principal); I50.42 Chronic combined systolic (congestive) and diastolic (congestive) heart failure; I25.10 Atherosclerotic heart disease of native coronary artery without angina pectoris; I25.2 Old myocardial infarction; I48.91 Unspecified atrial fibrillation; J44.9 Chronic obstructive pulmonary disease, unspecified; J96.10 Chronic respiratory failure, unspecified whether with hypoxia or hypercapnia; K21.9 Gastro-esophageal reflux disease without esophagitis; E78.5 Hyperlipidemia, unspecified; F41.9 Anxiety disorder, unspecified; F32.A Depression, unspecified; E66.01 Morbid (severe) obesity due to excess calories; Z68.43 Body mass index [BMI] 50.0-59.9, adult; Z90.49 Acquired absence of other specified parts of digestive tract; Z99.81 Dependence on supplemental oxygen; Z79.01 Long term (current) use of anticoagulants; Z79.02 Long term (current) use of antithrombotics/antiplatelets; Z79.82 Long term (current) use of aspirin; Z79.899 Other long term (current) drug therapy; Z87.891 Personal history of nicotine dependence; Z95.5 Presence of coronary angioplasty implant and graft; Z95.810 Presence of automatic (implantable) cardiac defibrillator; Z79.891 Long term (current) use of opiate analgesic
CPT/HCPCS: 96365; 96366; G0463; J1250; J1642

== ENCOUNTER → 2021-09-03 | Outpatient (CLI) | payer MEDICARE, MEDICAID ==
[2021-09-03] VITALS (10 sets, daily range): BP systolic 96–125; BP diastolic 61–75
[2021-09-03 10:59] LABS: Basophils # (auto) 0.1 10 ^3/uL (0-0.2); Eosinophils # (auto) 0.1 10 ^3/uL (0-0.8); Hemoglobin 10.9 g/dL (13.5-17.5); Lymphocytes # (auto) 1.6 10 ^3/uL (0.4-5.4); Mean Corpuscular Volume 79.7 fL (80.0-100.0); Monocytes # (auto) 0.6 10 ^3/uL (0-1.3); Neutrophils # (auto) 3.9 10 ^3/uL (1.6-8.6); Red Cell Distribution Width 20.3 % (11.8-14.3); White Blood Cell 6.3 10^3/uL (4.4-10.8)
[2021-09-03 11:03] LABS: Hematocrit 34.6 % (41.0-53.0); Lymphocytes % (auto) 25.7 % (10.0-50.0); Mean Corpuscular Hemoglobin 25.2 pg (28.0-32.0); Mean Corpuscular Hgb Conc. 31.6 g/dL (32.0-36.0); Monocytes % (auto) 9.1 % (0.0-12.0); Neutrophils % (auto) 62.2 % (37.0-80.0); Red Blood Cells 4.34 10^6/uL (4.5-5.90)
[2021-09-03 11:11] LABS: Potassium 3.6 mmol/L (3.5-5.1)
== END | disposition home or self-care (01) ==
LOC: CHF HDHVI 09:15
PROVIDERS: ATTEND Internal Medicine
DX: I50.23 Acute on chronic systolic (congestive) heart failure (principal); I83.90 Asymptomatic varicose veins of unspecified lower extremity; I70.0 Atherosclerosis of aorta; M19.019 Primary osteoarthritis, unspecified shoulder; Z51.81 Encounter for therapeutic drug level monitoring; Z79.899 Other long term (current) drug therapy
CPT/HCPCS: 36415; 71046; 82542; 82565; 83880; 84132; 84520; 85025; 96365; 96366; G0463; J1250; J1642

== ENCOUNTER → 2021-09-10 | Outpatient (CLI) | payer MEDICARE, MEDICAID ==
[2021-09-10] VITALS (9 sets, daily range): BP systolic 101–127; BP diastolic 58–81
[2021-09-10 12:11] LABS: Potassium 3.8 mmol/L (3.5-5.1)
== END | disposition home or self-care (01) ==
LOC: CHF HDHVI 09:48
PROVIDERS: ATTEND Internal Medicine
DX: I11.0 Hypertensive heart disease with heart failure (principal); I50.42 Chronic combined systolic (congestive) and diastolic (congestive) heart failure; I25.10 Atherosclerotic heart disease of native coronary artery without angina pectoris; I25.2 Old myocardial infarction; J44.9 Chronic obstructive pulmonary disease, unspecified; J96.10 Chronic respiratory failure, unspecified whether with hypoxia or hypercapnia; K21.9 Gastro-esophageal reflux disease without esophagitis; E78.5 Hyperlipidemia, unspecified; M16.0 Bilateral primary osteoarthritis of hip; F41.9 Anxiety disorder, unspecified; F32.A Depression, unspecified; E66.01 Morbid (severe) obesity due to excess calories; Z68.43 Body mass index [BMI] 50.0-59.9, adult; Z79.01 Long term (current) use of anticoagulants; Z79.02 Long term (current) use of antithrombotics/antiplatelets; Z79.891 Long term (current) use of opiate analgesic; Z79.82 Long term (current) use of aspirin; Z79.899 Other long term (current) drug therapy; Z87.891 Personal history of nicotine dependence; Z99.81 Dependence on supplemental oxygen; Z90.49 Acquired absence of other specified parts of digestive tract; Z95.810 Presence of automatic (implantable) cardiac defibrillator; Z95.5 Presence of coronary angioplasty implant and graft
CPT/HCPCS: 36415; 82565; 83880; 84132; 84520; 96365; 96366; G0463; J1250; J1642

== ENCOUNTER → 2021-09-15 | Outpatient (CLI) | payer MEDICARE, MEDICAID ==
[2021-09-15] VITALS (9 sets, daily range): BP systolic 101–124; BP diastolic 55–74
[~2021-09-15] MED LIST changes: +CYANOCOBALAMIN (B-12) 1000 MCG/1 ML VIAL IM ONE; +CYANOCOBALAMIN (B-12) 1000 MCG/1 ML VIAL ONE
[2021-09-15 10:45] LABS: Basophils # (auto) 0.1 10 ^3/uL (0-0.2); Basophils % (auto) 1.4 % (0.0-2.0); Eosinophils # (auto) 0.1 10 ^3/uL (0-0.8); Hemoglobin 10.9 g/dL (13.5-17.5); Mean Corpuscular Volume 79.8 fL (80.0-100.0); Monocytes # (auto) 0.5 10 ^3/uL (0-1.3); Nucleated Red Blood Cells % 0.1 %; White Blood Cell 5.2 10^3/uL (4.4-10.8)
[2021-09-15 10:49] LABS: Eosinophils % (auto) 2.1 % (0.0-7.0); Lymphocytes # (auto) 1.6 10 ^3/uL (0.4-5.4); Lymphocytes % (auto) 31.4 % (10.0-50.0); Mean Corpuscular Hemoglobin 25.5 pg (28.0-32.0); Mean Corpuscular Hgb Conc. 31.9 g/dL (32.0-36.0); Neutrophils # (auto) 2.9 10 ^3/uL (1.6-8.6); Neutrophils % (auto) 55.1 % (37.0-80.0); Red Blood Cells 4.27 10^6/uL (4.5-5.90); Red Cell Distribution Width 20.1 % (11.8-14.3)
[2021-09-15 11:00] LABS: BUN/Creatinine Ratio 11.7; Calcium 8.7 mg/dL (8.5-10.1); Potassium 3.8 mmol/L (3.5-5.1)
== END | disposition home or self-care (01) ==
LOC: CHF HDHVI 09:14
PROVIDERS: ATTEND Internal Medicine
DX: I50.23 Acute on chronic systolic (congestive) heart failure (principal); K57.30 Diverticulosis of large intestine without perforation or abscess without bleeding; M47.818 Spondylosis without myelopathy or radiculopathy, sacral and sacrococcygeal region; M16.0 Bilateral primary osteoarthritis of hip; K40.90 Unilateral inguinal hernia, without obstruction or gangrene, not specified as recurrent; M47.817 Spondylosis without myelopathy or radiculopathy, lumbosacral region
CPT/HCPCS: 36415; 80048; 83880; 85025; 96365; 96366; 96372; G0463; J1250; J1642; J3420

== ENCOUNTER → 2021-09-17 | Outpatient (CLI) | payer MEDICARE, MEDICAID ==
[2021-09-17] VITALS (8 sets, daily range): BP systolic 104–151; BP diastolic 50–74
[~2021-09-17] MED LIST changes: -CYANOCOBALAMIN (B-12) 1000 MCG/1 ML VIAL IM ONE; -CYANOCOBALAMIN (B-12) 1000 MCG/1 ML VIAL ONE
== END | disposition home or self-care (01) ==
LOC: CHF HDHVI 09:58
PROVIDERS: ATTEND Internal Medicine
DX: I11.0 Hypertensive heart disease with heart failure (principal); I50.42 Chronic combined systolic (congestive) and diastolic (congestive) heart failure; M16.0 Bilateral primary osteoarthritis of hip; M47.817 Spondylosis without myelopathy or radiculopathy, lumbosacral region; R53.83 Other fatigue; I25.10 Atherosclerotic heart disease of native coronary artery without angina pectoris; I25.2 Old myocardial infarction; I48.91 Unspecified atrial fibrillation; J96.10 Chronic respiratory failure, unspecified whether with hypoxia or hypercapnia; J44.9 Chronic obstructive pulmonary disease, unspecified; K21.9 Gastro-esophageal reflux disease without esophagitis; E78.5 Hyperlipidemia, unspecified; F41.9 Anxiety disorder, unspecified; F32.A Depression, unspecified; E66.01 Morbid (severe) obesity due to excess calories; Z68.43 Body mass index [BMI] 50.0-59.9, adult; Z79.899 Other long term (current) drug therapy; Z90.49 Acquired absence of other specified parts of digestive tract; Z99.81 Dependence on supplemental oxygen; Z79.01 Long term (current) use of anticoagulants; Z79.02 Long term (current) use of antithrombotics/antiplatelets; Z79.82 Long term (current) use of aspirin; Z79.891 Long term (current) use of opiate analgesic; Z95.810 Presence of automatic (implantable) cardiac defibrillator; Z95.5 Presence of coronary angioplasty implant and graft; Z87.891 Personal history of nicotine dependence
CPT/HCPCS: 72170; 96365; 96366; G0463; J1250; J1642

== ENCOUNTER → 2021-09-24 | Outpatient (CLI) | payer MEDICARE, MEDICAID ==
[2021-09-24] VITALS (9 sets, daily range): BP systolic 116–138; BP diastolic 60–75
== END | disposition home or self-care (01) ==
LOC: CHF HDHVI 10:06
PROVIDERS: ATTEND Internal Medicine Cardiovascular Disease
DX: I11.0 Hypertensive heart disease with heart failure (principal); I50.42 Chronic combined systolic (congestive) and diastolic (congestive) heart failure; I25.10 Atherosclerotic heart disease of native coronary artery without angina pectoris; I25.2 Old myocardial infarction; I48.91 Unspecified atrial fibrillation; J44.9 Chronic obstructive pulmonary disease, unspecified; J96.10 Chronic respiratory failure, unspecified whether with hypoxia or hypercapnia; K21.9 Gastro-esophageal reflux disease without esophagitis; E78.5 Hyperlipidemia, unspecified; M16.0 Bilateral primary osteoarthritis of hip; F41.9 Anxiety disorder, unspecified; F32.A Depression, unspecified; E66.01 Morbid (severe) obesity due to excess calories; Z68.43 Body mass index [BMI] 50.0-59.9, adult; Z79.01 Long term (current) use of anticoagulants; Z79.02 Long term (current) use of antithrombotics/antiplatelets; Z79.891 Long term (current) use of opiate analgesic; Z79.82 Long term (current) use of aspirin; Z79.899 Other long term (current) drug therapy; Z87.891 Personal history of nicotine dependence; Z99.81 Dependence on supplemental oxygen; Z90.49 Acquired absence of other specified parts of digestive tract; Z95.810 Presence of automatic (implantable) cardiac defibrillator; Z95.5 Presence of coronary angioplasty implant and graft
CPT/HCPCS: 96365; 96366; G0463; J1250; J1642

== ENCOUNTER → 2021-09-29 | Outpatient (CLI) | payer MEDICARE, MEDICAID ==
[~2021-09-29] MED LIST changes: +HYDR-4902 PO; +SENN1TAB14 PO; +TRAZ100T3 PO; +VERI5TAB PO
[2021-09-29 09:00] VITALS: BP 111/76
[2021-09-29 10:30] VITALS: BP 125/78
[2021-09-29 16:05] LABS: Eosinophils # (auto) 0.1 10 ^3/uL (0-0.8); Hemoglobin 10.7 g/dL (13.5-17.5); Monocytes # (auto) 0.7 10 ^3/uL (0-1.3)
[2021-09-29 16:08] LABS: Basophils # (auto) 0 10 ^3/uL (0-0.2); Basophils % (auto) 0.8 % (0.0-2.0); Eosinophils % (auto) 0.8 % (0.0-7.0); Hematocrit 33.2 % (41.0-53.0); Lymphocytes # (auto) 1.1 10 ^3/uL (0.4-5.4); Lymphocytes % (auto) 17.7 % (10.0-50.0); Mean Corpuscular Hemoglobin 26.1 pg (28.0-32.0); Mean Corpuscular Hgb Conc. 32.1 g/dL (32.0-36.0); Mean Corpuscular Volume 81.4 fL (80.0-100.0); Monocytes % (auto) 11.1 % (0.0-12.0); Neutrophils # (auto) 4.5 10 ^3/uL (1.6-8.6); Neutrophils % (auto) 69.6 % (37.0-80.0); Red Blood Cells 4.08 10^6/uL (4.5-5.90); Red Cell Distribution Width 19.3 % (11.8-14.3); White Blood Cell 6.5 10^3/uL (4.4-10.8)
[2021-09-29 16:13] LABS: Magnesium 2.3 mg/dL (1.6-2.6); Potassium 3.7 mmol/L (3.5-5.1)
[2021-09-29 16:19] LABS: INR 1.13 (0.9-1.15); Partial Thromboplastin Time 31.3 sec (23.6-33.0)
== END | disposition home or self-care (01) ==
LOC: CHF HDHVI 09:03
PROVIDERS: ATTEND Internal Medicine
DX: I11.0 Hypertensive heart disease with heart failure (principal); I50.42 Chronic combined systolic (congestive) and diastolic (congestive) heart failure; I42.0 Dilated cardiomyopathy; F41.9 Anxiety disorder, unspecified; I25.10 Atherosclerotic heart disease of native coronary artery without angina pectoris; J44.9 Chronic obstructive pulmonary disease, unspecified; J96.11 Chronic respiratory failure with hypoxia; K21.9 Gastro-esophageal reflux disease without esophagitis; E78.5 Hyperlipidemia, unspecified; F32.9 Major depressive disorder, single episode, unspecified; E66.01 Morbid (severe) obesity due to excess calories; I25.2 Old myocardial infarction; I48.91 Unspecified atrial fibrillation; M19.90 Unspecified osteoarthritis, unspecified site; Z86.16 Personal history of COVID-19; Z87.891 Personal history of nicotine dependence; Z86.718 Personal history of other venous thrombosis and embolism; Z86.711 Personal history of pulmonary embolism; Z91.041 Radiographic dye allergy status; Z95.810 Presence of automatic (implantable) cardiac defibrillator; Z90.49 Acquired absence of other specified parts of digestive tract; Z88.0 Allergy status to penicillin; Z68.43 Body mass index [BMI] 50.0-59.9, adult; Z79.01 Long term (current) use of anticoagulants; Z79.02 Long term (current) use of antithrombotics/antiplatelets; Z79.82 Long term (current) use of aspirin; Z79.891 Long term (current) use of opiate analgesic; Z91.011 Allergy to milk products
CPT/HCPCS: 36415; 71046; 73060; 82565; 83735; 83880; 84132; 84520; 85025; 85610; 85730; 96374; G0463; J1250; 96365

== ENCOUNTER → 2021-10-07 | Outpatient (CLI) | payer MEDICARE, MEDICAID ==
[~2021-10-07] MED LIST changes: -DOBUTamine 1000MCG/ML 250 ML IV ONE; -HYDR-4902 PO; +LIDOCAINE 1% (LOCAL ANESTH.) PF 5ml SDV ID ONE; -SENN1TAB14 PO; +SODIUM CHLOR 0.9% PF (SALINE LOCK) 10ML VIAL/SYR IV SCH; -TRAZ100T3 PO; -VERI5TAB PO
== END | disposition home or self-care (01) ==
LOC: CATH 11:50
PROVIDERS: ATTEND Internal Medicine Cardiovascular Disease
DX: I51.7 Cardiomegaly (principal); Q25.46 Tortuous aortic arch
CPT/HCPCS: 71045

== ENCOUNTER → 2021-10-13 | Outpatient (CLI) | payer MEDICARE, MEDICAID ==
[2021-10-13] VITALS (9 sets, daily range): BP systolic 106–129; BP diastolic 61–76
[~2021-10-13] VITALS: Ht 30.5 cm; Wt 158.9 kg
[~2021-10-13] MED LIST changes: +DOBUTamine 1000MCG/ML 250 ML IV ONE; -LIDOCAINE 1% (LOCAL ANESTH.) PF 5ml SDV ID ONE; -SODIUM CHLOR 0.9% PF (SALINE LOCK) 10ML VIAL/SYR IV SCH
[2021-10-13 12:32] LABS: Potassium 4.1 mmol/L (3.5-5.1)
== END | disposition home or self-care (01) ==
LOC: CHF HDHVI 10:00
PROVIDERS: ATTEND Internal Medicine
DX: I11.0 Hypertensive heart disease with heart failure (principal); I50.42 Chronic combined systolic (congestive) and diastolic (congestive) heart failure; I25.10 Atherosclerotic heart disease of native coronary artery without angina pectoris; I25.2 Old myocardial infarction; J44.9 Chronic obstructive pulmonary disease, unspecified; J96.10 Chronic respiratory failure, unspecified whether with hypoxia or hypercapnia; I48.91 Unspecified atrial fibrillation; M16.0 Bilateral primary osteoarthritis of hip; K21.9 Gastro-esophageal reflux disease without esophagitis; E78.5 Hyperlipidemia, unspecified; F32.9 Major depressive disorder, single episode, unspecified; F41.9 Anxiety disorder, unspecified; E66.01 Morbid (severe) obesity due to excess calories; Z68.43 Body mass index [BMI] 50.0-59.9, adult; Z99.81 Dependence on supplemental oxygen; Z90.49 Acquired absence of other specified parts of digestive tract; Z79.01 Long term (current) use of anticoagulants; Z79.82 Long term (current) use of aspirin; Z79.891 Long term (current) use of opiate analgesic; Z79.899 Other long term (current) drug therapy; Z95.810 Presence of automatic (implantable) cardiac defibrillator; Z95.5 Presence of coronary angioplasty implant and graft; Z87.891 Personal history of nicotine dependence
CPT/HCPCS: 36415; 82565; 83880; 84132; 84520; 96365; 96366; G0463; J1250; J1642

== ENCOUNTER → 2021-10-15 | Outpatient (CLI) | payer MEDICARE, MEDICAID ==
[2021-10-15] VITALS (9 sets, daily range): BP systolic 100–126; BP diastolic 57–68
[~2021-10-15] VITALS: Ht 1 cm; Wt 0.5 kg
[~2021-10-15] MED LIST changes: +CYANOCOBALAMIN (B-12) 1000 MCG/1 ML VIAL IM ONE; +CYANOCOBALAMIN (B-12) 1000 MCG/1 ML VIAL ONE; +HYDR-4902 PO; +SENN1TAB14 PO; +TRAZ100T3 PO; +VERI5TAB PO
== END | disposition home or self-care (01) ==
LOC: CHF HDHVI 10:45
PROVIDERS: ATTEND Internal Medicine
DX: I11.0 Hypertensive heart disease with heart failure (principal); I50.42 Chronic combined systolic (congestive) and diastolic (congestive) heart failure; F41.9 Anxiety disorder, unspecified; I25.10 Atherosclerotic heart disease of native coronary artery without angina pectoris; J44.9 Chronic obstructive pulmonary disease, unspecified; J96.11 Chronic respiratory failure with hypoxia; K21.9 Gastro-esophageal reflux disease without esophagitis; E78.5 Hyperlipidemia, unspecified; F32.9 Major depressive disorder, single episode, unspecified; I25.2 Old myocardial infarction; E66.01 Morbid (severe) obesity due to excess calories; I48.91 Unspecified atrial fibrillation; M19.90 Unspecified osteoarthritis, unspecified site; Z79.82 Long term (current) use of aspirin; Z79.01 Long term (current) use of anticoagulants; Z79.891 Long term (current) use of opiate analgesic; Z68.43 Body mass index [BMI] 50.0-59.9, adult; Z79.899 Other long term (current) drug therapy; Z87.891 Personal history of nicotine dependence; Z79.02 Long term (current) use of antithrombotics/antiplatelets; Z90.49 Acquired absence of other specified parts of digestive tract; Z95.810 Presence of automatic (implantable) cardiac defibrillator
CPT/HCPCS: 96365; 96366; 96372; G0463; J1250; J1642; J3420

== ENCOUNTER 2021-10-20 12:31 | Inpatient (IN) | payer MEDICARE, MEDICAID ==
[~2021-10-20] VITALS: Ht 180.3 cm; Wt 158.4 kg
[~2021-10-20 12:31] MED LIST changes: -DOBUTamine 1000MCG/ML 250 ML IV ONE; -HYDR-4902 PO; -SENN1TAB14 PO; -TRAZ100T3 PO; -VERI5TAB PO
[2021-10-20] MEDS ORDERED: FUROSEMIDE 40 MG/4 ML VIAL IV ONE (12:45)
[2021-10-20] MEDS ORDERED: PROMETHAZINE HCL 25 MG/ML 1ML IV ONE (13:00)
[2021-10-20] MEDS ORDERED: HYDROmorphone HCL 2 MG/ML VL/or syr IV ONE ×2 (13:00→17:00)
[2021-10-20 13:45] LABS: Basophils # (auto) 0.1 10 ^3/uL (0-0.2); Eosinophils # (auto) 0.1 10 ^3/uL (0-0.8); Hemoglobin 10.9 g/dL (13.5-17.5); Lymphocytes # (auto) 1.9 10 ^3/uL (0.4-5.4); White Blood Cell 6.2 10^3/uL (4.4-10.8)
[2021-10-20 13:47] LABS: Basophils % (auto) 1.6 % (0.0-2.0); Eosinophils % (auto) 1.6 % (0.0-7.0); Hematocrit 34.6 % (41.0-53.0); Lymphocytes % (auto) 30.9 % (10.0-50.0); Mean Corpuscular Hemoglobin 25.5 pg (28.0-32.0); Mean Corpuscular Hgb Conc. 31.5 g/dL (32.0-36.0); Mean Corpuscular Volume 80.8 fL (80.0-100.0); Monocytes # (auto) 0.5 10 ^3/uL (0-1.3); Monocytes % (auto) 7.3 % (0.0-12.0); Neutrophils # (auto) 3.6 10 ^3/uL (1.6-8.6); Neutrophils % (auto) 58.6 % (37.0-80.0); Red Blood Cells 4.28 10^6/uL (4.5-5.90); Red Cell Distribution Width 18.3 % (11.8-14.3)
[2021-10-20 13:52] LABS: INR 1.13 (0.9-1.15); Partial Thromboplastin Time 50.1 sec (23.6-33.0)
[2021-10-20 14:00] LABS: Albumin 3.3 g/dL (3.4-5.0); Calcium 8.7 mg/dL (8.5-10.1); Potassium 3.6 mmol/L (3.5-5.1)
[2021-10-20 14:04] LABS: BUN/Creatinine Ratio 15.9; Bilirubin, Total 0.5 mg/dL (0.2-1.0); Total Protein 7.6 g/dL (6.4-8.2)
[2021-10-20 15:03] LABS: Urine Bacteria NONE SEEN /hpf (None Seen); Urine Blood Negative /uL (Negative); Urine Mucus FEW (None Seen); Urine Specific Gravity 1.017 (1.001-1.035); Urine WBC 18 /hpf (0 - 3)
[2021-10-20] MEDS ORDERED: DOCUSATE SOD 100 MG CAP PO PRN (16:45)
[2021-10-20] MEDS ORDERED: ACETAMINOPHEN 325 MG TAB PO PRN (16:45)
[2021-10-20] MEDS ORDERED: AZTREONAM 1GM INJ 1 GM in D5W 5% 50 ML IV ONE (16:45)
[2021-10-20] MEDS ORDERED: HYDROmorphone HCL 2 MG/ML VL/or syr IM ONE (16:45)
[2021-10-20] MEDS ORDERED: METOCLOPRAMIDE HCL 5MG/ml INJ 2ml VIAL IV PRN (16:45)
[2021-10-20 20:42] VITALS: BP 103/81
[2021-10-20] MEDS: levETIRAcetam 500 MG TAB PO SCH (22:00)
[2021-10-20] MEDS ORDERED: levETIRAcetam 500 MG TAB PO SCH (22:00)
[2021-10-20] MEDS: CARVEDILOL 3.125 MG TAB PO SCH (22:00)
[2021-10-20] MEDS: ATORVASTATIN 20 MG TAB PO SCH (22:00)
[2021-10-20] MEDS: SACUBITRIL-VALSARTAN 24mg/26mg TAB PO SCH (22:00)
[2021-10-20] MEDS: RANOLAZINE ER 500 MG TAB PO SCH (22:00)
[2021-10-20] MEDS: APIXABAN 5 MG TAB PO SCH (22:00)
[2021-10-20] MEDS: FUROSEMIDE 40 MG/4 ML VIAL IV SCH (22:00)
[2021-10-20] MEDS: SODIUM CHLOR 0.9% PF (SALINE LOCK) 10ML VIAL/SYR IV SCH (22:16)
[2021-10-21] MEDS: HYDROcodone-ACET 5/325MG TAB PO PRN ×2 (00:22→13:14)
[2021-10-21] MEDS: HYDROmorphone HCL 2 MG/ML VL/or syr IV PRN ×4 (04:17→20:46)
[2021-10-21 04:31] VITALS: BP 105/65
[2021-10-21 05:00] VITALS: BP 102/70
[2021-10-21] MEDS: SODIUM CHLOR 0.9% PF (SALINE LOCK) 10ML VIAL/SYR IV SCH ×3 (05:01→20:46)
[2021-10-21 09:00] VITALS: BP 112/70
[2021-10-21] MEDS: FUROSEMIDE 40 MG/4 ML VIAL IV SCH ×2 (09:16→20:45)
[2021-10-21] MEDS: SPIRONOLACTONE 25 MG TAB PO SCH (09:16)
[2021-10-21] MEDS: SACUBITRIL-VALSARTAN 24mg/26mg TAB PO SCH ×2 (09:17→20:44)
[2021-10-21] MEDS: CARVEDILOL 3.125 MG TAB PO SCH ×2 (09:17→22:15)
[2021-10-21] MEDS: levETIRAcetam 500 MG TAB PO SCH ×4 (09:17→20:44)
[2021-10-21] MEDS: APIXABAN 5 MG TAB PO SCH ×2 (09:17→20:44)
[2021-10-21] MEDS: RANOLAZINE ER 500 MG TAB PO SCH ×2 (09:17→20:45)
[2021-10-21] MEDS: Dapagliflozin Propanediol (Farxiga) 10 MG PO SCH (09:47)
[2021-10-21] MEDS ORDERED: SENN1TAB14 PO (12:46)
[2021-10-21] MEDS ORDERED: FURO40TA4 PO (12:46)
[2021-10-21] MEDS ORDERED: VERI5TAB PO (12:46)
[2021-10-21] MEDS ORDERED: HYDR-4902 PO (12:46)
[2021-10-21] MEDS ORDERED: TRAZ100T3 PO (12:46)
[2021-10-21 13:00] VITALS: BP 111/42
[2021-10-21 17:00] VITALS: BP 103/67
[2021-10-21] MEDS ORDERED: levoFLOXacin 500 MG TAB PO ONE (17:45)
[2021-10-21] MEDS: ALBUTEROL SULF 2.5 MG/0.5ML(0.5%) NEB SOLN NEB PRN (20:13)
[2021-10-21] MEDS: ATORVASTATIN 20 MG TAB PO SCH (20:44)
[2021-10-21 22:00] VITALS: BP 96/62
[2021-10-22] MEDS: HYDROmorphone HCL 2 MG/ML VL/or syr IV PRN ×4 (02:54→20:28)
[2021-10-22 05:00] VITALS: BP 94/46
[2021-10-22] MEDS: SODIUM CHLOR 0.9% PF (SALINE LOCK) 10ML VIAL/SYR IV SCH ×3 (05:11→20:31)
[2021-10-22] MEDS: SACUBITRIL-VALSARTAN 24mg/26mg TAB PO SCH ×2 (08:55→20:29)
[2021-10-22] MEDS: APIXABAN 5 MG TAB PO SCH ×2 (08:55→20:29)
[2021-10-22] MEDS: levETIRAcetam 500 MG TAB PO SCH ×2 (08:55→20:29)
[2021-10-22] MEDS: RANOLAZINE ER 500 MG TAB PO SCH ×2 (08:56→20:30)
[2021-10-22] MEDS: levoFLOXacin 500 MG TAB PO SCH (08:56)
[2021-10-22] MEDS: SPIRONOLACTONE 25 MG TAB PO SCH (08:57)
[2021-10-22] MEDS: FUROSEMIDE 40 MG/4 ML VIAL IV SCH ×2 (08:57→20:27)
[2021-10-22] MEDS: Dapagliflozin Propanediol (Farxiga) 10 MG PO SCH (08:59)
[2021-10-22 09:00] VITALS: BP 108/69
[2021-10-22] MEDS: CARVEDILOL 3.125 MG TAB PO SCH ×2 (09:03→21:46)
[2021-10-22] MEDS: HYDROcodone-ACET 5/325MG TAB PO PRN (11:38)
[2021-10-22] MEDS ORDERED: ISOSORBIDE MONONITRATE 20 MG TAB PO ONE (12:45)
[2021-10-22 13:00] VITALS: BP 102/65
[2021-10-22] MEDS: ALBUTEROL SULF 2.5 MG/0.5ML(0.5%) NEB SOLN NEB PRN ×2 (15:22→19:07)
[2021-10-22 16:38] VITALS: BP 109/71
[2021-10-22] MEDS: ATORVASTATIN 20 MG TAB PO SCH (20:29)
[2021-10-22] MEDS: ISOSORBIDE MONONITRATE 20 MG TAB PO SCH (20:31)
[2021-10-22 22:00] VITALS: BP 126/72
[2021-10-22 22:08] VITALS: BP 108/69
[2021-10-23] MEDS: HYDROmorphone HCL 2 MG/ML VL/or syr IV PRN ×4 (01:50→21:26)
[2021-10-23 05:00] VITALS: BP 116/59
[2021-10-23] MEDS: SODIUM CHLOR 0.9% PF (SALINE LOCK) 10ML VIAL/SYR IV SCH ×3 (05:19→21:28)
[2021-10-23 06:39] LABS: BUN/Creatinine Ratio 12.6; Magnesium 2.2 mg/dL (1.6-2.6); Potassium 3.8 mmol/L (3.5-5.1)
[2021-10-23] MEDS: FUROSEMIDE 40 MG/4 ML VIAL IV SCH ×2 (08:59→21:25)
[2021-10-23 09:00] VITALS: BP 103/63
[2021-10-23] MEDS: ISOSORBIDE MONONITRATE 20 MG TAB PO SCH ×2 (09:02→21:28)
[2021-10-23] MEDS: SACUBITRIL-VALSARTAN 24mg/26mg TAB PO SCH ×2 (09:02→21:26)
[2021-10-23] MEDS: SPIRONOLACTONE 25 MG TAB PO SCH (09:03)
[2021-10-23] MEDS: levETIRAcetam 500 MG TAB PO SCH ×2 (09:03→21:27)
[2021-10-23] MEDS: CARVEDILOL 3.125 MG TAB PO SCH ×2 (09:03→21:28)
[2021-10-23] MEDS: levoFLOXacin 500 MG TAB PO SCH (09:03)
[2021-10-23] MEDS: RANOLAZINE ER 500 MG TAB PO SCH ×2 (09:03→21:27)
[2021-10-23] MEDS: APIXABAN 5 MG TAB PO SCH ×2 (09:04→21:27)
[2021-10-23] MEDS: Dapagliflozin Propanediol (Farxiga) 10 MG PO SCH (09:04)
[2021-10-23] MEDS: ALBUTEROL SULF 2.5 MG/0.5ML(0.5%) NEB SOLN NEB PRN (09:56)
[2021-10-23 13:01] VITALS: BP 106/72
[2021-10-23] MEDS: ONDANSETRON HCL 4 MG/2 ML VIAL IV PRN (15:23)
[2021-10-23 17:20] VITALS: BP 99/55
[2021-10-23] MEDS: ATORVASTATIN 20 MG TAB PO SCH (21:27)
[2021-10-23 22:00] VITALS: BP 103/65
[2021-10-23 23:40] VITALS: BP 99/55
[2021-10-24] MEDS: HYDROcodone-ACET 5/325MG TAB PO PRN ×2 (02:06→13:32)
[2021-10-24] MEDS: HYDROmorphone HCL 2 MG/ML VL/or syr IV PRN ×4 (04:45→20:41)
[2021-10-24] MEDS: ONDANSETRON HCL 4 MG/2 ML VIAL IV PRN (04:45)
[2021-10-24] MEDS: SODIUM CHLOR 0.9% PF (SALINE LOCK) 10ML VIAL/SYR IV SCH ×3 (04:48→21:45)
[2021-10-24 05:00] VITALS: BP 123/57
[2021-10-24 07:30] VITALS: BP 106/67
[2021-10-24 09:00] VITALS: BP 75/41
[2021-10-24] MEDS: FUROSEMIDE 40 MG/4 ML VIAL IV SCH ×2 (09:14→21:53)
[2021-10-24] MEDS: Dapagliflozin Propanediol (Farxiga) 10 MG PO SCH (09:16)
[2021-10-24] MEDS: CARVEDILOL 3.125 MG TAB PO SCH ×2 (09:17→21:54)
[2021-10-24] MEDS: SPIRONOLACTONE 25 MG TAB PO SCH (09:17)
[2021-10-24] MEDS: APIXABAN 5 MG TAB PO SCH ×2 (09:20→21:40)
[2021-10-24] MEDS: SACUBITRIL-VALSARTAN 24mg/26mg TAB PO SCH ×2 (09:22→21:40)
[2021-10-24] MEDS: ISOSORBIDE MONONITRATE 20 MG TAB PO SCH ×2 (09:24→21:55)
[2021-10-24] MEDS: levETIRAcetam 500 MG TAB PO SCH ×2 (09:24→21:40)
[2021-10-24] MEDS: RANOLAZINE ER 500 MG TAB PO SCH ×2 (09:25→21:39)
[2021-10-24 13:00] VITALS: BP 99/66
[2021-10-24 17:02] VITALS: BP 102/71
[2021-10-24] MEDS: ATORVASTATIN 20 MG TAB PO SCH (21:39)
[2021-10-24 22:00] VITALS: BP 124/52
[2021-10-25] MEDS: HYDROmorphone HCL 2 MG/ML VL/or syr IV PRN ×4 (02:19→18:41)
[2021-10-25 05:00] VITALS: BP 85/45
[2021-10-25] MEDS: SODIUM CHLOR 0.9% PF (SALINE LOCK) 10ML VIAL/SYR IV SCH ×3 (06:23→22:22)
[2021-10-25 08:10] VITALS: BP 93/55
[2021-10-25 09:00] VITALS: BP 93/55
[2021-10-25] MEDS: ALBUTEROL SULF 2.5 MG/0.5ML(0.5%) NEB SOLN NEB PRN (09:06)
[2021-10-25] MEDS: RANOLAZINE ER 500 MG TAB PO SCH ×2 (10:00→22:23)
[2021-10-25] MEDS: Dapagliflozin Propanediol (Farxiga) 10 MG PO SCH (10:00)
[2021-10-25] MEDS: SPIRONOLACTONE 25 MG TAB PO SCH (10:54)
[2021-10-25] MEDS: levETIRAcetam 500 MG TAB PO SCH ×2 (10:55→22:22)
[2021-10-25] MEDS: CARVEDILOL 3.125 MG TAB PO SCH ×2 (10:55→22:00)
[2021-10-25] MEDS: ISOSORBIDE MONONITRATE 20 MG TAB PO SCH ×2 (10:56→22:00)
[2021-10-25] MEDS: SACUBITRIL-VALSARTAN 24mg/26mg TAB PO SCH ×2 (10:56→22:22)
[2021-10-25] MEDS: APIXABAN 5 MG TAB PO SCH ×2 (10:56→22:22)
[2021-10-25] MEDS: FUROSEMIDE 40 MG/4 ML VIAL IV SCH ×2 (10:57→22:00)
[2021-10-25 13:00] VITALS: BP 127/78
[2021-10-25] MEDS: ONDANSETRON HCL 4 MG/2 ML VIAL IV PRN (14:00)
[2021-10-25 16:54] VITALS: BP 97/58
[2021-10-25 22:00] VITALS: BP 99/51
[2021-10-25] MEDS: ATORVASTATIN 20 MG TAB PO SCH (22:22)
[2021-10-26] MEDS: HYDROmorphone HCL 2 MG/ML VL/or syr IV PRN ×2 (04:21→10:58)
[2021-10-26 05:00] VITALS: BP 105/62
[2021-10-26] MEDS: SODIUM CHLOR 0.9% PF (SALINE LOCK) 10ML VIAL/SYR IV SCH ×2 (06:25→10:58)
[2021-10-26 08:30] VITALS: BP 90/48
[2021-10-26 09:00] VITALS: BP 91/45
[2021-10-26] MEDS: levETIRAcetam 500 MG TAB PO SCH (10:54)
[2021-10-26] MEDS: Dapagliflozin Propanediol (Farxiga) 10 MG PO SCH (10:55)
[2021-10-26] MEDS: CARVEDILOL 3.125 MG TAB PO SCH (10:55)
[2021-10-26] MEDS: FUROSEMIDE 40 MG/4 ML VIAL IV SCH (10:55)
[2021-10-26] MEDS: SPIRONOLACTONE 25 MG TAB PO SCH (10:55)
[2021-10-26] MEDS: APIXABAN 5 MG TAB PO SCH (10:55)
[2021-10-26] MEDS: ISOSORBIDE MONONITRATE 20 MG TAB PO SCH (10:57)
[2021-10-26] MEDS: SACUBITRIL-VALSARTAN 24mg/26mg TAB PO SCH (11:08)
[2021-10-26] MEDS: RANOLAZINE ER 500 MG TAB PO SCH (12:14)
[2021-10-26 13:00] VITALS: BP 92/69
[2021-10-26 14:48] LABS: Basophils # (auto) 0 10 ^3/uL (0-0.2); Eosinophils # (auto) 0.2 10 ^3/uL (0-0.8); Hemoglobin 11.1 g/dL (13.5-17.5); Monocytes # (auto) 0.4 10 ^3/uL (0-1.3); Neutrophils # (auto) 2.2 10 ^3/uL (1.6-8.6); Nucleated Red Blood Cells % 0.1 %
[2021-10-26 14:52] LABS: Basophils % (auto) 0.9 % (0.0-2.0); Eosinophils % (auto) 4.1 % (0.0-7.0); Hematocrit 35.8 % (41.0-53.0); Lymphocytes # (auto) 1.3 10 ^3/uL (0.4-5.4); Lymphocytes % (auto) 31.9 % (10.0-50.0); Mean Corpuscular Hemoglobin 25.1 pg (28.0-32.0); Mean Corpuscular Hgb Conc. 31.1 g/dL (32.0-36.0); Mean Corpuscular Volume 80.7 fL (80.0-100.0); Monocytes % (auto) 9.7 % (0.0-12.0); Neutrophils % (auto) 53.4 % (37.0-80.0); Red Blood Cells 4.44 10^6/uL (4.5-5.90); White Blood Cell 4.1 10^3/uL (4.4-10.8)
[2021-10-26 14:54] LABS: Albumin 3.1 g/dL (3.4-5.0); BUN/Creatinine Ratio 13.4; Calcium 8.9 mg/dL (8.5-10.1); Phosphorus 2.9 mg/dL (2.5-4.90); Potassium 4.2 mmol/L (3.5-5.1)
[2021-10-26] MEDS: HYDROcodone-ACET 5/325MG TAB PO PRN (14:58)
[2021-10-26 15:12] LABS: BUN/Creatinine Ratio 13.4; Calcium 9.1 mg/dL (8.5-10.1); Potassium 4.2 mmol/L (3.5-5.1)
[2021-10-26 16:55] VITALS: BP 92/60
[2021-10-26 17:04] VITALS: BP 92/60
== END 2021-10-26 15:00 | disposition home health service (06) | DRG 291 ==
LOC: ER 12:31 → EDBD 12:31 → TELE 16:39 → TELE-WESTW 10-21 03:45
PROVIDERS: ADMIT Internal Medicine; ATTEND Internal Medicine
PROC: 5A09357 Assistance with Respiratory Ventilation, Less than 24 Consecutive Hours, Continuous Positive Airway Pressure (ICD-10-PCS; principal; 2021-10-21)
PROC: 5A09357 Assistance with Respiratory Ventilation, Less than 24 Consecutive Hours, Continuous Positive Airway Pressure (ICD-10-PCS; 2021-10-22)
PROC: 5A09357 Assistance with Respiratory Ventilation, Less than 24 Consecutive Hours, Continuous Positive Airway Pressure (ICD-10-PCS; 2021-10-25)
DX: I11.0 Hypertensive heart disease with heart failure (principal); I50.21 Acute systolic (congestive) heart failure; J96.20 Acute and chronic respiratory failure, unspecified whether with hypoxia or hypercapnia; N30.00 Acute cystitis without hematuria; I42.9 Cardiomyopathy, unspecified; I25.110 Atherosclerotic heart disease of native coronary artery with unstable angina pectoris; G47.33 Obstructive sleep apnea (adult) (pediatric); E11.9 Type 2 diabetes mellitus without complications; E66.01 Morbid (severe) obesity due to excess calories; E78.5 Hyperlipidemia, unspecified; F40.240 Claustrophobia; F32.A Depression, unspecified; F41.9 Anxiety disorder, unspecified; K21.9 Gastro-esophageal reflux disease without esophagitis; Z20.822 Contact with and (suspected) exposure to COVID-19; J44.9 Chronic obstructive pulmonary disease, unspecified; M16.12 Unilateral primary osteoarthritis, left hip; Z88.0 Allergy status to penicillin; Z88.8 Allergy status to other drugs, medicaments and biological substances; Z91.041 Radiographic dye allergy status; Z91.011 Allergy to milk products; Z79.01 Long term (current) use of anticoagulants; I25.2 Old myocardial infarction; Z79.02 Long term (current) use of antithrombotics/antiplatelets; Z79.82 Long term (current) use of aspirin; Z79.899 Other long term (current) drug therapy; Z82.3 Family history of stroke; Z82.49 Family history of ischemic heart disease and other diseases of the circulatory system; Z83.3 Family history of diabetes mellitus; Z86.711 Personal history of pulmonary embolism; Z86.718 Personal history of other venous thrombosis and embolism; Z91.14 Patient's other noncompliance with medication regimen; Z95.5 Presence of coronary angioplasty implant and graft; Z95.810 Presence of automatic (implantable) cardiac defibrillator
CPT/HCPCS: 36415; 70450; 71045; 72125; 73502; 80048; 80053; 80069; 81001; 83605; 83735; 83880; 84484; 85025; 85610; 85730; 87040; 87086; 93005; 94640; 94660; 95819; 96365; 96366; 96375; 97110; 97116; 97163; 97530; 99291; G0378; G0463; J1642; J2405; J7060

== ENCOUNTER → 2021-10-20 | Outpatient (CLI) | payer MEDICARE, MEDICAID ==
[~2021-10-20] MED LIST changes: -CYANOCOBALAMIN (B-12) 1000 MCG/1 ML VIAL IM ONE; -CYANOCOBALAMIN (B-12) 1000 MCG/1 ML VIAL ONE
[2021-10-20 10:08] VITALS: BP 96/61
[2021-10-20 10:15] VITALS: BP 98/60
[2021-10-20 10:30] VITALS: BP 107/59
[2021-10-20 11:55] VITALS: BP 134/80
[2021-10-20 12:01] VITALS: BP 138/86
[2021-10-20 12:20] VITALS: BP 121/74
[2021-10-20 15:48] LABS: Albumin 3.1 g/dL (3.4-5.0); BUN/Creatinine Ratio 18.2; Calcium 8.7 mg/dL (8.5-10.1); Potassium 3.7 mmol/L (3.5-5.1)
[2021-10-20 15:49] LABS: Bilirubin, Total 0.3 mg/dL (0.2-1.0)
== END | disposition home or self-care (01) ==
LOC: CHF HDHVI 09:50
PROVIDERS: ATTEND Internal Medicine
DX: I11.0 Hypertensive heart disease with heart failure (principal); I50.42 Chronic combined systolic (congestive) and diastolic (congestive) heart failure; I25.10 Atherosclerotic heart disease of native coronary artery without angina pectoris; I25.2 Old myocardial infarction; I48.91 Unspecified atrial fibrillation; J44.9 Chronic obstructive pulmonary disease, unspecified; J96.10 Chronic respiratory failure, unspecified whether with hypoxia or hypercapnia; K21.9 Gastro-esophageal reflux disease without esophagitis; E78.5 Hyperlipidemia, unspecified; F41.9 Anxiety disorder, unspecified; F32.9 Major depressive disorder, single episode, unspecified; M16.0 Bilateral primary osteoarthritis of hip; E66.01 Morbid (severe) obesity due to excess calories; Z68.43 Body mass index [BMI] 50.0-59.9, adult; Z79.01 Long term (current) use of anticoagulants; Z79.02 Long term (current) use of antithrombotics/antiplatelets; Z79.82 Long term (current) use of aspirin; Z79.891 Long term (current) use of opiate analgesic; Z79.899 Other long term (current) drug therapy; Z87.891 Personal history of nicotine dependence; Z95.810 Presence of automatic (implantable) cardiac defibrillator; Z90.49 Acquired absence of other specified parts of digestive tract; Z99.81 Dependence on supplemental oxygen
CPT/HCPCS: 36415; 80053; 83880; 96365; 96366; G0463; J1250; J1642

== ENCOUNTER → 2021-10-29 | Outpatient (CLI) | payer MEDICARE, MEDICAID ==
[2021-10-29] VITALS (9 sets, daily range): BP systolic 105–123; BP diastolic 58–73
[~2021-10-29] MED LIST changes: +CYANOCOBALAMIN (B-12) 1000 MCG/1 ML VIAL IM ONE; +CYANOCOBALAMIN (B-12) 1000 MCG/1 ML VIAL ONE; +DOBUTamine 1000MCG/ML 250 ML IV ONE; -HYDR-4798 PO; +HYDR-4902 PO; -NALO4SPR2; +SENN1TAB14 PO; +TRAZ100T3 PO; +VERI5TAB PO
[2021-10-29 12:42] LABS: Potassium 3.6 mmol/L (3.5-5.1)
== END | disposition home or self-care (01) ==
LOC: CHF HDHVI 07:53
PROVIDERS: ATTEND Internal Medicine
DX: I11.0 Hypertensive heart disease with heart failure (principal); I50.42 Chronic combined systolic (congestive) and diastolic (congestive) heart failure; J96.10 Chronic respiratory failure, unspecified whether with hypoxia or hypercapnia; J44.9 Chronic obstructive pulmonary disease, unspecified; I25.10 Atherosclerotic heart disease of native coronary artery without angina pectoris; I25.2 Old myocardial infarction; K21.9 Gastro-esophageal reflux disease without esophagitis; E11.9 Type 2 diabetes mellitus without complications; E78.5 Hyperlipidemia, unspecified; M16.0 Bilateral primary osteoarthritis of hip; F41.9 Anxiety disorder, unspecified; F32.A Depression, unspecified; Z99.81 Dependence on supplemental oxygen; Z95.810 Presence of automatic (implantable) cardiac defibrillator; Z95.5 Presence of coronary angioplasty implant and graft; Z79.01 Long term (current) use of anticoagulants; Z79.891 Long term (current) use of opiate analgesic; Z79.899 Other long term (current) drug therapy
CPT/HCPCS: 36415; 82565; 83880; 84132; 84520; 96365; 96366; 96372; G0463; J1250; J1642; J3420

== ENCOUNTER → 2021-11-03 | Outpatient (CLI) | payer MEDICARE, MEDICAID ==
[2021-11-03] VITALS (9 sets, daily range): BP systolic 94–113; BP diastolic 59–67
[~2021-11-03] MED LIST changes: -CYANOCOBALAMIN (B-12) 1000 MCG/1 ML VIAL IM ONE; -CYANOCOBALAMIN (B-12) 1000 MCG/1 ML VIAL ONE; +ONDANSETRON HCL 4 MG/2 ML VIAL IV ONE; +ONDANSETRON HCL 4 MG/2 ML VIAL ONE
[2021-11-03 12:52] LABS: Potassium 3.7 mmol/L (3.5-5.1)
[2021-11-03 12:56] LABS: BUN/Creatinine Ratio 18.2; Calcium 8.5 mg/dL (8.5-10.1)
== END | disposition home or self-care (01) ==
LOC: CHF HDHVI 10:22
PROVIDERS: ATTEND Internal Medicine
DX: I11.0 Hypertensive heart disease with heart failure (principal); I50.42 Chronic combined systolic (congestive) and diastolic (congestive) heart failure; I25.10 Atherosclerotic heart disease of native coronary artery without angina pectoris; I25.2 Old myocardial infarction; J44.9 Chronic obstructive pulmonary disease, unspecified; J96.10 Chronic respiratory failure, unspecified whether with hypoxia or hypercapnia; K21.9 Gastro-esophageal reflux disease without esophagitis; E78.5 Hyperlipidemia, unspecified; E11.9 Type 2 diabetes mellitus without complications; Z99.81 Dependence on supplemental oxygen; Z79.01 Long term (current) use of anticoagulants; Z79.891 Long term (current) use of opiate analgesic; Z79.899 Other long term (current) drug therapy; Z95.810 Presence of automatic (implantable) cardiac defibrillator; Z95.5 Presence of coronary angioplasty implant and graft; Z87.891 Personal history of nicotine dependence; Z79.82 Long term (current) use of aspirin; Z79.02 Long term (current) use of antithrombotics/antiplatelets
CPT/HCPCS: 36415; 80048; 83880; 96365; 96366; 96375; G0463; J1250; J1642; J2405

== ENCOUNTER → 2021-11-05 | Outpatient (CLI) | payer MEDICARE, MEDICAID ==
[2021-11-05] VITALS (7 sets, daily range): BP systolic 101–120; BP diastolic 58–64
[~2021-11-05] VITALS: Ht 30.5 cm; Wt 0.5 kg
[~2021-11-05] MED LIST changes: -ONDANSETRON HCL 4 MG/2 ML VIAL IV ONE; -ONDANSETRON HCL 4 MG/2 ML VIAL ONE
== END | disposition home or self-care (01) ==
LOC: CHF HDHVI 10:51
PROVIDERS: ATTEND Internal Medicine
DX: I42.0 Dilated cardiomyopathy (principal); I25.10 Atherosclerotic heart disease of native coronary artery without angina pectoris; J44.9 Chronic obstructive pulmonary disease, unspecified; J96.11 Chronic respiratory failure with hypoxia; K21.9 Gastro-esophageal reflux disease without esophagitis; E78.5 Hyperlipidemia, unspecified; I25.2 Old myocardial infarction; E11.9 Type 2 diabetes mellitus without complications; F41.9 Anxiety disorder, unspecified; F32.A Depression, unspecified; I48.91 Unspecified atrial fibrillation; M19.90 Unspecified osteoarthritis, unspecified site; I11.0 Hypertensive heart disease with heart failure; I50.42 Chronic combined systolic (congestive) and diastolic (congestive) heart failure; Z79.01 Long term (current) use of anticoagulants; Z79.02 Long term (current) use of antithrombotics/antiplatelets; Z79.82 Long term (current) use of aspirin; Z79.891 Long term (current) use of opiate analgesic; Z79.899 Other long term (current) drug therapy; Z87.891 Personal history of nicotine dependence; Z88.0 Allergy status to penicillin; Z91.011 Allergy to milk products; Z86.16 Personal history of COVID-19; Z86.718 Personal history of other venous thrombosis and embolism; Z86.711 Personal history of pulmonary embolism; Z91.041 Radiographic dye allergy status; Z90.49 Acquired absence of other specified parts of digestive tract
CPT/HCPCS: 96365; 96366; G0463; J1250; J1642

== ENCOUNTER → 2021-11-10 | Outpatient (CLI) | payer MEDICARE, MEDICAID ==
[2021-11-10] VITALS (10 sets, daily range): BP systolic 107–132; BP diastolic 59–76
[~2021-11-10] MED LIST changes: +CYANOCOBALAMIN (B-12) 1000 MCG/1 ML VIAL ONE
[2021-11-10 11:32] LABS: Potassium 3.8 mmol/L (3.5-5.1)
== END | disposition home or self-care (01) ==
LOC: CHF HDHVI 09:13
PROVIDERS: ATTEND Internal Medicine
DX: I11.0 Hypertensive heart disease with heart failure (principal); I50.42 Chronic combined systolic (congestive) and diastolic (congestive) heart failure; I25.10 Atherosclerotic heart disease of native coronary artery without angina pectoris; I25.2 Old myocardial infarction; J44.9 Chronic obstructive pulmonary disease, unspecified; J96.10 Chronic respiratory failure, unspecified whether with hypoxia or hypercapnia; K21.9 Gastro-esophageal reflux disease without esophagitis; E11.9 Type 2 diabetes mellitus without complications; E78.5 Hyperlipidemia, unspecified; Z99.81 Dependence on supplemental oxygen; Z79.01 Long term (current) use of anticoagulants; Z79.891 Long term (current) use of opiate analgesic; Z79.899 Other long term (current) drug therapy; Z95.810 Presence of automatic (implantable) cardiac defibrillator; Z95.5 Presence of coronary angioplasty implant and graft; Z87.891 Personal history of nicotine dependence; Z79.82 Long term (current) use of aspirin; Z79.02 Long term (current) use of antithrombotics/antiplatelets
CPT/HCPCS: 36415; 82565; 83880; 84132; 84520; 96365; 96366; G0463; J1250; J1642; J3420

== ENCOUNTER → 2021-11-17 | Outpatient (CLI) | payer MEDICARE, MEDICAID ==
[2021-11-17] VITALS (8 sets, daily range): BP systolic 106–128; BP diastolic 50–67
[~2021-11-17] MED LIST changes: -CYANOCOBALAMIN (B-12) 1000 MCG/1 ML VIAL ONE
[2021-11-17 11:43] LABS: Hematocrit 33.9 % (41.0-53.0); Lymphocytes # (auto) 1.2 10 ^3/uL (0.4-5.4); Monocytes # (auto) 0.7 10 ^3/uL (0-1.3); Nucleated Red Blood Cells % 0.1 %
[2021-11-17 11:46] LABS: Basophils # (auto) 0.1 10 ^3/uL (0-0.2); Eosinophils # (auto) 0.1 10 ^3/uL (0-0.8); Eosinophils % (auto) 2.1 % (0.0-7.0); Hemoglobin 10.7 g/dL (13.5-17.5); Lymphocytes % (auto) 20.1 % (10.0-50.0); Mean Corpuscular Hemoglobin 26.1 pg (28.0-32.0); Mean Corpuscular Hgb Conc. 31.6 g/dL (32.0-36.0); Mean Corpuscular Volume 82.7 fL (80.0-100.0); Monocytes % (auto) 11.2 % (0.0-12.0); Neutrophils # (auto) 4.1 10 ^3/uL (1.6-8.6); Neutrophils % (auto) 65.6 % (37.0-80.0); White Blood Cell 6.2 10^3/uL (4.4-10.8)
[2021-11-17 11:58] LABS: BUN/Creatinine Ratio 11.2; Calcium 8.7 mg/dL (8.5-10.1); Magnesium 2.4 mg/dL (1.6-2.6); Potassium 3.8 mmol/L (3.5-5.1)
== END | disposition home or self-care (01) ==
LOC: CHF HDHVI 09:11
PROVIDERS: ATTEND Internal Medicine
DX: I11.0 Hypertensive heart disease with heart failure (principal); I50.42 Chronic combined systolic (congestive) and diastolic (congestive) heart failure; I42.0 Dilated cardiomyopathy; R56.9 Unspecified convulsions; I25.10 Atherosclerotic heart disease of native coronary artery without angina pectoris; J44.9 Chronic obstructive pulmonary disease, unspecified; K21.9 Gastro-esophageal reflux disease without esophagitis; E78.5 Hyperlipidemia, unspecified; E66.01 Morbid (severe) obesity due to excess calories; I25.2 Old myocardial infarction; E11.9 Type 2 diabetes mellitus without complications; M16.0 Bilateral primary osteoarthritis of hip; I48.91 Unspecified atrial fibrillation; Z90.49 Acquired absence of other specified parts of digestive tract; Z68.43 Body mass index [BMI] 50.0-59.9, adult; Z79.01 Long term (current) use of anticoagulants; Z79.899 Other long term (current) drug therapy; Z79.82 Long term (current) use of aspirin; Z79.02 Long term (current) use of antithrombotics/antiplatelets; Z79.891 Long term (current) use of opiate analgesic; Z86.16 Personal history of COVID-19; Z87.891 Personal history of nicotine dependence; Z86.711 Personal history of pulmonary embolism; Z86.718 Personal history of other venous thrombosis and embolism; Z99.81 Dependence on supplemental oxygen; Z95.810 Presence of automatic (implantable) cardiac defibrillator; Z98.61 Coronary angioplasty status
CPT/HCPCS: 36415; 80048; 83735; 83880; 85025; 96365; 96366; G0463; J1250; J1642

== ENCOUNTER → 2021-11-19 | Outpatient (CLI) | payer MEDICARE, MEDICAID ==
[2021-11-19] VITALS (10 sets, daily range): BP systolic 105–125; BP diastolic 61–72
[~2021-11-19] MED LIST changes: +DOBUTamine 1000MCG/ML 250 ML IV SCH; +KETOROLAC TROMETH 30 MG/ML 1ML VIAL IV ONE; +KETOROLAC TROMETH 60MG/2ML VIAL ONE
== END | disposition home or self-care (01) ==
LOC: CHF HDHVI 09:49
PROVIDERS: ATTEND Internal Medicine Cardiovascular Disease
DX: I42.9 Cardiomyopathy, unspecified (principal); I11.0 Hypertensive heart disease with heart failure; I50.42 Chronic combined systolic (congestive) and diastolic (congestive) heart failure; I25.10 Atherosclerotic heart disease of native coronary artery without angina pectoris; J44.9 Chronic obstructive pulmonary disease, unspecified; J96.11 Chronic respiratory failure with hypoxia; K21.9 Gastro-esophageal reflux disease without esophagitis; E78.5 Hyperlipidemia, unspecified; I25.2 Old myocardial infarction; E11.9 Type 2 diabetes mellitus without complications; F41.9 Anxiety disorder, unspecified; I48.91 Unspecified atrial fibrillation; M19.90 Unspecified osteoarthritis, unspecified site; E66.01 Morbid (severe) obesity due to excess calories; Z68.43 Body mass index [BMI] 50.0-59.9, adult; F32.9 Major depressive disorder, single episode, unspecified; Z79.01 Long term (current) use of anticoagulants; Z79.02 Long term (current) use of antithrombotics/antiplatelets; Z79.82 Long term (current) use of aspirin; Z91.041 Radiographic dye allergy status; Z90.49 Acquired absence of other specified parts of digestive tract; Z79.891 Long term (current) use of opiate analgesic; Z86.16 Personal history of COVID-19; Z86.718 Personal history of other venous thrombosis and embolism; Z86.711 Personal history of pulmonary embolism; Z88.0 Allergy status to penicillin; Z91.011 Allergy to milk products; Z79.899 Other long term (current) drug therapy; Z87.891 Personal history of nicotine dependence
CPT/HCPCS: 96365; 96366; 96375; G0463; J1250; J1642; J1885

== ENCOUNTER → 2021-11-24 | Outpatient (CLI) | payer MEDICARE, MEDICAID ==
[2021-11-24] VITALS (9 sets, daily range): BP systolic 92–126; BP diastolic 63–72
[~2021-11-24] MED LIST changes: +BUMETANIDE 1mg/4ml VIAL (0.25mg/ml) ONE; +BUMETANIDE 2.5mg/10ml (0.25 mg/ml) INJ IV ONE; -DOBUTamine 1000MCG/ML 250 ML IV SCH; -KETOROLAC TROMETH 30 MG/ML 1ML VIAL IV ONE; -KETOROLAC TROMETH 60MG/2ML VIAL ONE; +ONDANSETRON HCL 4 MG/2 ML VIAL IV ONE; +ONDANSETRON HCL 4 MG/2 ML VIAL ONE; +POTASSIUM CHL 20 Meq TABLET PO ONE
[2021-11-24 11:30] LABS: Albumin 3.4 g/dL (3.4-5.0); Calcium 8.7 mg/dL (8.5-10.1); Potassium 3.4 mmol/L (3.5-5.1)
[2021-11-24 11:34] LABS: Bilirubin, Total 0.6 mg/dL (0.2-1.0); Total Protein 7.3 g/dL (6.4-8.2)
[2021-11-24 14:49] LABS: BUN/Creatinine Ratio 10.2
== END | disposition home or self-care (01) ==
LOC: CHF HDHVI 09:15
PROVIDERS: ATTEND Internal Medicine Cardiovascular Disease
DX: I42.0 Dilated cardiomyopathy (principal); R11.0 Nausea; R60.0 Localized edema; R53.83 Other fatigue; I11.0 Hypertensive heart disease with heart failure; I50.42 Chronic combined systolic (congestive) and diastolic (congestive) heart failure; I25.10 Atherosclerotic heart disease of native coronary artery without angina pectoris; J44.9 Chronic obstructive pulmonary disease, unspecified; J96.11 Chronic respiratory failure with hypoxia; K21.9 Gastro-esophageal reflux disease without esophagitis; E78.5 Hyperlipidemia, unspecified; I25.2 Old myocardial infarction; E11.9 Type 2 diabetes mellitus without complications; F41.9 Anxiety disorder, unspecified; I48.91 Unspecified atrial fibrillation; F32.9 Major depressive disorder, single episode, unspecified; M19.90 Unspecified osteoarthritis, unspecified site; E66.01 Morbid (severe) obesity due to excess calories; Z68.43 Body mass index [BMI] 50.0-59.9, adult; Z79.01 Long term (current) use of anticoagulants; Z79.02 Long term (current) use of antithrombotics/antiplatelets; Z79.82 Long term (current) use of aspirin; Z91.041 Radiographic dye allergy status; Z90.49 Acquired absence of other specified parts of digestive tract; Z79.891 Long term (current) use of opiate analgesic; Z79.84 Long term (current) use of oral hypoglycemic drugs; Z79.899 Other long term (current) drug therapy
CPT/HCPCS: 36415; 80053; 83880; 96365; 96366; 96375; G0463; J1250; J1642; J2405; J3490

== ENCOUNTER → 2021-11-26 | Outpatient (CLI) | payer MEDICARE, MEDICAID ==
[~2021-11-26] VITALS: Ht 180.3 cm; Wt 158.1 kg
[2021-11-26] VITALS (11 sets, daily range): BP systolic 105–128; BP diastolic 56–70
[~2021-11-26] MED LIST changes: -BUMETANIDE 1mg/4ml VIAL (0.25mg/ml) ONE; -BUMETANIDE 2.5mg/10ml (0.25 mg/ml) INJ IV ONE; -ONDANSETRON HCL 4 MG/2 ML VIAL IV ONE; -ONDANSETRON HCL 4 MG/2 ML VIAL ONE; -POTASSIUM CHL 20 Meq TABLET PO ONE
== END | disposition home or self-care (01) ==
LOC: CHF HDHVI 09:46
PROVIDERS: ATTEND Internal Medicine
DX: I42.0 Dilated cardiomyopathy (principal); I25.10 Atherosclerotic heart disease of native coronary artery without angina pectoris; F41.9 Anxiety disorder, unspecified; J44.9 Chronic obstructive pulmonary disease, unspecified; J96.11 Chronic respiratory failure with hypoxia; K21.9 Gastro-esophageal reflux disease without esophagitis; E78.5 Hyperlipidemia, unspecified; I11.0 Hypertensive heart disease with heart failure; I50.42 Chronic combined systolic (congestive) and diastolic (congestive) heart failure; F32.9 Major depressive disorder, single episode, unspecified; E66.01 Morbid (severe) obesity due to excess calories; I25.2 Old myocardial infarction; I48.91 Unspecified atrial fibrillation; M19.90 Unspecified osteoarthritis, unspecified site; Z86.16 Personal history of COVID-19; Z87.891 Personal history of nicotine dependence; Z86.718 Personal history of other venous thrombosis and embolism; Z86.711 Personal history of pulmonary embolism; Z91.041 Radiographic dye allergy status; Z95.810 Presence of automatic (implantable) cardiac defibrillator; Z90.49 Acquired absence of other specified parts of digestive tract; Z88.0 Allergy status to penicillin; Z79.01 Long term (current) use of anticoagulants; Z68.43 Body mass index [BMI] 50.0-59.9, adult; Z79.02 Long term (current) use of antithrombotics/antiplatelets; Z79.82 Long term (current) use of aspirin; Z79.891 Long term (current) use of opiate analgesic; Z91.011 Allergy to milk products
CPT/HCPCS: 96365; 96366; G0463; J1250; J1642

== ENCOUNTER 2021-12-01 10:53 | Inpatient (IN) | payer MEDICARE, MEDICAID ==
[~2021-12-01] VITALS: Ht 185.4 cm; Wt 160.1 kg
[~2021-12-01 10:53] MED LIST changes: -DOBUTamine 1000MCG/ML 250 ML IV ONE
[2021-12-01] MEDS ORDERED: ONDANSETRON HCL 4 MG/2 ML VIAL IV ONE (11:45)
[2021-12-01] MEDS ORDERED: MORPHINE SULFATE 4 MG/ML SYR/VIAL IV ONE (11:45)
[2021-12-01 13:40] LABS: Basophils # (auto) 0.1 10 ^3/uL (0-0.2); Eosinophils # (auto) 0.2 10 ^3/uL (0-0.8); Hemoglobin 10.5 g/dL (13.5-17.5); Monocytes # (auto) 0.4 10 ^3/uL (0-1.3); Nucleated Red Blood Cells % 0.1 %; White Blood Cell 5.2 10^3/uL (4.4-10.8)
[2021-12-01 13:42] LABS: Eosinophils % (auto) 3.2 % (0.0-7.0); Lymphocytes # (auto) 1.4 10 ^3/uL (0.4-5.4); Mean Corpuscular Hemoglobin 25.4 pg (28.0-32.0); Monocytes % (auto) 7.4 % (0.0-12.0); Neutrophils # (auto) 3.3 10 ^3/uL (1.6-8.6); Neutrophils % (auto) 62.4 % (37.0-80.0); Red Blood Cells 4.14 10^6/uL (4.5-5.90)
[2021-12-01 14:00] LABS: Albumin 3.3 g/dL (3.4-5.0); Calcium 8.7 mg/dL (8.5-10.1); Potassium 3.9 mmol/L (3.5-5.1)
[2021-12-01 14:04] LABS: BUN/Creatinine Ratio 11.8; Bilirubin, Total 0.5 mg/dL (0.2-1.0); Total Protein 7.2 g/dL (6.4-8.2)
[2021-12-01] MEDS ORDERED: DOCUSATE SOD 100 MG CAP PO PRN (16:15)
[2021-12-01] MEDS: FUROSEMIDE 100 MG/10ML VIAL IV SCH (18:39)
[2021-12-01] MEDS: levETIRAcetam 500 MG/5ML ORAL SOLN UD PO SCH ×2 (18:53→22:00)
[2021-12-01] MEDS ORDERED: LORazepam 2MG/ML-1ML VIAL IV PRN (20:00)
[2021-12-01] MEDS: ONDANSETRON HCL 4 MG/2 ML VIAL IV PRN (20:14)
[2021-12-01] MEDS ORDERED: MIDAZOLAM HCL 2MG/2ML 2ml VIAL (1mg/ml) IV PRN ×2 (20:15→20:30)
[2021-12-01] MEDS: HYDROmorphone HCL 2 MG/ML VL/or syr IV PRN (20:17)
[2021-12-01 22:07] VITALS: BP 101/67
[2021-12-01] MEDS: APIXABAN 5 MG TAB PO SCH (22:41)
[2021-12-01] MEDS: RANOLAZINE ER 500 MG TAB PO SCH (22:41)
[2021-12-01] MEDS: SACUBITRIL-VALSARTAN 24mg/26mg TAB PO SCH (22:41)
[2021-12-01] MEDS: CARVEDILOL 3.125 MG TAB PO SCH (22:42)
[2021-12-01] MEDS: ATORVASTATIN 20 MG TAB PO SCH (22:42)
[2021-12-01] MEDS ORDERED: HYDROcodone-ACET 5/325MG TAB PO ONE (23:45)
[2021-12-02 03:39] LABS: Urine Bacteria FEW /hpf (None Seen); Urine Blood Negative /uL (Negative); Urine Hyaline Cast FEW /lpf (0 - 2); Urine Specific Gravity 1.017 (1.001-1.035); Urine WBC 17 /hpf (0 - 3); Urine WBC Clumps PRESENT /hpf (None Seen)
[2021-12-02] MEDS: ONDANSETRON HCL 4 MG/2 ML VIAL IV PRN ×2 (05:17→10:41)
[2021-12-02] MEDS: HYDROmorphone HCL 2 MG/ML VL/or syr IV PRN ×3 (05:18→17:30)
[2021-12-02 05:52] LABS: Basophils # (auto) 0 10 ^3/uL (0-0.2); Basophils % (auto) 0.4 % (0.0-2.0); Eosinophils # (auto) 0.1 10 ^3/uL (0-0.8); Eosinophils % (auto) 2.7 % (0.0-7.0); Hematocrit 32.5 % (41.0-53.0); Hemoglobin 10.3 g/dL (13.5-17.5); Lymphocytes # (auto) 1.6 10 ^3/uL (0.4-5.4); Lymphocytes % (auto) 30.8 % (10.0-50.0); Mean Corpuscular Hemoglobin 26.3 pg (28.0-32.0); Mean Corpuscular Hgb Conc. 31.6 g/dL (32.0-36.0); Mean Corpuscular Volume 83.3 fL (80.0-100.0); Monocytes # (auto) 0.4 10 ^3/uL (0-1.3); Monocytes % (auto) 8.6 % (0.0-12.0); Neutrophils % (auto) 57.5 % (37.0-80.0); Nucleated Red Blood Cells % 0.1 %; Red Blood Cells 3.91 10^6/uL (4.5-5.90); Red Cell Distribution Width 17.9 % (11.8-14.3); White Blood Cell 5.2 10^3/uL (4.4-10.8)
[2021-12-02 06:08] LABS: Potassium 4.1 mmol/L (3.5-5.1)
[2021-12-02 06:15] LABS: Albumin 3.2 g/dL (3.4-5.0); Bilirubin, Total 0.7 mg/dL (0.2-1.0); Calcium 8.5 mg/dL (8.5-10.1); Total Protein 7.1 g/dL (6.4-8.2)
[2021-12-02] MEDS: FUROSEMIDE 100 MG/10ML VIAL IV SCH ×2 (06:54→18:20)
[2021-12-02] MEDS: CARVEDILOL 3.125 MG TAB PO SCH ×2 (10:00→22:00)
[2021-12-02] MEDS ORDERED: ENOXAPARIN SOD 40 MG/0.4 ML SYRINGE SC SCH (10:00)
[2021-12-02] MEDS: levETIRAcetam 500 MG/5ML ORAL SOLN UD PO SCH ×2 (10:00→21:59)
[2021-12-02] MEDS ORDERED: levETIRAcetam 500 MG/5ML ORAL SOLN UD PO SCH (10:00)
[2021-12-02] MEDS ORDERED: ASPirin 81 mg TAB PO SCH (10:00)
[2021-12-02] MEDS: SACUBITRIL-VALSARTAN 24mg/26mg TAB PO SCH ×3 (10:31→22:01)
[2021-12-02] MEDS: RANOLAZINE ER 500 MG TAB PO SCH ×2 (10:31→22:01)
[2021-12-02] MEDS: APIXABAN 5 MG TAB PO SCH ×2 (10:32→22:02)
[2021-12-02] MEDS: DAPAGLIFLOZIN 5 MG TAB PO SCH (10:32)
[2021-12-02] MEDS: SPIRONOLACTONE 25 MG TAB PO SCH (10:32)
[2021-12-02 15:19] VITALS: BP 98/67
[2021-12-02 16:31] VITALS: BP 96/57
[2021-12-02] MEDS: ALBUTEROL SULF 2.5 MG/0.5ML(0.5%) NEB SOLN NEB PRN (20:05)
[2021-12-02] MEDS ORDERED: HYDROmorphone HCL 2 MG/ML VL/or syr IV PRN (20:45)
[2021-12-02] MEDS ORDERED: HYDROcodone-ACET 10/325MG TAB PO PRN (20:45)
[2021-12-02 22:00] VITALS: BP 98/61
[2021-12-02] MEDS: ATORVASTATIN 20 MG TAB PO SCH (22:02)
[2021-12-03] MEDS ORDERED: TEMAZEPAM 15 MG CAP PO ONE (01:30)
[2021-12-03] MEDS ORDERED: MORPHINE SULFATE INJ 2 MG/ml SYRG IV PRN ×2 (04:30)
[2021-12-03] MEDS ORDERED: NITROGLYCERIN 0.4 MG SL TAB SL PRN (04:30)
[2021-12-03] MEDS: NITROGLYCERIN 0.4 MG SL TAB SL PRN ×2 (04:32→04:46)
[2021-12-03 05:00] VITALS: BP 97/57
[2021-12-03] MEDS: FUROSEMIDE 100 MG/10ML VIAL IV SCH (06:00)
[2021-12-03] MEDS ORDERED: SODIUM CHLOR 0.9% PF (SALINE LOCK) 10ML VIAL/SYR IV SCH (06:00)
[2021-12-03] MEDS: ALBUTEROL SULF 2.5 MG/0.5ML(0.5%) NEB SOLN NEB PRN (06:39)
[2021-12-03 09:00] VITALS: BP 117/67
[2021-12-03] MEDS ORDERED: HYDROcodone-ACET 10/325MG TAB PO PRN (09:15)
[2021-12-03] MEDS: SPIRONOLACTONE 25 MG TAB PO SCH (09:38)
[2021-12-03] MEDS: RANOLAZINE ER 500 MG TAB PO SCH (09:38)
[2021-12-03] MEDS: APIXABAN 5 MG TAB PO SCH (09:38)
[2021-12-03] MEDS: DAPAGLIFLOZIN 5 MG TAB PO SCH (09:38)
[2021-12-03] MEDS: CARVEDILOL 3.125 MG TAB PO SCH (09:38)
[2021-12-03] MEDS: SACUBITRIL-VALSARTAN 24mg/26mg TAB PO SCH (09:38)
[2021-12-03] MEDS: levETIRAcetam 500 MG/5ML ORAL SOLN UD PO SCH (09:40)
[2021-12-03] MEDS ORDERED: LEVE500T32 PO ×2 (10:21)
[2021-12-03 10:30] VITALS: BP 117/67
[2021-12-03] MEDS ORDERED: FUROSEMIDE 40 MG/4 ML VIAL IV SCH (18:00)
[2021-12-03] MEDS ORDERED: levETIRAcetam 500 MG/5ML ORAL SOLN UD PO SCH (22:00)
== END 2021-12-03 11:35 | disposition home or self-care (01) | DRG 100 ==
LOC: ER 10:53 → EDBD 10:53 → OVERFLOW 16:04 → WEST WING 12-02 14:48 → TELE-WESTW 12-02 18:50
PROVIDERS: ADMIT Internal Medicine; ATTEND Internal Medicine Nephrology
DX: G40.209 Localization-related (focal) (partial) symptomatic epilepsy and epileptic syndromes with complex partial seizures, not intractable, without status epilepticus (principal); I50.23 Acute on chronic systolic (congestive) heart failure; I24.9 Acute ischemic heart disease, unspecified; Z68.42 Body mass index [BMI] 45.0-49.9, adult; I69.351 Hemiplegia and hemiparesis following cerebral infarction affecting right dominant side; I11.0 Hypertensive heart disease with heart failure; D63.8 Anemia in other chronic diseases classified elsewhere; E11.9 Type 2 diabetes mellitus without complications; E66.01 Morbid (severe) obesity due to excess calories; E78.5 Hyperlipidemia, unspecified; E88.09 Other disorders of plasma-protein metabolism, not elsewhere classified; Z20.822 Contact with and (suspected) exposure to COVID-19; F17.200 Nicotine dependence, unspecified, uncomplicated; F40.240 Claustrophobia; G47.33 Obstructive sleep apnea (adult) (pediatric); I08.0 Rheumatic disorders of both mitral and aortic valves; I25.10 Atherosclerotic heart disease of native coronary artery without angina pectoris; I25.5 Ischemic cardiomyopathy; Z79.899 Other long term (current) drug therapy; Z82.3 Family history of stroke; Z82.49 Family history of ischemic heart disease and other diseases of the circulatory system; Z83.3 Family history of diabetes mellitus; Z86.718 Personal history of other venous thrombosis and embolism; Z95.5 Presence of coronary angioplasty implant and graft; Z95.810 Presence of automatic (implantable) cardiac defibrillator; Z91.14 Patient's other noncompliance with medication regimen; I25.2 Old myocardial infarction; J44.9 Chronic obstructive pulmonary disease, unspecified; Z79.01 Long term (current) use of anticoagulants; Z79.02 Long term (current) use of antithrombotics/antiplatelets; Z79.82 Long term (current) use of aspirin; Z86.711 Personal history of pulmonary embolism; Z99.81 Dependence on supplemental oxygen; Z79.84 Long term (current) use of oral hypoglycemic drugs
CPT/HCPCS: 36415; 71045; 80053; 81001; 82565; 83735; 83880; 84132; 84484; 84520; 85025; 87081; 93005; 94640; 96365; 96375; G0378; G0463; J1642; J2250; J2405; J7060

== ENCOUNTER → 2021-12-10 | Outpatient (CLI) | payer MEDICARE, MEDICAID ==
[2021-12-10] VITALS (12 sets, daily range): BP systolic 93–116; BP diastolic 54–92
[~2021-12-10] VITALS: Ht 180.3 cm; Wt 158.3 kg
[~2021-12-10] MED LIST changes: +MILRINONE 20MG/100ML 100 ML IV ONE
== END | disposition home or self-care (01) ==
LOC: CHF HDHVI 09:00
PROVIDERS: ATTEND Internal Medicine
DX: I11.0 Hypertensive heart disease with heart failure (principal); I50.42 Chronic combined systolic (congestive) and diastolic (congestive) heart failure; I25.5 Ischemic cardiomyopathy; I50.84 End stage heart failure; G40.911 Epilepsy, unspecified, intractable, with status epilepticus; E66.01 Morbid (severe) obesity due to excess calories; I25.10 Atherosclerotic heart disease of native coronary artery without angina pectoris; J44.9 Chronic obstructive pulmonary disease, unspecified; E78.5 Hyperlipidemia, unspecified; I25.2 Old myocardial infarction; E11.9 Type 2 diabetes mellitus without complications; J96.11 Chronic respiratory failure with hypoxia; K21.9 Gastro-esophageal reflux disease without esophagitis; I48.91 Unspecified atrial fibrillation; M19.90 Unspecified osteoarthritis, unspecified site; F17.200 Nicotine dependence, unspecified, uncomplicated; Z90.49 Acquired absence of other specified parts of digestive tract; Z88.0 Allergy status to penicillin; Z91.011 Allergy to milk products; Z79.891 Long term (current) use of opiate analgesic; Z79.899 Other long term (current) drug therapy; Z86.718 Personal history of other venous thrombosis and embolism; Z86.711 Personal history of pulmonary embolism; Z95.810 Presence of automatic (implantable) cardiac defibrillator; Z79.01 Long term (current) use of anticoagulants; Z79.02 Long term (current) use of antithrombotics/antiplatelets; Z79.82 Long term (current) use of aspirin; Z79.84 Long term (current) use of oral hypoglycemic drugs; Z86.16 Personal history of COVID-19; Z68.42 Body mass index [BMI] 45.0-49.9, adult; Z91.041 Radiographic dye allergy status
CPT/HCPCS: 96365; 96366; G0463; J1642; J2260

== ENCOUNTER → 2021-12-15 | Outpatient (CLI) | payer MEDICARE, MEDICAID ==
[2021-12-15] VITALS (11 sets, daily range): BP systolic 94–111; BP diastolic 56–68
[2021-12-15 12:23] LABS: Magnesium 2.3 mg/dL (1.6-2.6); Potassium 3.8 mmol/L (3.5-5.1)
== END | disposition home or self-care (01) ==
LOC: CHF HDHVI 09:09
PROVIDERS: ATTEND Internal Medicine
DX: I11.0 Hypertensive heart disease with heart failure (principal); I50.42 Chronic combined systolic (congestive) and diastolic (congestive) heart failure; I25.10 Atherosclerotic heart disease of native coronary artery without angina pectoris; J44.9 Chronic obstructive pulmonary disease, unspecified; J96.11 Chronic respiratory failure with hypoxia; G40.909 Epilepsy, unspecified, not intractable, without status epilepticus; K21.9 Gastro-esophageal reflux disease without esophagitis; E78.5 Hyperlipidemia, unspecified; E66.01 Morbid (severe) obesity due to excess calories; I25.2 Old myocardial infarction; E11.9 Type 2 diabetes mellitus without complications; I48.91 Unspecified atrial fibrillation; M19.90 Unspecified osteoarthritis, unspecified site; F41.9 Anxiety disorder, unspecified; F32.A Depression, unspecified; F17.200 Nicotine dependence, unspecified, uncomplicated; Z86.73 Personal history of transient ischemic attack (TIA), and cerebral infarction without residual deficits; Z86.711 Personal history of pulmonary embolism; Z95.810 Presence of automatic (implantable) cardiac defibrillator; Z91.041 Radiographic dye allergy status; Z68.42 Body mass index [BMI] 45.0-49.9, adult; Z79.01 Long term (current) use of anticoagulants; Z79.02 Long term (current) use of antithrombotics/antiplatelets; Z79.82 Long term (current) use of aspirin; Z79.84 Long term (current) use of oral hypoglycemic drugs; Z79.891 Long term (current) use of opiate analgesic; Z79.899 Other long term (current) drug therapy; Z86.16 Personal history of COVID-19; Z90.49 Acquired absence of other specified parts of digestive tract; Z88.0 Allergy status to penicillin; Z91.011 Allergy to milk products; Z88.8 Allergy status to other drugs, medicaments and biological substances
CPT/HCPCS: 36415; 82542; 82565; 83735; 83880; 84132; 84520; 96365; 96366; G0463; J1642; J2260

== ENCOUNTER → 2021-12-22 | Outpatient (CLI) | payer MEDICARE, MEDICAID ==
[2021-12-22] VITALS (11 sets, daily range): BP systolic 71–112; BP diastolic 50–104
[~2021-12-22] MED LIST changes: +BUMETANIDE 1mg/4ml VIAL (0.25mg/ml) ONE; +BUMETANIDE 2.5mg/10ml (0.25 mg/ml) INJ IV ONE; +POTASSIUM CHL 20 Meq TABLET PO ONE
[2021-12-22 12:53] LABS: Basophils # (auto) 0 10 ^3/uL (0-0.2); Eosinophils # (auto) 0.2 10 ^3/uL (0-0.8); Hemoglobin 10.5 g/dL (13.5-17.5); Lymphocytes # (auto) 1.5 10 ^3/uL (0.4-5.4); Monocytes # (auto) 0.5 10 ^3/uL (0-1.3)
[2021-12-22 12:57] LABS: Basophils % (auto) 0.6 % (0.0-2.0); Hematocrit 33.8 % (41.0-53.0); Lymphocytes % (auto) 27.8 % (10.0-50.0); Mean Corpuscular Hgb Conc. 31.1 g/dL (32.0-36.0); Mean Corpuscular Volume 83.7 fL (80.0-100.0); Monocytes % (auto) 9.3 % (0.0-12.0); Neutrophils # (auto) 3.2 10 ^3/uL (1.6-8.6); Neutrophils % (auto) 59.3 % (37.0-80.0); Red Blood Cells 4.03 10^6/uL (4.5-5.90); Red Cell Distribution Width 18.6 % (11.8-14.3); White Blood Cell 5.4 10^3/uL (4.4-10.8)
[2021-12-22 13:08] LABS: Albumin 3.2 g/dL (3.4-5.0); Calcium 8.5 mg/dL (8.5-10.1); Magnesium 2.6 mg/dL (1.6-2.6); Potassium 3.7 mmol/L (3.5-5.1)
[2021-12-22 13:13] LABS: BUN/Creatinine Ratio 14.4; Bilirubin, Total 0.5 mg/dL (0.2-1.0); Total Protein 6.9 g/dL (6.4-8.2)
== END | disposition home or self-care (01) ==
LOC: CHF HDHVI 09:24
PROVIDERS: ATTEND Internal Medicine
DX: I11.0 Hypertensive heart disease with heart failure (principal); I50.42 Chronic combined systolic (congestive) and diastolic (congestive) heart failure; F41.9 Anxiety disorder, unspecified; I25.10 Atherosclerotic heart disease of native coronary artery without angina pectoris; J44.9 Chronic obstructive pulmonary disease, unspecified; J96.11 Chronic respiratory failure with hypoxia; F32.A Depression, unspecified; G40.909 Epilepsy, unspecified, not intractable, without status epilepticus; K21.9 Gastro-esophageal reflux disease without esophagitis; E78.5 Hyperlipidemia, unspecified; E66.01 Morbid (severe) obesity due to excess calories; F17.200 Nicotine dependence, unspecified, uncomplicated; I25.2 Old myocardial infarction; I48.91 Unspecified atrial fibrillation; M19.90 Unspecified osteoarthritis, unspecified site; E11.9 Type 2 diabetes mellitus without complications; Z86.16 Personal history of COVID-19; Z86.73 Personal history of transient ischemic attack (TIA), and cerebral infarction without residual deficits; Z86.711 Personal history of pulmonary embolism; Z88.0 Allergy status to penicillin; Z90.49 Acquired absence of other specified parts of digestive tract; Z68.42 Body mass index [BMI] 45.0-49.9, adult; Z79.01 Long term (current) use of anticoagulants; Z79.02 Long term (current) use of antithrombotics/antiplatelets; Z79.899 Other long term (current) drug therapy; Z79.82 Long term (current) use of aspirin; Z79.84 Long term (current) use of oral hypoglycemic drugs; Z79.891 Long term (current) use of opiate analgesic; Z91.011 Allergy to milk products; Z88.8 Allergy status to other drugs, medicaments and biological substances
CPT/HCPCS: 36415; 80053; 83735; 83880; 85025; 96365; 96366; 96375; G0463; J1642; J2260; J3490

== ENCOUNTER → 2021-12-24 | Outpatient (CLI) | payer MEDICARE, MEDICAID ==
[2021-12-24] VITALS (8 sets, daily range): BP systolic 103–113; BP diastolic 63–71
== END | disposition home or self-care (01) ==
LOC: CHF HDHVI 09:41
PROVIDERS: ATTEND Internal Medicine
DX: I11.0 Hypertensive heart disease with heart failure (principal); I50.42 Chronic combined systolic (congestive) and diastolic (congestive) heart failure; F41.9 Anxiety disorder, unspecified; I25.10 Atherosclerotic heart disease of native coronary artery without angina pectoris; J44.9 Chronic obstructive pulmonary disease, unspecified; J96.11 Chronic respiratory failure with hypoxia; F32.A Depression, unspecified; K21.9 Gastro-esophageal reflux disease without esophagitis; E78.5 Hyperlipidemia, unspecified; E66.01 Morbid (severe) obesity due to excess calories; F17.200 Nicotine dependence, unspecified, uncomplicated; I25.2 Old myocardial infarction; I48.91 Unspecified atrial fibrillation; M19.90 Unspecified osteoarthritis, unspecified site; I25.5 Ischemic cardiomyopathy; G40.911 Epilepsy, unspecified, intractable, with status epilepticus; Z68.42 Body mass index [BMI] 45.0-49.9, adult; Z79.01 Long term (current) use of anticoagulants; Z79.02 Long term (current) use of antithrombotics/antiplatelets; Z79.82 Long term (current) use of aspirin; Z79.899 Other long term (current) drug therapy; Z79.891 Long term (current) use of opiate analgesic; Z90.49 Acquired absence of other specified parts of digestive tract; Z95.810 Presence of automatic (implantable) cardiac defibrillator; Z91.041 Radiographic dye allergy status; Z86.718 Personal history of other venous thrombosis and embolism; Z86.16 Personal history of COVID-19; Z86.711 Personal history of pulmonary embolism; Z86.73 Personal history of transient ischemic attack (TIA), and cerebral infarction without residual deficits; Z88.0 Allergy status to penicillin; Z91.011 Allergy to milk products
CPT/HCPCS: 96365; 96366; 96375; G0463; J1642; J2260; J3490

== ENCOUNTER → 2021-12-29 | Outpatient (CLI) | payer MEDICARE, MEDICAID ==
[2021-12-29] VITALS (11 sets, daily range): BP systolic 96–118; BP diastolic 56–73
[~2021-12-29] MED LIST changes: -BUMETANIDE 1mg/4ml VIAL (0.25mg/ml) ONE; -BUMETANIDE 2.5mg/10ml (0.25 mg/ml) INJ IV ONE; +CYANOCOBALAMIN (B-12) 1000 MCG/1 ML VIAL IM ONE; +CYANOCOBALAMIN (B-12) 1000 MCG/1 ML VIAL ONE; -POTASSIUM CHL 20 Meq TABLET PO ONE
[2021-12-29 16:36] LABS: BUN/Creatinine Ratio 14.3; Calcium 9.4 mg/dL (8.5-10.1); Magnesium 2.6 mg/dL (1.6-2.6); Potassium 3.6 mmol/L (3.5-5.1)
== END | disposition home or self-care (01) ==
LOC: CHF HDHVI 09:37
PROVIDERS: ATTEND Internal Medicine
DX: I11.0 Hypertensive heart disease with heart failure (principal); I50.42 Chronic combined systolic (congestive) and diastolic (congestive) heart failure; I25.5 Ischemic cardiomyopathy; G40.911 Epilepsy, unspecified, intractable, with status epilepticus; F41.9 Anxiety disorder, unspecified; I25.10 Atherosclerotic heart disease of native coronary artery without angina pectoris; J44.9 Chronic obstructive pulmonary disease, unspecified; J96.11 Chronic respiratory failure with hypoxia; F32.A Depression, unspecified; K21.9 Gastro-esophageal reflux disease without esophagitis; E78.5 Hyperlipidemia, unspecified; E11.9 Type 2 diabetes mellitus without complications; I48.91 Unspecified atrial fibrillation; M19.90 Unspecified osteoarthritis, unspecified site; I25.2 Old myocardial infarction; E66.01 Morbid (severe) obesity due to excess calories; F17.200 Nicotine dependence, unspecified, uncomplicated; Z79.01 Long term (current) use of anticoagulants; Z79.02 Long term (current) use of antithrombotics/antiplatelets; Z79.82 Long term (current) use of aspirin; Z79.84 Long term (current) use of oral hypoglycemic drugs; Z79.891 Long term (current) use of opiate analgesic; Z90.49 Acquired absence of other specified parts of digestive tract; Z88.0 Allergy status to penicillin; Z91.011 Allergy to milk products; Z68.42 Body mass index [BMI] 45.0-49.9, adult; Z86.16 Personal history of COVID-19; Z86.718 Personal history of other venous thrombosis and embolism; Z86.711 Personal history of pulmonary embolism; Z86.73 Personal history of transient ischemic attack (TIA), and cerebral infarction without residual deficits; Z95.810 Presence of automatic (implantable) cardiac defibrillator; Z91.041 Radiographic dye allergy status; Z88.8 Allergy status to other drugs, medicaments and biological substances
CPT/HCPCS: 36415; 80048; 83735; 83880; 96365; 96366; 96372; G0463; J1642; J2260; J3420

== ENCOUNTER → 2022-01-07 | Outpatient (CLI) | payer MEDICARE, MEDICAID ==
[2022-01-07] VITALS (12 sets, daily range): BP systolic 97–130; BP diastolic 51–74
[~2022-01-07] VITALS: Ht 165.1 cm; Wt 161.3 kg
[~2022-01-07] MED LIST changes: -CYANOCOBALAMIN (B-12) 1000 MCG/1 ML VIAL IM ONE; -CYANOCOBALAMIN (B-12) 1000 MCG/1 ML VIAL ONE; +MILRINONE 20MG/100ML 0 ML IV ONE
[2022-01-07 12:41] LABS: Albumin 3.3 g/dL (3.4-5.0); Calcium 8.6 mg/dL (8.5-10.1); Magnesium 2.5 mg/dL (1.6-2.6); Potassium 3.6 mmol/L (3.5-5.1)
[2022-01-07 12:48] LABS: BUN/Creatinine Ratio 12.3; Bilirubin, Total 0.6 mg/dL (0.2-1.0); Total Protein 7.3 g/dL (6.4-8.2)
== END | disposition home or self-care (01) ==
LOC: CHF HDHVI 10:07
PROVIDERS: ATTEND Internal Medicine
DX: I11.0 Hypertensive heart disease with heart failure (principal); I50.42 Chronic combined systolic (congestive) and diastolic (congestive) heart failure; F41.9 Anxiety disorder, unspecified; I25.10 Atherosclerotic heart disease of native coronary artery without angina pectoris; J44.9 Chronic obstructive pulmonary disease, unspecified; J96.11 Chronic respiratory failure with hypoxia; F32.A Depression, unspecified; G40.909 Epilepsy, unspecified, not intractable, without status epilepticus; K21.9 Gastro-esophageal reflux disease without esophagitis; E78.5 Hyperlipidemia, unspecified; I48.91 Unspecified atrial fibrillation; I25.2 Old myocardial infarction; E66.01 Morbid (severe) obesity due to excess calories; M19.90 Unspecified osteoarthritis, unspecified site; E11.9 Type 2 diabetes mellitus without complications; F17.200 Nicotine dependence, unspecified, uncomplicated; Z79.01 Long term (current) use of anticoagulants; Z79.02 Long term (current) use of antithrombotics/antiplatelets; Z79.82 Long term (current) use of aspirin; Z79.891 Long term (current) use of opiate analgesic; Z79.899 Other long term (current) drug therapy; Z68.42 Body mass index [BMI] 45.0-49.9, adult; Z86.16 Personal history of COVID-19; Z86.711 Personal history of pulmonary embolism; Z86.718 Personal history of other venous thrombosis and embolism; Z95.810 Presence of automatic (implantable) cardiac defibrillator; Z86.73 Personal history of transient ischemic attack (TIA), and cerebral infarction without residual deficits; Z79.84 Long term (current) use of oral hypoglycemic drugs; Z90.49 Acquired absence of other specified parts of digestive tract; Z88.0 Allergy status to penicillin; Z91.011 Allergy to milk products
CPT/HCPCS: 36415; 80053; 83735; 83880; 96365; 96366; G0463; J1642; J2260

== ENCOUNTER → 2022-01-12 | Outpatient (CLI) | payer MEDICARE, MEDICAID ==
[2022-01-12] VITALS (11 sets, daily range): BP systolic 100–123; BP diastolic 53–70
[~2022-01-12] MED LIST changes: -MILRINONE 20MG/100ML 0 ML IV ONE
== END | disposition home or self-care (01) ==
LOC: CHF HDHVI 09:54
PROVIDERS: ATTEND Internal Medicine
DX: I13.2 Hypertensive heart and chronic kidney disease with heart failure and with stage 5 chronic kidney disease, or end stage renal disease (principal); E11.22 Type 2 diabetes mellitus with diabetic chronic kidney disease; N18.6 End stage renal disease; I50.42 Chronic combined systolic (congestive) and diastolic (congestive) heart failure; F41.9 Anxiety disorder, unspecified; I25.10 Atherosclerotic heart disease of native coronary artery without angina pectoris; J44.9 Chronic obstructive pulmonary disease, unspecified; J96.11 Chronic respiratory failure with hypoxia; F32.A Depression, unspecified; G40.909 Epilepsy, unspecified, not intractable, without status epilepticus; K21.9 Gastro-esophageal reflux disease without esophagitis; E78.5 Hyperlipidemia, unspecified; I25.2 Old myocardial infarction; I48.91 Unspecified atrial fibrillation; M19.90 Unspecified osteoarthritis, unspecified site; E66.01 Morbid (severe) obesity due to excess calories; Z68.43 Body mass index [BMI] 50.0-59.9, adult; Z87.891 Personal history of nicotine dependence; Z86.711 Personal history of pulmonary embolism; Z79.01 Long term (current) use of anticoagulants; Z79.02 Long term (current) use of antithrombotics/antiplatelets; Z79.82 Long term (current) use of aspirin; Z79.84 Long term (current) use of oral hypoglycemic drugs; Z99.2 Dependence on renal dialysis; Z90.49 Acquired absence of other specified parts of digestive tract; Z88.0 Allergy status to penicillin; Z91.011 Allergy to milk products; Z79.891 Long term (current) use of opiate analgesic; Z79.899 Other long term (current) drug therapy; Z86.16 Personal history of COVID-19; Z86.718 Personal history of other venous thrombosis and embolism; Z86.73 Personal history of transient ischemic attack (TIA), and cerebral infarction without residual deficits; Z95.810 Presence of automatic (implantable) cardiac defibrillator; Z91.041 Radiographic dye allergy status
CPT/HCPCS: 96365; 96366; G0463; J1642; J2260

== ENCOUNTER → 2022-01-14 | Outpatient (CLI) | payer MEDICARE, MEDICAID ==
[2022-01-14] VITALS (10 sets, daily range): BP systolic 105–118; BP diastolic 60–70
== END | disposition home or self-care (01) ==
LOC: CHF HDHVI 09:51
PROVIDERS: ATTEND Internal Medicine
DX: I13.2 Hypertensive heart and chronic kidney disease with heart failure and with stage 5 chronic kidney disease, or end stage renal disease (principal); E11.22 Type 2 diabetes mellitus with diabetic chronic kidney disease; N18.6 End stage renal disease; I50.42 Chronic combined systolic (congestive) and diastolic (congestive) heart failure; G40.909 Epilepsy, unspecified, not intractable, without status epilepticus; I25.5 Ischemic cardiomyopathy; I25.10 Atherosclerotic heart disease of native coronary artery without angina pectoris; J44.9 Chronic obstructive pulmonary disease, unspecified; I25.2 Old myocardial infarction; K21.9 Gastro-esophageal reflux disease without esophagitis; E78.5 Hyperlipidemia, unspecified; E66.01 Morbid (severe) obesity due to excess calories; I48.91 Unspecified atrial fibrillation; M19.90 Unspecified osteoarthritis, unspecified site; Z68.43 Body mass index [BMI] 50.0-59.9, adult; Z87.891 Personal history of nicotine dependence; Z99.81 Dependence on supplemental oxygen; Z79.02 Long term (current) use of antithrombotics/antiplatelets; Z79.82 Long term (current) use of aspirin; Z79.891 Long term (current) use of opiate analgesic; Z79.01 Long term (current) use of anticoagulants; Z79.84 Long term (current) use of oral hypoglycemic drugs; Z90.49 Acquired absence of other specified parts of digestive tract; Z79.899 Other long term (current) drug therapy; Z86.718 Personal history of other venous thrombosis and embolism; Z86.711 Personal history of pulmonary embolism; Z86.16 Personal history of COVID-19; Z98.61 Coronary angioplasty status; Z95.810 Presence of automatic (implantable) cardiac defibrillator; Z86.73 Personal history of transient ischemic attack (TIA), and cerebral infarction without residual deficits
CPT/HCPCS: 96365; 96366; G0463; J1642; J2260

== ENCOUNTER → 2022-01-21 | Outpatient (CLI) | payer MEDICARE, MEDICAID ==
[2022-01-21] VITALS (11 sets, daily range): BP systolic 114–131; BP diastolic 52–76
[~2022-01-21] MED LIST changes: +KETOROLAC TROMETH 30 MG/ML 1ML VIAL IV ONE; +KETOROLAC TROMETH 60MG/2ML VIAL ONE
== END | disposition home or self-care (01) ==
LOC: CHF HDHVI 09:12
PROVIDERS: ATTEND Internal Medicine
DX: R51.9 Headache, unspecified (principal); I13.2 Hypertensive heart and chronic kidney disease with heart failure and with stage 5 chronic kidney disease, or end stage renal disease; E11.22 Type 2 diabetes mellitus with diabetic chronic kidney disease; N18.6 End stage renal disease; I50.42 Chronic combined systolic (congestive) and diastolic (congestive) heart failure; F41.9 Anxiety disorder, unspecified; F32.A Depression, unspecified; I25.10 Atherosclerotic heart disease of native coronary artery without angina pectoris; J44.9 Chronic obstructive pulmonary disease, unspecified; J96.11 Chronic respiratory failure with hypoxia; G40.909 Epilepsy, unspecified, not intractable, without status epilepticus; K21.9 Gastro-esophageal reflux disease without esophagitis; I48.91 Unspecified atrial fibrillation; M19.90 Unspecified osteoarthritis, unspecified site; E78.5 Hyperlipidemia, unspecified; I25.2 Old myocardial infarction; E66.01 Morbid (severe) obesity due to excess calories; Z68.43 Body mass index [BMI] 50.0-59.9, adult; Z87.891 Personal history of nicotine dependence; Z86.711 Personal history of pulmonary embolism; Z86.73 Personal history of transient ischemic attack (TIA), and cerebral infarction without residual deficits; Z79.01 Long term (current) use of anticoagulants; Z79.02 Long term (current) use of antithrombotics/antiplatelets; Z99.2 Dependence on renal dialysis; Z90.49 Acquired absence of other specified parts of digestive tract; Z88.0 Allergy status to penicillin; Z91.011 Allergy to milk products; Z79.82 Long term (current) use of aspirin; Z79.84 Long term (current) use of oral hypoglycemic drugs; Z79.891 Long term (current) use of opiate analgesic; Z79.899 Other long term (current) drug therapy; Z86.16 Personal history of COVID-19; Z86.718 Personal history of other venous thrombosis and embolism; Z95.810 Presence of automatic (implantable) cardiac defibrillator; Z91.041 Radiographic dye allergy status
CPT/HCPCS: 70450; 96365; 96366; 96375; G0463; J1642; J1885; J2260

== ENCOUNTER → 2022-02-04 | Outpatient (CLI) | payer MEDICARE, MEDICAID ==
[~2022-02-04] VITALS: Ht 33 cm; Wt 160.3 kg
[2022-02-04] VITALS (9 sets, daily range): BP systolic 107–130; BP diastolic 53–69
[~2022-02-04] MED LIST changes: -KETOROLAC TROMETH 30 MG/ML 1ML VIAL IV ONE; -KETOROLAC TROMETH 60MG/2ML VIAL ONE
[2022-02-04 11:21] LABS: Basophils # (auto) 0 10 ^3/uL (0-0.2); Basophils % (auto) 0.8 % (0.0-2.0); Eosinophils # (auto) 0.1 10 ^3/uL (0-0.8); Hemoglobin 10.8 g/dL (13.5-17.5); Lymphocytes # (auto) 1.3 10 ^3/uL (0.4-5.4); Monocytes # (auto) 0.6 10 ^3/uL (0-1.3); Neutrophils # (auto) 3.6 10 ^3/uL (1.6-8.6); White Blood Cell 5.6 10^3/uL (4.4-10.8)
[2022-02-04 11:25] LABS: Eosinophils % (auto) 1.4 % (0.0-7.0); Hematocrit 33.8 % (41.0-53.0); Lymphocytes % (auto) 22.6 % (10.0-50.0); Mean Corpuscular Hemoglobin 26.4 pg (28.0-32.0); Mean Corpuscular Hgb Conc. 31.9 g/dL (32.0-36.0); Mean Corpuscular Volume 82.8 fL (80.0-100.0); Monocytes % (auto) 11.5 % (0.0-12.0); Neutrophils % (auto) 63.7 % (37.0-80.0); Red Blood Cells 4.08 10^6/uL (4.5-5.90); Red Cell Distribution Width 17.7 % (11.8-14.3)
[2022-02-04 11:35] LABS: Potassium 3.7 mmol/L (3.5-5.1)
[2022-02-04 11:40] LABS: BUN/Creatinine Ratio 13.4; Calcium 8.5 mg/dL (8.5-10.1); Magnesium 2.6 mg/dL (1.6-2.6)
== END | disposition home or self-care (01) ==
LOC: CHF HDHVI 09:13
PROVIDERS: ATTEND Internal Medicine
DX: I13.2 Hypertensive heart and chronic kidney disease with heart failure and with stage 5 chronic kidney disease, or end stage renal disease (principal); E11.22 Type 2 diabetes mellitus with diabetic chronic kidney disease; N18.6 End stage renal disease; I50.42 Chronic combined systolic (congestive) and diastolic (congestive) heart failure; I25.5 Ischemic cardiomyopathy; F41.9 Anxiety disorder, unspecified; I25.10 Atherosclerotic heart disease of native coronary artery without angina pectoris; J44.9 Chronic obstructive pulmonary disease, unspecified; J96.11 Chronic respiratory failure with hypoxia; G40.911 Epilepsy, unspecified, intractable, with status epilepticus; E66.01 Morbid (severe) obesity due to excess calories; F32.A Depression, unspecified; K21.9 Gastro-esophageal reflux disease without esophagitis; E78.5 Hyperlipidemia, unspecified; I25.2 Old myocardial infarction; I48.91 Unspecified atrial fibrillation; M19.90 Unspecified osteoarthritis, unspecified site; Z79.01 Long term (current) use of anticoagulants; Z79.02 Long term (current) use of antithrombotics/antiplatelets; Z79.82 Long term (current) use of aspirin; Z68.43 Body mass index [BMI] 50.0-59.9, adult; Z79.84 Long term (current) use of oral hypoglycemic drugs; Z79.4 Long term (current) use of insulin; Z79.891 Long term (current) use of opiate analgesic; Z79.899 Other long term (current) drug therapy; Z86.16 Personal history of COVID-19; Z87.891 Personal history of nicotine dependence; Z86.711 Personal history of pulmonary embolism; Z99.2 Dependence on renal dialysis; Z90.49 Acquired absence of other specified parts of digestive tract; Z88.0 Allergy status to penicillin; Z91.011 Allergy to milk products; Z95.810 Presence of automatic (implantable) cardiac defibrillator; Z86.73 Personal history of transient ischemic attack (TIA), and cerebral infarction without residual deficits
CPT/HCPCS: 36415; 80048; 83735; 83880; 85025; 96365; 96366; G0463; J1642; J2260

== ENCOUNTER → 2022-02-09 | Outpatient (CLI) | payer MEDICARE, MEDICAID ==
[2022-02-09] VITALS (12 sets, daily range): BP systolic 93–124; BP diastolic 51–63
== END | disposition home or self-care (01) ==
LOC: CHF HDHVI 09:30
PROVIDERS: ATTEND Internal Medicine
DX: I13.2 Hypertensive heart and chronic kidney disease with heart failure and with stage 5 chronic kidney disease, or end stage renal disease (principal); E11.22 Type 2 diabetes mellitus with diabetic chronic kidney disease; N18.6 End stage renal disease; I50.42 Chronic combined systolic (congestive) and diastolic (congestive) heart failure; I25.5 Ischemic cardiomyopathy; G40.911 Epilepsy, unspecified, intractable, with status epilepticus; E66.01 Morbid (severe) obesity due to excess calories; F41.9 Anxiety disorder, unspecified; I25.10 Atherosclerotic heart disease of native coronary artery without angina pectoris; J44.9 Chronic obstructive pulmonary disease, unspecified; J96.11 Chronic respiratory failure with hypoxia; F32.A Depression, unspecified; K21.9 Gastro-esophageal reflux disease without esophagitis; E78.5 Hyperlipidemia, unspecified; I48.91 Unspecified atrial fibrillation; M19.90 Unspecified osteoarthritis, unspecified site; I25.2 Old myocardial infarction; Z79.01 Long term (current) use of anticoagulants; Z79.02 Long term (current) use of antithrombotics/antiplatelets; Z79.82 Long term (current) use of aspirin; Z79.84 Long term (current) use of oral hypoglycemic drugs; Z79.891 Long term (current) use of opiate analgesic; Z68.43 Body mass index [BMI] 50.0-59.9, adult; Z90.49 Acquired absence of other specified parts of digestive tract; Z99.2 Dependence on renal dialysis; Z79.4 Long term (current) use of insulin; Z88.0 Allergy status to penicillin; Z91.011 Allergy to milk products; Z79.899 Other long term (current) drug therapy; Z86.16 Personal history of COVID-19; Z87.891 Personal history of nicotine dependence; Z86.711 Personal history of pulmonary embolism; Z86.73 Personal history of transient ischemic attack (TIA), and cerebral infarction without residual deficits; Z95.810 Presence of automatic (implantable) cardiac defibrillator
CPT/HCPCS: 36415; 82565; 83880; 84132; 84520; 96365; 96366; G0463; J1642; J2260

== ENCOUNTER → 2022-02-23 | Outpatient (CLI) | payer MEDICARE, MEDICAID ==
[2022-02-23] VITALS (11 sets, daily range): BP systolic 100–109; BP diastolic 55–66
[~2022-02-23] MED LIST changes: +POTASSIUM CHL 20 Meq TABLET PO ONE
[2022-02-23 12:26] LABS: Albumin 3.3 g/dL (3.4-5.0); Calcium 8.7 mg/dL (8.5-10.1); Magnesium 2.3 mg/dL (1.6-2.6); Potassium 3.7 mmol/L (3.5-5.1)
[2022-02-23 12:30] LABS: Bilirubin, Total 0.3 mg/dL (0.2-1.0); Total Protein 7.1 g/dL (6.4-8.2)
== END | disposition home or self-care (01) ==
LOC: CHF HDHVI 09:41
PROVIDERS: ATTEND Internal Medicine
DX: I13.2 Hypertensive heart and chronic kidney disease with heart failure and with stage 5 chronic kidney disease, or end stage renal disease (principal); E11.22 Type 2 diabetes mellitus with diabetic chronic kidney disease; N18.6 End stage renal disease; I50.42 Chronic combined systolic (congestive) and diastolic (congestive) heart failure; F41.9 Anxiety disorder, unspecified; I25.10 Atherosclerotic heart disease of native coronary artery without angina pectoris; J44.9 Chronic obstructive pulmonary disease, unspecified; J96.11 Chronic respiratory failure with hypoxia; F32.A Depression, unspecified; G40.909 Epilepsy, unspecified, not intractable, without status epilepticus; K21.9 Gastro-esophageal reflux disease without esophagitis; E78.5 Hyperlipidemia, unspecified; E66.01 Morbid (severe) obesity due to excess calories; I25.2 Old myocardial infarction; I48.91 Unspecified atrial fibrillation; M19.90 Unspecified osteoarthritis, unspecified site; Z87.891 Personal history of nicotine dependence; Z86.711 Personal history of pulmonary embolism; Z79.01 Long term (current) use of anticoagulants; Z79.02 Long term (current) use of antithrombotics/antiplatelets; Z79.82 Long term (current) use of aspirin; Z68.43 Body mass index [BMI] 50.0-59.9, adult; Z79.899 Other long term (current) drug therapy; Z86.16 Personal history of COVID-19; Z99.2 Dependence on renal dialysis; Z90.49 Acquired absence of other specified parts of digestive tract; Z88.0 Allergy status to penicillin; Z91.011 Allergy to milk products; Z79.84 Long term (current) use of oral hypoglycemic drugs; Z79.4 Long term (current) use of insulin; Z79.891 Long term (current) use of opiate analgesic; Z86.73 Personal history of transient ischemic attack (TIA), and cerebral infarction without residual deficits; Z95.810 Presence of automatic (implantable) cardiac defibrillator; Z86.718 Personal history of other venous thrombosis and embolism
CPT/HCPCS: 36415; 80053; 83735; 83880; 96365; 96366; G0463; J1642; J2260

== ENCOUNTER → 2022-02-25 | Outpatient (CLI) | payer MEDICARE, MEDICAID ==
[2022-02-25] VITALS (12 sets, daily range): BP systolic 94–129; BP diastolic 53–67
[~2022-02-25] MED LIST changes: -POTASSIUM CHL 20 Meq TABLET PO ONE
== END | disposition home or self-care (01) ==
LOC: CHF HDHVI 09:02
PROVIDERS: ATTEND Internal Medicine
DX: I13.2 Hypertensive heart and chronic kidney disease with heart failure and with stage 5 chronic kidney disease, or end stage renal disease (principal); E11.22 Type 2 diabetes mellitus with diabetic chronic kidney disease; N18.6 End stage renal disease; I50.42 Chronic combined systolic (congestive) and diastolic (congestive) heart failure; F41.9 Anxiety disorder, unspecified; F32.A Depression, unspecified; I25.10 Atherosclerotic heart disease of native coronary artery without angina pectoris; J44.9 Chronic obstructive pulmonary disease, unspecified; J96.11 Chronic respiratory failure with hypoxia; G40.909 Epilepsy, unspecified, not intractable, without status epilepticus; K21.9 Gastro-esophageal reflux disease without esophagitis; E78.5 Hyperlipidemia, unspecified; E66.01 Morbid (severe) obesity due to excess calories; I25.2 Old myocardial infarction; I48.91 Unspecified atrial fibrillation; M19.90 Unspecified osteoarthritis, unspecified site; Z68.43 Body mass index [BMI] 50.0-59.9, adult; Z86.16 Personal history of COVID-19; Z87.891 Personal history of nicotine dependence; Z86.711 Personal history of pulmonary embolism; Z79.01 Long term (current) use of anticoagulants; Z79.02 Long term (current) use of antithrombotics/antiplatelets; Z99.2 Dependence on renal dialysis; Z79.4 Long term (current) use of insulin; Z79.84 Long term (current) use of oral hypoglycemic drugs; Z88.0 Allergy status to penicillin; Z90.49 Acquired absence of other specified parts of digestive tract; Z91.011 Allergy to milk products; Z79.82 Long term (current) use of aspirin; Z79.891 Long term (current) use of opiate analgesic; Z79.899 Other long term (current) drug therapy; Z86.718 Personal history of other venous thrombosis and embolism; Z95.810 Presence of automatic (implantable) cardiac defibrillator; Z86.73 Personal history of transient ischemic attack (TIA), and cerebral infarction without residual deficits
CPT/HCPCS: 96365; 96366; G0463; J1642; J2260

== ENCOUNTER → 2022-03-02 | Outpatient (CLI) | payer MEDICARE, MEDICAID ==
[2022-03-02] VITALS (11 sets, daily range): BP systolic 103–130; BP diastolic 50–70
[~2022-03-02] MED LIST changes: +ACETAMINOPHEN 500 MG TAB PO ONE; +CYANOCOBALAMIN (B-12) 1000 MCG/1 ML VIAL IM ONE; +CYANOCOBALAMIN (B-12) 1000 MCG/1 ML VIAL ONE
[2022-03-02 11:21] LABS: Basophils # (auto) 0 10 ^3/uL (0-0.2); Basophils % (auto) 0.5 % (0.0-2.0); Eosinophils # (auto) 0.1 10 ^3/uL (0-0.8); Eosinophils % (auto) 1.4 % (0.0-7.0); Hemoglobin 11.6 g/dL (13.5-17.5); Lymphocytes # (auto) 1.7 10 ^3/uL (0.4-5.4); Lymphocytes % (auto) 28.5 % (10.0-50.0); Mean Corpuscular Hgb Conc. 32.1 g/dL (32.0-36.0); Mean Corpuscular Volume 84.1 fL (80.0-100.0); Monocytes # (auto) 0.7 10 ^3/uL (0-1.3); Monocytes % (auto) 10.9 % (0.0-12.0); Neutrophils # (auto) 3.6 10 ^3/uL (1.6-8.6); Neutrophils % (auto) 58.7 % (37.0-80.0); Nucleated Red Blood Cells % 0.1 %; Red Blood Cells 4.28 10^6/uL (4.5-5.90); Red Cell Distribution Width 17.6 % (11.8-14.3); White Blood Cell 6.1 10^3/uL (4.4-10.8)
[2022-03-02 11:32] LABS: BUN/Creatinine Ratio 12.5; Magnesium 2.5 mg/dL (1.6-2.6); Potassium 3.8 mmol/L (3.5-5.1)
== END | disposition home or self-care (01) ==
LOC: CHF HDHVI 09:30
PROVIDERS: ATTEND Internal Medicine
DX: I50.23 Acute on chronic systolic (congestive) heart failure (principal)
CPT/HCPCS: 36415; 80048; 83735; 83880; 85025; 96365; 96366; 96372; G0463; J1642

== ENCOUNTER → 2022-03-09 | Outpatient (CLI) | payer MEDICARE, MEDICAID ==
[2022-03-09] VITALS (9 sets, daily range): BP systolic 105–117; BP diastolic 56–78
[~2022-03-09] MED LIST changes: -ACETAMINOPHEN 500 MG TAB PO ONE; -CYANOCOBALAMIN (B-12) 1000 MCG/1 ML VIAL ONE; +IOHEXOL 350 MG/ML 100ML IJ ONE; +diphenhdrAMINE HCL 50 MG/1 ML VL IV ONE; +diphenhdrAMINE HCL 50 MG/1 ML VL ONE; +methylPREDNISolone SOD SUCC 125 MG/2 ML VL IV ONE; +methylPREDNISolone SOD SUCC 125 MG/2 ML VL ONE
[2022-03-09 17:03] LABS: Basophils # (auto) 0 10 ^3/uL (0-0.2); Basophils % (auto) 0.8 % (0.0-2.0); Eosinophils # (auto) 0.1 10 ^3/uL (0-0.8); Eosinophils % (auto) 1.2 % (0.0-7.0); Hemoglobin 12.1 g/dL (13.5-17.5); Lymphocytes # (auto) 1.4 10 ^3/uL (0.4-5.4); Lymphocytes % (auto) 23.1 % (10.0-50.0); Mean Corpuscular Hemoglobin 26.6 pg (28.0-32.0); Mean Corpuscular Hgb Conc. 31.9 g/dL (32.0-36.0); Mean Corpuscular Volume 83.5 fL (80.0-100.0); Monocytes # (auto) 0.8 10 ^3/uL (0-1.3); Monocytes % (auto) 13.6 % (0.0-12.0); Neutrophils # (auto) 3.7 10 ^3/uL (1.6-8.6); Neutrophils % (auto) 61.3 % (37.0-80.0); Nucleated Red Blood Cells % 0.1 %; Red Blood Cells 4.55 10^6/uL (4.5-5.90); Red Cell Distribution Width 17.1 % (11.8-14.3); White Blood Cell 6.1 10^3/uL (4.4-10.8)
[2022-03-09 17:31] LABS: Calcium 9.2 mg/dL (8.5-10.1); Magnesium 2.6 mg/dL (1.6-2.6); Potassium 3.8 mmol/L (3.5-5.1)
[2022-03-09 17:33] LABS: BUN/Creatinine Ratio 19.4
== END | disposition home or self-care (01) ==
LOC: CHF HDHVI 09:52
PROVIDERS: ATTEND Internal Medicine
DX: I50.23 Acute on chronic systolic (congestive) heart failure (principal); R51.9 Headache, unspecified
CPT/HCPCS: 36415; 70470; 80048; 83735; 83880; 85025; 96365; 96366; 96375; G0463; J1200; J2260; J2930; Q9967

== ENCOUNTER 2022-03-20 17:11 | Inpatient (IN) | payer MEDICARE, MEDICAID ==
[~2022-03-20] VITALS: Ht 182.9 cm; Wt 160.0 kg
[~2022-03-20 17:11] MED LIST changes: -CYANOCOBALAMIN (B-12) 1000 MCG/1 ML VIAL IM ONE; -IOHEXOL 350 MG/ML 100ML IJ ONE; -MILRINONE 20MG/100ML 100 ML IV ONE; -diphenhdrAMINE HCL 50 MG/1 ML VL IV ONE; -diphenhdrAMINE HCL 50 MG/1 ML VL ONE; -methylPREDNISolone SOD SUCC 125 MG/2 ML VL IV ONE; -methylPREDNISolone SOD SUCC 125 MG/2 ML VL ONE
[2022-03-20] MEDS ORDERED: ONDANSETRON HCL 4 MG/2 ML VIAL IV ONE (18:00)
[2022-03-20] MEDS ORDERED: MORPHINE SULFATE 4 MG/ML SYR/VIAL IV ONE (18:00)
[2022-03-20 18:38] LABS: Hemoglobin 11.6 g/dL (13.5-17.5); Mean Corpuscular Volume 83.1 fL (80.0-100.0); White Blood Cell 6.7 10^3/uL (4.4-10.8)
[2022-03-20 18:41] LABS: Basophils # (auto) 0.1 10 ^3/uL (0-0.2); Basophils % (auto) 1.2 % (0.0-2.0); Eosinophils # (auto) 0.1 10 ^3/uL (0-0.8); Eosinophils % (auto) 1.8 % (0.0-7.0); Hematocrit 35.2 % (41.0-53.0); Lymphocytes # (auto) 2.5 10 ^3/uL (0.4-5.4); Mean Corpuscular Hemoglobin 27.4 pg (28.0-32.0); Monocytes # (auto) 0.5 10 ^3/uL (0-1.3); Monocytes % (auto) 7.3 % (0.0-12.0); Neutrophils # (auto) 3.5 10 ^3/uL (1.6-8.6); Neutrophils % (auto) 52.7 % (37.0-80.0); Nucleated Red Blood Cells % 0.1 %; Red Blood Cells 4.24 10^6/uL (4.5-5.90); Red Cell Distribution Width 17.6 % (11.8-14.3)
[2022-03-20] MEDS ORDERED: ASPirin 325 MG TAB PO ONE (18:45)
[2022-03-20] MEDS ORDERED: NITROGLYCERIN 0.4 MG SL TAB SL ONE (18:45)
[2022-03-20 19:10] LABS: Albumin 3.3 g/dL (3.4-5.0); Calcium 8.6 mg/dL (8.5-10.1)
[2022-03-20 19:13] LABS: BUN/Creatinine Ratio 16.1; Bilirubin, Total 0.3 mg/dL (0.2-1.0); Total Protein 6.5 g/dL (6.4-8.2)
[2022-03-20 19:37] LABS: Potassium 4.1 mmol/L (3.5-5.1)
[2022-03-20] MEDS ORDERED: ACETAMINOPHEN 325 MG TAB PO PRN (22:30)
[2022-03-20] MEDS ORDERED: DOCUSATE SOD 100 MG CAP PO PRN (22:30)
[2022-03-20] MEDS ORDERED: ONDANSETRON HCL 4 MG/2 ML VIAL IV PRN (22:30)
[2022-03-20] MEDS ORDERED: HYDROcodone-ACET 5/325MG TAB PO PRN (22:30)
[2022-03-21] MEDS ORDERED: MORPHINE SULFATE INJ 2 MG/ml SYRG IV PRN
[2022-03-21] MEDS ORDERED: NITROGLYCERIN 0.4 MG SL TAB SL PRN
[2022-03-21] MEDS: MORPHINE SULFATE INJ 2 MG/ml SYRG IV PRN ×5 (02:46→22:53)
[2022-03-21] MEDS: SODIUM CHLOR 0.9% PF (SALINE LOCK) 10ML VIAL/SYR IV SCH ×3 (06:26→22:02)
[2022-03-21 08:02] LABS: Eosinophils # (auto) 0.1 10 ^3/uL (0-0.8); Neutrophils % (auto) 53.4 % (37.0-80.0); Red Cell Distribution Width 17.4 % (11.8-14.3)
[2022-03-21 08:03] LABS: Basophils # (auto) 0.1 10 ^3/uL (0-0.2); Basophils % (auto) 1.1 % (0.0-2.0); Eosinophils % (auto) 1.9 % (0.0-7.0); Hematocrit 35.5 % (41.0-53.0); Hemoglobin 11.4 g/dL (13.5-17.5); Mean Corpuscular Hemoglobin 26.9 pg (28.0-32.0); Mean Corpuscular Hgb Conc. 32.2 g/dL (32.0-36.0); Mean Corpuscular Volume 83.7 fL (80.0-100.0); Monocytes # (auto) 0.5 10 ^3/uL (0-1.3); Monocytes % (auto) 8.6 % (0.0-12.0); Nucleated Red Blood Cells % 0.2 %; Red Blood Cells 4.24 10^6/uL (4.5-5.90); White Blood Cell 5.6 10^3/uL (4.4-10.8)
[2022-03-21 08:36] LABS: Potassium 4.6 mmol/L (3.5-5.1)
[2022-03-21 08:44] LABS: Albumin 3.4 g/dL (3.4-5.0); BUN/Creatinine Ratio 17.8; Bilirubin, Total 0.5 mg/dL (0.2-1.0); Calcium 8.7 mg/dL (8.5-10.1); Total Protein 6.5 g/dL (6.4-8.2)
[2022-03-21 09:29] VITALS: BP 124/63
[2022-03-21] MEDS: FUROSEMIDE 20 MG/2 ML VIAL IV SCH (09:36)
[2022-03-21] MEDS: CARVEDILOL 3.125 MG TAB PO SCH ×2 (09:37→22:03)
[2022-03-21] MEDS: levETIRAcetam 500 MG TAB PO SCH ×2 (09:37→22:03)
[2022-03-21] MEDS: ASPirin 81 mg TAB PO SCH (09:37)
[2022-03-21 12:24] VITALS: BP 97/54
[2022-03-21] MEDS ORDERED: RANO500T3 PO (14:02)
[2022-03-21] MEDS ORDERED: FLUO10TA18 PO (14:02)
[2022-03-21] MEDS ORDERED: BUME2TAB5 PO (14:02)
[2022-03-21] MEDS ORDERED: GABA300C10 PO (14:02)
[2022-03-21 16:00] VITALS: BP 109/68
[2022-03-21] MEDS ORDERED: HYDROcodone-ACET 5/325MG TAB PO PRN (17:00)
[2022-03-21] MEDS: ATORVASTATIN 20 MG TAB PO SCH (22:03)
[2022-03-21] MEDS: ALBUTEROL SULF 2.5 MG/0.5ML(0.5%) NEB SOLN NEB PRN (22:17)
[2022-03-21 22:25] VITALS: BP 112/62
[2022-03-21 22:38] VITALS: BP 112/73
[2022-03-22] MEDS: MORPHINE SULFATE INJ 2 MG/ml SYRG IV PRN ×5 (04:23→22:12)
[2022-03-22 05:56] VITALS: BP 110/62
[2022-03-22] MEDS: SODIUM CHLOR 0.9% PF (SALINE LOCK) 10ML VIAL/SYR IV SCH ×3 (06:15→22:14)
[2022-03-22 08:31] LABS: Basophils # (auto) 0.1 10 ^3/uL (0-0.2); Eosinophils # (auto) 0.1 10 ^3/uL (0-0.8); Hemoglobin 11.2 g/dL (13.5-17.5); Lymphocytes # (auto) 1.6 10 ^3/uL (0.4-5.4); Monocytes # (auto) 0.3 10 ^3/uL (0-1.3); Neutrophils # (auto) 3.8 10 ^3/uL (1.6-8.6); White Blood Cell 5.9 10^3/uL (4.4-10.8)
[2022-03-22 08:33] LABS: Basophils % (auto) 1.4 % (0.0-2.0); Eosinophils % (auto) 1.7 % (0.0-7.0); Hematocrit 35.3 % (41.0-53.0); Lymphocytes % (auto) 27.2 % (10.0-50.0); Mean Corpuscular Hemoglobin 26.6 pg (28.0-32.0); Mean Corpuscular Hgb Conc. 31.7 g/dL (32.0-36.0); Monocytes % (auto) 5.6 % (0.0-12.0); Neutrophils % (auto) 64.1 % (37.0-80.0); Red Blood Cells 4.21 10^6/uL (4.5-5.90); Red Cell Distribution Width 17.4 % (11.8-14.3)
[2022-03-22 09:00] VITALS: BP 101/67
[2022-03-22] MEDS: CARVEDILOL 3.125 MG TAB PO SCH ×2 (09:02→22:14)
[2022-03-22] MEDS: ASPirin 81 mg TAB PO SCH (09:02)
[2022-03-22] MEDS: levETIRAcetam 500 MG TAB PO SCH ×2 (09:02→22:12)
[2022-03-22 09:03] LABS: BUN/Creatinine Ratio 19.1; Calcium 8.6 mg/dL (8.5-10.1); Potassium 4.8 mmol/L (3.5-5.1)
[2022-03-22] MEDS: FUROSEMIDE 20 MG/2 ML VIAL IV SCH (09:03)
[2022-03-22 12:57] VITALS: BP 104/66
[2022-03-22] MEDS: DOBUTamine 1000MCG/ML 250 ML IV SCH (15:17)
[2022-03-22 16:43] VITALS: BP 111/60
[2022-03-22 22:00] VITALS: BP 120/120
[2022-03-22] MEDS: ATORVASTATIN 20 MG TAB PO SCH (22:12)
[2022-03-23] MEDS: MORPHINE SULFATE INJ 2 MG/ml SYRG IV PRN ×5 (02:37→19:45)
[2022-03-23 05:00] VITALS: BP 111/61
[2022-03-23] MEDS: DOBUTamine 1000MCG/ML 250 ML IV SCH ×3 (05:32→22:10)
[2022-03-23] MEDS: SODIUM CHLOR 0.9% PF (SALINE LOCK) 10ML VIAL/SYR IV SCH ×3 (06:46→22:00)
[2022-03-23 09:00] VITALS: BP 102/68
[2022-03-23] MEDS: ASPirin 81 mg TAB PO SCH (09:41)
[2022-03-23] MEDS: FUROSEMIDE 20 MG/2 ML VIAL IV SCH (09:43)
[2022-03-23] MEDS: CARVEDILOL 3.125 MG TAB PO SCH ×2 (09:43→21:35)
[2022-03-23] MEDS: levETIRAcetam 500 MG TAB PO SCH ×2 (09:44→21:34)
[2022-03-23] MEDS ORDERED: ERGOCALCIFEROL 50,000 UNIT(1.25MG) CAP PO SCH (10:00)
[2022-03-23 12:03] LABS: BUN/Creatinine Ratio 19.8; Calcium 8.5 mg/dL (8.5-10.1); Magnesium 2.4 mg/dL (1.6-2.6); Potassium 4.1 mmol/L (3.5-5.1)
[2022-03-23 13:00] VITALS: BP 107/65
[2022-03-23 16:46] VITALS: BP 122/75
[2022-03-23] MEDS: IPRATROPIUM BROM 0.5 MG/2.5ML INH SOL NEB PRN (21:19)
[2022-03-23] MEDS: ALBUTEROL SULF 2.5 MG/0.5ML(0.5%) NEB SOLN NEB PRN (21:19)
[2022-03-23] MEDS: ATORVASTATIN 20 MG TAB PO SCH (21:35)
[2022-03-23 22:00] VITALS: BP 111/68
[2022-03-24] MEDS: MORPHINE SULFATE INJ 2 MG/ml SYRG IV PRN ×3 (00:10→09:07)
[2022-03-24] MEDS: IPRATROPIUM BROM 0.5 MG/2.5ML INH SOL NEB PRN (04:58)
[2022-03-24] MEDS: ALBUTEROL SULF 2.5 MG/0.5ML(0.5%) NEB SOLN NEB PRN (04:58)
[2022-03-24 05:00] VITALS: BP 121/76
[2022-03-24] MEDS: SODIUM CHLOR 0.9% PF (SALINE LOCK) 10ML VIAL/SYR IV SCH ×2 (06:14→14:02)
[2022-03-24 08:35] LABS: BUN/Creatinine Ratio 17.4; Calcium 8.6 mg/dL (8.5-10.1); Potassium 4.3 mmol/L (3.5-5.1)
[2022-03-24] MEDS: levETIRAcetam 500 MG TAB PO SCH (09:04)
[2022-03-24] MEDS: ASPirin 81 mg TAB PO SCH (09:04)
[2022-03-24] MEDS: CARVEDILOL 3.125 MG TAB PO SCH (09:05)
[2022-03-24] MEDS: FUROSEMIDE 20 MG/2 ML VIAL IV SCH (09:06)
[2022-03-24] MEDS: DOBUTamine 1000MCG/ML 250 ML IV SCH (10:00)
[2022-03-24] MEDS ORDERED: ERGO1CAP23 PO (10:52)
[2022-03-24 13:00] VITALS: BP 135/73
[2022-03-24] MEDS ORDERED: NITROGLYCERIN 0.2MG/HR TOPICAL PATCH TD ONE (13:15)
[2022-03-24 16:44] VITALS: BP 126/80
[2022-03-24] MEDS ORDERED: ACETAMINOPHEN 325 MG TAB PO PRN (17:15)
[2022-03-24 20:20] VITALS: BP 126/80
== END 2022-03-24 20:27 | disposition home or self-care (01) | DRG 291 ==
LOC: EDBD 17:11 → EDUNIT# 17:11 → ER 17:17 → TELE 23:54 → TELE-WESTW 03-21 08:34
PROVIDERS: ADMIT Nurse Practitioner Family; ATTEND Internal Medicine
DX: I11.0 Hypertensive heart disease with heart failure (principal); I50.23 Acute on chronic systolic (congestive) heart failure; J96.21 Acute and chronic respiratory failure with hypoxia; I24.9 Acute ischemic heart disease, unspecified; Z68.42 Body mass index [BMI] 45.0-49.9, adult; E88.09 Other disorders of plasma-protein metabolism, not elsewhere classified; I25.5 Ischemic cardiomyopathy; Z20.822 Contact with and (suspected) exposure to COVID-19; E11.9 Type 2 diabetes mellitus without complications; E55.9 Vitamin D deficiency, unspecified; E66.01 Morbid (severe) obesity due to excess calories; E78.5 Hyperlipidemia, unspecified; I25.119 Atherosclerotic heart disease of native coronary artery with unspecified angina pectoris; J44.9 Chronic obstructive pulmonary disease, unspecified; Z82.49 Family history of ischemic heart disease and other diseases of the circulatory system; Z83.3 Family history of diabetes mellitus; Z86.73 Personal history of transient ischemic attack (TIA), and cerebral infarction without residual deficits; I25.2 Old myocardial infarction
CPT/HCPCS: 36415; 71045; 80048; 80053; 82306; 83036; 83735; 83880; 84484; 85025; 85379; 87426; 93005; 94640; 96374; 96375; G0378; J2405

== ENCOUNTER → 2022-03-30 | Outpatient (CLI) | payer MEDICARE, MEDICAID ==
[2022-03-30] VITALS (10 sets, daily range): BP systolic 105–134; BP diastolic 61–74
[~2022-03-30] MED LIST changes: +BUME2TAB5 PO; +ERGO1CAP23 PO; +FLUO10TA18 PO; -FURO40TA4 PO; +GABA300C10 PO; +MILRINONE 20MG/100ML 100 ML IV ONE; -RANO1000 PO; +RANO500T3 PO
[2022-03-30 12:43] LABS: Albumin 3.5 g/dL (3.4-5.0); BUN/Creatinine Ratio 19.4; Bilirubin, Total 0.3 mg/dL (0.2-1.0); Magnesium 2.5 mg/dL (1.6-2.6); Potassium 4.1 mmol/L (3.5-5.1); Total Protein 6.8 g/dL (6.4-8.2)
== END | disposition home or self-care (01) ==
LOC: CHF HDHVI 10:03
PROVIDERS: ATTEND Internal Medicine
DX: I50.23 Acute on chronic systolic (congestive) heart failure (principal)
CPT/HCPCS: 36415; 80053; 82542; 83735; 83880; 96365; 96366; G0463; J1642

== ENCOUNTER → 2022-04-08 | Outpatient (CLI) | payer MEDICARE, MEDICAID ==
[2022-04-08] VITALS (10 sets, daily range): BP systolic 98–128; BP diastolic 58–74
[2022-04-08 11:29] LABS: Calcium 8.7 mg/dL (8.5-10.1); Potassium 3.9 mmol/L (3.5-5.1)
[2022-04-08 11:33] LABS: BUN/Creatinine Ratio 22.2; Magnesium 2.4 mg/dL (1.6-2.6)
== END | disposition home or self-care (01) ==
LOC: CHF HDHVI 10:01
PROVIDERS: ATTEND Internal Medicine
DX: I50.23 Acute on chronic systolic (congestive) heart failure (principal)
CPT/HCPCS: 36415; 80048; 83735; 83880; 96365; 96366; G0463; J1642

== ENCOUNTER → 2022-04-13 | Outpatient (CLI) | payer MEDICARE, MEDICAID ==
[~2022-04-13] VITALS: Ht 30.5 cm; Wt 162.1 kg
[2022-04-13] VITALS (11 sets, daily range): BP systolic 96–126; BP diastolic 52–69
[~2022-04-13] MED LIST changes: +BUMETANIDE 2.5mg/10ml (0.25 mg/ml) INJ IV ONE; +BUMETANIDE INJECTION 20 ML ONE; +POTASSIUM CHL 20 Meq TABLET PO ONE
[2022-04-13 11:50] LABS: Potassium 3.8 mmol/L (3.5-5.1)
== END | disposition home or self-care (01) ==
LOC: CHF HDHVI 09:59
PROVIDERS: ATTEND Internal Medicine
DX: I50.23 Acute on chronic systolic (congestive) heart failure (principal)
CPT/HCPCS: 36415; 82565; 83880; 84132; 84520; 96365; 96366; 96375; G0463; J1642

== ENCOUNTER → 2022-04-15 | Outpatient (CLI) | payer MEDICARE, MEDICAID ==
[2022-04-15] VITALS (11 sets, daily range): BP systolic 108–121; BP diastolic 60–70
[~2022-04-15] MED LIST changes: -BUMETANIDE 2.5mg/10ml (0.25 mg/ml) INJ IV ONE; -BUMETANIDE INJECTION 20 ML ONE; -POTASSIUM CHL 20 Meq TABLET PO ONE
[2022-04-15 12:12] LABS: Magnesium 1.9 mg/dL (1.6-2.6)
== END | disposition home or self-care (01) ==
LOC: CHF HDHVI 09:49
PROVIDERS: ATTEND Internal Medicine
DX: I50.23 Acute on chronic systolic (congestive) heart failure (principal)
CPT/HCPCS: 36415; 82565; 83735; 83880; 84132; 84520; 96365; 96366; G0463; J1642

== ENCOUNTER → 2022-04-20 | Outpatient (CLI) | payer MEDICARE, MEDICAID ==
[2022-04-20] VITALS (11 sets, daily range): BP systolic 101–130; BP diastolic 56–68
[2022-04-20 12:18] LABS: Albumin 3.4 g/dL (3.4-5.0); Potassium 3.8 mmol/L (3.5-5.1)
[2022-04-20 12:20] LABS: Basophils # (auto) 0 10 ^3/uL (0-0.2); Basophils % (auto) 0.5 % (0.0-2.0); Eosinophils # (auto) 0.1 10 ^3/uL (0-0.8); Eosinophils % (auto) 1.4 % (0.0-7.0); Hematocrit 34.2 % (41.0-53.0); Lymphocytes # (auto) 1.5 10 ^3/uL (0.4-5.4); Lymphocytes % (auto) 25.2 % (10.0-50.0); Mean Corpuscular Hemoglobin 27.1 pg (28.0-32.0); Mean Corpuscular Hgb Conc. 32.3 g/dL (32.0-36.0); Mean Corpuscular Volume 83.9 fL (80.0-100.0); Monocytes # (auto) 0.6 10 ^3/uL (0-1.3); Monocytes % (auto) 10.6 % (0.0-12.0); Neutrophils # (auto) 3.6 10 ^3/uL (1.6-8.6); Neutrophils % (auto) 62.3 % (37.0-80.0); Red Blood Cells 4.08 10^6/uL (4.5-5.90); Red Cell Distribution Width 17.4 % (11.8-14.3); White Blood Cell 5.8 10^3/uL (4.4-10.8)
[2022-04-20 12:22] LABS: BUN/Creatinine Ratio 20.5; Bilirubin, Total 0.4 mg/dL (0.2-1.0); Magnesium 2.1 mg/dL (1.6-2.6); Total Protein 6.3 g/dL (6.4-8.2)
== END | disposition home or self-care (01) ==
LOC: CHF HDHVI 09:41
PROVIDERS: ATTEND Internal Medicine
DX: I50.23 Acute on chronic systolic (congestive) heart failure (principal)
CPT/HCPCS: 36415; 80053; 83735; 83880; 85025; 96365; 96366; G0463; J1642

== ENCOUNTER → 2022-04-27 | Outpatient (CLI) | payer MEDICARE, MEDICAID ==
[2022-04-27] VITALS (11 sets, daily range): BP systolic 102–124; BP diastolic 52–71
[~2022-04-27] MED LIST changes: +CYANOCOBALAMIN (B-12) 1000 MCG/1 ML VIAL IM ONE; +CYANOCOBALAMIN (B-12) 1000 MCG/1 ML VIAL ONE; +POTASSIUM CHL 20 Meq TABLET PO ONE
[2022-04-27 12:34] LABS: BUN/Creatinine Ratio 15.9; Magnesium 2.3 mg/dL (1.6-2.6); Potassium 3.6 mmol/L (3.5-5.1)
== END | disposition home or self-care (01) ==
LOC: CHF HDHVI 09:19
PROVIDERS: ATTEND Internal Medicine
DX: I13.2 Hypertensive heart and chronic kidney disease with heart failure and with stage 5 chronic kidney disease, or end stage renal disease (principal); E11.22 Type 2 diabetes mellitus with diabetic chronic kidney disease; N18.6 End stage renal disease; I50.23 Acute on chronic systolic (congestive) heart failure; I50.33 Acute on chronic diastolic (congestive) heart failure; I42.0 Dilated cardiomyopathy; E87.5 Hyperkalemia; D51.9 Vitamin B12 deficiency anemia, unspecified; F41.9 Anxiety disorder, unspecified; I25.10 Atherosclerotic heart disease of native coronary artery without angina pectoris; J44.9 Chronic obstructive pulmonary disease, unspecified; J96.11 Chronic respiratory failure with hypoxia; F32.A Depression, unspecified; G40.909 Epilepsy, unspecified, not intractable, without status epilepticus; K21.9 Gastro-esophageal reflux disease without esophagitis; E78.5 Hyperlipidemia, unspecified; E66.01 Morbid (severe) obesity due to excess calories; I25.2 Old myocardial infarction; I48.91 Unspecified atrial fibrillation; M19.90 Unspecified osteoarthritis, unspecified site; Z79.899 Other long term (current) drug therapy; Z86.16 Personal history of COVID-19; Z87.891 Personal history of nicotine dependence; Z95.810 Presence of automatic (implantable) cardiac defibrillator; Z86.73 Personal history of transient ischemic attack (TIA), and cerebral infarction without residual deficits; Z99.2 Dependence on renal dialysis; Z79.4 Long term (current) use of insulin; Z90.49 Acquired absence of other specified parts of digestive tract; Z88.0 Allergy status to penicillin; Z68.43 Body mass index [BMI] 50.0-59.9, adult; Z91.011 Allergy to milk products; Z79.01 Long term (current) use of anticoagulants; Z79.02 Long term (current) use of antithrombotics/antiplatelets; Z79.82 Long term (current) use of aspirin; Z79.84 Long term (current) use of oral hypoglycemic drugs; Z79.891 Long term (current) use of opiate analgesic
CPT/HCPCS: 36415; 80048; 83735; 83880; 96365; 96366; 96372; G0463; J1642; J2260; J3420

== ENCOUNTER → 2022-04-29 | Outpatient (CLI) | payer MEDICARE, MEDICAID ==
[2022-04-29] VITALS (11 sets, daily range): BP systolic 99–123; BP diastolic 60–70
[~2022-04-29] MED LIST changes: -CYANOCOBALAMIN (B-12) 1000 MCG/1 ML VIAL IM ONE; -CYANOCOBALAMIN (B-12) 1000 MCG/1 ML VIAL ONE; -POTASSIUM CHL 20 Meq TABLET PO ONE
== END | disposition home or self-care (01) ==
LOC: CHF HDHVI 09:27
PROVIDERS: ATTEND Internal Medicine
DX: I13.2 Hypertensive heart and chronic kidney disease with heart failure and with stage 5 chronic kidney disease, or end stage renal disease (principal); E11.22 Type 2 diabetes mellitus with diabetic chronic kidney disease; N18.6 End stage renal disease; I50.42 Chronic combined systolic (congestive) and diastolic (congestive) heart failure; I42.0 Dilated cardiomyopathy; F41.9 Anxiety disorder, unspecified; I25.10 Atherosclerotic heart disease of native coronary artery without angina pectoris; J44.9 Chronic obstructive pulmonary disease, unspecified; J96.11 Chronic respiratory failure with hypoxia; F32.A Depression, unspecified; G40.909 Epilepsy, unspecified, not intractable, without status epilepticus; K21.9 Gastro-esophageal reflux disease without esophagitis; I25.2 Old myocardial infarction; I48.91 Unspecified atrial fibrillation; M19.90 Unspecified osteoarthritis, unspecified site; E78.5 Hyperlipidemia, unspecified; E66.01 Morbid (severe) obesity due to excess calories; Z68.43 Body mass index [BMI] 50.0-59.9, adult; Z79.01 Long term (current) use of anticoagulants; Z79.02 Long term (current) use of antithrombotics/antiplatelets; Z90.49 Acquired absence of other specified parts of digestive tract; Z88.0 Allergy status to penicillin; Z91.011 Allergy to milk products; Z79.82 Long term (current) use of aspirin; Z99.2 Dependence on renal dialysis; Z79.4 Long term (current) use of insulin; Z79.84 Long term (current) use of oral hypoglycemic drugs; Z79.891 Long term (current) use of opiate analgesic; Z79.899 Other long term (current) drug therapy; Z86.16 Personal history of COVID-19; Z87.891 Personal history of nicotine dependence; Z95.810 Presence of automatic (implantable) cardiac defibrillator; Z86.73 Personal history of transient ischemic attack (TIA), and cerebral infarction without residual deficits
CPT/HCPCS: 96365; 96366; G0463; J1642; J2260

== ENCOUNTER → 2022-05-06 | Outpatient (CLI) | payer MEDICARE, MEDICAID ==
[2022-05-06] VITALS (11 sets, daily range): BP systolic 112–126; BP diastolic 64–74
== END | disposition home or self-care (01) ==
LOC: CHF HDHVI 10:11
PROVIDERS: ATTEND Internal Medicine
DX: I13.2 Hypertensive heart and chronic kidney disease with heart failure and with stage 5 chronic kidney disease, or end stage renal disease (principal); E11.22 Type 2 diabetes mellitus with diabetic chronic kidney disease; N18.6 End stage renal disease; I50.42 Chronic combined systolic (congestive) and diastolic (congestive) heart failure; F41.9 Anxiety disorder, unspecified; I25.10 Atherosclerotic heart disease of native coronary artery without angina pectoris; J44.9 Chronic obstructive pulmonary disease, unspecified; J96.11 Chronic respiratory failure with hypoxia; G40.909 Epilepsy, unspecified, not intractable, without status epilepticus; F32.A Depression, unspecified; K21.9 Gastro-esophageal reflux disease without esophagitis; E78.5 Hyperlipidemia, unspecified; I48.91 Unspecified atrial fibrillation; M19.90 Unspecified osteoarthritis, unspecified site; I25.2 Old myocardial infarction; E66.01 Morbid (severe) obesity due to excess calories; Z79.01 Long term (current) use of anticoagulants; Z79.02 Long term (current) use of antithrombotics/antiplatelets; Z99.2 Dependence on renal dialysis; Z79.4 Long term (current) use of insulin; Z79.84 Long term (current) use of oral hypoglycemic drugs; Z90.49 Acquired absence of other specified parts of digestive tract; Z88.0 Allergy status to penicillin; Z91.011 Allergy to milk products; Z79.82 Long term (current) use of aspirin; Z79.891 Long term (current) use of opiate analgesic; Z68.43 Body mass index [BMI] 50.0-59.9, adult; Z79.899 Other long term (current) drug therapy; Z86.16 Personal history of COVID-19; Z87.891 Personal history of nicotine dependence; Z95.810 Presence of automatic (implantable) cardiac defibrillator; Z86.73 Personal history of transient ischemic attack (TIA), and cerebral infarction without residual deficits
CPT/HCPCS: 96365; 96366; G0463; J1642; J2260

== ENCOUNTER → 2022-05-11 | Outpatient (CLI) | payer MEDICARE, MEDICAID ==
[2022-05-11] VITALS (11 sets, daily range): BP systolic 106–123; BP diastolic 51–74
[~2022-05-11] MED LIST changes: +KETOROLAC TROMETH 30 MG/ML 1ML VIAL IV ONE; +KETOROLAC TROMETH 60MG/2ML VIAL ONE
[2022-05-11 11:53] LABS: Albumin 3.3 g/dL (3.4-5.0); Calcium 8.4 mg/dL (8.5-10.1); Magnesium 2.2 mg/dL (1.6-2.6)
[2022-05-11 11:57] LABS: BUN/Creatinine Ratio 17.5; Bilirubin, Total 0.3 mg/dL (0.2-1.0); Total Protein 6.9 g/dL (6.4-8.2)
== END | disposition home or self-care (01) ==
LOC: CHF HDHVI 09:44
PROVIDERS: ATTEND Internal Medicine
DX: I50.23 Acute on chronic systolic (congestive) heart failure (principal)
CPT/HCPCS: 36415; 80053; 83735; 83880; 96365; 96366; 96375; G0463; J1642; J1885

== ENCOUNTER → 2022-05-18 | Outpatient (CLI) | payer MEDICARE, MEDICAID ==
[2022-05-18] VITALS (11 sets, daily range): BP systolic 93–119; BP diastolic 54–68
[~2022-05-18] MED LIST changes: -KETOROLAC TROMETH 30 MG/ML 1ML VIAL IV ONE; -KETOROLAC TROMETH 60MG/2ML VIAL ONE
[2022-05-18 13:26] LABS: Basophils # (auto) 0 10 ^3/uL (0-0.2); Basophils % (auto) 0.8 % (0.0-2.0); Eosinophils # (auto) 0.1 10 ^3/uL (0-0.8); Hemoglobin 11.5 g/dL (13.5-17.5); Lymphocytes # (auto) 1.6 10 ^3/uL (0.4-5.4)
[2022-05-18 13:31] LABS: Hematocrit 36.2 % (41.0-53.0); Lymphocytes % (auto) 31.5 % (10.0-50.0); Mean Corpuscular Hemoglobin 27.2 pg (28.0-32.0); Mean Corpuscular Hgb Conc. 31.8 g/dL (32.0-36.0); Mean Corpuscular Volume 85.6 fL (80.0-100.0); Monocytes # (auto) 0.6 10 ^3/uL (0-1.3); Monocytes % (auto) 11.6 % (0.0-12.0); Neutrophils # (auto) 2.7 10 ^3/uL (1.6-8.6); Neutrophils % (auto) 54.1 % (37.0-80.0); Nucleated Red Blood Cells % 0.3 %; Red Blood Cells 4.23 10^6/uL (4.5-5.90); Red Cell Distribution Width 17.2 % (11.8-14.3)
[2022-05-18 13:48] LABS: Potassium 3.9 mmol/L (3.5-5.1)
[2022-05-18 14:03] LABS: BUN/Creatinine Ratio 14.9; Calcium 8.7 mg/dL (8.5-10.1)
== END | disposition home or self-care (01) ==
LOC: CHF HDHVI 09:54
PROVIDERS: ATTEND Internal Medicine Cardiovascular Disease
DX: I50.23 Acute on chronic systolic (congestive) heart failure (principal)
CPT/HCPCS: 36415; 80048; 83880; 85025; 96365; 96366; G0463; J1642

== ENCOUNTER → 2022-05-25 | Outpatient (CLI) | payer MEDICARE, MEDICAID ==
[2022-05-25] VITALS (9 sets, daily range): BP systolic 113–142; BP diastolic 64–82
[~2022-05-25] MED LIST changes: +BUMETANIDE 2.5mg/10ml (0.25 mg/ml) INJ IV ONE; +BUMETANIDE INJECTION 20 ML ONE; +KETOROLAC TROMETH 30 MG/ML 1ML VIAL IV ONE; +KETOROLAC TROMETH 60MG/2ML VIAL ONE; +POTASSIUM CHL 10 Meq TABLET PO ONE; +POTASSIUM CHL 20 Meq TABLET PO ONE; +metOLazone 5 MG TAB ONE; +metOLazone 5 MG TAB PO ONE
[2022-05-25 15:47] LABS: BUN/Creatinine Ratio 15.7; Magnesium 1.9 mg/dL (1.6-2.6); Potassium 4.3 mmol/L (3.5-5.1)
== END | disposition home or self-care (01) ==
LOC: CHF HDHVI 10:39
PROVIDERS: ATTEND Internal Medicine
DX: I50.23 Acute on chronic systolic (congestive) heart failure (principal)
CPT/HCPCS: 36415; 80048; 83735; 83880; 93005; 96365; 96366; 96375; G0463; J1642; J1885

== ENCOUNTER → 2022-05-27 | Outpatient (CLI) | payer MEDICARE, MEDICAID ==
[2022-05-27] VITALS (11 sets, daily range): BP systolic 108–128; BP diastolic 63–82
[~2022-05-27] MED LIST changes: -BUMETANIDE 2.5mg/10ml (0.25 mg/ml) INJ IV ONE; -BUMETANIDE INJECTION 20 ML ONE; -KETOROLAC TROMETH 30 MG/ML 1ML VIAL IV ONE; -KETOROLAC TROMETH 60MG/2ML VIAL ONE; -POTASSIUM CHL 10 Meq TABLET PO ONE; -metOLazone 5 MG TAB ONE; -metOLazone 5 MG TAB PO ONE
[2022-05-27 12:02] LABS: Magnesium 1.8 mg/dL (1.6-2.6); Potassium 3.7 mmol/L (3.5-5.1)
== END | disposition home or self-care (01) ==
LOC: CHF HDHVI 10:03
PROVIDERS: ATTEND Internal Medicine
DX: I50.23 Acute on chronic systolic (congestive) heart failure (principal)
CPT/HCPCS: 36415; 82565; 83735; 83880; 84132; 84520; 96365; 96366; G0463; J1642

== ENCOUNTER 2022-06-01 03:07 | Inpatient (IN) | payer MEDICARE, MEDICAID ==
[2022-06-01] VITALS (7 sets, daily range): BP systolic 88–132; BP diastolic 45–77
[~2022-06-01] VITALS: Ht 180.3 cm; Wt 161.1 kg
[~2022-06-01 03:07] MED LIST changes: -MILRINONE 20MG/100ML 100 ML IV ONE; -POTASSIUM CHL 20 Meq TABLET PO ONE
[2022-06-01] MEDS ORDERED: NITROGLYCERIN 50MG/250ML 250 ML IV ONE ×2 (03:13→03:15)
[2022-06-01] MEDS ORDERED: KETAMINE 50mg/ML 10ml Vial (500mg/10ml) IV ONE (03:26)
[2022-06-01 03:36] LABS: Hemoglobin 11.3 g/dL (13.5-17.5)
[2022-06-01 03:37] LABS: Basophils # (auto) 0.1 10 ^3/uL (0-0.2); Basophils % (auto) 0.7 % (0.0-2.0); Eosinophils # (auto) 0.1 10 ^3/uL (0-0.8); Eosinophils % (auto) 1.3 % (0.0-7.0); Hematocrit 37.2 % (41.0-53.0); Lymphocytes % (auto) 19.5 % (10.0-50.0); Mean Corpuscular Hemoglobin 26.2 pg (28.0-32.0); Mean Corpuscular Hgb Conc. 30.4 g/dL (32.0-36.0); Monocytes # (auto) 0.6 10 ^3/uL (0-1.3); Monocytes % (auto) 5.7 % (0.0-12.0); Neutrophils # (auto) 7.5 10 ^3/uL (1.6-8.6); Neutrophils % (auto) 72.8 % (37.0-80.0); Red Blood Cells 4.32 10^6/uL (4.5-5.90); Red Cell Distribution Width 17.5 % (11.8-14.3); White Blood Cell 10.3 10^3/uL (4.4-10.8)
[2022-06-01] MEDS ORDERED: DexAMETHasone SOD PHOS 10MG/1ML VIAL INJ IV ONE (03:45)
[2022-06-01] MEDS ORDERED: MORPHINE SULFATE 4 MG/ML SYR/VIAL IV ONE ×2 (03:45→07:00)
[2022-06-01 03:50] LABS: INR 1.03 (0.9-1.15); Partial Thromboplastin Time 43.9 sec (24.6-33.4)
[2022-06-01 03:55] LABS: Albumin 3.7 g/dL (3.4-5.0); Calcium 8.5 mg/dL (8.5-10.1); Potassium 3.4 mmol/L (3.5-5.1)
[2022-06-01 03:59] LABS: BUN/Creatinine Ratio 17.6; Bilirubin, Total 0.5 mg/dL (0.2-1.0); Total Protein 6.8 g/dL (6.4-8.2)
[2022-06-01] MEDS ORDERED: ONDANSETRON HCL 4 MG/2 ML VIAL IV ONE (04:15)
[2022-06-01] MEDS ORDERED: FUROSEMIDE 100 MG/10ML VIAL IV ONE (09:30)
[2022-06-01] MEDS ORDERED: AZITHROMYCIN 500MG/ 250ML 250 ML IV ONE (09:30)
[2022-06-01] MEDS ORDERED: NITROGLYCERIN 0.4 MG SL TAB SL PRN (09:30)
[2022-06-01] MEDS ORDERED: LORazepam 2MG/ML-1ML VIAL ONE (10:02)
[2022-06-01] MEDS ORDERED: ETOMIDATE (2MG/ML) 20ML VIAL IV ONE ×2 (10:03→10:15)
[2022-06-01] MEDS ORDERED: ROCURONIUM 10MG/ML 10ML VIAL IV ONE ×2 (10:03→10:15)
[2022-06-01] MEDS ORDERED: LORazepam 2MG/ML-1ML VIAL IV ONE (10:15)
[2022-06-01] MEDS: methylPREDNISolone SOD SUCC 40 MG/ML VL IV SCH ×2 (10:25→22:48)
[2022-06-01] MEDS: MORPHINE SULFATE INJ 2 MG/ml SYRG IV PRN ×3 (10:27→21:49)
[2022-06-01] MEDS: MAGNESIUM OXIDE 400 MG TAB PO SCH ×2 (10:44→22:49)
[2022-06-01] MEDS: POTASSIUM CHL 20 Meq TABLET PO SCH ×2 (10:44→22:48)
[2022-06-01] MEDS ORDERED: ALBUTEROL MEDNEB 2.5 mg/3ml NEB ONE ×2 (13:35→17:52)
[2022-06-01] MEDS: IPRATROPIUM BROM 0.5 MG/2.5ML INH SOL NEB SCH ×3 (13:45→22:37)
[2022-06-01] MEDS: ALBUTEROL SULF 2.5 MG/0.5ML(0.5%) NEB SOLN NEB SCH ×2 (13:45→17:59)
[2022-06-01] MEDS: NITROGLYCERIN 2% OINT 1GM PKG TD SCH (18:00)
[2022-06-01] MEDS ORDERED: diphenhdrAMINE HCL 50 MG/1 ML VL IV PRN (19:00)
[2022-06-01] MEDS: FUROSEMIDE 40 MG/4 ML VIAL IV SCH (20:42)
[2022-06-01] MEDS: NITROGLYCERIN 50MG/250ML 250 ML IV SCH (20:44)
[2022-06-01] MEDS ORDERED: ENOXAPARIN SOD 60 MG/0.6 ML SYRINGE SC ONE (22:00)
[2022-06-01] MEDS ORDERED: ENOXAPARIN SOD 60 MG/0.6 ML SYRINGE SC SCH (22:00)
[2022-06-01] MEDS: ALBUTEROL MEDNEB 2.5 mg/3ml NEB NEB SCH (22:37)
[2022-06-02] VITALS (21 sets, daily range): BP systolic 110–138; BP diastolic 51–80
[2022-06-02] MEDS: ALBUTEROL MEDNEB 2.5 mg/3ml NEB NEB SCH ×6 (01:59→23:05)
[2022-06-02] MEDS: IPRATROPIUM BROM 0.5 MG/2.5ML INH SOL NEB SCH ×6 (01:59→23:05)
[2022-06-02 06:47] LABS: Basophils # (auto) 0 10 ^3/uL (0-0.2); Eosinophils # (auto) 0 10 ^3/uL (0-0.8); Lymphocytes # (auto) 0.8 10 ^3/uL (0.4-5.4); Mean Corpuscular Volume 86.6 fL (80.0-100.0); Monocytes # (auto) 0.5 10 ^3/uL (0-1.3); Neutrophils # (auto) 9.5 10 ^3/uL (1.6-8.6)
[2022-06-02 06:50] LABS: Basophils % (auto) 0.3 % (0.0-2.0); Hematocrit 36.3 % (41.0-53.0); Hemoglobin 11.2 g/dL (13.5-17.5); Lymphocytes % (auto) 6.9 % (10.0-50.0); Mean Corpuscular Hemoglobin 26.7 pg (28.0-32.0); Mean Corpuscular Hgb Conc. 30.8 g/dL (32.0-36.0); Monocytes % (auto) 4.8 % (0.0-12.0); Red Blood Cells 4.19 10^6/uL (4.5-5.90); White Blood Cell 10.8 10^3/uL (4.4-10.8)
[2022-06-02 07:26] LABS: Albumin 3.5 g/dL (3.4-5.0); Calcium 9.1 mg/dL (8.5-10.1); Potassium 4.7 mmol/L (3.5-5.1)
[2022-06-02 07:28] LABS: BUN/Creatinine Ratio 21.8; Bilirubin, Total 0.5 mg/dL (0.2-1.0); Total Protein 7.5 g/dL (6.4-8.2)
[2022-06-02] MEDS: NITROGLYCERIN 2% OINT 1GM PKG TD SCH (07:35)
[2022-06-02] MEDS: MORPHINE SULFATE INJ 2 MG/ml SYRG IV PRN ×3 (08:05→20:39)
[2022-06-02] MEDS ORDERED: CLOPIDOGREL 300 MG TAB PO ONE (08:15)
[2022-06-02] MEDS ORDERED: ASPirin 325 MG TAB PO ONE (08:15)
[2022-06-02] MEDS: FUROSEMIDE 40 MG/4 ML VIAL IV SCH ×2 (08:29→18:09)
[2022-06-02 08:32] LABS: Magnesium 2.4 mg/dL (1.6-2.6)
[2022-06-02] MEDS ORDERED: HEPARIN SODIUM (PORCINE) 5000 UNITS/ML 1ML VIAL IV ONE (09:00)
[2022-06-02] MEDS ORDERED: HEPARIN DRIP/D5W 100UNITS/ML 250 ML IV SCH (09:05)
[2022-06-02 09:15] LABS: INR 1.11 (0.9-1.15); Partial Thromboplastin Time 27.7 sec (24.6-33.4)
[2022-06-02] MEDS ORDERED: ASPirin 325 MG TAB PO SCH (10:00)
[2022-06-02] MEDS: FAMOTIDINE (10MG/ML) 2ML VL IV SCH (10:41)
[2022-06-02] MEDS: diphenhdrAMINE HCL 50 MG/1 ML VL IV SCH (10:41)
[2022-06-02] MEDS: POTASSIUM CHL 20 Meq TABLET PO SCH ×2 (10:41→20:40)
[2022-06-02] MEDS: methylPREDNISolone SOD SUCC 40 MG/ML VL IV SCH (10:41)
[2022-06-02] MEDS: MAGNESIUM OXIDE 400 MG TAB PO SCH ×2 (10:41→20:40)
[2022-06-02] MEDS ORDERED: LIDOCAINE 2%HCL (LOCAL ANESTH.) INJ 10ml MDV ONE (14:39)
[2022-06-02] MEDS ORDERED: IODIXANOL 320MG/ML 100ML BTL IV ONE (14:39)
[2022-06-02] MEDS ORDERED: MIDAZOLAM HCL 2MG/2ML 2ml VIAL (1mg/ml) ONE (16:02)
[2022-06-02] MEDS ORDERED: fentaNYL CITRATE 100 MCG/2 ML VL ONE (16:04)
[2022-06-02] MEDS ORDERED: ATROPINE SULF 1 MG/10ml SYR ONE (16:07)
[2022-06-02] MEDS ORDERED: EPINEPHrine HCL 1 MG/10 ML SYRG ONE (16:07)
[2022-06-02] MEDS ORDERED: VERAPAMIL 2.5MG/ML INJ 2ML VIAL IV ONE (16:08)
[2022-06-02] MEDS ORDERED: methylPREDNISolone SOD SUCC 125 MG/2 ML VL ONE (16:09)
[2022-06-02] MEDS ORDERED: FAMOTIDINE (10MG/ML) 2ML VL IV ONE (16:09)
[2022-06-02] MEDS ORDERED: diphenhdrAMINE HCL 50 MG/1 ML VL ONE (16:09)
[2022-06-02] MEDS ORDERED: FUROSEMIDE 40 MG/4 ML VIAL IV ONE (17:00)
[2022-06-02] MEDS: DOBUTamine 1000MCG/ML 250 ML IV SCH ×2 (17:15→22:20)
[2022-06-02] MEDS: FUROSEMIDE INJECTION 100 MG in SODIUM CHL 0.9% 100 ML IV SCH (18:34)
[2022-06-02] MEDS: NITROGLYCERIN 50MG/250ML 250 ML IV SCH (19:00)
[2022-06-03] VITALS (82 sets, daily range): BP systolic 113–158; BP diastolic 51–105
[2022-06-03] MEDS: DOBUTamine 1000MCG/ML 250 ML IV SCH ×5 (00:35→20:38)
[2022-06-03] MEDS: ALBUTEROL MEDNEB 2.5 mg/3ml NEB NEB SCH ×6 (02:00→21:59)
[2022-06-03] MEDS: IPRATROPIUM BROM 0.5 MG/2.5ML INH SOL NEB SCH ×6 (02:00→21:59)
[2022-06-03] MEDS: MORPHINE SULFATE INJ 2 MG/ml SYRG IV PRN ×6 (02:53→22:38)
[2022-06-03] MEDS: FUROSEMIDE 40 MG/4 ML VIAL IV SCH (05:28)
[2022-06-03] MEDS: methylPREDNISolone SOD SUCC 40 MG/ML VL IV SCH (10:07)
[2022-06-03] MEDS: FAMOTIDINE (10MG/ML) 2ML VL IV SCH (10:08)
[2022-06-03] MEDS: diphenhdrAMINE HCL 50 MG/1 ML VL IV SCH (10:09)
[2022-06-03] MEDS: ASPirin 81 mg TAB PO SCH (10:09)
[2022-06-03] MEDS: MAGNESIUM OXIDE 400 MG TAB PO SCH ×2 (10:10→20:30)
[2022-06-03] MEDS: CLOPIDOGREL BISULFATE 75 MG TAB PO SCH (10:10)
[2022-06-03] MEDS: POTASSIUM CHL 20 Meq TABLET PO SCH ×2 (10:12→20:31)
[2022-06-03] MEDS ORDERED: NITROGLYCERIN 2% OINT 1GM PKG TD SCH (14:00)
[2022-06-03] MEDS: NITROGLYCERIN 2% OINT 1GM PKG TD SCH ×2 (14:09→22:00)
[2022-06-03] MEDS: FUROSEMIDE INJECTION 100 MG in SODIUM CHL 0.9% 100 ML IV SCH (14:11)
[2022-06-03] MEDS ORDERED: ACETAMINOPHEN 325 MG TAB PO PRN (14:15)
[2022-06-03] MEDS: NITROGLYCERIN 50MG/250ML 250 ML IV SCH (19:00)
[2022-06-04] VITALS (22 sets, daily range): BP systolic 115–137; BP diastolic 64–87
[2022-06-04] MEDS: MORPHINE SULFATE INJ 2 MG/ml SYRG IV PRN ×6 (01:37→22:52)
[2022-06-04] MEDS: IPRATROPIUM BROM 0.5 MG/2.5ML INH SOL NEB SCH ×6 (02:10→21:25)
[2022-06-04] MEDS: ALBUTEROL MEDNEB 2.5 mg/3ml NEB NEB SCH ×6 (02:10→21:25)
[2022-06-04] MEDS: DOBUTamine 1000MCG/ML 250 ML IV SCH ×3 (03:17→19:47)
[2022-06-04 04:29] LABS: Basophils # (auto) 0 10 ^3/uL (0-0.2); Basophils % (auto) 0.2 % (0.0-2.0); Eosinophils # (auto) 0 10 ^3/uL (0-0.8); Hematocrit 32.3 % (41.0-53.0); Hemoglobin 10.2 g/dL (13.5-17.5); Lymphocytes # (auto) 1.1 10 ^3/uL (0.4-5.4); Lymphocytes % (auto) 6.5 % (10.0-50.0); Mean Corpuscular Hgb Conc. 31.5 g/dL (32.0-36.0); Mean Corpuscular Volume 85.5 fL (80.0-100.0); Monocytes # (auto) 1.2 10 ^3/uL (0-1.3); Monocytes % (auto) 7.5 % (0.0-12.0); Neutrophils % (auto) 85.8 % (37.0-80.0); Nucleated Red Blood Cells % 0.1 %; Red Blood Cells 3.77 10^6/uL (4.5-5.90); White Blood Cell 16.3 10^3/uL (4.4-10.8)
[2022-06-04 04:31] LABS: Albumin 3.3 g/dL (3.4-5.0); Calcium 8.7 mg/dL (8.5-10.1); Potassium 4.7 mmol/L (3.5-5.1)
[2022-06-04 04:34] LABS: BUN/Creatinine Ratio 27.2; Bilirubin, Total 0.3 mg/dL (0.2-1.0); Total Protein 6.8 g/dL (6.4-8.2)
[2022-06-04] MEDS: FUROSEMIDE INJECTION 100 MG in SODIUM CHL 0.9% 100 ML IV SCH (09:00)
[2022-06-04] MEDS: FAMOTIDINE (10MG/ML) 2ML VL IV SCH (10:42)
[2022-06-04] MEDS: ASPirin 81 mg TAB PO SCH (10:42)
[2022-06-04] MEDS: MAGNESIUM OXIDE 400 MG TAB PO SCH ×2 (10:46→21:12)
[2022-06-04] MEDS: POTASSIUM CHL 20 Meq TABLET PO SCH ×2 (10:46→21:12)
[2022-06-04] MEDS: CLOPIDOGREL BISULFATE 75 MG TAB PO SCH (10:47)
[2022-06-04] MEDS: NITROGLYCERIN 2% OINT 1GM PKG TD SCH ×2 (10:48→22:00)
[2022-06-04] MEDS: ISOSORBIDE MONONITRATE ER 60 MG TAB PO SCH (10:49)
[2022-06-04] MEDS ORDERED: ACETAMINOPHEN/CODEINE#3 (300/30mg) TAB PO PRN (14:15)
[2022-06-04] MEDS ORDERED: hydrOXYzine 25 MG TAB or CAP PO PRN (14:15)
[2022-06-04] MEDS: DOCUSATE SOD 100 MG CAP PO SCH (21:13)
[2022-06-05] MEDS: ALBUTEROL MEDNEB 2.5 mg/3ml NEB NEB SCH ×5 (02:18→18:18)
[2022-06-05] MEDS: IPRATROPIUM BROM 0.5 MG/2.5ML INH SOL NEB SCH ×5 (02:18→18:18)
[2022-06-05] MEDS: MORPHINE SULFATE INJ 2 MG/ml SYRG IV PRN ×5 (04:37→21:59)
[2022-06-05] MEDS: ONDANSETRON HCL 4 MG/2 ML VIAL IV PRN (04:42)
[2022-06-05] MEDS: FUROSEMIDE INJECTION 100 MG in SODIUM CHL 0.9% 100 ML IV SCH (04:48)
[2022-06-05 05:00] VITALS: BP 124/69
[2022-06-05 07:02] LABS: Basophils # (auto) 0 10 ^3/uL (0-0.2); Basophils % (auto) 0.2 % (0.0-2.0); Eosinophils # (auto) 0.1 10 ^3/uL (0-0.8); Eosinophils % (auto) 0.6 % (0.0-7.0); Hematocrit 32.8 % (41.0-53.0); Hemoglobin 10.5 g/dL (13.5-17.5); Lymphocytes # (auto) 2.3 10 ^3/uL (0.4-5.4); Lymphocytes % (auto) 24.7 % (10.0-50.0); Mean Corpuscular Hemoglobin 27.5 pg (28.0-32.0); Mean Corpuscular Hgb Conc. 32.1 g/dL (32.0-36.0); Mean Corpuscular Volume 85.7 fL (80.0-100.0); Monocytes # (auto) 0.8 10 ^3/uL (0-1.3); Monocytes % (auto) 8.6 % (0.0-12.0); Neutrophils % (auto) 65.9 % (37.0-80.0); Nucleated Red Blood Cells % 0.2 %; Red Blood Cells 3.82 10^6/uL (4.5-5.90); Red Cell Distribution Width 17.1 % (11.8-14.3); White Blood Cell 9.2 10^3/uL (4.4-10.8)
[2022-06-05] MEDS: DOBUTamine 1000MCG/ML 250 ML IV SCH ×2 (07:11→20:20)
[2022-06-05 07:16] LABS: BUN/Creatinine Ratio 20.6; Calcium 8.3 mg/dL (8.5-10.1)
[2022-06-05 07:19] LABS: Bilirubin, Total 0.6 mg/dL (0.2-1.0); Total Protein 6.4 g/dL (6.4-8.2)
[2022-06-05 09:00] VITALS: BP 114/74
[2022-06-05] MEDS ORDERED: LACTULOSE 20Gm/30ML SOLN PO SCH (10:00)
[2022-06-05] MEDS: DOCUSATE SOD 100 MG CAP PO SCH ×2 (10:28→22:06)
[2022-06-05] MEDS: ISOSORBIDE MONONITRATE ER 60 MG TAB PO SCH (10:29)
[2022-06-05] MEDS: FAMOTIDINE (10MG/ML) 2ML VL IV SCH (10:29)
[2022-06-05] MEDS: ASPirin 81 mg TAB PO SCH (10:29)
[2022-06-05] MEDS: MAGNESIUM OXIDE 400 MG TAB PO SCH ×2 (10:30→22:07)
[2022-06-05] MEDS: POTASSIUM CHL 20 Meq TABLET PO SCH ×2 (10:30→22:06)
[2022-06-05] MEDS: NITROGLYCERIN 2% OINT 1GM PKG TD SCH ×2 (10:31→22:08)
[2022-06-05] MEDS: CLOPIDOGREL BISULFATE 75 MG TAB PO SCH (10:31)
[2022-06-05 13:00] VITALS: BP 107/61
[2022-06-05 17:00] VITALS: BP 107/61
[2022-06-05 22:00] VITALS: BP 122/60
[2022-06-05] MEDS: methylPREDNISolone SOD SUCC 40 MG/ML VL IV SCH (22:05)
[2022-06-05] MEDS: LACTULOSE 20Gm/30ML SOLN PO SCH (22:05)
[2022-06-05] MEDS: levETIRAcetam 500 MG TAB PO SCH (22:24)
[2022-06-06] MEDS: ALBUTEROL MEDNEB 2.5 mg/3ml NEB NEB SCH ×7 (00:13→21:29)
[2022-06-06] MEDS: IPRATROPIUM BROM 0.5 MG/2.5ML INH SOL NEB SCH ×7 (00:13→21:29)
[2022-06-06] MEDS: FUROSEMIDE INJECTION 100 MG in SODIUM CHL 0.9% 100 ML IV SCH ×2 (00:31→21:48)
[2022-06-06] MEDS: MORPHINE SULFATE INJ 2 MG/ml SYRG IV PRN ×5 (04:57→23:04)
[2022-06-06 05:00] VITALS: BP 101/56
[2022-06-06] MEDS: DOBUTamine 1000MCG/ML 250 ML IV SCH ×2 (06:13→17:30)
[2022-06-06] MEDS: LACTULOSE 20Gm/30ML SOLN PO SCH ×3 (06:14→21:48)
[2022-06-06 08:00] LABS: Albumin 3.2 g/dL (3.4-5.0); Calcium 8.6 mg/dL (8.5-10.1)
[2022-06-06 08:04] LABS: BUN/Creatinine Ratio 13.8; Total Protein 7.4 g/dL (6.4-8.2)
[2022-06-06 08:57] LABS: Potassium 4.9 mmol/L (3.5-5.1)
[2022-06-06 09:00] VITALS: BP 122/72
[2022-06-06] MEDS: levETIRAcetam 500 MG TAB PO SCH ×2 (10:13→21:59)
[2022-06-06] MEDS: ASPirin 81 mg TAB PO SCH (10:14)
[2022-06-06] MEDS: DOCUSATE SOD 100 MG CAP PO SCH ×2 (10:14→21:59)
[2022-06-06] MEDS: methylPREDNISolone SOD SUCC 40 MG/ML VL IV SCH ×2 (10:14→21:48)
[2022-06-06] MEDS: FAMOTIDINE (10MG/ML) 2ML VL IV SCH (10:14)
[2022-06-06] MEDS: ISOSORBIDE MONONITRATE ER 60 MG TAB PO SCH (10:15)
[2022-06-06] MEDS: CLOPIDOGREL BISULFATE 75 MG TAB PO SCH (10:16)
[2022-06-06] MEDS: POTASSIUM CHL 20 Meq TABLET PO SCH ×2 (10:16→21:48)
[2022-06-06] MEDS: MAGNESIUM OXIDE 400 MG TAB PO SCH ×2 (10:16→21:59)
[2022-06-06] MEDS: NITROGLYCERIN 2% OINT 1GM PKG TD SCH ×2 (10:17→22:01)
[2022-06-06 12:55] VITALS: BP 116/65
[2022-06-06 17:00] VITALS: BP 103/51
[2022-06-06 22:00] VITALS: BP 109/59
[2022-06-07] VITALS (8 sets, daily range): BP systolic 104–122; BP diastolic 54–77
[2022-06-07] MEDS: DOBUTamine 1000MCG/ML 250 ML IV SCH ×2 (02:15→13:10)
[2022-06-07] MEDS: IPRATROPIUM BROM 0.5 MG/2.5ML INH SOL NEB SCH ×6 (02:31→22:06)
[2022-06-07] MEDS: ALBUTEROL MEDNEB 2.5 mg/3ml NEB NEB SCH ×6 (02:31→22:07)
[2022-06-07] MEDS: LACTULOSE 20Gm/30ML SOLN PO SCH ×3 (06:43→21:50)
[2022-06-07] MEDS: MORPHINE SULFATE INJ 2 MG/ml SYRG IV PRN ×5 (06:44→22:07)
[2022-06-07] MEDS: ASPirin 81 mg TAB PO SCH (10:35)
[2022-06-07] MEDS: POTASSIUM CHL 20 Meq TABLET PO SCH ×2 (10:36→21:52)
[2022-06-07] MEDS: CLOPIDOGREL BISULFATE 75 MG TAB PO SCH (10:36)
[2022-06-07] MEDS: DOCUSATE SOD 100 MG CAP PO SCH ×2 (10:36→21:51)
[2022-06-07] MEDS: FAMOTIDINE (10MG/ML) 2ML VL IV SCH (10:37)
[2022-06-07] MEDS: methylPREDNISolone SOD SUCC 40 MG/ML VL IV SCH ×2 (10:37→21:49)
[2022-06-07] MEDS: levETIRAcetam 500 MG TAB PO SCH ×2 (10:37→21:52)
[2022-06-07] MEDS: ISOSORBIDE MONONITRATE ER 60 MG TAB PO SCH (10:38)
[2022-06-07] MEDS: NITROGLYCERIN 2% OINT 1GM PKG TD SCH ×2 (10:40→21:55)
[2022-06-07] MEDS: MAGNESIUM OXIDE 400 MG TAB PO SCH ×2 (10:40→21:53)
[2022-06-07] MEDS ORDERED: RANOLAZINE ER 500 MG TAB PO ONE (11:00)
[2022-06-07] MEDS: FUROSEMIDE INJECTION 100 MG in SODIUM CHL 0.9% 100 ML IV SCH (17:09)
[2022-06-07] MEDS: RANOLAZINE ER 500 MG TAB PO SCH (21:53)
[2022-06-08] MEDS: DOBUTamine 1000MCG/ML 250 ML IV SCH ×4 (00:16→21:04)
[2022-06-08] MEDS: MORPHINE SULFATE INJ 2 MG/ml SYRG IV PRN ×3 (01:37→12:55)
[2022-06-08] MEDS: ALBUTEROL MEDNEB 2.5 mg/3ml NEB NEB SCH ×7 (02:50→22:59)
[2022-06-08] MEDS: IPRATROPIUM BROM 0.5 MG/2.5ML INH SOL NEB SCH ×7 (02:50→23:00)
[2022-06-08 05:00] VITALS: BP 126/80
[2022-06-08] MEDS: LACTULOSE 20Gm/30ML SOLN PO SCH ×3 (06:00→22:31)
[2022-06-08] MEDS: FAMOTIDINE (10MG/ML) 2ML VL IV SCH (08:32)
[2022-06-08] MEDS: methylPREDNISolone SOD SUCC 40 MG/ML VL IV SCH ×2 (08:32→22:30)
[2022-06-08 09:35] VITALS: BP 123/61
[2022-06-08] MEDS: RANOLAZINE ER 500 MG TAB PO SCH ×2 (09:57→22:31)
[2022-06-08] MEDS: POTASSIUM CHL 20 Meq TABLET PO SCH ×2 (09:57→22:32)
[2022-06-08] MEDS: ASPirin 81 mg TAB PO SCH (09:57)
[2022-06-08] MEDS: CLOPIDOGREL BISULFATE 75 MG TAB PO SCH (09:58)
[2022-06-08] MEDS: levETIRAcetam 500 MG TAB PO SCH ×2 (09:58→22:33)
[2022-06-08] MEDS: ISOSORBIDE MONONITRATE ER 60 MG TAB PO SCH (09:58)
[2022-06-08] MEDS: DOCUSATE SOD 100 MG CAP PO SCH ×2 (09:58→22:31)
[2022-06-08] MEDS: MAGNESIUM OXIDE 400 MG TAB PO SCH ×2 (10:00→22:33)
[2022-06-08] MEDS: NITROGLYCERIN 2% OINT 1GM PKG TD SCH ×2 (10:00→22:32)
[2022-06-08 12:56] VITALS: BP 119/62
[2022-06-08] MEDS: FUROSEMIDE INJECTION 100 MG in SODIUM CHL 0.9% 100 ML IV SCH (13:39)
[2022-06-08] MEDS: HYDROmorphone HCL 2 MG/ML VL/or syr IV PRN ×2 (16:18→20:57)
[2022-06-08 17:12] VITALS: BP 124/61
[2022-06-08 22:00] VITALS: BP 113/75
[2022-06-09] MEDS: ALBUTEROL MEDNEB 2.5 mg/3ml NEB NEB SCH ×5 (02:49→18:00)
[2022-06-09] MEDS: IPRATROPIUM BROM 0.5 MG/2.5ML INH SOL NEB SCH ×5 (02:49→18:00)
[2022-06-09] MEDS: HYDROmorphone HCL 2 MG/ML VL/or syr IV PRN ×5 (04:37→21:48)
[2022-06-09 05:00] VITALS: BP 120/70
[2022-06-09] MEDS: LACTULOSE 20Gm/30ML SOLN PO SCH ×3 (07:07→21:44)
[2022-06-09] MEDS: FAMOTIDINE (10MG/ML) 2ML VL IV SCH (08:20)
[2022-06-09] MEDS: methylPREDNISolone SOD SUCC 40 MG/ML VL IV SCH ×2 (08:20→21:44)
[2022-06-09] MEDS: NITROGLYCERIN 2% OINT 1GM PKG TD SCH ×2 (08:23→21:47)
[2022-06-09] MEDS: CLOPIDOGREL BISULFATE 75 MG TAB PO SCH (08:23)
[2022-06-09] MEDS: RANOLAZINE ER 500 MG TAB PO SCH ×2 (08:23→21:46)
[2022-06-09] MEDS: POTASSIUM CHL 20 Meq TABLET PO SCH ×2 (08:24→21:45)
[2022-06-09] MEDS: ASPirin 81 mg TAB PO SCH (08:25)
[2022-06-09] MEDS: DOCUSATE SOD 100 MG CAP PO SCH ×3 (08:25→22:00)
[2022-06-09] MEDS: ISOSORBIDE MONONITRATE ER 60 MG TAB PO SCH (08:26)
[2022-06-09] MEDS: MAGNESIUM OXIDE 400 MG TAB PO SCH ×2 (08:27→21:45)
[2022-06-09] MEDS: levETIRAcetam 500 MG TAB PO SCH ×2 (08:27→21:44)
[2022-06-09] MEDS: FUROSEMIDE INJECTION 100 MG in SODIUM CHL 0.9% 100 ML IV SCH (08:40)
[2022-06-09] MEDS: DOBUTamine 1000MCG/ML 250 ML IV SCH ×2 (08:40→22:07)
[2022-06-09 09:00] VITALS: BP 121/71
[2022-06-09 13:00] VITALS: BP 118/65
[2022-06-09 17:00] VITALS: BP 122/63
[2022-06-09 22:00] VITALS: BP 124/67
[2022-06-10] VITALS (7 sets, daily range): BP systolic 115–142; BP diastolic 58–74
[2022-06-10] MEDS: IPRATROPIUM BROM 0.5 MG/2.5ML INH SOL NEB SCH ×7 (02:40→22:02)
[2022-06-10] MEDS: ALBUTEROL MEDNEB 2.5 mg/3ml NEB NEB SCH ×7 (02:40→22:02)
[2022-06-10] MEDS: HYDROmorphone HCL 2 MG/ML VL/or syr IV PRN ×3 (03:03→20:16)
[2022-06-10] MEDS: LACTULOSE 20Gm/30ML SOLN PO SCH ×3 (05:59→21:04)
[2022-06-10] MEDS: FUROSEMIDE INJECTION 100 MG in SODIUM CHL 0.9% 100 ML IV SCH (06:01)
[2022-06-10] MEDS: FAMOTIDINE (10MG/ML) 2ML VL IV SCH (10:23)
[2022-06-10] MEDS: DOBUTamine 1000MCG/ML 250 ML IV SCH ×2 (10:23→20:58)
[2022-06-10] MEDS: DOCUSATE SOD 100 MG CAP PO SCH ×2 (10:24→21:04)
[2022-06-10] MEDS: ASPirin 81 mg TAB PO SCH (10:24)
[2022-06-10] MEDS: methylPREDNISolone SOD SUCC 40 MG/ML VL IV SCH ×2 (10:24→21:03)
[2022-06-10] MEDS: levETIRAcetam 500 MG TAB PO SCH ×2 (10:25→21:05)
[2022-06-10] MEDS: POTASSIUM CHL 20 Meq TABLET PO SCH ×2 (10:25→21:06)
[2022-06-10] MEDS: MAGNESIUM OXIDE 400 MG TAB PO SCH ×2 (10:25→21:06)
[2022-06-10] MEDS: ISOSORBIDE MONONITRATE ER 60 MG TAB PO SCH (10:25)
[2022-06-10] MEDS: CLOPIDOGREL BISULFATE 75 MG TAB PO SCH (10:25)
[2022-06-10] MEDS: RANOLAZINE ER 500 MG TAB PO SCH ×2 (10:26→21:07)
[2022-06-10] MEDS: NITROGLYCERIN 2% OINT 1GM PKG TD SCH ×2 (10:26→21:07)
[2022-06-10] MEDS: MORPHINE SULFATE INJ 2 MG/ml SYRG IV PRN (12:10)
[2022-06-10] MEDS: BACLOFEN 10 MG TAB PO SCH ×2 (15:24→21:06)
[2022-06-11] MEDS: FUROSEMIDE INJECTION 100 MG in SODIUM CHL 0.9% 100 ML IV SCH ×2 (01:00→21:00)
[2022-06-11] MEDS: HYDROmorphone HCL 2 MG/ML VL/or syr IV PRN ×5 (01:38→21:34)
[2022-06-11] MEDS: IPRATROPIUM BROM 0.5 MG/2.5ML INH SOL NEB SCH ×6 (02:03→23:08)
[2022-06-11] MEDS: ALBUTEROL MEDNEB 2.5 mg/3ml NEB NEB SCH ×6 (02:03→23:08)
[2022-06-11 05:00] VITALS: BP 110/68
[2022-06-11] MEDS: BACLOFEN 10 MG TAB PO SCH ×3 (05:43→21:36)
[2022-06-11] MEDS: DOBUTamine 1000MCG/ML 250 ML IV SCH ×2 (05:43→17:40)
[2022-06-11] MEDS: LACTULOSE 20Gm/30ML SOLN PO SCH ×3 (06:00→21:35)
[2022-06-11 09:00] VITALS: BP 109/67
[2022-06-11] MEDS: FAMOTIDINE (10MG/ML) 2ML VL IV SCH (10:45)
[2022-06-11] MEDS: methylPREDNISolone SOD SUCC 40 MG/ML VL IV SCH ×2 (10:45→21:33)
[2022-06-11] MEDS: NITROGLYCERIN 2% OINT 1GM PKG TD SCH ×2 (10:47→21:37)
[2022-06-11] MEDS: ASPirin 81 mg TAB PO SCH (10:48)
[2022-06-11] MEDS: RANOLAZINE ER 500 MG TAB PO SCH ×2 (10:48→21:36)
[2022-06-11] MEDS: ISOSORBIDE MONONITRATE ER 60 MG TAB PO SCH (10:48)
[2022-06-11] MEDS: MAGNESIUM OXIDE 400 MG TAB PO SCH ×2 (10:49→22:00)
[2022-06-11] MEDS: POTASSIUM CHL 20 Meq TABLET PO SCH ×2 (10:49→21:36)
[2022-06-11] MEDS: CLOPIDOGREL BISULFATE 75 MG TAB PO SCH (10:50)
[2022-06-11] MEDS: DOCUSATE SOD 100 MG CAP PO SCH ×2 (10:50→21:35)
[2022-06-11] MEDS: levETIRAcetam 500 MG TAB PO SCH ×2 (10:50→21:36)
[2022-06-11 11:44] LABS: Eosinophils # (auto) 0 10 ^3/uL (0-0.8); Monocytes # (auto) 1.2 10 ^3/uL (0-1.3); Neutrophils # (auto) 13.6 10 ^3/uL (1.6-8.6); Nucleated Red Blood Cells % 0.1 %
[2022-06-11 11:45] LABS: Basophils # (auto) 0.1 10 ^3/uL (0-0.2); Basophils % (auto) 0.6 % (0.0-2.0); Hematocrit 34.7 % (41.0-53.0); Hemoglobin 11.3 g/dL (13.5-17.5); Lymphocytes # (auto) 1.6 10 ^3/uL (0.4-5.4); Lymphocytes % (auto) 9.6 % (10.0-50.0); Mean Corpuscular Hemoglobin 27.6 pg (28.0-32.0); Mean Corpuscular Hgb Conc. 32.6 g/dL (32.0-36.0); Mean Corpuscular Volume 84.7 fL (80.0-100.0); Monocytes % (auto) 7.4 % (0.0-12.0); Neutrophils % (auto) 82.4 % (37.0-80.0); Red Cell Distribution Width 16.6 % (11.8-14.3); White Blood Cell 16.5 10^3/uL (4.4-10.8)
[2022-06-11 13:00] VITALS: BP 136/58
[2022-06-11 13:21] LABS: Albumin 3.4 g/dL (3.4-5.0); Calcium 9.2 mg/dL (8.5-10.1); Potassium 4.1 mmol/L (3.5-5.1)
[2022-06-11 13:24] LABS: BUN/Creatinine Ratio 23.6; Bilirubin, Total 0.4 mg/dL (0.2-1.0); Total Protein 7.1 g/dL (6.4-8.2)
[2022-06-11 16:58] VITALS: BP 123/61
[2022-06-11 20:00] VITALS: BP 120/63
[2022-06-11 22:00] VITALS: BP 120/63
[2022-06-12] MEDS: DOBUTamine 1000MCG/ML 250 ML IV SCH ×3 (01:55→22:19)
[2022-06-12] MEDS: HYDROmorphone HCL 2 MG/ML VL/or syr IV PRN ×4 (02:05→20:28)
[2022-06-12] MEDS: IPRATROPIUM BROM 0.5 MG/2.5ML INH SOL NEB SCH ×6 (03:13→22:38)
[2022-06-12] MEDS: ALBUTEROL MEDNEB 2.5 mg/3ml NEB NEB SCH ×6 (03:13→22:38)
[2022-06-12 05:00] VITALS: BP 134/78
[2022-06-12] MEDS: LACTULOSE 20Gm/30ML SOLN PO SCH ×3 (05:42→22:19)
[2022-06-12] MEDS: BACLOFEN 10 MG TAB PO SCH ×3 (05:42→22:23)
[2022-06-12] MEDS: FAMOTIDINE (10MG/ML) 2ML VL IV SCH (08:32)
[2022-06-12] MEDS: methylPREDNISolone SOD SUCC 40 MG/ML VL IV SCH ×2 (08:32→22:19)
[2022-06-12] MEDS: ASPirin 81 mg TAB PO SCH (08:33)
[2022-06-12] MEDS: NITROGLYCERIN 2% OINT 1GM PKG TD SCH ×2 (08:34→22:29)
[2022-06-12] MEDS: MORPHINE SULFATE INJ 2 MG/ml SYRG IV PRN (08:35)
[2022-06-12] MEDS: RANOLAZINE ER 500 MG TAB PO SCH ×2 (08:35→22:27)
[2022-06-12] MEDS: MAGNESIUM OXIDE 400 MG TAB PO SCH ×2 (08:36→22:26)
[2022-06-12] MEDS: ISOSORBIDE MONONITRATE ER 60 MG TAB PO SCH (08:36)
[2022-06-12] MEDS: levETIRAcetam 500 MG TAB PO SCH ×2 (08:37→22:20)
[2022-06-12] MEDS: CLOPIDOGREL BISULFATE 75 MG TAB PO SCH (08:37)
[2022-06-12] MEDS: DOCUSATE SOD 100 MG CAP PO SCH ×2 (08:37→22:19)
[2022-06-12] MEDS: POTASSIUM CHL 20 Meq TABLET PO SCH ×2 (08:37→22:20)
[2022-06-12 09:00] VITALS: BP 144/74
[2022-06-12 11:11] VITALS: BP 145/81
[2022-06-12 13:00] VITALS: BP 145/81
[2022-06-12] MEDS: FUROSEMIDE INJECTION 100 MG in SODIUM CHL 0.9% 100 ML IV SCH (17:14)
[2022-06-12 20:00] VITALS: BP 124/76
[2022-06-12 21:27] VITALS: BP 124/76
[2022-06-13] MEDS: HYDROmorphone HCL 2 MG/ML VL/or syr IV PRN ×5 (00:18→21:00)
[2022-06-13] MEDS: IPRATROPIUM BROM 0.5 MG/2.5ML INH SOL NEB SCH ×6 (02:48→22:47)
[2022-06-13] MEDS: ALBUTEROL MEDNEB 2.5 mg/3ml NEB NEB SCH ×6 (02:48→22:47)
[2022-06-13 05:00] VITALS: BP 117/50
[2022-06-13] MEDS: LACTULOSE 20Gm/30ML SOLN PO SCH ×3 (06:00→22:54)
[2022-06-13] MEDS: BACLOFEN 10 MG TAB PO SCH ×3 (06:38→22:40)
[2022-06-13] MEDS: DOBUTamine 1000MCG/ML 250 ML IV SCH ×4 (08:01→23:00)
[2022-06-13 09:00] VITALS: BP 129/77
[2022-06-13] MEDS: FAMOTIDINE (10MG/ML) 2ML VL IV SCH (10:20)
[2022-06-13] MEDS: methylPREDNISolone SOD SUCC 40 MG/ML VL IV SCH ×2 (10:20→22:51)
[2022-06-13] MEDS: NITROGLYCERIN 2% OINT 1GM PKG TD SCH ×2 (10:24→22:44)
[2022-06-13] MEDS: levETIRAcetam 500 MG TAB PO SCH ×2 (10:25→22:40)
[2022-06-13] MEDS: POTASSIUM CHL 20 Meq TABLET PO SCH ×2 (10:25→22:40)
[2022-06-13] MEDS: RANOLAZINE ER 500 MG TAB PO SCH ×2 (10:25→22:39)
[2022-06-13] MEDS: DOCUSATE SOD 100 MG CAP PO SCH ×2 (10:25→22:40)
[2022-06-13] MEDS: ASPirin 81 mg TAB PO SCH (10:26)
[2022-06-13] MEDS: CLOPIDOGREL BISULFATE 75 MG TAB PO SCH (10:26)
[2022-06-13] MEDS: ISOSORBIDE MONONITRATE ER 60 MG TAB PO SCH (10:26)
[2022-06-13] MEDS: MAGNESIUM OXIDE 400 MG TAB PO SCH ×2 (10:27→22:40)
[2022-06-13] MEDS: FUROSEMIDE INJECTION 100 MG in SODIUM CHL 0.9% 100 ML IV SCH (13:27)
[2022-06-13 17:00] VITALS: BP 169/85
[2022-06-13 17:30] VITALS: BP 133/66
[2022-06-13 22:00] VITALS: BP 117/59
[2022-06-14] MEDS: HYDROmorphone HCL 2 MG/ML VL/or syr IV PRN ×5 (01:14→21:00)
[2022-06-14] MEDS: IPRATROPIUM BROM 0.5 MG/2.5ML INH SOL NEB SCH ×6 (02:43→21:45)
[2022-06-14] MEDS: ALBUTEROL MEDNEB 2.5 mg/3ml NEB NEB SCH ×6 (02:43→21:45)
[2022-06-14 05:00] VITALS: BP 120/60
[2022-06-14] MEDS: LACTULOSE 20Gm/30ML SOLN PO SCH ×3 (05:31→21:15)
[2022-06-14] MEDS: BACLOFEN 10 MG TAB PO SCH ×2 (05:31→13:36)
[2022-06-14 09:00] VITALS: BP 152/65
[2022-06-14 13:00] VITALS: BP 142/92
[2022-06-14] MEDS: RANOLAZINE ER 500 MG TAB PO SCH ×2 (13:30→21:17)
[2022-06-14] MEDS: FAMOTIDINE (10MG/ML) 2ML VL IV SCH (13:30)
[2022-06-14] MEDS: methylPREDNISolone SOD SUCC 40 MG/ML VL IV SCH ×2 (13:30→21:15)
[2022-06-14] MEDS: levETIRAcetam 500 MG TAB PO SCH ×2 (13:31→21:17)
[2022-06-14] MEDS: DOCUSATE SOD 100 MG CAP PO SCH ×2 (13:31→21:18)
[2022-06-14] MEDS: MAGNESIUM OXIDE 400 MG TAB PO SCH ×2 (13:32→21:20)
[2022-06-14] MEDS: POTASSIUM CHL 20 Meq TABLET PO SCH ×2 (13:32→21:18)
[2022-06-14] MEDS: ASPirin 81 mg TAB PO SCH (13:32)
[2022-06-14] MEDS: ISOSORBIDE MONONITRATE ER 60 MG TAB PO SCH (13:33)
[2022-06-14] MEDS: CLOPIDOGREL BISULFATE 75 MG TAB PO SCH (13:33)
[2022-06-14] MEDS: NITROGLYCERIN 2% OINT 1GM PKG TD SCH ×2 (13:41→21:20)
[2022-06-14 14:40] LABS: BUN/Creatinine Ratio 21.8; Calcium 8.6 mg/dL (8.5-10.1); Potassium 4.3 mmol/L (3.5-5.1)
[2022-06-14 15:38] LABS: Basophils # (auto) 0 10 ^3/uL (0-0.2); Basophils % (auto) 0.2 % (0.0-2.0); Eosinophils # (auto) 0 10 ^3/uL (0-0.8); Hematocrit 35.9 % (41.0-53.0); Hemoglobin 11.7 g/dL (13.5-17.5); Lymphocytes # (auto) 1.9 10 ^3/uL (0.4-5.4); Lymphocytes % (auto) 10.9 % (10.0-50.0); Mean Corpuscular Hemoglobin 27.6 pg (28.0-32.0); Mean Corpuscular Hgb Conc. 32.6 g/dL (32.0-36.0); Mean Corpuscular Volume 84.6 fL (80.0-100.0); Monocytes # (auto) 0.9 10 ^3/uL (0-1.3); Monocytes % (auto) 5.2 % (0.0-12.0); Neutrophils # (auto) 14.7 10 ^3/uL (1.6-8.6); Neutrophils % (auto) 83.7 % (37.0-80.0); Nucleated Red Blood Cells % 0.1 %; Red Blood Cells 4.24 10^6/uL (4.5-5.90); White Blood Cell 17.6 10^3/uL (4.4-10.8)
[2022-06-14 17:00] VITALS: BP 114/78
[2022-06-14] MEDS: DOBUTamine 1000MCG/ML 250 ML IV SCH (18:00)
[2022-06-14] MEDS: FUROSEMIDE 40 MG/4 ML VIAL IV SCH (18:48)
[2022-06-14] MEDS: METHOCARBAMOL 500 MG TAB PO SCH ×2 (18:48→21:18)
[2022-06-14 22:26] VITALS: BP 116/66
[2022-06-15] MEDS: HYDROmorphone HCL 2 MG/ML VL/or syr IV PRN ×5 (01:41→21:23)
[2022-06-15] MEDS: IPRATROPIUM BROM 0.5 MG/2.5ML INH SOL NEB SCH ×6 (02:10→22:11)
[2022-06-15] MEDS: ALBUTEROL MEDNEB 2.5 mg/3ml NEB NEB SCH ×6 (02:10→22:11)
[2022-06-15] MEDS: DOBUTamine 1000MCG/ML 250 ML IV SCH ×3 (05:07→15:40)
[2022-06-15 05:31] VITALS: BP 114/66
[2022-06-15] MEDS: LACTULOSE 20Gm/30ML SOLN PO SCH ×3 (05:32→21:31)
[2022-06-15] MEDS: FUROSEMIDE 40 MG/4 ML VIAL IV SCH ×2 (05:33→18:05)
[2022-06-15 06:14] LABS: Basophils # (auto) 0 10 ^3/uL (0-0.2); Basophils % (auto) 0.1 % (0.0-2.0); Eosinophils # (auto) 0 10 ^3/uL (0-0.8); Hemoglobin 10.7 g/dL (13.5-17.5); Lymphocytes # (auto) 0.8 10 ^3/uL (0.4-5.4); Monocytes # (auto) 0.8 10 ^3/uL (0-1.3)
[2022-06-15 06:17] LABS: Hematocrit 33.7 % (41.0-53.0); Lymphocytes % (auto) 5.3 % (10.0-50.0); Mean Corpuscular Hgb Conc. 31.8 g/dL (32.0-36.0); Mean Corpuscular Volume 84.9 fL (80.0-100.0); Monocytes % (auto) 5.2 % (0.0-12.0); Neutrophils % (auto) 89.4 % (37.0-80.0); Red Blood Cells 3.97 10^6/uL (4.5-5.90); Red Cell Distribution Width 16.8 % (11.8-14.3); White Blood Cell 15.7 10^3/uL (4.4-10.8)
[2022-06-15 06:22] LABS: Potassium 4.7 mmol/L (3.5-5.1)
[2022-06-15 06:28] LABS: BUN/Creatinine Ratio 26.8; Calcium 8.5 mg/dL (8.5-10.1)
[2022-06-15 06:53] LABS: Bilirubin, Total 0.6 mg/dL (0.2-1.0)
[2022-06-15] MEDS: METHOCARBAMOL 500 MG TAB PO SCH ×4 (07:00→21:33)
[2022-06-15 08:00] VITALS: BP 123/54
[2022-06-15] MEDS: methylPREDNISolone SOD SUCC 40 MG/ML VL IV SCH ×2 (11:18→21:31)
[2022-06-15] MEDS: FAMOTIDINE (10MG/ML) 2ML VL IV SCH (11:20)
[2022-06-15] MEDS: POTASSIUM CHL 20 Meq TABLET PO SCH ×2 (11:21→21:33)
[2022-06-15] MEDS: DOCUSATE SOD 100 MG CAP PO SCH ×2 (11:22→21:33)
[2022-06-15] MEDS: CLOPIDOGREL BISULFATE 75 MG TAB PO SCH (11:22)
[2022-06-15] MEDS: levETIRAcetam 500 MG TAB PO SCH ×2 (11:23→21:32)
[2022-06-15] MEDS: ASPirin 81 mg TAB PO SCH (11:23)
[2022-06-15] MEDS: RANOLAZINE ER 500 MG TAB PO SCH ×2 (11:23→21:31)
[2022-06-15] MEDS: MAGNESIUM OXIDE 400 MG TAB PO SCH ×2 (11:24→21:31)
[2022-06-15] MEDS: ISOSORBIDE MONONITRATE ER 60 MG TAB PO SCH (11:24)
[2022-06-15] MEDS: NITROGLYCERIN 2% OINT 1GM PKG TD SCH ×2 (11:53→21:32)
[2022-06-15 12:00] VITALS: BP 114/69
[2022-06-15 16:00] VITALS: BP 119/61
[2022-06-15 21:00] VITALS: BP 119/61
[2022-06-15 22:00] VITALS: BP 109/53
[2022-06-16] MEDS: HYDROmorphone HCL 2 MG/ML VL/or syr IV PRN ×5 (01:44→20:13)
[2022-06-16] MEDS: ONDANSETRON HCL 4 MG/2 ML VIAL IV PRN (01:54)
[2022-06-16] MEDS: ALBUTEROL MEDNEB 2.5 mg/3ml NEB NEB SCH ×6 (02:01→21:50)
[2022-06-16] MEDS: DOBUTamine 1000MCG/ML 250 ML IV SCH ×2 (02:01→19:01)
[2022-06-16] MEDS: IPRATROPIUM BROM 0.5 MG/2.5ML INH SOL NEB SCH ×6 (02:01→21:50)
[2022-06-16 05:00] VITALS: BP 118/50
[2022-06-16] MEDS: METHOCARBAMOL 500 MG TAB PO SCH ×4 (06:26→22:11)
[2022-06-16] MEDS: LACTULOSE 20Gm/30ML SOLN PO SCH ×3 (06:26→22:14)
[2022-06-16] MEDS: FUROSEMIDE 40 MG/4 ML VIAL IV SCH ×2 (06:26→18:00)
[2022-06-16 08:25] VITALS: BP 122/65
[2022-06-16] MEDS: ISOSORBIDE MONONITRATE ER 60 MG TAB PO SCH (09:15)
[2022-06-16] MEDS: RANOLAZINE ER 500 MG TAB PO SCH ×2 (09:16→22:11)
[2022-06-16] MEDS: NITROGLYCERIN 2% OINT 1GM PKG TD SCH ×2 (09:18→22:13)
[2022-06-16] MEDS: CLOPIDOGREL BISULFATE 75 MG TAB PO SCH (09:19)
[2022-06-16] MEDS: levETIRAcetam 500 MG TAB PO SCH ×2 (09:19→22:11)
[2022-06-16] MEDS: MAGNESIUM OXIDE 400 MG TAB PO SCH ×2 (09:20→22:14)
[2022-06-16] MEDS: DOCUSATE SOD 100 MG CAP PO SCH ×2 (09:21→22:12)
[2022-06-16] MEDS: methylPREDNISolone SOD SUCC 40 MG/ML VL IV SCH ×2 (09:21→22:11)
[2022-06-16] MEDS: FAMOTIDINE (10MG/ML) 2ML VL IV SCH (09:22)
[2022-06-16] MEDS: POTASSIUM CHL 20 Meq TABLET PO SCH ×2 (09:23→22:12)
[2022-06-16] MEDS: ASPirin 81 mg TAB PO SCH (11:01)
[2022-06-16 12:20] VITALS: BP 117/53
[2022-06-16 16:15] VITALS: BP 100/65
[2022-06-16 22:05] VITALS: BP 143/83
[2022-06-17] MEDS: HYDROmorphone HCL 2 MG/ML VL/or syr IV PRN ×6 (00:20→22:17)
[2022-06-17] MEDS: ALBUTEROL MEDNEB 2.5 mg/3ml NEB NEB SCH ×5 (02:26→18:00)
[2022-06-17] MEDS: IPRATROPIUM BROM 0.5 MG/2.5ML INH SOL NEB SCH ×5 (02:26→18:00)
[2022-06-17] MEDS: DOBUTamine 1000MCG/ML 250 ML IV SCH ×2 (03:53→14:30)
[2022-06-17 05:00] VITALS: BP 150/79
[2022-06-17] MEDS: FUROSEMIDE 40 MG/4 ML VIAL IV SCH ×2 (06:13→18:07)
[2022-06-17] MEDS: METHOCARBAMOL 500 MG TAB PO SCH ×4 (06:13→21:54)
[2022-06-17] MEDS: LACTULOSE 20Gm/30ML SOLN PO SCH ×3 (06:13→21:53)
[2022-06-17 08:25] VITALS: BP 117/62
[2022-06-17] MEDS: DOCUSATE SOD 100 MG CAP PO SCH ×2 (09:17→21:54)
[2022-06-17] MEDS: levETIRAcetam 500 MG TAB PO SCH ×2 (09:17→21:53)
[2022-06-17] MEDS: FAMOTIDINE (10MG/ML) 2ML VL IV SCH (09:17)
[2022-06-17] MEDS: methylPREDNISolone SOD SUCC 40 MG/ML VL IV SCH ×2 (09:17→21:53)
[2022-06-17] MEDS: ASPirin 81 mg TAB PO SCH (09:17)
[2022-06-17] MEDS: POTASSIUM CHL 20 Meq TABLET PO SCH ×2 (09:18→21:55)
[2022-06-17] MEDS: MAGNESIUM OXIDE 400 MG TAB PO SCH ×2 (09:19→21:56)
[2022-06-17] MEDS: RANOLAZINE ER 500 MG TAB PO SCH ×2 (09:19→21:55)
[2022-06-17] MEDS: NITROGLYCERIN 2% OINT 1GM PKG TD SCH ×2 (09:19→21:56)
[2022-06-17] MEDS: CLOPIDOGREL BISULFATE 75 MG TAB PO SCH (09:19)
[2022-06-17] MEDS: ISOSORBIDE MONONITRATE ER 60 MG TAB PO SCH (09:20)
[2022-06-17 12:20] VITALS: BP 139/76
[2022-06-17 16:25] VITALS: BP 116/52
[2022-06-17 22:00] VITALS: BP 119/64
[2022-06-18] MEDS: DOBUTamine 1000MCG/ML 250 ML IV SCH ×2 (00:19→11:52)
[2022-06-18] MEDS: ALBUTEROL MEDNEB 2.5 mg/3ml NEB NEB SCH ×6 (00:32→18:37)
[2022-06-18] MEDS: IPRATROPIUM BROM 0.5 MG/2.5ML INH SOL NEB SCH ×6 (00:32→18:37)
[2022-06-18] MEDS: HYDROmorphone HCL 2 MG/ML VL/or syr IV PRN ×5 (02:26→18:30)
[2022-06-18 05:00] VITALS: BP 127/72
[2022-06-18] MEDS: FUROSEMIDE 40 MG/4 ML VIAL IV SCH ×2 (06:44→17:32)
[2022-06-18] MEDS: METHOCARBAMOL 500 MG TAB PO SCH ×3 (06:44→17:31)
[2022-06-18] MEDS: LACTULOSE 20Gm/30ML SOLN PO SCH ×2 (06:44→14:00)
[2022-06-18 09:00] VITALS: BP 114/64
[2022-06-18] MEDS: methylPREDNISolone SOD SUCC 40 MG/ML VL IV SCH (09:46)
[2022-06-18] MEDS: ASPirin 81 mg TAB PO SCH (09:46)
[2022-06-18] MEDS: DOCUSATE SOD 100 MG CAP PO SCH (09:46)
[2022-06-18] MEDS: FAMOTIDINE (10MG/ML) 2ML VL IV SCH (09:46)
[2022-06-18] MEDS: ISOSORBIDE MONONITRATE ER 60 MG TAB PO SCH (09:47)
[2022-06-18] MEDS: POTASSIUM CHL 20 Meq TABLET PO SCH (09:48)
[2022-06-18] MEDS: levETIRAcetam 500 MG TAB PO SCH (09:48)
[2022-06-18] MEDS: MAGNESIUM OXIDE 400 MG TAB PO SCH (09:48)
[2022-06-18] MEDS: RANOLAZINE ER 500 MG TAB PO SCH (09:49)
[2022-06-18] MEDS: CLOPIDOGREL BISULFATE 75 MG TAB PO SCH (09:49)
[2022-06-18] MEDS: NITROGLYCERIN 2% OINT 1GM PKG TD SCH (09:50)
[2022-06-18 13:00] VITALS: BP 132/60
[2022-06-18 16:54] VITALS: BP 138/70
[2022-06-18 18:30] VITALS: BP 123/62
== END 2022-06-18 19:00 | DRG 280 ==
LOC: ER 03:07 → EDBD 03:07 → TELE 09:37 → ICU WEST 06-02 18:02 → TELE-WESTW 06-04 09:56
PROVIDERS: ADMIT Internal Medicine; ATTEND Internal Medicine
PROC: 5A09457 Assistance with Respiratory Ventilation, 24-96 Consecutive Hours, Continuous Positive Airway Pressure (ICD-10-PCS; 2022-06-01)
PROC: 4A023N7 Measurement of Cardiac Sampling and Pressure, Left Heart, Percutaneous Approach (ICD-10-PCS; principal; 2022-06-02)
PROC: B211YZZ Fluoroscopy of Multiple Coronary Arteries using Other Contrast (ICD-10-PCS; 2022-06-02)
PROC: B215YZZ Fluoroscopy of Left Heart using Other Contrast (ICD-10-PCS; 2022-06-02)
PROC: 5A09357 Assistance with Respiratory Ventilation, Less than 24 Consecutive Hours, Continuous Positive Airway Pressure (ICD-10-PCS; 2022-06-03)
PROC: 5A09357 Assistance with Respiratory Ventilation, Less than 24 Consecutive Hours, Continuous Positive Airway Pressure (ICD-10-PCS; 2022-06-04)
PROC: 5A09357 Assistance with Respiratory Ventilation, Less than 24 Consecutive Hours, Continuous Positive Airway Pressure (ICD-10-PCS; 2022-06-05)
PROC: 5A09357 Assistance with Respiratory Ventilation, Less than 24 Consecutive Hours, Continuous Positive Airway Pressure (ICD-10-PCS; 2022-06-06)
PROC: 5A09357 Assistance with Respiratory Ventilation, Less than 24 Consecutive Hours, Continuous Positive Airway Pressure (ICD-10-PCS; 2022-06-07)
PROC: 5A09357 Assistance with Respiratory Ventilation, Less than 24 Consecutive Hours, Continuous Positive Airway Pressure (ICD-10-PCS; 2022-06-08)
PROC: 5A09357 Assistance with Respiratory Ventilation, Less than 24 Consecutive Hours, Continuous Positive Airway Pressure (ICD-10-PCS; 2022-06-09)
PROC: 5A09357 Assistance with Respiratory Ventilation, Less than 24 Consecutive Hours, Continuous Positive Airway Pressure (ICD-10-PCS; 2022-06-10)
PROC: 5A09357 Assistance with Respiratory Ventilation, Less than 24 Consecutive Hours, Continuous Positive Airway Pressure (ICD-10-PCS; 2022-06-12)
PROC: 5A09357 Assistance with Respiratory Ventilation, Less than 24 Consecutive Hours, Continuous Positive Airway Pressure (ICD-10-PCS; 2022-06-13)
PROC: 5A09357 Assistance with Respiratory Ventilation, Less than 24 Consecutive Hours, Continuous Positive Airway Pressure (ICD-10-PCS; 2022-06-15)
PROC: 5A09357 Assistance with Respiratory Ventilation, Less than 24 Consecutive Hours, Continuous Positive Airway Pressure (ICD-10-PCS; 2022-06-17)
DX: I21.4 Non-ST elevation (NSTEMI) myocardial infarction (principal); I50.43 Acute on chronic combined systolic (congestive) and diastolic (congestive) heart failure; J96.21 Acute and chronic respiratory failure with hypoxia; E87.29 Other acidosis; J44.1 Chronic obstructive pulmonary disease with (acute) exacerbation; J98.11 Atelectasis; Z68.43 Body mass index [BMI] 50.0-59.9, adult; D63.8 Anemia in other chronic diseases classified elsewhere; E66.01 Morbid (severe) obesity due to excess calories; E78.5 Hyperlipidemia, unspecified; I11.0 Hypertensive heart disease with heart failure; I25.5 Ischemic cardiomyopathy; I50.82 Biventricular heart failure; F32.A Depression, unspecified; D72.829 Elevated white blood cell count, unspecified; G40.909 Epilepsy, unspecified, not intractable, without status epilepticus; I67.9 Cerebrovascular disease, unspecified; Z20.822 Contact with and (suspected) exposure to COVID-19; F41.9 Anxiety disorder, unspecified; K21.9 Gastro-esophageal reflux disease without esophagitis; R53.81 Other malaise; Z79.01 Long term (current) use of anticoagulants; I25.2 Old myocardial infarction; Z79.899 Other long term (current) drug therapy; Z88.0 Allergy status to penicillin; Z91.041 Radiographic dye allergy status; Z99.81 Dependence on supplemental oxygen; Z82.49 Family history of ischemic heart disease and other diseases of the circulatory system; Z83.3 Family history of diabetes mellitus; Z86.711 Personal history of pulmonary embolism; Z86.73 Personal history of transient ischemic attack (TIA), and cerebral infarction without residual deficits; Z87.891 Personal history of nicotine dependence; Z90.49 Acquired absence of other specified parts of digestive tract; Z91.011 Allergy to milk products
CPT/HCPCS: 36415; 36600; 71045; 80048; 80053; 80061; 82805; 82962; 83036; 83735; 83880; 84443; 84484; 85025; 85610; 85730; 87081; 87426; 93005; 93306; 93458; 94640; 94660; 96365; 96374; 96375; 97110; 97116; 97163; 97530; 99152; 99153; 99291; C1887; G0378; J1100; J2001; J2250; J2405; J3490; Q9967

== ENCOUNTER 2022-06-23 10:28 | Inpatient (IN) | payer MEDICARE, MEDICAID ==
[~2022-06-23] VITALS: Ht 185.4 cm; Wt 164.5 kg
[2022-06-23] MEDS ORDERED: FUROSEMIDE 100 MG/10ML VIAL IV ONE (11:15)
[2022-06-23 11:43] LABS: Calcium 8.3 mg/dL (8.5-10.1); Potassium 4.2 mmol/L (3.5-5.1)
[2022-06-23 11:48] LABS: BUN/Creatinine Ratio 19.3; Bilirubin, Total 0.4 mg/dL (0.2-1.0); Total Protein 5.8 g/dL (6.4-8.2)
[2022-06-23] MEDS ORDERED: MORPHINE SULFATE 4 MG/ML SYR/VIAL IV ONE (12:45)
[2022-06-23 13:25] LABS: Urine Bacteria FEW /hpf (None Seen); Urine Blood Negative /uL (Negative); Urine Specific Gravity 1.004 (1.001-1.035); Urine WBC 1 /hpf (0 - 3)
[2022-06-23 13:26] LABS: Basophils # (auto) 0 10 ^3/uL (0-0.2); Basophils % (auto) 0.4 % (0.0-2.0); Eosinophils # (auto) 0.1 10 ^3/uL (0-0.8); Eosinophils % (auto) 1.5 % (0.0-7.0); Hematocrit 37.8 % (41.0-53.0); Lymphocytes # (auto) 1.2 10 ^3/uL (0.4-5.4); Lymphocytes % (auto) 15.5 % (10.0-50.0); Mean Corpuscular Hemoglobin 27.4 pg (28.0-32.0); Mean Corpuscular Hgb Conc. 31.8 g/dL (32.0-36.0); Mean Corpuscular Volume 86.3 fL (80.0-100.0); Monocytes # (auto) 0.5 10 ^3/uL (0-1.3); Monocytes % (auto) 5.9 % (0.0-12.0); Neutrophils # (auto) 5.9 10 ^3/uL (1.6-8.6); Neutrophils % (auto) 76.7 % (37.0-80.0); Nucleated Red Blood Cells % 0.1 %; Red Blood Cells 4.38 10^6/uL (4.5-5.90); Red Cell Distribution Width 17.5 % (11.8-14.3); White Blood Cell 7.7 10^3/uL (4.4-10.8)
[2022-06-23] MEDS ORDERED: HYDROcodone-ACET 5/325MG TAB PO PRN (15:00)
[2022-06-23] MEDS ORDERED: DOCUSATE SOD 100 MG CAP PO PRN (15:00)
[2022-06-23] MEDS ORDERED: ACETAMINOPHEN 325 MG TAB PO PRN (15:00)
[2022-06-23] MEDS ORDERED: ONDANSETRON HCL 4 MG/2 ML VIAL IV PRN (15:00)
[2022-06-23 16:42] VITALS: BP 125/60
[2022-06-23] MEDS: MORPHINE SULFATE INJ 2 MG/ml SYRG IV PRN (17:48)
[2022-06-23] MEDS ORDERED: traZODone HCL 50 MG TAB PO SCH (18:00)
[2022-06-23 22:00] VITALS: BP 122/73
[2022-06-23] MEDS: BUMETANIDE 2.5mg/10ml (0.25 mg/ml) INJ IV SCH (22:00)
[2022-06-23] MEDS: CARVEDILOL 3.125 MG TAB PO SCH (22:01)
[2022-06-23] MEDS: traZODone HCL 50 MG TAB PO SCH (22:01)
[2022-06-23] MEDS: SACUBITRIL-VALSARTAN 24mg/26mg TAB PO SCH (22:01)
[2022-06-23] MEDS: levETIRAcetam 500 MG TAB PO SCH (22:02)
[2022-06-23] MEDS: GABAPENTIN 100 MG CAP PO SCH (22:02)
[2022-06-24] MEDS: MORPHINE SULFATE INJ 2 MG/ml SYRG IV PRN ×5 (00:01→23:39)
[2022-06-24 04:58] VITALS: BP 94/58
[2022-06-24 05:55] LABS: Basophils # (auto) 0.1 10 ^3/uL (0-0.2); Basophils % (auto) 1.2 % (0.0-2.0); Eosinophils # (auto) 0.2 10 ^3/uL (0-0.8); Eosinophils % (auto) 2.8 % (0.0-7.0); Hematocrit 34.3 % (41.0-53.0); Hemoglobin 10.9 g/dL (13.5-17.5); Lymphocytes # (auto) 1.1 10 ^3/uL (0.4-5.4); Lymphocytes % (auto) 17.3 % (10.0-50.0); Mean Corpuscular Hemoglobin 27.4 pg (28.0-32.0); Mean Corpuscular Hgb Conc. 31.9 g/dL (32.0-36.0); Mean Corpuscular Volume 85.8 fL (80.0-100.0); Monocytes # (auto) 0.5 10 ^3/uL (0-1.3); Monocytes % (auto) 7.3 % (0.0-12.0); Neutrophils # (auto) 4.5 10 ^3/uL (1.6-8.6); Neutrophils % (auto) 71.4 % (37.0-80.0); Nucleated Red Blood Cells % 0.3 %; Red Cell Distribution Width 16.8 % (11.8-14.3); White Blood Cell 6.4 10^3/uL (4.4-10.8)
[2022-06-24] MEDS: GABAPENTIN 100 MG CAP PO SCH ×3 (06:39→22:05)
[2022-06-24 06:40] LABS: Albumin 2.8 g/dL (3.4-5.0); BUN/Creatinine Ratio 17.3; Bilirubin, Total 0.6 mg/dL (0.2-1.0); Calcium 8.2 mg/dL (8.5-10.1); Total Protein 5.4 g/dL (6.4-8.2)
[2022-06-24 09:00] VITALS: BP 112/68
[2022-06-24] MEDS: CARVEDILOL 3.125 MG TAB PO SCH ×2 (09:47→22:00)
[2022-06-24] MEDS: levETIRAcetam 500 MG TAB PO SCH ×2 (09:47→22:01)
[2022-06-24] MEDS: SACUBITRIL-VALSARTAN 24mg/26mg TAB PO SCH ×2 (09:47→22:01)
[2022-06-24] MEDS: BUMETANIDE 2.5mg/10ml (0.25 mg/ml) INJ IV SCH ×2 (09:48→22:00)
[2022-06-24] MEDS ORDERED: ENOXAPARIN SOD 40 MG/0.4 ML SYRINGE SC SCH (10:00)
[2022-06-24] MEDS ORDERED: DOBUTamine 1000MCG/ML 250 ML IV SCH (11:15)
[2022-06-24] MEDS ORDERED: ASPirin 81 mg TAB PO ONE (11:15)
[2022-06-24 13:00] VITALS: BP 117/67
[2022-06-24] MEDS: DOBUTamine 1000MCG/ML 250 ML IV SCH (13:46)
[2022-06-24 17:00] VITALS: BP 120/71
[2022-06-24 22:00] VITALS: BP 115/62
[2022-06-24] MEDS ORDERED: ATORVASTATIN 20 MG TAB PO SCH (22:00)
[2022-06-24] MEDS: traZODone HCL 50 MG TAB PO SCH (22:01)
[2022-06-24] MEDS: ENOXAPARIN SOD 40 MG/0.4 ML SYRINGE SC SCH (22:06)
[2022-06-25] MEDS: DOBUTamine 1000MCG/ML 250 ML IV SCH ×3 (03:22→16:34)
[2022-06-25 05:00] VITALS: BP 127/72
[2022-06-25] MEDS: GABAPENTIN 100 MG CAP PO SCH ×2 (06:27→14:31)
[2022-06-25] MEDS: MORPHINE SULFATE INJ 2 MG/ml SYRG IV PRN ×3 (06:39→15:35)
[2022-06-25 08:55] VITALS: BP 96/62
[2022-06-25] MEDS ORDERED: ASPirin 81 mg TAB PO SCH (10:00)
[2022-06-25] MEDS: SACUBITRIL-VALSARTAN 24mg/26mg TAB PO SCH (10:00)
[2022-06-25] MEDS: CARVEDILOL 3.125 MG TAB PO SCH (10:00)
[2022-06-25] MEDS: levETIRAcetam 500 MG TAB PO SCH (10:00)
[2022-06-25] MEDS: ENOXAPARIN SOD 40 MG/0.4 ML SYRINGE SC SCH (10:00)
[2022-06-25] MEDS: BUMETANIDE 2.5mg/10ml (0.25 mg/ml) INJ IV SCH (10:00)
[2022-06-25] MEDS ORDERED: RANOLAZINE ER 500 MG TAB PO ONE (10:45)
[2022-06-25 13:00] VITALS: BP 126/66
[2022-06-25 16:24] VITALS: BP 117/59
[2022-06-25 16:34] VITALS: BP 117/59
[2022-06-25] MEDS ORDERED: ISOSORBIDE MONONITRATE 20 MG TAB PO SCH (22:00)
[2022-06-25] MEDS ORDERED: RANOLAZINE ER 500 MG TAB PO SCH (22:00)
== END 2022-06-25 17:30 | DRG 280 ==
LOC: ER 10:28 → EDBD 10:28 → TELE 14:57 → TELE-WESTW 21:53
PROVIDERS: ADMIT Internal Medicine; ATTEND Internal Medicine
PROC: 5A09357 Assistance with Respiratory Ventilation, Less than 24 Consecutive Hours, Continuous Positive Airway Pressure (ICD-10-PCS; principal; 2022-06-23)
PROC: 5A09357 Assistance with Respiratory Ventilation, Less than 24 Consecutive Hours, Continuous Positive Airway Pressure (ICD-10-PCS; 2022-06-24)
DX: I11.0 Hypertensive heart disease with heart failure (principal); I50.43 Acute on chronic combined systolic (congestive) and diastolic (congestive) heart failure; I21.A1 Myocardial infarction type 2; J96.21 Acute and chronic respiratory failure with hypoxia; Z68.42 Body mass index [BMI] 45.0-49.9, adult; G40.909 Epilepsy, unspecified, not intractable, without status epilepticus; G62.9 Polyneuropathy, unspecified; F32.A Depression, unspecified; E66.01 Morbid (severe) obesity due to excess calories; D63.8 Anemia in other chronic diseases classified elsewhere; E78.5 Hyperlipidemia, unspecified; I25.5 Ischemic cardiomyopathy; I50.82 Biventricular heart failure; I50.84 End stage heart failure; I25.10 Atherosclerotic heart disease of native coronary artery without angina pectoris; K21.9 Gastro-esophageal reflux disease without esophagitis; Z20.822 Contact with and (suspected) exposure to COVID-19; J44.9 Chronic obstructive pulmonary disease, unspecified; E88.09 Other disorders of plasma-protein metabolism, not elsewhere classified; Z79.899 Other long term (current) drug therapy; I25.2 Old myocardial infarction; Z83.3 Family history of diabetes mellitus; Z82.49 Family history of ischemic heart disease and other diseases of the circulatory system; Z86.711 Personal history of pulmonary embolism; Z86.73 Personal history of transient ischemic attack (TIA), and cerebral infarction without residual deficits; Z87.891 Personal history of nicotine dependence; Z99.81 Dependence on supplemental oxygen; Z88.0 Allergy status to penicillin; Z88.8 Allergy status to other drugs, medicaments and biological substances; Z91.041 Radiographic dye allergy status; Z95.810 Presence of automatic (implantable) cardiac defibrillator
CPT/HCPCS: 36415; 36600; 71045; 80053; 81001; 82805; 83880; 84484; 85025; 87426; 93005; 94660; 96374; 96375; 97163; 99291; G0378; J2405

== ENCOUNTER 2022-07-03 21:19 | Inpatient (IN) | payer MEDICARE, MEDICAID ==
[~2022-07-03] VITALS: Ht 182.9 cm; Wt 165.5 kg
[2022-07-03 22:07] LABS: Basophils # (auto) 0 10 ^3/uL (0-0.2); Eosinophils # (auto) 0.2 10 ^3/uL (0-0.8); Monocytes # (auto) 0.7 10 ^3/uL (0-1.3)
[2022-07-03 22:09] LABS: Basophils % (auto) 0.7 % (0.0-2.0); Eosinophils % (auto) 2.4 % (0.0-7.0); Hematocrit 37.1 % (41.0-53.0); Lymphocytes # (auto) 2.3 10 ^3/uL (0.4-5.4); Lymphocytes % (auto) 31.3 % (10.0-50.0); Mean Corpuscular Hemoglobin 27.3 pg (28.0-32.0); Mean Corpuscular Hgb Conc. 32.4 g/dL (32.0-36.0); Mean Corpuscular Volume 84.1 fL (80.0-100.0); Monocytes % (auto) 9.6 % (0.0-12.0); Neutrophils # (auto) 4.1 10 ^3/uL (1.6-8.6); Nucleated Red Blood Cells % 0.2 %; Red Blood Cells 4.42 10^6/uL (4.5-5.90); Red Cell Distribution Width 16.4 % (11.8-14.3); White Blood Cell 7.4 10^3/uL (4.4-10.8)
[2022-07-03 22:26] LABS: INR 1.1 (0.9-1.15); Partial Thromboplastin Time 23.9 sec (24.6-33.4)
[2022-07-03 22:54] LABS: Urine Bacteria MANY /hpf (None Seen); Urine Blood Negative /uL (Negative); Urine Hyaline Cast MOD /lpf (0 - 2); Urine Mucus FEW (None Seen); Urine Specific Gravity 1.021 (1.001-1.035); Urine WBC 7 /hpf (0 - 3)
[2022-07-03 22:55] LABS: Albumin 2.7 g/dL (3.4-5.0); BUN/Creatinine Ratio 31.8; Calcium 9.2 mg/dL (8.5-10.1); Magnesium 2.4 mg/dL (1.6-2.6); Potassium 3.6 mmol/L (3.5-5.1)
[2022-07-03 22:58] LABS: Bilirubin, Total 0.3 mg/dL (0.2-1.0); Total Protein 6.6 g/dL (6.4-8.2)
[2022-07-04] MEDS ORDERED: DexAMETHasone SOD PHOS 10MG/1ML VIAL INJ IV ONE
[2022-07-04] MEDS ORDERED: cefTRIAXone 1GM/50ML D5W 50 ML IV ONE
[2022-07-04] MEDS ORDERED: ALBUTEROL SULF 2.5 MG/0.5ML(0.5%) NEB SOLN ONE (04:39)
[2022-07-04] MEDS ORDERED: ALBUTEROL SULF 2.5 MG/0.5ML(0.5%) NEB SOLN NEB ONE ×2 (04:45)
[2022-07-04] MEDS ORDERED: MORPHINE SULFATE 4 MG/ML SYR/VIAL IV ONE ×2 (04:45)
[2022-07-04] MEDS ORDERED: ALBUMIN 25% 100 ML IV ONE (05:15)
[2022-07-04] MEDS ORDERED: AZITHROMYCIN 500MG/ 250ML 250 ML IV ONE (05:15)
[2022-07-04] MEDS ORDERED: DOCUSATE SOD 100 MG CAP PO PRN (05:15)
[2022-07-04] MEDS ORDERED: NITROGLYCERIN 0.4 MG SL TAB SL PRN (05:15)
[2022-07-04] MEDS ORDERED: ACETAMINOPHEN 325 MG TAB PO PRN (05:15)
[2022-07-04] MEDS ORDERED: ONDANSETRON HCL 4 MG/2 ML VIAL IV PRN (05:15)
[2022-07-04] MEDS ORDERED: ALBUTEROL SULF 2.5 MG/0.5ML(0.5%) NEB SOLN NEB PRN (05:15)
[2022-07-04] MEDS: SODIUM CHLOR 0.9% PF (SALINE LOCK) 10ML VIAL/SYR IV SCH ×3 (06:00→21:31)
[2022-07-04] MEDS ORDERED: methylPREDNISolone SOD SUCC 125 MG/2 ML VL IV SCH (06:00)
[2022-07-04 06:20] LABS: Basophils # (auto) 0 10 ^3/uL (0-0.2); Basophils % (auto) 0.5 % (0.0-2.0); Eosinophils # (auto) 0 10 ^3/uL (0-0.8); Eosinophils % (auto) 0.3 % (0.0-7.0); Hematocrit 38.2 % (41.0-53.0); Hemoglobin 12.2 g/dL (13.5-17.5); Lymphocytes # (auto) 0.8 10 ^3/uL (0.4-5.4); Lymphocytes % (auto) 10.6 % (10.0-50.0); Mean Corpuscular Volume 84.4 fL (80.0-100.0); Monocytes # (auto) 0.2 10 ^3/uL (0-1.3); Monocytes % (auto) 3.3 % (0.0-12.0); Neutrophils # (auto) 6.2 10 ^3/uL (1.6-8.6); Neutrophils % (auto) 85.3 % (37.0-80.0); Nucleated Red Blood Cells % 0.2 %; Red Blood Cells 4.52 10^6/uL (4.5-5.90); Red Cell Distribution Width 16.8 % (11.8-14.3); White Blood Cell 7.2 10^3/uL (4.4-10.8)
[2022-07-04 07:25] LABS: Potassium 4.3 mmol/L (3.5-5.1)
[2022-07-04 07:47] LABS: Albumin 3.1 g/dL (3.4-5.0); BUN/Creatinine Ratio 31.1; Bilirubin, Total 0.3 mg/dL (0.2-1.0); Calcium 9.3 mg/dL (8.5-10.1)
[2022-07-04 09:00] VITALS: BP 117/59
[2022-07-04] MEDS ORDERED: LACTULOSE 20Gm/30ML SOLN PO PRN ×2 (09:30→11:30)
[2022-07-04] MEDS ORDERED: DEXTROSE (50%) 50ML SYRG IV PRN (09:30)
[2022-07-04] MEDS ORDERED: FUROSEMIDE 40 MG/4 ML VIAL IV SCH (10:00)
[2022-07-04] MEDS: APIXABAN 5 MG TAB PO SCH ×2 (10:09→21:39)
[2022-07-04] MEDS: ASPirin 81 mg TAB PO SCH (10:09)
[2022-07-04] MEDS: levoFLOXacin 500MG 100 ML IV SCH (10:10)
[2022-07-04] MEDS: CARVEDILOL 3.125 MG TAB PO SCH ×2 (10:10→21:33)
[2022-07-04] MEDS: MORPHINE SULFATE INJ 2 MG/ml SYRG IV PRN ×3 (10:21→21:59)
[2022-07-04] MEDS: InsuLIN REG 1unit/0.01ml Soln (100units/ml) SC SCH ×3 (12:05→21:41)
[2022-07-04] MEDS: ACCU-CHEK COMFORT CURVE STRIP VI SCH ×3 (12:07→21:38)
[2022-07-04] MEDS: ALBUTEROL SULF 2.5 MG/0.5ML(0.5%) NEB SOLN NEB SCH ×3 (12:36→23:37)
[2022-07-04] MEDS: IPRATROPIUM BROM 0.5 MG/2.5ML INH SOL NEB SCH ×3 (12:37→23:37)
[2022-07-04] MEDS ORDERED: AZITHROMYCIN 500MG/ 250ML 250 ML IV SCH (21:00)
[2022-07-04] MEDS: FUROSEMIDE 40 MG/4 ML VIAL IV SCH (21:31)
[2022-07-04] MEDS: methylPREDNISolone SOD SUCC 125 MG/2 ML VL IV SCH (21:33)
[2022-07-04] MEDS: ATORVASTATIN 20 MG TAB PO SCH (21:38)
[2022-07-05] MEDS: IPRATROPIUM BROM 0.5 MG/2.5ML INH SOL NEB SCH ×4 (05:27→23:42)
[2022-07-05] MEDS: ALBUTEROL SULF 2.5 MG/0.5ML(0.5%) NEB SOLN NEB SCH ×4 (05:28→23:42)
[2022-07-05] MEDS: SODIUM CHLOR 0.9% PF (SALINE LOCK) 10ML VIAL/SYR IV SCH ×3 (05:28→22:04)
[2022-07-05 06:19] LABS: Albumin 3.1 g/dL (3.4-5.0); BUN/Creatinine Ratio 25.3; Bilirubin, Total 0.3 mg/dL (0.2-1.0); Calcium 9.3 mg/dL (8.5-10.1); Potassium 3.9 mmol/L (3.5-5.1); Total Protein 6.8 g/dL (6.4-8.2)
[2022-07-05] MEDS: InsuLIN REG 1unit/0.01ml Soln (100units/ml) SC SCH ×4 (06:57→23:22)
[2022-07-05] MEDS: ACCU-CHEK COMFORT CURVE STRIP VI SCH ×4 (06:57→22:04)
[2022-07-05 07:03] LABS: Basophils # (auto) 0 10 ^3/uL (0-0.2); Eosinophils # (auto) 0 10 ^3/uL (0-0.8); Lymphocytes # (auto) 0.8 10 ^3/uL (0.4-5.4); Lymphocytes % (auto) 6.9 % (10.0-50.0); Monocytes # (auto) 0.5 10 ^3/uL (0-1.3)
[2022-07-05 07:31] LABS: Basophils % (auto) 0.2 % (0.0-2.0); Hematocrit 34.6 % (41.0-53.0); Hemoglobin 10.9 g/dL (13.5-17.5); Mean Corpuscular Hemoglobin 26.4 pg (28.0-32.0); Mean Corpuscular Hgb Conc. 31.5 g/dL (32.0-36.0); Mean Corpuscular Volume 83.7 fL (80.0-100.0); Monocytes % (auto) 4.4 % (0.0-12.0); Neutrophils # (auto) 9.9 10 ^3/uL (1.6-8.6); Neutrophils % (auto) 88.5 % (37.0-80.0); Nucleated Red Blood Cells % 0.1 %; Red Blood Cells 4.14 10^6/uL (4.5-5.90); Red Cell Distribution Width 16.5 % (11.8-14.3); White Blood Cell 11.2 10^3/uL (4.4-10.8)
[2022-07-05] MEDS ORDERED: ENALAPRIL MALEATE 2.5 MG TAB PO SCH (10:00)
[2022-07-05] MEDS: levoFLOXacin 500MG 100 ML IV SCH (10:39)
[2022-07-05] MEDS: FUROSEMIDE 40 MG/4 ML VIAL IV SCH ×2 (10:40→21:48)
[2022-07-05] MEDS: RANOLAZINE ER 500 MG TAB PO SCH ×2 (10:41→21:48)
[2022-07-05] MEDS: ASPirin 81 mg TAB PO SCH (10:41)
[2022-07-05] MEDS: APIXABAN 5 MG TAB PO SCH ×2 (10:41→21:49)
[2022-07-05] MEDS: CARVEDILOL 3.125 MG TAB PO SCH ×2 (10:43→21:49)
[2022-07-05] MEDS: methylPREDNISolone SOD SUCC 125 MG/2 ML VL IV SCH ×2 (10:47→21:47)
[2022-07-05] MEDS: SACUBITRIL-VALSARTAN 24mg/26mg TAB PO SCH ×2 (10:49→21:49)
[2022-07-05] MEDS: MORPHINE SULFATE INJ 2 MG/ml SYRG IV PRN ×3 (11:10→21:50)
[2022-07-05] MEDS: DOBUTamine 1000MCG/ML 250 ML IV SCH (12:49)
[2022-07-05 13:00] VITALS: BP 117/69
[2022-07-05 16:00] VITALS: BP 108/68
[2022-07-05 17:00] VITALS: BP 108/68
[2022-07-05] MEDS: HYDROcodone-ACET 5/325MG TAB PO PRN (21:00)
[2022-07-05] MEDS: ATORVASTATIN 20 MG TAB PO SCH (21:49)
[2022-07-05 22:00] VITALS: BP 123/71
[2022-07-06] VITALS: BP 99/63
[2022-07-06] MEDS: DOBUTamine 1000MCG/ML 250 ML IV SCH ×3 (01:43→15:17)
[2022-07-06 05:00] VITALS: BP 94/55
[2022-07-06] MEDS: SODIUM CHLOR 0.9% PF (SALINE LOCK) 10ML VIAL/SYR IV SCH ×3 (06:00→22:00)
[2022-07-06] MEDS: ACCU-CHEK COMFORT CURVE STRIP VI SCH ×4 (06:21→22:00)
[2022-07-06] MEDS: InsuLIN REG 1unit/0.01ml Soln (100units/ml) SC SCH ×4 (06:22→22:00)
[2022-07-06] MEDS: EMPAGLIFLOZIN 10 MG TAB PO SCH (06:22)
[2022-07-06] MEDS: ALBUTEROL SULF 2.5 MG/0.5ML(0.5%) NEB SOLN NEB SCH ×3 (06:50→18:37)
[2022-07-06] MEDS: IPRATROPIUM BROM 0.5 MG/2.5ML INH SOL NEB SCH ×3 (06:50→18:37)
[2022-07-06 08:00] VITALS: BP 110/63
[2022-07-06] MEDS: FUROSEMIDE 40 MG/4 ML VIAL IV SCH ×2 (08:30→23:01)
[2022-07-06] MEDS: methylPREDNISolone SOD SUCC 125 MG/2 ML VL IV SCH ×2 (08:30→23:01)
[2022-07-06] MEDS: ASPirin 81 mg TAB PO SCH (08:31)
[2022-07-06] MEDS: APIXABAN 5 MG TAB PO SCH ×2 (08:31→23:02)
[2022-07-06] MEDS: levoFLOXacin 500MG 100 ML IV SCH (08:31)
[2022-07-06] MEDS: CARVEDILOL 3.125 MG TAB PO SCH ×2 (08:31→23:02)
[2022-07-06] MEDS: SACUBITRIL-VALSARTAN 24mg/26mg TAB PO SCH ×2 (08:32→23:03)
[2022-07-06] MEDS: RANOLAZINE ER 500 MG TAB PO SCH ×2 (08:32→23:03)
[2022-07-06] MEDS: MORPHINE SULFATE INJ 2 MG/ml SYRG IV PRN ×4 (08:33→22:14)
[2022-07-06 13:00] VITALS: BP 106/63
[2022-07-06 16:00] VITALS: BP 105/55
[2022-07-06 22:00] VITALS: BP 114/66
[2022-07-06] MEDS: ATORVASTATIN 20 MG TAB PO SCH (23:03)
[2022-07-07] MEDS: IPRATROPIUM BROM 0.5 MG/2.5ML INH SOL NEB SCH ×4 (00:09→18:58)
[2022-07-07] MEDS: ALBUTEROL SULF 2.5 MG/0.5ML(0.5%) NEB SOLN NEB SCH ×4 (00:09→18:58)
[2022-07-07] MEDS: MORPHINE SULFATE INJ 2 MG/ml SYRG IV PRN ×5 (04:02→23:03)
[2022-07-07 05:00] VITALS: BP 95/57
[2022-07-07] MEDS: SODIUM CHLOR 0.9% PF (SALINE LOCK) 10ML VIAL/SYR IV SCH ×3 (05:29→22:37)
[2022-07-07] MEDS: DOBUTamine 1000MCG/ML 250 ML IV SCH ×2 (05:29→18:27)
[2022-07-07] MEDS: InsuLIN REG 1unit/0.01ml Soln (100units/ml) SC SCH ×4 (06:44→23:02)
[2022-07-07] MEDS: EMPAGLIFLOZIN 10 MG TAB PO SCH (06:57)
[2022-07-07] MEDS: ACCU-CHEK COMFORT CURVE STRIP VI SCH ×4 (07:00→22:45)
[2022-07-07 07:25] LABS: Alanine Aminotransferase 26 U/L (16-61); Albumin 2.6 g/dL (3.4-5.0); Anion Gap 6 (5-15); Aspartate Aminotransferase 16 U/L (15-37); BUN/Creatinine Ratio 29.2; Blood Urea Nitrogen 28 mg/dL (7-18); Calcium 8.7 mg/dL (8.5-10.1); Carbon Dioxide 29 mmol/L (21-32); Chloride 104 mmol/L (98-107); GFR African American 103 mL/min; GFR Non-African American 85 mL/min; Glucose 143 mg/dL (74-106); Potassium 4.5 mmol/L (3.5-5.1); Sodium 139 mmol/L (136-145)
[2022-07-07 07:28] LABS: Alkaline Phosphatase 54 U/L (45-117); Bilirubin, Total 0.2 mg/dL (0.2-1.0); Total Protein 5.7 g/dL (6.4-8.2)
[2022-07-07 08:15] LABS: Mean Corpuscular Hemoglobin 26.6 pg (28.0-32.0)
[2022-07-07 08:21] LABS: Hematocrit 36.2 % (41.0-53.0); Hemoglobin 11.6 g/dL (13.5-17.5); Mean Corpuscular Volume 83.1 fL (80.0-100.0); Red Blood Cells 4.36 10^6/uL (4.5-5.90); White Blood Cell 19.3 10^3/uL (4.4-10.8)
[2022-07-07 08:24] LABS: Basophils % (manual) 0 (0.0-2.0); Blast Cells 0; Eosinophils % (manual) 0 (0-7); Metamyelocytes % 0; Promyelocytes % 0; Reactive Lymphocytes 0
[2022-07-07] MEDS: levoFLOXacin 500MG 100 ML IV SCH (08:38)
[2022-07-07] MEDS: methylPREDNISolone SOD SUCC 125 MG/2 ML VL IV SCH ×2 (08:39→22:37)
[2022-07-07] MEDS: CARVEDILOL 3.125 MG TAB PO SCH ×2 (08:40→22:43)
[2022-07-07] MEDS: SACUBITRIL-VALSARTAN 24mg/26mg TAB PO SCH ×2 (08:40→22:44)
[2022-07-07] MEDS: ASPirin 81 mg TAB PO SCH (08:40)
[2022-07-07] MEDS: APIXABAN 5 MG TAB PO SCH ×2 (08:41→22:43)
[2022-07-07] MEDS: RANOLAZINE ER 500 MG TAB PO SCH ×2 (08:41→22:44)
[2022-07-07] MEDS: FUROSEMIDE 40 MG/4 ML VIAL IV SCH ×2 (08:42→22:36)
[2022-07-07 09:00] VITALS: BP 101/53
[2022-07-07 09:25] LABS: Band Neutrophils % (manual) 6; Lymphocytes % (manual) 16 (10.0-50.0); Monocytes % (manual) 1 (0-12); Myelocytes % 1
[2022-07-07 09:37] VITALS: BP 101/53
[2022-07-07 22:00] VITALS: BP 118/67
[2022-07-07] MEDS: ATORVASTATIN 20 MG TAB PO SCH (22:44)
[2022-07-08] MEDS: ALBUTEROL SULF 2.5 MG/0.5ML(0.5%) NEB SOLN NEB SCH ×4 (01:00→18:55)
[2022-07-08] MEDS: IPRATROPIUM BROM 0.5 MG/2.5ML INH SOL NEB SCH ×4 (01:00→18:55)
[2022-07-08 05:00] VITALS: BP 113/47
[2022-07-08] MEDS: MORPHINE SULFATE INJ 2 MG/ml SYRG IV PRN ×2 (05:19→10:08)
[2022-07-08] MEDS: DOBUTamine 1000MCG/ML 250 ML IV SCH ×2 (05:45→16:42)
[2022-07-08] MEDS: SODIUM CHLOR 0.9% PF (SALINE LOCK) 10ML VIAL/SYR IV SCH ×2 (06:07→14:00)
[2022-07-08] MEDS: ACCU-CHEK COMFORT CURVE STRIP VI SCH ×3 (06:14→16:42)
[2022-07-08] MEDS: EMPAGLIFLOZIN 10 MG TAB PO SCH (06:14)
[2022-07-08] MEDS: InsuLIN REG 1unit/0.01ml Soln (100units/ml) SC SCH ×3 (06:19→16:42)
[2022-07-08 08:09] VITALS: BP 114/65
[2022-07-08] MEDS: APIXABAN 5 MG TAB PO SCH (09:37)
[2022-07-08] MEDS: ASPirin 81 mg TAB PO SCH (09:37)
[2022-07-08] MEDS: CARVEDILOL 3.125 MG TAB PO SCH (09:37)
[2022-07-08] MEDS: FUROSEMIDE 40 MG/4 ML VIAL IV SCH (09:37)
[2022-07-08] MEDS: methylPREDNISolone SOD SUCC 125 MG/2 ML VL IV SCH (09:37)
[2022-07-08] MEDS: RANOLAZINE ER 500 MG TAB PO SCH (09:38)
[2022-07-08] MEDS: levoFLOXacin 500MG 100 ML IV SCH (09:38)
[2022-07-08] MEDS: SACUBITRIL-VALSARTAN 24mg/26mg TAB PO SCH (09:38)
[2022-07-08] MEDS ORDERED: MEROPENEM 2 GM in SODIUM CHL 0.9% 250 ML IV ONE (12:15)
[2022-07-08 12:30] VITALS: BP 99/58
[2022-07-08 16:23] VITALS: BP 99/58
[2022-07-08] MEDS ORDERED: MEROPENEM 1GM IVPB 100 ML IV SCH (20:00)
[2022-07-08] MEDS: HYDROcodone-ACET 5/325MG TAB PO PRN (20:16)
== END 2022-07-08 20:30 | DRG 280 ==
LOC: ER 21:19 → EDBD 21:19 → TELE 07-04 05:07 → TELE-WESTW 07-05 08:48
PROVIDERS: ADMIT Nurse Practitioner Family; ATTEND Internal Medicine
PROC: 5A09357 Assistance with Respiratory Ventilation, Less than 24 Consecutive Hours, Continuous Positive Airway Pressure (ICD-10-PCS; principal; 2022-07-05)
PROC: 5A09357 Assistance with Respiratory Ventilation, Less than 24 Consecutive Hours, Continuous Positive Airway Pressure (ICD-10-PCS; 2022-07-08)
DX: I11.0 Hypertensive heart disease with heart failure (principal); I50.23 Acute on chronic systolic (congestive) heart failure; I21.A1 Myocardial infarction type 2; J18.9 Pneumonia, unspecified organism; J96.01 Acute respiratory failure with hypoxia; E66.2 Morbid (severe) obesity with alveolar hypoventilation; J44.1 Chronic obstructive pulmonary disease with (acute) exacerbation; N39.0 Urinary tract infection, site not specified; Z68.42 Body mass index [BMI] 45.0-49.9, adult; J44.0 Chronic obstructive pulmonary disease with (acute) lower respiratory infection; D63.8 Anemia in other chronic diseases classified elsewhere; E78.5 Hyperlipidemia, unspecified; E88.09 Other disorders of plasma-protein metabolism, not elsewhere classified; F32.A Depression, unspecified; K21.9 Gastro-esophageal reflux disease without esophagitis; Z20.822 Contact with and (suspected) exposure to COVID-19; I25.5 Ischemic cardiomyopathy; I50.82 Biventricular heart failure; E11.65 Type 2 diabetes mellitus with hyperglycemia; G40.909 Epilepsy, unspecified, not intractable, without status epilepticus; I25.10 Atherosclerotic heart disease of native coronary artery without angina pectoris; I25.2 Old myocardial infarction; Z82.49 Family history of ischemic heart disease and other diseases of the circulatory system; Z83.3 Family history of diabetes mellitus; Z86.711 Personal history of pulmonary embolism; Z86.73 Personal history of transient ischemic attack (TIA), and cerebral infarction without residual deficits; Z87.891 Personal history of nicotine dependence; Z88.0 Allergy status to penicillin; Z91.199 Patient's noncompliance with other medical treatment and regimen due to unspecified reason; Z90.49 Acquired absence of other specified parts of digestive tract; Z91.041 Radiographic dye allergy status; Z91.011 Allergy to milk products; Z95.810 Presence of automatic (implantable) cardiac defibrillator
CPT/HCPCS: 36415; 36600; 71045; 80053; 80061; 81001; 82805; 82962; 83036; 83735; 83880; 84484; 85007; 85025; 85027; 85610; 85730; 87081; 87086; 87088; 87186; 87426; 93005; 94640; 94660; 96365; 96375; 96379; 99291; G0378; J0696; J1100; J1815; J1956; J2185; J7060; P9047

== ENCOUNTER 2022-07-16 12:15 | Inpatient (IN) | payer MEDICARE, MEDICAID ==
[~2022-07-16] VITALS: Ht 180.3 cm; Wt 168.8 kg
[2022-07-16] MEDS ORDERED: ASPirin 325 MG TAB PO ONE (12:30)
[2022-07-16] MEDS ORDERED: FUROSEMIDE 40 MG/4 ML VIAL IV ONE (13:00)
[2022-07-16 13:18] LABS: Eosinophils # (auto) 0.1 10 ^3/uL (0-0.8); Monocytes # (auto) 0.9 10 ^3/uL (0-1.3)
[2022-07-16 13:20] LABS: Basophils # (auto) 0 10 ^3/uL (0-0.2); Basophils % (auto) 0.2 % (0.0-2.0); Hematocrit 33.2 % (41.0-53.0); Hemoglobin 10.4 g/dL (13.5-17.5); Lymphocytes # (auto) 1.2 10 ^3/uL (0.4-5.4); Lymphocytes % (auto) 15.3 % (10.0-50.0); Mean Corpuscular Hemoglobin 26.5 pg (28.0-32.0); Mean Corpuscular Hgb Conc. 31.4 g/dL (32.0-36.0); Mean Corpuscular Volume 84.5 fL (80.0-100.0); Monocytes % (auto) 11.6 % (0.0-12.0); Neutrophils # (auto) 5.9 10 ^3/uL (1.6-8.6); Neutrophils % (auto) 71.9 % (37.0-80.0); Nucleated Red Blood Cells % 0.1 %; Red Blood Cells 3.93 10^6/uL (4.5-5.90); Red Cell Distribution Width 17.4 % (11.8-14.3); White Blood Cell 8.2 10^3/uL (4.4-10.8)
[2022-07-16] MEDS ORDERED: ONDANSETRON HCL 4 MG/2 ML VIAL IV ONE ×2 (13:30→16:30)
[2022-07-16] MEDS ORDERED: MORPHINE SULFATE INJ 2 MG/ml SYRG IV ONE ×2 (13:30→16:30)
[2022-07-16 13:34] LABS: Albumin 2.6 g/dL (3.4-5.0); Calcium 8.3 mg/dL (8.5-10.1)
[2022-07-16 13:35] LABS: INR 1.11 (0.9-1.15); Partial Thromboplastin Time 26.5 sec (24.6-33.4)
[2022-07-16 13:36] LABS: BUN/Creatinine Ratio 12.2
[2022-07-16 13:38] LABS: Bilirubin, Total 0.4 mg/dL (0.2-1.0); Total Protein 5.5 g/dL (6.4-8.2)
[2022-07-16 14:09] LABS: Potassium 4.4 mmol/L (3.5-5.1)
[2022-07-16 14:58] LABS: Urine Bacteria NONE SEEN /hpf (None Seen); Urine Blood TRACE /uL (Negative); Urine WBC 3 /hpf (0 - 3)
[2022-07-16] MEDS ORDERED: ALBUMIN 25% 100 ML IV ONE (22:15)
[2022-07-16] MEDS ORDERED: ACETAMINOPHEN 325 MG TAB PO PRN (22:15)
[2022-07-16] MEDS ORDERED: DOCUSATE SOD 100 MG CAP PO PRN (22:15)
[2022-07-16] MEDS ORDERED: ONDANSETRON HCL 4 MG/2 ML VIAL IV PRN (22:15)
[2022-07-16] MEDS: MORPHINE SULFATE INJ 2 MG/ml SYRG IV PRN (22:55)
[2022-07-17] MEDS ORDERED: NITROGLYCERIN 0.4 MG SL TAB SL PRN (00:15)
[2022-07-17 04:00] VITALS: BP 142/98
[2022-07-17] MEDS: MORPHINE SULFATE INJ 2 MG/ml SYRG IV PRN ×5 (04:00→22:44)
[2022-07-17] MEDS ORDERED: ALBUTEROL SULF 2.5 MG/0.5ML(0.5%) NEB SOLN NEB PRN (04:15)
[2022-07-17] MEDS: SODIUM CHLOR 0.9% PF (SALINE LOCK) 10ML VIAL/SYR IV SCH ×3 (06:22→22:45)
[2022-07-17 06:27] LABS: Basophils # (auto) 0.1 10 ^3/uL (0-0.2); Basophils % (auto) 1.2 % (0.0-2.0); Eosinophils # (auto) 0.1 10 ^3/uL (0-0.8); Eosinophils % (auto) 0.8 % (0.0-7.0); Hematocrit 30.3 % (41.0-53.0); Hemoglobin 9.8 g/dL (13.5-17.5); Lymphocytes # (auto) 1.2 10 ^3/uL (0.4-5.4); Lymphocytes % (auto) 14.2 % (10.0-50.0); Mean Corpuscular Hemoglobin 27.5 pg (28.0-32.0); Mean Corpuscular Hgb Conc. 32.4 g/dL (32.0-36.0); Mean Corpuscular Volume 84.8 fL (80.0-100.0); Monocytes % (auto) 11.7 % (0.0-12.0); Neutrophils # (auto) 6.2 10 ^3/uL (1.6-8.6); Neutrophils % (auto) 72.1 % (37.0-80.0); Red Blood Cells 3.57 10^6/uL (4.5-5.90); White Blood Cell 8.7 10^3/uL (4.4-10.8)
[2022-07-17 06:37] LABS: Albumin 2.7 g/dL (3.4-5.0); Calcium 8.6 mg/dL (8.5-10.1); Potassium 4.2 mmol/L (3.5-5.1)
[2022-07-17 06:43] LABS: Bilirubin, Total 0.3 mg/dL (0.2-1.0); Total Protein 5.9 g/dL (6.4-8.2)
[2022-07-17] MEDS: IPRATROPIUM BROM 0.5 MG/2.5ML INH SOL NEB SCH ×4 (09:07→23:36)
[2022-07-17] MEDS: ALBUTEROL SULF 2.5 MG/0.5ML(0.5%) NEB SOLN NEB SCH ×4 (09:07→23:36)
[2022-07-17] MEDS ORDERED: CARVEDILOL 3.125 MG TAB PO SCH (10:00)
[2022-07-17] MEDS ORDERED: FUROSEMIDE 40 MG/4 ML VIAL IV SCH (10:00)
[2022-07-17] MEDS: APIXABAN 5 MG TAB PO SCH ×2 (10:00→22:46)
[2022-07-17] MEDS: ASPirin 81 mg TAB PO SCH (11:16)
[2022-07-17] MEDS: METOPROLOL TARTRATE 25 MG TAB PO SCH ×2 (11:17→22:47)
[2022-07-17] MEDS: HYDROcodone-ACET 5/325MG TAB PO PRN (11:17)
[2022-07-17] MEDS: BUDESONIDE (INHALATION) 0.5 MG/2 ML NEB NEB SCH ×2 (12:26→19:13)
[2022-07-17] MEDS ORDERED: levoFLOXacin 500MG 100 ML IV ONE (12:30)
[2022-07-17 12:48] VITALS: BP 106/69
[2022-07-17 13:00] VITALS: BP 109/69
[2022-07-17] MEDS: levoFLOXacin 250MG 50 ML IV SCH (14:07)
[2022-07-17 17:23] VITALS: BP 126/82
[2022-07-17] MEDS: BUMETANIDE 2.5mg/10ml (0.25 mg/ml) INJ IV SCH (17:45)
[2022-07-17] MEDS ORDERED: FUROSEMIDE 100 MG/10ML VIAL IV SCH (18:00)
[2022-07-17 20:00] VITALS: BP 126/82
[2022-07-17 22:00] VITALS: BP 124/71
[2022-07-18] VITALS (7 sets, daily range): BP systolic 102–124; BP diastolic 64–78
[2022-07-18] MEDS: MORPHINE SULFATE INJ 2 MG/ml SYRG IV PRN ×5 (02:44→20:39)
[2022-07-18] MEDS: SODIUM CHLOR 0.9% PF (SALINE LOCK) 10ML VIAL/SYR IV SCH ×3 (05:37→22:00)
[2022-07-18] MEDS: METOPROLOL TARTRATE 25 MG TAB PO SCH ×4 (05:37→20:37)
[2022-07-18] MEDS: BUMETANIDE 2.5mg/10ml (0.25 mg/ml) INJ IV SCH ×2 (05:38→18:13)
[2022-07-18] MEDS: ALBUTEROL SULF 2.5 MG/0.5ML(0.5%) NEB SOLN NEB SCH ×4 (06:39→18:52)
[2022-07-18] MEDS: IPRATROPIUM BROM 0.5 MG/2.5ML INH SOL NEB SCH ×4 (06:39→18:52)
[2022-07-18] MEDS: BUDESONIDE (INHALATION) 0.5 MG/2 ML NEB NEB SCH ×2 (06:39→22:00)
[2022-07-18] MEDS: SPIRONOLACTONE 25 MG TAB PO SCH (09:54)
[2022-07-18] MEDS: ASPirin 81 mg TAB PO SCH (09:54)
[2022-07-18] MEDS: APIXABAN 5 MG TAB PO SCH ×2 (09:55→20:36)
[2022-07-18] MEDS: levoFLOXacin 250MG 50 ML IV SCH (09:55)
[2022-07-18] MEDS ORDERED: levoFLOXacin 500MG 100 ML IV SCH (10:00)
[2022-07-18] MEDS ORDERED: DICYCLOMINE HCL 10 MG CAP PO ONE (16:00)
[2022-07-18] MEDS: DOCUSATE SOD 100 MG CAP PO SCH (20:37)
[2022-07-18] MEDS: PANTOPRAZOLE 40 MG TAB PO SCH (20:37)
[2022-07-19] VITALS (7 sets, daily range): BP systolic 104–130; BP diastolic 60–80
[2022-07-19] MEDS: IPRATROPIUM BROM 0.5 MG/2.5ML INH SOL NEB SCH ×3 (00:15→12:28)
[2022-07-19] MEDS: ALBUTEROL SULF 2.5 MG/0.5ML(0.5%) NEB SOLN NEB SCH ×3 (00:15→12:28)
[2022-07-19] MEDS: MORPHINE SULFATE INJ 2 MG/ml SYRG IV PRN ×5 (01:05→22:42)
[2022-07-19] MEDS: BUMETANIDE 2.5mg/10ml (0.25 mg/ml) INJ IV SCH ×2 (05:33→18:52)
[2022-07-19] MEDS: SODIUM CHLOR 0.9% PF (SALINE LOCK) 10ML VIAL/SYR IV SCH ×3 (05:34→22:53)
[2022-07-19] MEDS: BUDESONIDE (INHALATION) 0.5 MG/2 ML NEB NEB SCH (06:02)
[2022-07-19 08:29] LABS: Basophils # (auto) 0.1 10 ^3/uL (0-0.2); Basophils % (auto) 0.9 % (0.0-2.0); Eosinophils # (auto) 0.1 10 ^3/uL (0-0.8); Hematocrit 30.3 % (41.0-53.0); Hemoglobin 9.6 g/dL (13.5-17.5); Lymphocytes # (auto) 1.5 10 ^3/uL (0.4-5.4); Lymphocytes % (auto) 13.4 % (10.0-50.0); Mean Corpuscular Hemoglobin 27.1 pg (28.0-32.0); Mean Corpuscular Hgb Conc. 31.7 g/dL (32.0-36.0); Mean Corpuscular Volume 85.3 fL (80.0-100.0); Monocytes # (auto) 1.1 10 ^3/uL (0-1.3); Monocytes % (auto) 9.7 % (0.0-12.0); Neutrophils # (auto) 8.4 10 ^3/uL (1.6-8.6); Nucleated Red Blood Cells % 0.3 %; Red Blood Cells 3.55 10^6/uL (4.5-5.90); Red Cell Distribution Width 17.5 % (11.8-14.3); White Blood Cell 11.1 10^3/uL (4.4-10.8)
[2022-07-19 08:54] LABS: BUN/Creatinine Ratio 10.8; Calcium 7.9 mg/dL (8.5-10.1); Potassium 4.2 mmol/L (3.5-5.1)
[2022-07-19] MEDS: levoFLOXacin 250MG 50 ML IV SCH (10:33)
[2022-07-19] MEDS: SPIRONOLACTONE 25 MG TAB PO SCH (10:34)
[2022-07-19] MEDS: DOCUSATE SOD 100 MG CAP PO SCH ×2 (10:34→22:47)
[2022-07-19] MEDS: ASPirin 81 mg TAB PO SCH (10:34)
[2022-07-19] MEDS: PANTOPRAZOLE 40 MG TAB PO SCH ×2 (10:35→22:47)
[2022-07-19] MEDS: APIXABAN 5 MG TAB PO SCH ×2 (10:36→22:47)
[2022-07-19] MEDS: METOPROLOL TARTRATE 25 MG TAB PO SCH (22:48)
[2022-07-19] MEDS: levETIRAcetam 500 MG TAB PO SCH (22:48)
[2022-07-20] VITALS (9 sets, daily range): BP systolic 103–146; BP diastolic 60–87
[2022-07-20] MEDS: IPRATROPIUM BROM 0.5 MG/2.5ML INH SOL NEB SCH ×6 (00:12→23:38)
[2022-07-20] MEDS: ALBUTEROL SULF 2.5 MG/0.5ML(0.5%) NEB SOLN NEB SCH ×6 (00:12→23:38)
[2022-07-20] MEDS: MORPHINE SULFATE INJ 2 MG/ml SYRG IV PRN ×5 (04:25→22:23)
[2022-07-20] MEDS: SODIUM CHLOR 0.9% PF (SALINE LOCK) 10ML VIAL/SYR IV SCH ×3 (06:20→22:20)
[2022-07-20] MEDS: BUMETANIDE 2.5mg/10ml (0.25 mg/ml) INJ IV SCH ×2 (06:35→18:08)
[2022-07-20] MEDS: APIXABAN 5 MG TAB PO SCH ×2 (09:28→22:20)
[2022-07-20] MEDS: SPIRONOLACTONE 25 MG TAB PO SCH (09:28)
[2022-07-20] MEDS: PANTOPRAZOLE 40 MG TAB PO SCH ×2 (09:28→22:20)
[2022-07-20] MEDS: ASPirin 81 mg TAB PO SCH (09:28)
[2022-07-20] MEDS: DOCUSATE SOD 100 MG CAP PO SCH ×2 (09:28→22:20)
[2022-07-20] MEDS: levETIRAcetam 500 MG TAB PO SCH ×2 (09:29→22:20)
[2022-07-20] MEDS: levoFLOXacin 250MG 50 ML IV SCH (09:29)
[2022-07-20] MEDS: METOPROLOL TARTRATE 25 MG TAB PO SCH ×2 (10:00→22:20)
[2022-07-20] MEDS ORDERED: LORazepam 2MG/ML-1ML VIAL ONE (12:40)
[2022-07-20 13:45] LABS: Basophils # (auto) 0.2 10 ^3/uL (0-0.2); Basophils % (auto) 2.3 % (0.0-2.0); Eosinophils # (auto) 0.2 10 ^3/uL (0-0.8); Hematocrit 30.6 % (41.0-53.0); Hemoglobin 9.8 g/dL (13.5-17.5); Lymphocytes # (auto) 1.3 10 ^3/uL (0.4-5.4); Lymphocytes % (auto) 13.4 % (10.0-50.0); Mean Corpuscular Hemoglobin 27.1 pg (28.0-32.0); Mean Corpuscular Hgb Conc. 32.1 g/dL (32.0-36.0); Mean Corpuscular Volume 84.4 fL (80.0-100.0); Monocytes # (auto) 0.7 10 ^3/uL (0-1.3); Monocytes % (auto) 7.1 % (0.0-12.0); Neutrophils # (auto) 7.5 10 ^3/uL (1.6-8.6); Neutrophils % (auto) 75.2 % (37.0-80.0); Nucleated Red Blood Cells % 0.2 %; Red Blood Cells 3.63 10^6/uL (4.5-5.90); Red Cell Distribution Width 17.7 % (11.8-14.3)
[2022-07-20] MEDS ORDERED: MIDAZOLAM HCL 2MG/2ML 2ml VIAL (1mg/ml) IV PRN (14:00)
[2022-07-20 14:05] LABS: BUN/Creatinine Ratio 10.5 (10.0-20.0); Calcium 8.2 mg/dL (8.5-10.1); Potassium 4.2 mmol/L (3.5-5.1)
[2022-07-20] MEDS: BUDESONIDE (INHALATION) 0.5 MG/2 ML NEB NEB SCH ×2 (18:31→18:33)
[2022-07-20] MEDS: DOXYCYCLINE 100 MG TAB/CAP PO SCH (22:20)
[2022-07-20] MEDS ORDERED: ATOR40TA52 PO (22:30)
[2022-07-20] MEDS ORDERED: levETIRAcetam 500 MG TAB PO SCH (22:45)
[2022-07-21] VITALS (15 sets, daily range): BP systolic 100–133; BP diastolic 67–96
[2022-07-21] MEDS: MORPHINE SULFATE INJ 2 MG/ml SYRG IV PRN ×5 (03:31→20:41)
[2022-07-21] MEDS: BUMETANIDE 2.5mg/10ml (0.25 mg/ml) INJ IV SCH (05:18)
[2022-07-21] MEDS: SODIUM CHLOR 0.9% PF (SALINE LOCK) 10ML VIAL/SYR IV SCH ×3 (05:18→22:12)
[2022-07-21] MEDS: IPRATROPIUM BROM 0.5 MG/2.5ML INH SOL NEB SCH ×3 (07:21→18:30)
[2022-07-21] MEDS: ALBUTEROL SULF 2.5 MG/0.5ML(0.5%) NEB SOLN NEB SCH ×3 (07:21→18:30)
[2022-07-21] MEDS: BUDESONIDE (INHALATION) 0.5 MG/2 ML NEB NEB SCH ×2 (07:21→18:58)
[2022-07-21 09:44] LABS: Basophils # (auto) 0 10 ^3/uL (0-0.2); Basophils % (auto) 0.5 % (0.0-2.0); Eosinophils # (auto) 0.2 10 ^3/uL (0-0.8); Hematocrit 30.5 % (41.0-53.0); Hemoglobin 9.8 g/dL (13.5-17.5); Lymphocytes # (auto) 1.1 10 ^3/uL (0.4-5.4); Lymphocytes % (auto) 13.7 % (10.0-50.0); Mean Corpuscular Hgb Conc. 32.2 g/dL (32.0-36.0); Mean Corpuscular Volume 83.9 fL (80.0-100.0); Monocytes # (auto) 0.5 10 ^3/uL (0-1.3); Monocytes % (auto) 5.7 % (0.0-12.0); Neutrophils # (auto) 6.5 10 ^3/uL (1.6-8.6); Neutrophils % (auto) 78.1 % (37.0-80.0); Nucleated Red Blood Cells % 0.2 %; Red Blood Cells 3.64 10^6/uL (4.5-5.90); Red Cell Distribution Width 17.6 % (11.8-14.3); White Blood Cell 8.3 10^3/uL (4.4-10.8)
[2022-07-21] MEDS: DOCUSATE SOD 100 MG CAP PO SCH ×2 (10:11→22:11)
[2022-07-21] MEDS: DOXYCYCLINE 100 MG TAB/CAP PO SCH ×2 (10:11→22:11)
[2022-07-21] MEDS: PANTOPRAZOLE 40 MG TAB PO SCH ×2 (10:11→22:11)
[2022-07-21] MEDS: SPIRONOLACTONE 25 MG TAB PO SCH (10:12)
[2022-07-21] MEDS: METOPROLOL TARTRATE 25 MG TAB PO SCH ×2 (10:12→22:11)
[2022-07-21] MEDS: APIXABAN 5 MG TAB PO SCH ×2 (10:13→22:11)
[2022-07-21 10:14] LABS: Albumin 2.7 g/dL (3.4-5.0); Calcium 8.6 mg/dL (8.5-10.1); Potassium 4.1 mmol/L (3.5-5.1)
[2022-07-21 10:17] LABS: BUN/Creatinine Ratio 11.9 (10.0-20.0); Bilirubin, Total 0.9 mg/dL (0.2-1.0); Total Protein 6.3 g/dL (6.4-8.2)
[2022-07-21] MEDS: levETIRAcetam 500 MG TAB PO SCH ×2 (10:17→22:10)
[2022-07-21] MEDS ORDERED: POLYETHYLENE GLYCOL 17 GM PWDR PO ONE (17:45)
[2022-07-21] MEDS: BUMETANIDE 1mg/4ml VIAL (0.25mg/ml) IV SCH (18:28)
[2022-07-22] VITALS (10 sets, daily range): BP systolic 115–133; BP diastolic 65–96
[2022-07-22] MEDS: MORPHINE SULFATE INJ 2 MG/ml SYRG IV PRN ×7 (00:13→22:21)
[2022-07-22] MEDS: ALBUTEROL SULF 2.5 MG/0.5ML(0.5%) NEB SOLN NEB SCH ×4 (00:57→17:54)
[2022-07-22] MEDS: IPRATROPIUM BROM 0.5 MG/2.5ML INH SOL NEB SCH ×4 (00:57→17:54)
[2022-07-22] MEDS: SODIUM CHLOR 0.9% PF (SALINE LOCK) 10ML VIAL/SYR IV SCH ×3 (05:37→22:17)
[2022-07-22] MEDS: BUMETANIDE 1mg/4ml VIAL (0.25mg/ml) IV SCH ×2 (05:37→18:00)
[2022-07-22] MEDS: BUDESONIDE (INHALATION) 0.5 MG/2 ML NEB NEB SCH ×2 (06:29→17:54)
[2022-07-22] MEDS: APIXABAN 5 MG TAB PO SCH ×2 (11:17→22:16)
[2022-07-22] MEDS: PANTOPRAZOLE 40 MG TAB PO SCH ×2 (11:18→22:16)
[2022-07-22] MEDS: DOCUSATE SOD 100 MG CAP PO SCH ×2 (11:19→22:16)
[2022-07-22] MEDS: levETIRAcetam 500 MG TAB PO SCH ×2 (11:20→22:17)
[2022-07-22] MEDS: DOXYCYCLINE 100 MG TAB/CAP PO SCH ×2 (11:21→22:16)
[2022-07-22] MEDS: SPIRONOLACTONE 25 MG TAB PO SCH (11:21)
[2022-07-22] MEDS: METOPROLOL TARTRATE 25 MG TAB PO SCH ×2 (11:21→22:18)
[2022-07-23] VITALS (10 sets, daily range): BP systolic 99–131; BP diastolic 56–89
[2022-07-23] MEDS: ALBUTEROL SULF 2.5 MG/0.5ML(0.5%) NEB SOLN NEB SCH ×4 (00:17→18:03)
[2022-07-23] MEDS: IPRATROPIUM BROM 0.5 MG/2.5ML INH SOL NEB SCH ×4 (00:17→18:03)
[2022-07-23] MEDS: MORPHINE SULFATE INJ 2 MG/ml SYRG IV PRN ×6 (02:03→22:04)
[2022-07-23] MEDS: BUMETANIDE 1mg/4ml VIAL (0.25mg/ml) IV SCH ×2 (06:02→18:28)
[2022-07-23] MEDS: SODIUM CHLOR 0.9% PF (SALINE LOCK) 10ML VIAL/SYR IV SCH ×3 (06:04→22:12)
[2022-07-23] MEDS: BUDESONIDE (INHALATION) 0.5 MG/2 ML NEB NEB SCH ×2 (06:04→18:03)
[2022-07-23] MEDS: APIXABAN 5 MG TAB PO SCH ×2 (10:00→22:07)
[2022-07-23] MEDS: levETIRAcetam 500 MG TAB PO SCH ×2 (10:13→22:08)
[2022-07-23] MEDS: DOXYCYCLINE 100 MG TAB/CAP PO SCH ×2 (10:13→22:07)
[2022-07-23] MEDS: DOCUSATE SOD 100 MG CAP PO SCH ×2 (10:14→22:07)
[2022-07-23] MEDS: METOPROLOL TARTRATE 25 MG TAB PO SCH ×2 (10:14→22:08)
[2022-07-23] MEDS: SPIRONOLACTONE 25 MG TAB PO SCH (10:15)
[2022-07-23] MEDS: PANTOPRAZOLE 40 MG TAB PO SCH ×2 (10:15→22:07)
[2022-07-23 12:18] LABS: Basophils # (auto) 0.1 10 ^3/uL (0-0.2); Eosinophils # (auto) 0.4 10 ^3/uL (0-0.8); Lymphocytes # (auto) 1.4 10 ^3/uL (0.4-5.4); Mean Corpuscular Hemoglobin 26.3 pg (28.0-32.0); Monocytes # (auto) 0.4 10 ^3/uL (0-1.3)
[2022-07-23 12:20] LABS: Basophils % (auto) 1.2 % (0.0-2.0); Eosinophils % (auto) 5.6 % (0.0-7.0); Hemoglobin 10.2 g/dL (13.5-17.5); Lymphocytes % (auto) 20.5 % (10.0-50.0); Monocytes % (auto) 5.9 % (0.0-12.0); Neutrophils # (auto) 4.7 10 ^3/uL (1.6-8.6); Neutrophils % (auto) 66.8 % (37.0-80.0); Nucleated Red Blood Cells % 0.3 %; Red Blood Cells 3.88 10^6/uL (4.5-5.90); Red Cell Distribution Width 17.3 % (11.8-14.3)
[2022-07-23 12:40] LABS: Albumin 2.9 g/dL (3.4-5.0); BUN/Creatinine Ratio 14.6 (10.0-20.0); Calcium 8.7 mg/dL (8.5-10.1); Potassium 4.2 mmol/L (3.5-5.1)
[2022-07-23 12:43] LABS: Bilirubin, Total 0.7 mg/dL (0.2-1.0); Total Protein 6.3 g/dL (6.4-8.2)
[2022-07-24] MEDS: ALBUTEROL SULF 2.5 MG/0.5ML(0.5%) NEB SOLN NEB SCH ×4 (00:02→18:32)
[2022-07-24] MEDS: IPRATROPIUM BROM 0.5 MG/2.5ML INH SOL NEB SCH ×4 (00:02→18:33)
[2022-07-24] MEDS: MORPHINE SULFATE INJ 2 MG/ml SYRG IV PRN ×5 (03:16→22:28)
[2022-07-24 05:21] VITALS: BP 93/48
[2022-07-24] MEDS: BUMETANIDE 1mg/4ml VIAL (0.25mg/ml) IV SCH ×2 (05:51→18:10)
[2022-07-24] MEDS: SODIUM CHLOR 0.9% PF (SALINE LOCK) 10ML VIAL/SYR IV SCH ×3 (05:55→21:52)
[2022-07-24] MEDS: BUDESONIDE (INHALATION) 0.5 MG/2 ML NEB NEB SCH ×2 (06:28→18:33)
[2022-07-24 08:38] VITALS: BP 112/69
[2022-07-24] MEDS: levETIRAcetam 500 MG TAB PO SCH ×2 (09:00→21:50)
[2022-07-24] MEDS: DOXYCYCLINE 100 MG TAB/CAP PO SCH ×2 (09:01→21:50)
[2022-07-24] MEDS: SPIRONOLACTONE 25 MG TAB PO SCH (09:01)
[2022-07-24] MEDS: PANTOPRAZOLE 40 MG TAB PO SCH ×2 (09:01→21:50)
[2022-07-24] MEDS: METOPROLOL TARTRATE 25 MG TAB PO SCH ×2 (09:01→21:50)
[2022-07-24] MEDS: DOCUSATE SOD 100 MG CAP PO SCH ×2 (09:02→21:50)
[2022-07-24] MEDS: APIXABAN 5 MG TAB PO SCH ×2 (09:12→21:53)
[2022-07-24 12:30] VITALS: BP 108/60
[2022-07-24] MEDS: HYDROcodone-ACET 5/325MG TAB PO PRN (15:33)
[2022-07-24 16:32] VITALS: BP 108/63
[2022-07-24 22:00] VITALS: BP 113/71
[2022-07-25] VITALS (8 sets, daily range): BP systolic 110–138; BP diastolic 52–84
[2022-07-25] MEDS: ALBUTEROL SULF 2.5 MG/0.5ML(0.5%) NEB SOLN NEB SCH ×4 (00:58→19:26)
[2022-07-25] MEDS: IPRATROPIUM BROM 0.5 MG/2.5ML INH SOL NEB SCH ×4 (00:59→19:26)
[2022-07-25] MEDS ORDERED: BUMETANIDE 2.5mg/10ml (0.25 mg/ml) INJ IV ONE (01:30)
[2022-07-25] MEDS: MORPHINE SULFATE INJ 2 MG/ml SYRG IV PRN ×6 (01:49→22:50)
[2022-07-25] MEDS: BUMETANIDE 1mg/4ml VIAL (0.25mg/ml) IV SCH ×2 (05:38→17:57)
[2022-07-25] MEDS: SODIUM CHLOR 0.9% PF (SALINE LOCK) 10ML VIAL/SYR IV SCH ×3 (05:41→22:00)
[2022-07-25] MEDS: BUDESONIDE (INHALATION) 0.5 MG/2 ML NEB NEB SCH ×2 (06:06→19:25)
[2022-07-25] MEDS: levETIRAcetam 500 MG TAB PO SCH ×2 (10:17→22:48)
[2022-07-25] MEDS: DOXYCYCLINE 100 MG TAB/CAP PO SCH ×2 (10:17→22:47)
[2022-07-25] MEDS: SPIRONOLACTONE 25 MG TAB PO SCH (10:18)
[2022-07-25] MEDS: PANTOPRAZOLE 40 MG TAB PO SCH ×2 (10:19→22:47)
[2022-07-25] MEDS: APIXABAN 5 MG TAB PO SCH ×2 (10:19→22:48)
[2022-07-25] MEDS: DOCUSATE SOD 100 MG CAP PO SCH ×2 (10:19→22:48)
[2022-07-25] MEDS: METOPROLOL TARTRATE 25 MG TAB PO SCH ×2 (10:23→22:49)
[2022-07-25] MEDS: HYDROcodone-ACET 5/325MG TAB PO PRN (20:55)
[2022-07-26] VITALS (7 sets, daily range): BP systolic 113–138; BP diastolic 68–85
[2022-07-26] MEDS: ALBUTEROL SULF 2.5 MG/0.5ML(0.5%) NEB SOLN NEB SCH ×5 (00:59→23:50)
[2022-07-26] MEDS: IPRATROPIUM BROM 0.5 MG/2.5ML INH SOL NEB SCH ×5 (00:59→23:50)
[2022-07-26] MEDS: MORPHINE SULFATE INJ 2 MG/ml SYRG IV PRN ×4 (02:36→20:46)
[2022-07-26] MEDS: BUMETANIDE 1mg/4ml VIAL (0.25mg/ml) IV SCH ×2 (05:49→18:28)
[2022-07-26] MEDS: SODIUM CHLOR 0.9% PF (SALINE LOCK) 10ML VIAL/SYR IV SCH ×3 (05:49→20:42)
[2022-07-26] MEDS: BUDESONIDE (INHALATION) 0.5 MG/2 ML NEB NEB SCH ×2 (06:23→18:38)
[2022-07-26] MEDS: DOCUSATE SOD 100 MG CAP PO SCH ×2 (11:41→20:43)
[2022-07-26] MEDS: SPIRONOLACTONE 25 MG TAB PO SCH (11:41)
[2022-07-26] MEDS: APIXABAN 5 MG TAB PO SCH ×2 (11:42→20:43)
[2022-07-26] MEDS: levETIRAcetam 500 MG TAB PO SCH ×2 (11:42→20:44)
[2022-07-26] MEDS: PANTOPRAZOLE 40 MG TAB PO SCH ×2 (11:43→20:45)
[2022-07-26] MEDS: METOPROLOL TARTRATE 25 MG TAB PO SCH ×2 (11:43→20:44)
[2022-07-26] MEDS: DOXYCYCLINE 100 MG TAB/CAP PO SCH ×2 (11:44→20:45)
[2022-07-26] MEDS ORDERED: NITROGLYCERIN 0.4 MG SL TAB SL PRN (15:00)
[2022-07-26] MEDS ORDERED: MORPHINE SULFATE 4 MG/ML SYR/VIAL IV PRN (15:00)
[2022-07-27] MEDS: MORPHINE SULFATE INJ 2 MG/ml SYRG IV PRN ×3 (02:57→17:11)
[2022-07-27 05:00] VITALS: BP 105/68
[2022-07-27] MEDS: SODIUM CHLOR 0.9% PF (SALINE LOCK) 10ML VIAL/SYR IV SCH ×2 (06:16→14:10)
[2022-07-27] MEDS: BUMETANIDE 1mg/4ml VIAL (0.25mg/ml) IV SCH ×2 (06:16→18:35)
[2022-07-27] MEDS: BUDESONIDE (INHALATION) 0.5 MG/2 ML NEB NEB SCH ×2 (06:27→19:03)
[2022-07-27] MEDS: IPRATROPIUM BROM 0.5 MG/2.5ML INH SOL NEB SCH ×3 (06:27→19:03)
[2022-07-27] MEDS: ALBUTEROL SULF 2.5 MG/0.5ML(0.5%) NEB SOLN NEB SCH ×3 (06:27→19:03)
[2022-07-27 09:00] VITALS: BP 119/74
[2022-07-27] MEDS: levETIRAcetam 500 MG TAB PO SCH (09:10)
[2022-07-27] MEDS: SPIRONOLACTONE 25 MG TAB PO SCH (09:10)
[2022-07-27] MEDS: METOPROLOL TARTRATE 25 MG TAB PO SCH (09:11)
[2022-07-27] MEDS: APIXABAN 5 MG TAB PO SCH (09:12)
[2022-07-27] MEDS: DOCUSATE SOD 100 MG CAP PO SCH (09:12)
[2022-07-27 12:47] VITALS: BP 128/90
[2022-07-27] MEDS: DOXYCYCLINE 100 MG TAB/CAP PO SCH (14:08)
[2022-07-27] MEDS: PANTOPRAZOLE 40 MG TAB PO SCH (14:08)
[2022-07-27 15:02] LABS: Hemoglobin 9.6 g/dL (13.5-17.5); Neutrophils # (auto) 4.2 10 ^3/uL (1.6-8.6); White Blood Cell 6.1 10^3/uL (4.4-10.8)
[2022-07-27 15:05] LABS: Basophils # (auto) 0.1 10 ^3/uL (0-0.2); Basophils % (auto) 0.9 % (0.0-2.0); Eosinophils # (auto) 0.3 10 ^3/uL (0-0.8); Eosinophils % (auto) 5.3 % (0.0-7.0); Hematocrit 30.8 % (41.0-53.0); Mean Corpuscular Hemoglobin 26.6 pg (28.0-32.0); Mean Corpuscular Hgb Conc. 31.3 g/dL (32.0-36.0); Mean Corpuscular Volume 84.8 fL (80.0-100.0); Monocytes # (auto) 0.6 10 ^3/uL (0-1.3); Monocytes % (auto) 9.6 % (0.0-12.0); Neutrophils % (auto) 68.2 % (37.0-80.0); Nucleated Red Blood Cells % 0.3 %; Red Blood Cells 3.63 10^6/uL (4.5-5.90); Red Cell Distribution Width 17.9 % (11.8-14.3)
[2022-07-27 15:23] LABS: BUN/Creatinine Ratio 13.8 (10.0-20.0); Calcium 9.1 mg/dL (8.5-10.1)
[2022-07-27 17:00] VITALS: BP 126/93
[2022-07-27 20:00] VITALS: BP 138/82
[2022-07-27 20:05] VITALS: BP 114/72
== END 2022-07-27 20:45 | DRG 189 ==
LOC: ER 12:15 → TELE 07-17 00:04 → TELE-CENTR 07-17 12:38 → DOU IN ICU 07-20 15:09 → TELE-WESTW 07-23 08:10
PROVIDERS: ADMIT Nurse Practitioner Family; ATTEND Family Medicine
PROC: 5A09357 Assistance with Respiratory Ventilation, Less than 24 Consecutive Hours, Continuous Positive Airway Pressure (ICD-10-PCS; principal; 2022-07-17)
PROC: 5A09357 Assistance with Respiratory Ventilation, Less than 24 Consecutive Hours, Continuous Positive Airway Pressure (ICD-10-PCS; 2022-07-18)
PROC: 5A09357 Assistance with Respiratory Ventilation, Less than 24 Consecutive Hours, Continuous Positive Airway Pressure (ICD-10-PCS; 2022-07-19)
PROC: 5A09357 Assistance with Respiratory Ventilation, Less than 24 Consecutive Hours, Continuous Positive Airway Pressure (ICD-10-PCS; 2022-07-20)
PROC: 5A09357 Assistance with Respiratory Ventilation, Less than 24 Consecutive Hours, Continuous Positive Airway Pressure (ICD-10-PCS; 2022-07-21)
PROC: 5A09357 Assistance with Respiratory Ventilation, Less than 24 Consecutive Hours, Continuous Positive Airway Pressure (ICD-10-PCS; 2022-07-22)
PROC: 5A09357 Assistance with Respiratory Ventilation, Less than 24 Consecutive Hours, Continuous Positive Airway Pressure (ICD-10-PCS; 2022-07-23)
PROC: 5A09357 Assistance with Respiratory Ventilation, Less than 24 Consecutive Hours, Continuous Positive Airway Pressure (ICD-10-PCS; 2022-07-24)
PROC: 5A09357 Assistance with Respiratory Ventilation, Less than 24 Consecutive Hours, Continuous Positive Airway Pressure (ICD-10-PCS; 2022-07-25)
PROC: 5A09357 Assistance with Respiratory Ventilation, Less than 24 Consecutive Hours, Continuous Positive Airway Pressure (ICD-10-PCS; 2022-07-27)
DX: J96.21 Acute and chronic respiratory failure with hypoxia (principal); I50.23 Acute on chronic systolic (congestive) heart failure; I24.9 Acute ischemic heart disease, unspecified; J44.1 Chronic obstructive pulmonary disease with (acute) exacerbation; L03.90 Cellulitis, unspecified; E66.2 Morbid (severe) obesity with alveolar hypoventilation; I82.401 Acute embolism and thrombosis of unspecified deep veins of right lower extremity; Z68.43 Body mass index [BMI] 50.0-59.9, adult; I11.0 Hypertensive heart disease with heart failure; F41.9 Anxiety disorder, unspecified; F32.A Depression, unspecified; K21.9 Gastro-esophageal reflux disease without esophagitis; I25.10 Atherosclerotic heart disease of native coronary artery without angina pectoris; E78.5 Hyperlipidemia, unspecified; E88.09 Other disorders of plasma-protein metabolism, not elsewhere classified; M79.3 Panniculitis, unspecified; Z20.822 Contact with and (suspected) exposure to COVID-19; G40.409 Other generalized epilepsy and epileptic syndromes, not intractable, without status epilepticus; I25.5 Ischemic cardiomyopathy; Z88.0 Allergy status to penicillin; Z88.8 Allergy status to other drugs, medicaments and biological substances; Z91.011 Allergy to milk products; I25.2 Old myocardial infarction; Z86.73 Personal history of transient ischemic attack (TIA), and cerebral infarction without residual deficits; Z83.3 Family history of diabetes mellitus; Z82.49 Family history of ischemic heart disease and other diseases of the circulatory system; Z90.49 Acquired absence of other specified parts of digestive tract; Z95.0 Presence of cardiac pacemaker; Z86.711 Personal history of pulmonary embolism
CPT/HCPCS: 36415; 36600; 71045; 71250; 74176; 76705; 80048; 80053; 81001; 82542; 82805; 82962; 83880; 84484; 85025; 85610; 85730; 87081; 87426; 93005; 94640; 94660; 96365; 96375; 96376; G0378; J2405; J7060; P9047

== ENCOUNTER 2023-03-02 11:21 | Inpatient (IN) | payer OTHER, MEDICARE, MEDICAID ==
[~2023-03-02] VITALS: Ht 180.3 cm; Wt 167.8 kg
[~2023-03-02 11:21] MED LIST changes: +ATOR40TA52 PO; +GABA-1250 PO; -GABA300C10 PO; -LEVE500T32 PO; +LEVE500T40 PO; +TRAZ-228 PO; -TRAZ100T3 PO
[2023-03-02 12:01] LABS: Basophils # (auto) 0.1 10 ^3/uL (0-0.2); Basophils % (auto) 1.6 % (0.0-2.0); Eosinophils # (auto) 0.1 10 ^3/uL (0-0.8); Hematocrit 33.3 % (41.0-53.0); Hemoglobin 10.8 g/dL (13.5-17.5); Lymphocytes # (auto) 1.5 10 ^3/uL (0.4-5.4); Lymphocytes % (auto) 29.5 % (10.0-50.0); Mean Corpuscular Hgb Conc. 32.5 g/dL (32.0-36.0); Mean Corpuscular Volume 86.2 fL (80.0-100.0); Monocytes # (auto) 0.3 10 ^3/uL (0-1.3); Monocytes % (auto) 6.2 % (0.0-12.0); Neutrophils % (auto) 60.7 % (37.0-80.0); Nucleated Red Blood Cells % 0.1 %; Red Blood Cells 3.86 10^6/uL (4.5-5.90); Red Cell Distribution Width 16.2 % (11.8-14.3)
[2023-03-02] MEDS ORDERED: ALBUTEROL MEDNEB 2.5 mg/3ml NEB ONE (12:14)
[2023-03-02] MEDS ORDERED: methylPREDNISolone SOD SUCC 125 MG/2 ML VL IV ONE (12:15)
[2023-03-02] MEDS ORDERED: ALBUTEROL SULF 2.5 MG/0.5ML(0.5%) NEB SOLN NEB ONE (12:15)
[2023-03-02] MEDS ORDERED: IPRATROPIUM BROM 0.5 MG/2.5ML INH SOL NEB ONE (12:15)
[2023-03-02 12:16] LABS: Albumin 4.2 g/dL (3.2-4.8); Alkaline Phosphatase 101 U/L (46-116); Anion Gap 5 (5-15); Aspartate Aminotransferase 11 U/L (13-40); BUN/Creatinine Ratio 14.2 (10.0-20.0); Bilirubin, Total 0.9 mg/dL (0.2-1.0); Blood Urea Nitrogen 15 mg/dL (9-23); Calcium 9.3 mg/dL (8.7-10.4); Carbon Dioxide 35 mmol/L (20-30); Chloride 103 mmol/L (98-107); Glucose 87 mg/dL (74-106); Potassium 3.7 mmol/L (3.5-5.1); Sodium 143 mmol/L (136-145); Total Protein 6.9 g/dL (5.7-8.2)
[2023-03-02 12:22] LABS: Alanine Aminotransferase < 9 U/L (7-40)
[2023-03-02] MEDS ORDERED: FUROSEMIDE 40 MG/4 ML VIAL IV ONE (13:15)
[2023-03-02 13:25] VITALS: PULSE 78; RESP 18; O2SAT 96
[2023-03-02] MEDS ORDERED: POTAGRA PO (15:26)
[2023-03-02] MEDS ORDERED: LEVE750T3 PO (15:26)
[2023-03-02] MEDS ORDERED: ALBUTEROL SULF 2.5 MG/0.5ML(0.5%) NEB SOLN NEB PRN (15:30)
[2023-03-02] MEDS ORDERED: ACETAMINOPHEN 325 MG TAB PO PRN (15:30)
[2023-03-02] MEDS ORDERED: NITROGLYCERIN 0.4 MG SL TAB SL PRN (15:30)
[2023-03-02] MEDS ORDERED: ONDANSETRON HCL 4 MG/2 ML VIAL IV PRN (15:30)
[2023-03-02] MEDS ORDERED: IPRATROPIUM BROM 0.5 MG/2.5ML INH SOL NEB PRN (15:30)
[2023-03-02] MEDS ORDERED: MORPHINE SULFATE INJ 2 MG/ml SYRG IV PRN (15:30)
[2023-03-02] MEDS: FUROSEMIDE 40 MG/4 ML VIAL IV SCH (19:03)
[2023-03-02 19:30] VITALS: PULSE 95; RESP 24; O2SAT 91
[2023-03-02 19:33] LABS: Urine Bacteria FEW /hpf (None Seen); Urine Blood Negative /uL (Negative); Urine Clarity Clear (Clear); Urine Color Yellow (Yellow); Urine Protein, UAD Negative (Negative); Urine Specific Gravity 1.011 (1.001-1.035); Urine Urobilinogen Normal (Negative); Urine WBC 12 /hpf (0 - 3)
[2023-03-02] MEDS: MORPHINE SULFATE INJ 2 MG/ml SYRG IV PRN (19:38)
[2023-03-02 19:51] VITALS: BP 101/49; PULSE 80; RESP 23; TEMP 98.2; O2SAT 93
[2023-03-02 20:46] VITALS: BP 121/82; PULSE 87; RESP 18; TEMP 97.9; O2SAT 95; O2SAT 96
[2023-03-02] MEDS ORDERED: ASPI81CH59 PO (20:55)
[2023-03-02 22:00] VITALS: BP 121/82; PULSE 87; RESP 18; TEMP 97.9; O2SAT 96
[2023-03-02] MEDS ORDERED: PATIENTS OWN MEDICATION (Atorvastatin Calcium 1 TAB) PO SCH (22:00)
[2023-03-02] MEDS ORDERED: ATORVASTATIN 20 MG TAB PO SCH (22:00)
[2023-03-02] MEDS ORDERED: PATIENTS OWN MEDICATION (Trazodone Hcl 100 MG) PO SCH (22:00)
[2023-03-02] MEDS: levETIRAcetam 500 MG TAB PO SCH (22:35)
[2023-03-02] MEDS: SACUBITRIL-VALSARTAN 24mg/26mg TAB PO SCH (22:36)
[2023-03-02] MEDS: RANOLAZINE ER 500 MG TAB PO SCH (22:36)
[2023-03-02] MEDS: GABAPENTIN 300 MG CAP PO SCH (22:36)
[2023-03-02] MEDS: CARVEDILOL 3.125 MG TAB PO SCH (22:37)
[2023-03-02] MEDS: APIXABAN 5 MG TAB PO SCH (22:37)
[2023-03-03] VITALS (14 sets, daily range): BP systolic 87–143; BP diastolic 52–76; PULSE 72–86; RESP 18–22; TEMP 97.3–97.7; O2SAT 94–100
[2023-03-03] MEDS: MORPHINE SULFATE INJ 2 MG/ml SYRG IV PRN (00:10)
[2023-03-03 05:09] LABS: Basophils # (auto) 0 10 ^3/uL (0-0.2); Basophils % (auto) 0.2 % (0.0-2.0); Eosinophils # (auto) 0 10 ^3/uL (0-0.8); Eosinophils % (auto) 0.2 % (0.0-7.0); Hematocrit 32.6 % (41.0-53.0); Hemoglobin 10.4 g/dL (13.5-17.5); Lymphocytes # (auto) 0.6 10 ^3/uL (0.4-5.4); Lymphocytes % (auto) 5.9 % (10.0-50.0); Mean Corpuscular Hemoglobin 28.4 pg (28.0-32.0); Mean Corpuscular Volume 88.7 fL (80.0-100.0); Monocytes # (auto) 0.1 10 ^3/uL (0-1.3); Monocytes % (auto) 1.1 % (0.0-12.0); Neutrophils # (auto) 8.7 10 ^3/uL (1.6-8.6); Neutrophils % (auto) 92.6 % (37.0-80.0); Nucleated Red Blood Cells % 0.4 %; Red Blood Cells 3.68 10^6/uL (4.5-5.90); Red Cell Distribution Width 16.2 % (11.8-14.3); White Blood Cell 9.4 10^3/uL (4.4-10.8)
[2023-03-03 05:28] LABS: Alkaline Phosphatase 87 U/L (46-116); Anion Gap 5 (5-15); Calcium 9.3 mg/dL (8.7-10.4); Carbon Dioxide 31 mmol/L (20-30); Chloride 103 mmol/L (98-107); Glucose 132 mg/dL (74-106); Potassium 4.3 mmol/L (3.5-5.1); Sodium 139 mmol/L (136-145)
[2023-03-03 05:29] LABS: Aspartate Aminotransferase 13 U/L (13-40); BUN/Creatinine Ratio 9.7 (10.0-20.0); Bilirubin, Total 0.6 mg/dL (0.2-1.0); Blood Urea Nitrogen 10 mg/dL (9-23); Total Protein 6.8 g/dL (5.7-8.2)
[2023-03-03 05:53] LABS: Alanine Aminotransferase < 9 U/L (7-40)
[2023-03-03] MEDS: GABAPENTIN 300 MG CAP PO SCH ×3 (06:27→21:43)
[2023-03-03] MEDS: FUROSEMIDE 40 MG/4 ML VIAL IV SCH ×2 (06:34→18:00)
[2023-03-03] MEDS: RANOLAZINE ER 500 MG TAB PO SCH ×2 (09:57→21:43)
[2023-03-03] MEDS: SACUBITRIL-VALSARTAN 24mg/26mg TAB PO SCH ×2 (09:57→21:43)
[2023-03-03] MEDS: APIXABAN 5 MG TAB PO SCH ×2 (09:57→21:44)
[2023-03-03] MEDS: PANTOPRAZOLE 40 MG TAB PO SCH (09:57)
[2023-03-03] MEDS: levETIRAcetam 500 MG TAB PO SCH ×2 (09:57→21:45)
[2023-03-03] MEDS: CARVEDILOL 3.125 MG TAB PO SCH (09:58)
[2023-03-03] MEDS: traZODone HCL 50 MG TAB PO SCH ×2 (09:59→21:44)
[2023-03-03] MEDS ORDERED: ENOXAPARIN SOD 40 MG/0.4 ML SYRINGE SC SCH (10:00)
[2023-03-03] MEDS ORDERED: POTASSIUM CITRATE 5 MEQ PO SCH (10:00)
[2023-03-03] MEDS ORDERED: PATIENTS OWN MEDICATION (Dapagliflozin Propanediol (Farxiga) 10 MG) PO SCH (10:00)
[2023-03-03] MEDS: VERICIGUAT 5 MG PO SCH (10:00)
[2023-03-03] MEDS ORDERED: EMPAGLIFLOZIN 10 MG TAB PO ONE (12:45)
[2023-03-03] MEDS ORDERED: SPIRONOLACTONE 25 MG TAB PO ONE (12:45)
[2023-03-03] MEDS ORDERED: ALBUTEROL MEDNEB 2.5 mg/3ml NEB ONE ×3 (13:59→21:25)
[2023-03-03] MEDS: IPRATROPIUM BROM 0.5 MG/2.5ML INH SOL NEB SCH ×3 (14:17→21:31)
[2023-03-03] MEDS: ALBUTEROL SULF 2.5 MG/0.5ML(0.5%) NEB SOLN NEB SCH ×3 (14:17→21:31)
[2023-03-03] MEDS: DOBUTamine 1000MCG/ML 250 ML IV SCH ×2 (18:04→21:47)
[2023-03-03] MEDS: HYDROmorphone HCL 2 MG TAB PO PRN (20:08)
[2023-03-04] VITALS (18 sets, daily range): BP systolic 91–116; BP diastolic 47–70; PULSE 63–90; RESP 16–22; TEMP 36.3; O2SAT 94–100
[2023-03-04] MEDS: DOBUTamine 1000MCG/ML 250 ML IV SCH ×2 (01:59→17:17)
[2023-03-04] MEDS: ALBUTEROL SULF 2.5 MG/0.5ML(0.5%) NEB SOLN NEB SCH ×6 (02:00→22:15)
[2023-03-04] MEDS: IPRATROPIUM BROM 0.5 MG/2.5ML INH SOL NEB SCH ×6 (02:00→22:15)
[2023-03-04] MEDS ORDERED: ALBUTEROL MEDNEB 2.5 mg/3ml NEB ONE ×3 (05:48→12:50)
[2023-03-04] MEDS: GABAPENTIN 300 MG CAP PO SCH ×3 (06:00→21:19)
[2023-03-04] MEDS: FUROSEMIDE 40 MG/4 ML VIAL IV SCH (06:00)
[2023-03-04] MEDS: EMPAGLIFLOZIN 10 MG TAB PO SCH (06:54)
[2023-03-04] MEDS: SACUBITRIL-VALSARTAN 24mg/26mg TAB PO SCH ×2 (09:02→21:20)
[2023-03-04] MEDS: RANOLAZINE ER 500 MG TAB PO SCH ×2 (09:02→21:19)
[2023-03-04] MEDS: APIXABAN 5 MG TAB PO SCH ×2 (09:04→21:19)
[2023-03-04] MEDS: levETIRAcetam 500 MG TAB PO SCH ×2 (09:04→21:18)
[2023-03-04] MEDS: PANTOPRAZOLE 40 MG TAB PO SCH (09:05)
[2023-03-04] MEDS: SPIRONOLACTONE 25 MG TAB PO SCH (09:07)
[2023-03-04] MEDS: VERICIGUAT 5 MG PO SCH (09:07)
[2023-03-04] MEDS: HYDROmorphone HCL 2 MG TAB PO PRN ×2 (09:24→17:01)
[2023-03-04 11:23] LABS: INR 1.17 (0.9-1.15); Prothrombin Time 12.2 sec (9.3-11.8)
[2023-03-04] MEDS: BUMETANIDE 2.5mg/10ml (0.25 mg/ml) INJ IV SCH (18:15)
[2023-03-04] MEDS: HYDROcodone-ACET 5/325MG TAB PO PRN (20:37)
[2023-03-04] MEDS: traZODone HCL 50 MG TAB PO SCH (21:17)
[2023-03-05] VITALS (24 sets, daily range): BP systolic 98–102; BP diastolic 52–67; PULSE 64–87; RESP 11–23; TEMP 36.7; O2SAT 95–100
[2023-03-05] MEDS: IPRATROPIUM BROM 0.5 MG/2.5ML INH SOL NEB SCH ×6 (02:00→22:18)
[2023-03-05] MEDS: ALBUTEROL SULF 2.5 MG/0.5ML(0.5%) NEB SOLN NEB SCH ×6 (02:00→22:18)
[2023-03-05] MEDS: HYDROmorphone HCL 2 MG TAB PO PRN ×2 (02:41→19:28)
[2023-03-05] MEDS ORDERED: ALBUTEROL MEDNEB 2.5 mg/3ml NEB ONE ×5 (05:37→21:35)
[2023-03-05] MEDS: DOBUTamine 1000MCG/ML 250 ML IV SCH ×2 (06:13→23:34)
[2023-03-05] MEDS: EMPAGLIFLOZIN 10 MG TAB PO SCH (06:22)
[2023-03-05] MEDS: GABAPENTIN 300 MG CAP PO SCH ×3 (06:22→21:03)
[2023-03-05] MEDS: BUMETANIDE 2.5mg/10ml (0.25 mg/ml) INJ IV SCH ×2 (06:24→17:58)
[2023-03-05] MEDS: RANOLAZINE ER 500 MG TAB PO SCH ×2 (09:39→21:03)
[2023-03-05] MEDS: PANTOPRAZOLE 40 MG TAB PO SCH (09:39)
[2023-03-05] MEDS: APIXABAN 5 MG TAB PO SCH ×2 (09:40→21:03)
[2023-03-05] MEDS: SACUBITRIL-VALSARTAN 24mg/26mg TAB PO SCH ×2 (09:41→21:03)
[2023-03-05] MEDS: SPIRONOLACTONE 25 MG TAB PO SCH (09:42)
[2023-03-05] MEDS: levETIRAcetam 500 MG TAB PO SCH ×2 (09:43→21:03)
[2023-03-05] MEDS: VERICIGUAT 5 MG PO SCH (09:46)
[2023-03-05] MEDS: traZODone HCL 50 MG TAB PO SCH (21:03)
[2023-03-06] VITALS (21 sets, daily range): BP systolic 90–110; BP diastolic 55–60; PULSE 61–79; RESP 16–22; TEMP 97.5–97.9; O2SAT 92–100
[2023-03-06] MEDS ORDERED: ALBUTEROL MEDNEB 2.5 mg/3ml NEB ONE ×4 (01:30→13:24)
[2023-03-06] MEDS: ALBUTEROL SULF 2.5 MG/0.5ML(0.5%) NEB SOLN NEB SCH ×6 (01:53→22:08)
[2023-03-06] MEDS: IPRATROPIUM BROM 0.5 MG/2.5ML INH SOL NEB SCH ×6 (01:53→22:08)
[2023-03-06] MEDS: GABAPENTIN 300 MG CAP PO SCH ×3 (05:52→21:50)
[2023-03-06] MEDS: BUMETANIDE 2.5mg/10ml (0.25 mg/ml) INJ IV SCH ×3 (05:53→18:23)
[2023-03-06] MEDS: EMPAGLIFLOZIN 10 MG TAB PO SCH (05:56)
[2023-03-06] MEDS: DOCUSATE SOD 100 MG CAP PO PRN ×2 (06:12→19:49)
[2023-03-06] MEDS: HYDROmorphone HCL 2 MG TAB PO PRN ×3 (06:12→21:52)
[2023-03-06] MEDS: PANTOPRAZOLE 40 MG TAB PO SCH (09:48)
[2023-03-06] MEDS: SACUBITRIL-VALSARTAN 24mg/26mg TAB PO SCH ×2 (09:48→21:51)
[2023-03-06] MEDS: RANOLAZINE ER 500 MG TAB PO SCH ×2 (09:49→21:51)
[2023-03-06] MEDS: APIXABAN 5 MG TAB PO SCH ×2 (09:49→21:51)
[2023-03-06] MEDS: SPIRONOLACTONE 25 MG TAB PO SCH (09:50)
[2023-03-06] MEDS: levETIRAcetam 500 MG TAB PO SCH ×2 (09:50→21:50)
[2023-03-06] MEDS: VERICIGUAT 5 MG PO SCH (10:00)
[2023-03-06] MEDS: DOBUTamine 1000MCG/ML 250 ML IV SCH (14:41)
[2023-03-06] MEDS: HYDROcodone-ACET 5/325MG TAB PO PRN (19:49)
[2023-03-06] MEDS: traZODone HCL 50 MG TAB PO SCH (21:54)
[2023-03-07] VITALS (15 sets, daily range): BP systolic 98–113; BP diastolic 62–68; PULSE 65–94; RESP 14–20; TEMP 97.5–97.8; O2SAT 96–100
[2023-03-07] MEDS: ALBUTEROL SULF 2.5 MG/0.5ML(0.5%) NEB SOLN NEB SCH ×4 (02:18→14:00)
[2023-03-07] MEDS: IPRATROPIUM BROM 0.5 MG/2.5ML INH SOL NEB SCH ×4 (02:18→14:00)
[2023-03-07] MEDS: GABAPENTIN 300 MG CAP PO SCH ×2 (05:28→13:25)
[2023-03-07] MEDS: BUMETANIDE 2.5mg/10ml (0.25 mg/ml) INJ IV SCH (05:28)
[2023-03-07] MEDS: DOBUTamine 1000MCG/ML 250 ML IV SCH ×2 (05:29→16:18)
[2023-03-07] MEDS: EMPAGLIFLOZIN 10 MG TAB PO SCH (06:24)
[2023-03-07] MEDS: APIXABAN 5 MG TAB PO SCH (09:59)
[2023-03-07] MEDS: levETIRAcetam 500 MG TAB PO SCH (09:59)
[2023-03-07] MEDS: PANTOPRAZOLE 40 MG TAB PO SCH (09:59)
[2023-03-07] MEDS: SACUBITRIL-VALSARTAN 24mg/26mg TAB PO SCH (09:59)
[2023-03-07] MEDS: RANOLAZINE ER 500 MG TAB PO SCH (09:59)
[2023-03-07] MEDS: SPIRONOLACTONE 25 MG TAB PO SCH (09:59)
[2023-03-07] MEDS: VERICIGUAT 5 MG PO SCH (10:00)
[2023-03-07] MEDS: HYDROmorphone HCL 2 MG TAB PO PRN (10:27)
== END 2023-03-07 16:50 | disposition hospice, home (50) | DRG 291 ==
LOC: EDBD 11:21 → EDUNIT# 11:21 → ER 11:21 → TELE 15:24 → TELE-CENTR 20:35
PROVIDERS: ADMIT Nurse Practitioner Family; ATTEND Family Medicine
PROC: 5A09357 Assistance with Respiratory Ventilation, Less than 24 Consecutive Hours, Continuous Positive Airway Pressure (ICD-10-PCS; 2023-03-05)
PROC: 5A09357 Assistance with Respiratory Ventilation, Less than 24 Consecutive Hours, Continuous Positive Airway Pressure (ICD-10-PCS; principal; 2023-03-06)
PROC: 5A09357 Assistance with Respiratory Ventilation, Less than 24 Consecutive Hours, Continuous Positive Airway Pressure (ICD-10-PCS; 2023-03-07)
DX: I13.0 Hypertensive heart and chronic kidney disease with heart failure and stage 1 through stage 4 chronic kidney disease, or unspecified chronic kidney disease (principal); I50.23 Acute on chronic systolic (congestive) heart failure; J96.01 Acute respiratory failure with hypoxia; J44.1 Chronic obstructive pulmonary disease with (acute) exacerbation; Z68.43 Body mass index [BMI] 50.0-59.9, adult; E66.01 Morbid (severe) obesity due to excess calories; F12.10 Cannabis abuse, uncomplicated; G40.909 Epilepsy, unspecified, not intractable, without status epilepticus; G62.9 Polyneuropathy, unspecified; K21.9 Gastro-esophageal reflux disease without esophagitis; I25.5 Ischemic cardiomyopathy; I95.89 Other hypotension; F32.A Depression, unspecified; I25.10 Atherosclerotic heart disease of native coronary artery without angina pectoris; E78.5 Hyperlipidemia, unspecified; G47.33 Obstructive sleep apnea (adult) (pediatric); N18.9 Chronic kidney disease, unspecified; F17.210 Nicotine dependence, cigarettes, uncomplicated; Z88.0 Allergy status to penicillin; Z88.8 Allergy status to other drugs, medicaments and biological substances; Z91.041 Radiographic dye allergy status; Z91.011 Allergy to milk products; Z79.899 Other long term (current) drug therapy; Z86.73 Personal history of transient ischemic attack (TIA), and cerebral infarction without residual deficits; I25.2 Old myocardial infarction; Z83.49 Family history of other endocrine, nutritional and metabolic diseases; Z79.82 Long term (current) use of aspirin; Z86.711 Personal history of pulmonary embolism; Z79.01 Long term (current) use of anticoagulants; Z91.199 Patient's noncompliance with other medical treatment and regimen due to unspecified reason; Z95.0 Presence of cardiac pacemaker; Z71.6 Tobacco abuse counseling
CPT/HCPCS: 36415; 71045; 80053; 81001; 83880; 84484; 85025; 85379; 85610; 93005; 93306; 94640; 94660; 96374; 96375; 96376; G0378; J2405

== ENCOUNTER 2023-06-01 18:13 | Inpatient (IN) | payer OTHER, MEDICARE, MEDICAID ==
[~2023-06-01] VITALS: Ht 170.2 cm; Wt 155.5 kg
[~2023-06-01 18:13] MED LIST changes: +ASPI81CH59 PO; +LEVE750T3 PO; +POTAGRA PO
[2023-06-01 18:20] VITALS: PULSE 103; RESP 22; O2SAT 90
[2023-06-01] MEDS: NITROGLYCERIN 2% OINT 1GM PKG TD ONE ×2 (18:56→18:58)
[2023-06-01] MEDS ORDERED: NITROGLYCERIN 2% OINT 1GM PKG TD ONE (19:00)
[2023-06-01] MEDS ORDERED: MORPHINE SULFATE INJ 2 MG/ml SYRG IV ONE (19:15)
[2023-06-01] MEDS ORDERED: ONDANSETRON HCL 4 MG/2 ML VIAL IV ONE (19:15)
[2023-06-01 19:49] LABS: INR 1.15 (0.9-1.15); Partial Thromboplastin Time 24.7 SEC (24.5-34.5)
[2023-06-01 19:51] LABS: Base Excess 7.2 mmol/L (-2.0-2.0)
[2023-06-01 19:54] LABS: Alkaline Phosphatase 85 U/L (46-116); Anion Gap 4 (5-15); Aspartate Aminotransferase 16 U/L (13-40); BUN/Creatinine Ratio 17.2 (10.0-20.0); Bilirubin, Total 0.5 mg/dL (0.2-1.0); Blood Urea Nitrogen 16 mg/dL (9-23); Calcium 9.3 mg/dL (8.5-10.1); Carbon Dioxide 36 mmol/L (20-30); Chloride 103 mmol/L (98-107); Glucose 105 mg/dL (74-106); Potassium 3.7 mmol/L (3.5-5.1); Sodium 143 mmol/L (136-145); Total Protein 6.7 g/dL (5.7-8.2)
[2023-06-01 19:55] LABS: Alanine Aminotransferase < 9 U/L (7-40)
[2023-06-01 20:00] VITALS: PULSE 96; RESP 15; O2SAT 92
[2023-06-01] MEDS ORDERED: BUDESONIDE (INHALATION) 0.5 MG/2 ML NEB NEB ONE (20:45)
[2023-06-01] MEDS ORDERED: DexAMETHasone SOD PHOS 10MG/1ML VIAL INJ IV ONE (20:45)
[2023-06-01] MEDS ORDERED: ONDANSETRON HCL 4 MG/2 ML VIAL IV PRN ×2 (21:30→23:15)
[2023-06-01] MEDS ORDERED: ALBUTEROL SULF 2.5 MG/0.5ML(0.5%) NEB SOLN NEB PRN (21:30)
[2023-06-01] MEDS ORDERED: ACETAMINOPHEN 325 MG TAB PO PRN ×2 (21:30→23:30)
[2023-06-01] MEDS ORDERED: MORPHINE SULFATE INJ 2 MG/ml SYRG IV PRN (21:30)
[2023-06-01] MEDS ORDERED: IPRATROPIUM BROM 0.5 MG/2.5ML INH SOL NEB PRN (21:30)
[2023-06-01] MEDS ORDERED: NITROGLYCERIN 0.4 MG SL TAB SL PRN ×2 (21:30→23:30)
[2023-06-01 21:54] LABS: Basophils # (auto) 0.1 10 ^3/uL (0-0.2); Basophils % (auto) 0.7 % (0.0-2.0); Eosinophils # (auto) 0.1 10 ^3/uL (0-0.8); Eosinophils % (auto) 0.7 % (0.0-7.0); Hematocrit 31.9 % (41.0-53.0); Lymphocytes # (auto) 1.2 10 ^3/uL (0.4-5.4); Lymphocytes % (auto) 12.5 % (10.0-50.0); Mean Corpuscular Hgb Conc. 31.4 g/dL (32.0-36.0); Mean Corpuscular Volume 85.9 fL (80.0-100.0); Monocytes # (auto) 0.5 10 ^3/uL (0-1.3); Monocytes % (auto) 5.4 % (0.0-12.0); Neutrophils # (auto) 7.6 10 ^3/uL (1.6-8.6); Neutrophils % (auto) 80.7 % (37.0-80.0); Nucleated Red Blood Cells % 0.1 %; Red Blood Cells 3.71 10^6/uL (4.5-5.90); Red Cell Distribution Width 16.6 % (11.8-14.3); White Blood Cell 9.4 10^3/uL (4.4-10.8)
[2023-06-01] MEDS ORDERED: APIXABAN 5 MG TAB PO SCH ×2 (22:00→22:15)
[2023-06-01] MEDS ORDERED: levETIRAcetam 500 MG TAB PO SCH (22:00)
[2023-06-01] MEDS ORDERED: RANOLAZINE ER 500 MG TAB PO SCH (22:00)
[2023-06-01] MEDS ORDERED: GABAPENTIN 300 MG CAP PO SCH (22:00)
[2023-06-01] MEDS ORDERED: SACUBITRIL-VALSARTAN 24mg/26mg TAB PO SCH (22:00)
[2023-06-01] MEDS ORDERED: CARVEDILOL 3.125 MG TAB PO SCH (22:00)
[2023-06-01] MEDS ORDERED: ATORVASTATIN 20 MG TAB PO SCH (22:00)
[2023-06-01 22:01] LABS: COVID19 ANTIGEN SOFIA FIA NEGATIVE (NEGATIVE); Rapid Influenza A Negative (Negative); Rapid Influenza B Negative (Negative)
[2023-06-01 22:04] VITALS: BP 101/66; PULSE 95; RESP 14; O2SAT 99
[2023-06-01 23:24] LABS: Amphetamine Screen, Urine Neg (NEGATIVE); Barbiturate Scree,Urine Neg (NEGATIVE); Benzodiazephine Screen, Urine Neg (NEGATIVE); Cocaine Screen, Urine Neg (NEGATIVE); Opiate Scree,Urine Pos (NEGATIVE)
[2023-06-01 23:25] LABS: Cannabinoid Screen, Urine Pos (NEGATIVE); Phencyclidine Screen, Urine Neg (NEGATIVE)
[2023-06-01 23:28] LABS: Urine Amorphous Crystal FEW /hpf (None Seen); Urine Bacteria FEW /hpf (None Seen); Urine Blood 1+ /uL (Negative); Urine Clarity HAZY (Clear); Urine Color Yellow (Yellow); Urine Hyaline Cast FEW /lpf (0 - 2); Urine Protein, UAD 2+ (Negative); Urine WBC 42 /hpf (0 - 3); Urine WBC Clumps PRESENT /hpf (None Seen)
[2023-06-02] VITALS (16 sets, daily range): BP systolic 95–115; BP diastolic 53–75; PULSE 68–100; RESP 14–24; TEMP 97.5–98; O2SAT 86–100
[2023-06-02] MEDS ORDERED: LEVALBUTEROL HCL 1.25 MG/3 ML NEB NEB SCH
[2023-06-02] MEDS: levETIRAcetam 500 MG TAB PO SCH ×3 (00:02→22:07)
[2023-06-02] MEDS: APIXABAN 5 MG TAB PO SCH ×3 (00:02→22:08)
[2023-06-02] MEDS: GABAPENTIN 300 MG CAP PO SCH ×4 (00:03→22:14)
[2023-06-02] MEDS: RANOLAZINE ER 500 MG TAB PO SCH ×3 (00:03→22:08)
[2023-06-02] MEDS: ATORVASTATIN 20 MG TAB PO SCH ×2 (00:03→22:06)
[2023-06-02] MEDS: CARVEDILOL 3.125 MG TAB PO SCH ×3 (00:04→22:06)
[2023-06-02] MEDS: SACUBITRIL-VALSARTAN 24mg/26mg TAB PO SCH ×3 (00:06→23:21)
[2023-06-02] MEDS: LEVALBUTEROL HCL 1.25 MG/3 ML NEB NEB SCH ×4 (00:20→18:12)
[2023-06-02] MEDS: IPRATROPIUM BROM 0.5 MG/2.5ML INH SOL NEB PRN (00:20)
[2023-06-02] MEDS: MORPHINE SULFATE INJ 2 MG/ml SYRG IV PRN ×4 (01:01→22:33)
[2023-06-02 05:06] LABS: Basophils # (auto) 0 10 ^3/uL (0-0.2); Basophils % (auto) 0.1 % (0.0-2.0); Eosinophils # (auto) 0.1 10 ^3/uL (0-0.8); Eosinophils % (auto) 0.7 % (0.0-7.0); Hematocrit 32.7 % (41.0-53.0); Lymphocytes # (auto) 0.3 10 ^3/uL (0.4-5.4); Lymphocytes % (auto) 3.3 % (10.0-50.0); Mean Corpuscular Hemoglobin 26.8 pg (28.0-32.0); Mean Corpuscular Hgb Conc. 30.5 g/dL (32.0-36.0); Mean Corpuscular Volume 87.7 fL (80.0-100.0); Monocytes # (auto) 0.1 10 ^3/uL (0-1.3); Monocytes % (auto) 1.1 % (0.0-12.0); Neutrophils # (auto) 8.5 10 ^3/uL (1.6-8.6); Neutrophils % (auto) 94.8 % (37.0-80.0); Nucleated Red Blood Cells % 0.1 %; Red Blood Cells 3.73 10^6/uL (4.5-5.90)
[2023-06-02 05:21] LABS: Albumin 4.3 g/dL (3.2-4.8); Alkaline Phosphatase 85 U/L (46-116); Anion Gap 1 (5-15); Aspartate Aminotransferase 11 U/L (13-40); BUN/Creatinine Ratio 14.4 (10.0-20.0); Bilirubin, Total 0.6 mg/dL (0.2-1.0); Blood Urea Nitrogen 14 mg/dL (9-23); Calcium 9.4 mg/dL (8.7-10.4); Carbon Dioxide 37 mmol/L (20-30); Chloride 103 mmol/L (98-107); Glucose 149 mg/dL (74-106); Potassium 4.2 mmol/L (3.5-5.1); Sodium 141 mmol/L (136-145); Total Protein 7.3 g/dL (5.7-8.2)
[2023-06-02 05:29] LABS: Alanine Aminotransferase < 9 U/L (7-40)
[2023-06-02] MEDS: FUROSEMIDE 20 MG/2 ML VIAL IV SCH ×2 (05:37→17:58)
[2023-06-02] MEDS ORDERED: FUROSEMIDE 20 MG/2 ML VIAL IV SCH (06:00)
[2023-06-02] MEDS ORDERED: ASPirin 81 mg TAB PO SCH (10:00)
[2023-06-02] MEDS ORDERED: SPIRONOLACTONE 25 MG TAB PO SCH (10:00)
[2023-06-02] MEDS ORDERED: FLUoxetine HCL 10 MG CAP PO SCH (10:00)
[2023-06-02] MEDS: FLUoxetine HCL 10 MG CAP PO SCH (12:06)
[2023-06-02] MEDS: SPIRONOLACTONE 25 MG TAB PO SCH (12:07)
[2023-06-02] MEDS: ASPirin 81 mg TAB PO SCH (12:36)
[2023-06-02] MEDS ORDERED: POTA1080 PO (15:38)
[2023-06-02] MEDS ORDERED: ISOS10TA2 PO (15:40)
[2023-06-02] MEDS ORDERED: DAPA1TAB4 PO (15:40)
[2023-06-02] MEDS ORDERED: traZODone HCL 50 MG TAB PO ONE (21:30)
[2023-06-03] VITALS (17 sets, daily range): BP systolic 90–146; BP diastolic 53–83; PULSE 63–84; RESP 18–22; TEMP 97.5–97.9; O2SAT 93–100
[2023-06-03] MEDS: LEVALBUTEROL HCL 1.25 MG/3 ML NEB NEB SCH ×5 (00:16→23:53)
[2023-06-03] MEDS: MORPHINE SULFATE INJ 2 MG/ml SYRG IV PRN ×3 (02:00→15:21)
[2023-06-03] MEDS: FUROSEMIDE 20 MG/2 ML VIAL IV SCH ×2 (05:41→17:34)
[2023-06-03] MEDS: GABAPENTIN 300 MG CAP PO SCH ×3 (05:41→22:22)
[2023-06-03] MEDS: cefTRIAXone 1GM/50ML D5W 50 ML IV SCH (09:53)
[2023-06-03] MEDS: SACUBITRIL-VALSARTAN 24mg/26mg TAB PO SCH ×2 (09:53→22:29)
[2023-06-03] MEDS: CARVEDILOL 3.125 MG TAB PO SCH ×2 (09:53→22:00)
[2023-06-03] MEDS: SPIRONOLACTONE 25 MG TAB PO SCH (09:53)
[2023-06-03] MEDS: APIXABAN 5 MG TAB PO SCH ×2 (09:53→22:22)
[2023-06-03] MEDS: ASPirin 81 mg TAB PO SCH (09:53)
[2023-06-03] MEDS: RANOLAZINE ER 500 MG TAB PO SCH ×2 (09:54→22:23)
[2023-06-03] MEDS: levETIRAcetam 500 MG TAB PO SCH ×2 (09:54→22:26)
[2023-06-03] MEDS: FLUoxetine HCL 10 MG CAP PO SCH (09:55)
[2023-06-03] MEDS: IPRATROPIUM BROM 0.5 MG/2.5ML INH SOL NEB PRN ×2 (18:26→23:53)
[2023-06-03] MEDS: ATORVASTATIN 20 MG TAB PO SCH (22:26)
[2023-06-04] VITALS (11 sets, daily range): BP systolic 92–106; BP diastolic 53–67; PULSE 68–86; RESP 16–22; TEMP 97.9; O2SAT 97–100
[2023-06-04] MEDS: GABAPENTIN 300 MG CAP PO SCH (06:11)
[2023-06-04] MEDS: FUROSEMIDE 20 MG/2 ML VIAL IV SCH (06:11)
[2023-06-04] MEDS: LEVALBUTEROL HCL 1.25 MG/3 ML NEB NEB SCH ×2 (06:49→12:01)
[2023-06-04] MEDS: IPRATROPIUM BROM 0.5 MG/2.5ML INH SOL NEB PRN ×2 (06:49→12:01)
[2023-06-04] MEDS: cefTRIAXone 1GM/50ML D5W 50 ML IV SCH (08:30)
[2023-06-04] MEDS: levETIRAcetam 500 MG TAB PO SCH (08:31)
[2023-06-04] MEDS: RANOLAZINE ER 500 MG TAB PO SCH (08:31)
[2023-06-04] MEDS: ASPirin 81 mg TAB PO SCH (08:32)
[2023-06-04] MEDS: SACUBITRIL-VALSARTAN 24mg/26mg TAB PO SCH (08:32)
[2023-06-04] MEDS: SPIRONOLACTONE 25 MG TAB PO SCH (08:32)
[2023-06-04] MEDS: APIXABAN 5 MG TAB PO SCH (08:32)
[2023-06-04] MEDS: CARVEDILOL 3.125 MG TAB PO SCH (08:34)
[2023-06-04] MEDS: FLUoxetine HCL 10 MG CAP PO SCH ×3 (08:40→10:00)
[2023-06-04] MEDS ORDERED: MORPHINE SULFATE INJ 2 MG/ml SYRG IV ONE ×2 (11:00→13:45)
== END 2023-06-04 17:30 | disposition hospice, home (50) | DRG 291 ==
LOC: ER 18:13 → EDSEX 18:13 → EDBD 18:13 → TELE 21:31 → ER 21:31 → TELE-EAST 06-02 09:25
PROVIDERS: ADMIT Nurse Practitioner; ATTEND Nurse Practitioner Acute Care
PROC: 5A09357 Assistance with Respiratory Ventilation, Less than 24 Consecutive Hours, Continuous Positive Airway Pressure (ICD-10-PCS; principal; 2023-06-01)
PROC: 5A09357 Assistance with Respiratory Ventilation, Less than 24 Consecutive Hours, Continuous Positive Airway Pressure (ICD-10-PCS; 2023-06-02)
DX: I11.0 Hypertensive heart disease with heart failure (principal); I50.23 Acute on chronic systolic (congestive) heart failure; J96.21 Acute and chronic respiratory failure with hypoxia; I24.9 Acute ischemic heart disease, unspecified; J44.1 Chronic obstructive pulmonary disease with (acute) exacerbation; Z68.43 Body mass index [BMI] 50.0-59.9, adult; I42.0 Dilated cardiomyopathy; E66.01 Morbid (severe) obesity due to excess calories; Z20.822 Contact with and (suspected) exposure to COVID-19; F32.A Depression, unspecified; K21.9 Gastro-esophageal reflux disease without esophagitis; E78.5 Hyperlipidemia, unspecified; F17.210 Nicotine dependence, cigarettes, uncomplicated; G89.4 Chronic pain syndrome; I25.119 Atherosclerotic heart disease of native coronary artery with unspecified angina pectoris; Z88.0 Allergy status to penicillin; Z91.011 Allergy to milk products; Z79.01 Long term (current) use of anticoagulants; Z86.73 Personal history of transient ischemic attack (TIA), and cerebral infarction without residual deficits; Z82.49 Family history of ischemic heart disease and other diseases of the circulatory system; Z83.3 Family history of diabetes mellitus; I25.2 Old myocardial infarction; Z98.61 Coronary angioplasty status; Z86.711 Personal history of pulmonary embolism; Z95.810 Presence of automatic (implantable) cardiac defibrillator
CPT/HCPCS: 36415; 36600; 71045; 80053; 80307; 81001; 82805; 82962; 83605; 83880; 84484; 85025; 85379; 85610; 85730; 87040; 87426; 87804; 93005; 94640; 94660; 96374; 96375; G0378; J1100; J2405

== ENCOUNTER 2023-06-04 17:44 | Emergency (ER) | payer OTHER, MEDICARE, MEDICAID ==
[~2023-06-04] VITALS: Ht 170.2 cm; Wt 155.5 kg
[~2023-06-04 17:44] MED LIST changes: -ATOR-47 PO; -CAR3125T PO; -ERGO1CAP23 PO; -ESCI10TA PO; -FLUO10TA18 PO; -GABA-1250 PO; -HYDR-4902 PO; +ISOS10TA2 PO; -LEVE500T40 PO; +POTA1080 PO; -POTAGRA PO; -SENN1TAB14 PO; -SPIR25TA PO
[2023-06-04 18:27] LABS: Basophils # (auto) 0.1 10 ^3/uL (0-0.2); Eosinophils # (auto) 0.1 10 ^3/uL (0-0.8); Lymphocytes # (auto) 1.9 10 ^3/uL (0.4-5.4); Monocytes # (auto) 0.8 10 ^3/uL (0-1.3); White Blood Cell 8.3 10^3/uL (4.4-10.8)
[2023-06-04 18:29] LABS: Basophils % (auto) 0.7 % (0.0-2.0); Eosinophils % (auto) 1.3 % (0.0-7.0); Hematocrit 32.9 % (41.0-53.0); Hemoglobin 10.1 g/dL (13.5-17.5); Lymphocytes % (auto) 22.9 % (10.0-50.0); Mean Corpuscular Hgb Conc. 30.5 g/dL (32.0-36.0); Mean Corpuscular Volume 88.4 fL (80.0-100.0); Monocytes % (auto) 9.7 % (0.0-12.0); Neutrophils # (auto) 5.4 10 ^3/uL (1.6-8.6); Neutrophils % (auto) 65.4 % (37.0-80.0); Nucleated Red Blood Cells % 0.3 %; Red Blood Cells 3.72 10^6/uL (4.5-5.90); Red Cell Distribution Width 17.3 % (11.8-14.3)
[2023-06-04 18:37] VITALS: PULSE 88; RESP 24; O2SAT 100
[2023-06-04 18:44] LABS: Alanine Aminotransferase 14 U/L (7-40); Albumin 4.1 g/dL (3.2-4.8); Alkaline Phosphatase 75 U/L (46-116); Anion Gap 5 (5-15); Aspartate Aminotransferase 19 U/L (13-40); BUN/Creatinine Ratio 32.4 (10.0-20.0); Bilirubin, Total 0.3 mg/dL (0.2-1.0); Blood Urea Nitrogen 33 mg/dL (9-23); Calcium 9.1 mg/dL (8.7-10.4); Carbon Dioxide 32 mmol/L (20-30); Chloride 102 mmol/L (98-107); Glucose 104 mg/dL (74-106); Potassium 4.4 mmol/L (3.5-5.1); Sodium 139 mmol/L (136-145); Total Protein 6.6 g/dL (5.7-8.2)
[2023-06-04] MEDS ORDERED: ALBUTEROL SULF 2.5 MG/0.5ML(0.5%) NEB SOLN NEB ONE (19:00)
[2023-06-04 19:40] VITALS: PULSE 82; RESP 22; O2SAT 100
[2023-06-05] MEDS ORDERED: IPRATROPIUM BROM 0.5 MG/2.5ML INH SOL NEB ONE (06:00)
[2023-06-05] MEDS ORDERED: MORPHINE SULFATE 4 MG/ML SYR/VIAL IV ONE (06:00)
[2023-06-05] MEDS ORDERED: FUROSEMIDE 100 MG/10ML VIAL IV ONE (06:00)
[2023-06-05] MEDS ORDERED: NITROGLYCERIN 0.4 MG SL TAB SL ONE (06:00)
[2023-06-05] MEDS ORDERED: ALBUTEROL SULF 2.5 MG/0.5ML(0.5%) NEB SOLN NEB ONE (06:00)
[2023-06-05 08:00] VITALS: PULSE 111; O2SAT 92
[2023-06-05] MEDS ORDERED: ACETAMINOPHEN 325 MG TAB PO ONE (12:30)
[2023-06-05] MEDS ORDERED: MORPHINE SULFATE INJ 2 MG/ml SYRG IV ONE (14:30)
[2023-06-05 15:00] VITALS: TEMP 99; O2SAT 93
[2023-06-05 15:01] VITALS: BP 124/72; RESP 20
[2023-06-05 15:35] VITALS: PULSE 105
== END 2023-06-05 15:37 | disposition home or self-care (01) ==
LOC: ER 17:44
DX: J44.1 Chronic obstructive pulmonary disease with (acute) exacerbation (principal); I11.0 Hypertensive heart disease with heart failure; I50.9 Heart failure, unspecified; K21.9 Gastro-esophageal reflux disease without esophagitis; E78.5 Hyperlipidemia, unspecified; Z86.73 Personal history of transient ischemic attack (TIA), and cerebral infarction without residual deficits
CPT/HCPCS: 36415; 71045; 80053; 84484; 85025; 93005; 94640; 96374; 96375; 96376; 99285; J1940; J2270; J7644